=== PATIENT | male | born 1990 | race Two or more races ===

== ENCOUNTER 2020-08-04 16:23 | Emergency (ER) | payer OTHER, SELFPAY ==
[2020-08-04 17:00] VITALS: BP 162/78; PULSE 84; RESP 16; TEMP 36.6; O2SAT 96; BMI 32.3
--- NOTE | 2020-08-04 17:00 | ED_ITS ---
HPI - General Adult General Chief complaint: General Medical <Terri Miles NP - Last Filed: 08/04/20 17:04> Stated complaint: Leg Swelling <Terri Miles NP - Last Filed: 08/04/20 17:04> Time Seen by Provider: 08/04/20 16:55 <Terri Miles NP - Last Filed: 08/04/20 17:04> Source: patient <Brianna Walker MD - Last Filed: 08/05/20 02:13> History of Present Illness HPI narrative: Will 29-year-old male with significant past medical 1 kidney of wall as snorting cocaine and by Percocet off a tree and they will improve his heart in assisted he will be had worsening bilateral lower extremity swelling that is painful when he walks. Otherwise, he denies any fever, chills, shortness of breath, chest pain/palpitations, GI symptoms, or symptoms. <Brianna Walker MD - Last Filed: 08/05/20 02:13> Related Data Allergies/adverse reactions: Allergies Allergy/AdvReac Type Severity Reaction Status Date / Time No Known Allergies Allergy Unverified 04/17/20 15:52 <Terri Miles NP - Last Filed: 08/04/20 17:04> Review of Systems Review of Systems: Pertinent positives and negatives as stated in HPI 10 point review systems is otherwise negative. <Brianna Walker MD - Last Filed: 08/05/20 02:13> PMFSH Past Medical History Source: nursing notes reviewed <Brianna Walker MD - Last Filed: 08/05/20 02:13> Surgical History: Surgical History H/O kidney removal <Terri Miles NP - Last Filed: 08/04/20 17:04> Social History Social History: Social History Advance Directives: No <Terri Miles NP - Last Filed: 08/04/20 17:04> Physical Exam Vital Signs: Vital Signs: Last Vital Signs Temp 98.9 F 08/05/20 00:00 Pulse 68 08/05/20 00:00 Resp 16 08/05/20 00:00 BP 150/87 H 08/05/20 00:00 Pulse Ox 97 08/05/20 00:00 Body Mass Index 32.3 <Terri Miles NP - Last Filed: 08/04/20 17:04> Vital Signs: Last Vital Signs Temp 98.9 F 08/05/20 00:00 Pulse 68 08/05/20 00:00 Resp 16 08/05/20 00:00 BP 150/87 H 08/05/20 00:00 Pulse Ox 97 08/05/20 00:00 Body Mass Index 32.3 <Brianna Walker MD - Last Filed: 08/05/20 02:13> VITAL SIGNS: Reviewed. GENERAL: Well developed, well nourished, in no acute distress. NOSE: Nares patent bilateral OROPHARYNX: no oral lesions noted, posterior pharynx clear and non-erythematous without noted tonsillar enlargement/erythema/exudates NECK: Supple, no adenopathy LUNGS: Normal breath sounds. No adventitious sounds or accessory muscle use. SpO2<97> CARDIOVASCULAR: Regular rate and rhythm without noted murmurs, no JVD ABDOMEN: Soft, non-tender, non-distended with bowel sounds. No rigidity. No guarding. No palpable masses or hernias noted EXTREMITIES: Bilateral lower extremities with swelling, nonpitting, otherwise neurovascularly intact without evidence ulcerations or erythema noted NEUROLOGIC: Alert and oriented x 4. <Brianna Walker MD - Last Filed: 08/05/20 02:13> Course Course Course Narrative: 1700-This serves as a rapid medical screen. 29yo male with a solitary kidney, Heroin use (NOT IV) here with bilateral lower leg sweling, abdominal swelling, hand swelling bilateral >1 weEK. No cough, shortness of breath or chest pain. Will check labs. Deferred HPI, PE, ROS and further evaluation to primary provider. <Terri Miles NP - Last Filed: 08/04/20 17:04> This is a 29-year-old male with history and clinical presentation most consistent with possible renal versus DVT (although less likely). There is no evidence to suggest cellulitis. On review of all investigations there is no evidence of infection, venous duplex is negative for DVT or evidence soft tissue swelling, there are no significant electrolyte abnormalities noted, and urinalysis is negative. All results and findings were discussed with the patient at bedside and he states he does have a primary care provider whom he will follow up with in the morning. Patient was discharged in stable condition. <Brianna Walker MD - Last Filed: 08/05/20 02:13> Medical Decision Making Lab Data Result diagrams: : 08/04/20 21:35 08/04/20 21:35 <Terri Miles NP - Last Filed: 08/04/20 17:04> Labs: Lab Results 08/04/20 08/04/20 08/04/20 Range/Units 21:35 21:35 21:35 WBC 8.3 (4.8-10.8) X10*3/uL RBC 4.48 L (4.60-5.80) X10*6/uL Hgb 13.0 L (14.0-18.0) g/dl Hct 40.4 L (42-52) % MCV 90.2 (80-98) fL MCH 29.0 (27.0-33.0) pg MCHC 32.2 (31.0-36.0) g/dl RDW 13.0 (11.0-16.0) % Plt Count 350 (160-400) X10*3/uL MPV 9.3 L (9.4-12.4) fL Immature Gran % (Auto) 0.1 (0.0-0.4) % Neut % (Auto) 52.3 (45-73) % Lymph % (Auto) 26.2 (20-40) % [place] % (Auto) 8.5 (2-11) % Eos % (Auto) 12.2 H (0-4) % Baso % (Auto) 0.7 (0-2) % Lymph # (Auto) 2.2 (1.2-4.9) X10*3/uL [place] # (Auto) 0.7 (0.1-1.2) X10*3/uL Eos # (Auto) 1.0 H (0.0-0.4) X10*3/uL Baso # (Auto) 0.1 (0.0-0.2) X10*3/uL Abs Immat Gran (auto) 0.01 (0.00-0.03) X10*3/uL Absolute Neuts (auto) 4.3 (2.0-8.3) X10*3/uL Absolute Nucleated RBC 0.000 (0.0-0.012) X10*3/uL Nucleated RBC % (auto) 0.0 (0.0-0.2) /100WBC Hold Blue Top SEE NOTE Sodium 139 (135-145) mmol/L Potassium 4.7 (3.3-5.1) mmol/l Chloride 102 (96-108) mmol/L Carbon Dioxide 32 H (22-29) mmol/L Anion Gap 10 L (12-20) BUN 10 (9-16) mg/dL Creatinine 0.84 (0.5-1.4) mg/dL Estim Creat Clear Calc 135.6 Estimated GFR > 60 Random Glucose 101 (60-115) mg/dL Calcium 9.0 (8.4-10.2) mg/dL Magnesium 2.1 (1.6-2.6) mg/dL Total Bilirubin 0.4 (0.0-1.0) mg/dL Direct Bilirubin 0.2 (0.0-0.5) mg/dL AST 19 (5-37) U/L ALT 38 (0-40) U/L Alkaline Phosphatase 101 (39-117) U/L B-Natriuretic Peptide (<100) pg/mL Total Protein 7.1 (6.5-8.0) g/dL Albumin 4.1 (3.5-5.0) g/dL Urine Color Urine Appearance Urine pH (5.0-8.0) Ur Specific [place] (1.005-1.025) Urine Protein (NEG-TRACE) MG/DL Urine Glucose (UA) (NEG) MG/DL Urine Ketones (NEG) MG/DL Urine Blood (NEG) Urine Nitrite (NEG) Ur Leukocyte Esterase (NEG) Urine Opiates Screen (Not Detect) Ur Barbiturates Screen (Not Detect) Ur Phencyclidine Scrn (Not Detect) Ur Amphetamines Screen (Not Detect) U Benzodiazepines Scrn (Not Detect) Urine Cocaine Screen (Not Detect) U Marijuana (THC) Screen (Not Detect) 08/04/20 08/05/20 08/05/20 Range/Units 21:35 00:49 00:49 WBC (4.8-10.8) X10*3/uL RBC (4.60-5.80) X10*6/uL Hgb (14.0-18.0) g/dl Hct (42-52) % MCV (80-98) fL MCH (27.0-33.0) pg MCHC (31.0-36.0) g/dl RDW (11.0-16.0) % Plt Count (160-400) X10*3/uL MPV (9.4-12.4) fL Immature Gran % (Auto) (0.0-0.4) % Neut % (Auto) (45-73) % Lymph % (Auto) (20-40) % [place] % (Auto) (2-11) % Eos % (Auto) (0-4) % Baso % (Auto) (0-2) % Lymph # (Auto) (1.2-4.9) X10*3/uL [place] # (Auto) (0.1-1.2) X10*3/uL Eos # (Auto) (0.0-0.4) X10*3/uL Baso # (Auto) (0.0-0.2) X10*3/uL Abs Immat Gran (auto) (0.00-0.03) X10*3/uL Absolute Neuts (auto) (2.0-8.3) X10*3/uL Absolute Nucleated RBC (0.0-0.012) X10*3/uL Nucleated RBC % (auto) (0.0-0.2) /100WBC Hold Blue Top Sodium (135-145) mmol/L Potassium (3.3-5.1) mmol/l Chloride (96-108) mmol/L Carbon Dioxide (22-29) mmol/L Anion Gap (12-20) BUN (9-16) mg/dL Creatinine (0.5-1.4) mg/dL Estim Creat Clear Calc Estimated GFR Random Glucose (60-115) mg/dL Calcium (8.4-10.2) mg/dL Magnesium (1.6-2.6) mg/dL Total Bilirubin (0.0-1.0) mg/dL Direct Bilirubin (0.0-0.5) mg/dL AST (5-37) U/L ALT (0-40) U/L Alkaline Phosphatase (39-117) U/L B-Natriuretic Peptide 12 (<100) pg/mL Total Protein (6.5-8.0) g/dL Albumin (3.5-5.0) g/dL Urine Color YELLOW Urine Appearance CLEAR Urine pH 7.5 (5.0-8.0) Ur Specific [place] 1.020 (1.005-1.025) Urine Protein TRACE (NEG-TRACE) MG/DL Urine Glucose (UA) NEG (NEG) MG/DL Urine Ketones NEG (NEG) MG/DL Urine Blood NEG (NEG) Urine Nitrite NEG (NEG) Ur Leukocyte Esterase NEG (NEG) Urine Opiates Screen POSITIVE H (Not Detect) Ur Barbiturates Screen Not Detected (Not Detect) Ur Phencyclidine Scrn Not Detected (Not Detect) Ur Amphetamines Screen Not Detected (Not Detect) U Benzodiazepines Scrn Not Detected (Not Detect) Urine Cocaine Screen Not Detected (Not Detect) U Marijuana (THC) Screen Not Detected (Not Detect) <Terri Miles, [employer]ING SUPER[employer]OR - Last Filed: 08/04/20 17:04> Lab Results 08/04/20 08/04/20 08/04/20 Range/Units 21:35 21:35 21:35 WBC 8.3 (4.8-10.8) X10*3/uL RBC 4.48 L (4.60-5.80) X10*6/uL Hgb 13.0 L (14.0-18.0) g/dl Hct 40.4 L (42-52) % MCV 90.2 (80-98) fL MCH 29.0 (27.0-33.0) pg MCHC 32.2 (31.0-36.0) g/dl RDW 13.0 (11.0-16.0) % Plt Count 350 (160-400) X10*3/uL MPV 9.3 L (9.4-12.4) fL Immature Gran % (Auto) 0.1 (0.0-0.4) % Neut % (Auto) 52.3 (45-73) % Lymph % (Auto) 26.2 (20-40) % [place] % (Auto) 8.5 (2-11) % Eos % (Auto) 12.2 H (0-4) % Baso % (Auto) 0.7 (0-2) % Lymph # (Auto) 2.2 (1.2-4.9) X10*3/uL [place] # (Auto) 0.7 (0.1-1.2) X10*3/uL Eos # (Auto) 1.0 H (0.0-0.4) X10*3/uL Baso # (Auto) 0.1 (0.0-0.2) X10*3/uL Abs Immat Gran (auto) 0.01 (0.00-0.03) X10*3/uL Absolute Neuts (auto) 4.3 (2.0-8.3) X10*3/uL Absolute Nucleated RBC 0.000 (0.0-0.012) X10*3/uL Nucleated RBC % (auto) 0.0 (0.0-0.2) /100WBC Hold Blue Top SEE NOTE Sodium 139 (135-145) mmol/L Potassium 4.7 (3.3-5.1) mmol/l Chloride 102 (96-108) mmol/L Carbon Dioxide 32 H (22-29) mmol/L Anion Gap 10 L (12-20) BUN 10 (9-16) mg/dL Creatinine 0.84 (0.5-1.4) mg/dL Estim Creat Clear Calc 135.6 Estimated GFR > 60 Random Glucose 101 (60-115) mg/dL Calcium 9.0 (8.4-10.2) mg/dL Magnesium 2.1 (1.6-2.6) mg/dL Total Bilirubin 0.4 (0.0-1.0) mg/dL Direct Bilirubin 0.2 (0.0-0.5) mg/dL AST 19 (5-37) U/L ALT 38 (0-40) U/L Alkaline Phosphatase 101 (39-117) U/L B-Natriuretic Peptide (<100) pg/mL Total Protein 7.1 (6.5-8.0) g/dL Albumin 4.1 (3.5-5.0) g/dL Urine Color Urine Appearance Urine pH (5.0-8.0) Ur Specific [place] (1.005-1.025) Urine Protein (NEG-TRACE) MG/DL Urine Glucose (UA) (NEG) MG/DL Urine Ketones (NEG) MG/DL Urine Blood (NEG) Urine Nitrite (NEG) Ur Leukocyte Esterase (NEG) Urine Opiates Screen (Not Detect) Ur Barbiturates Screen (Not Detect) Ur Phencyclidine Scrn (Not Detect) Ur Amphetamines Screen (Not Detect) U Benzodiazepines Scrn (Not Detect) Urine Cocaine Screen (Not Detect) U Marijuana (THC) Screen (Not Detect) 08/04/20 08/05/20 08/05/20 Range/Units 21:35 00:49 00:49 WBC (4.8-10.8) X10*3/uL RBC (4.60-5.80) X10*6/uL Hgb (14.0-18.0) g/dl Hct (42-52) % MCV (80-98) fL MCH (27.0-33.0) pg MCHC (31.0-36.0) g/dl RDW (11.0-16.0) % Plt Count (160-400) X10*3/uL MPV (9.4-12.4) fL Immature Gran % (Auto) (0.0-0.4) % Neut % (Auto) (45-73) % Lymph % (Auto) (20-40) % [place] % (Auto) (2-11) % Eos % (Auto) (0-4) % Baso % (Auto) (0-2) % Lymph # (Auto) (1.2-4.9) X10*3/uL [place] # (Auto) (0.1-1.2) X10*3/uL Eos # (Auto) (0.0-0.4) X10*3/uL Baso # (Auto) (0.0-0.2) X10*3/uL Abs Immat Gran (auto) (0.00-0.03) X10*3/uL Absolute Neuts (auto) (2.0-8.3) X10*3/uL Absolute Nucleated RBC (0.0-0.012) X10*3/uL Nucleated RBC % (auto) (0.0-0.2) /100WBC Hold Blue Top Sodium (135-145) mmol/L Potassium (3.3-5.1) mmol/l Chloride (96-108) mmol/L Carbon Dioxide (22-29) mmol/L Anion Gap (12-20) BUN (9-16) mg/dL Creatinine (0.5-1.4) mg/dL Estim Creat Clear Calc Estimated GFR Random Glucose (60-115) mg/dL Calcium (8.4-10.2) mg/dL Magnesium (1.6-2.6) mg/dL Total Bilirubin (0.0-1.0) mg/dL Direct Bilirubin (0.0-0.5) mg/dL AST (5-37) U/L ALT (0-40) U/L Alkaline Phosphatase (39-117) U/L B-Natriuretic Peptide 12 (<100) pg/mL Total Protein (6.5-8.0) g/dL Albumin (3.5-5.0) g/dL Urine Color YELLOW Urine Appearance CLEAR Urine pH 7.5 (5.0-8.0) Ur Specific [place] 1.020 (1.005-1.025) Urine Protein TRACE (NEG-TRACE) MG/DL Urine Glucose (UA) NEG (NEG) MG/DL Urine Ketones NEG (NEG) MG/DL Urine Blood NEG (NEG) Urine Nitrite NEG (NEG) Ur Leukocyte Esterase NEG (NEG) Urine Opiates Screen POSITIVE H (Not Detect) Ur Barbiturates Screen Not Detected (Not Detect) Ur Phencyclidine Scrn Not Detected (Not Detect) Ur Amphetamines Screen Not Detected (Not Detect) U Benzodiazepines Scrn Not Detected (Not Detect) Urine Cocaine Screen Not Detected (Not Detect) U Marijuana (THC) Screen Not Detected (Not Detect) <Brianna Walker MD - Last Filed: 08/05/20 02:13> Discharge Plan Discharge Clinical Impression: Localized swelling of both lower legs <Terri Miles NP - Last Filed: 08/04/20 17:04> Patient Disposition: Home, Self-Care <Terri Miles NP - Last Filed: 08/04/20 17:04> Instructions: Leg Edema (ED) <Terri Miles NP - Last Filed: 08/04/20 17:04> Additional Instructions: Your bilateral lower leg swelling was investigated this evening and not found to be associated with kidney problems, clots in your legs, or evidence of infection. This will require further outpatient workup and evaluation and you are instructed to follow-up with your primary care provider to initiate these investigations. <Terri Miles NP - Last Filed: 08/04/20 17:04> Referrals: Celine Duarte MD [Primary Care Provider] - 2 days (Re-evaluation outpatient management for bilateral lower leg swelling that is negative for evidence of DVT or infection.) <Terri Miles NP - Last Filed: 08/04/20 17:04>
[2020-08-04 21:43] LABS: Basophils Absolute Auto 0.1 X10*3/uL (0.0-0.2); Basophils Percent Auto 0.7 % (0-2); Eosinophils Percent Auto 12.2 % (0-4); Hematocrit 40.4 % (42-52); Imm Gran Abs Auto 0.01 X10*3/uL (0.00-0.03); Imm Gran Pct Auto 0.1 % (0.0-0.4); Lymphocytes Absolute Auto 2.2 X10*3/uL (1.2-4.9); Lymphocytes Percent Auto 26.2 % (20-40); Mean Corpuscular HGB Conc 32.2 g/dl (31.0-36.0); Mean Corpuscular Volume 90.2 fL (80-98); Mean Platelet Volume 9.3 fL (9.4-12.4); Monocytes Absolute Auto 0.7 X10*3/uL (0.1-1.2); Monocytes Percent Auto 8.5 % (2-11); Neutrophils Absolute Auto 4.3 X10*3/uL (2.0-8.3); Neutrophils Percent Auto 52.3 % (45-73); Platelet Count 350 X10*3/uL (160-400); Red Blood Count 4.48 X10*6/uL (4.60-5.80); White Blood Count 8.3 X10*3/uL (4.8-10.8)
[2020-08-04 21:44] LABS: MANUAL DIFF FLAG NO
[2020-08-04 22:21] LABS: Alanine Aminotransferase 38 U/L (0-40); Albumin Level 4.1 g/dL (3.5-5.0); Alkaline Phosphatase 101 U/L (39-117); Anion Gap 10 (12-20); Aspartate Amino Transferase 19 U/L (5-37); Bilirubin Direct 0.2 mg/dL (0.0-0.5); Bilirubin Total 0.4 mg/dL (0.0-1.0); Blood Urea Nitrogen 10 mg/dL (9-16); Carbon Dioxide 32 mmol/L (22-29); Chloride 102 mmol/L (96-108); Creatinine Clr Calc Pharmacy 135.6; Estimated Glomerular Filt Rate > 60; Glucose Random 101 mg/dL (60-115); Magnesium 2.1 mg/dL (1.6-2.6); Potassium 4.7 mmol/l (3.3-5.1); Sodium 139 mmol/L (135-145); Total Protein 7.1 g/dL (6.5-8.0)
[2020-08-04 22:27] LABS: B Type Natriuretic Peptide 12 pg/mL (<100)
[2020-08-04 22:55] VITALS: BP 146/88; PULSE 96; RESP 16; TEMP 36.7; O2SAT 95
--- NOTE | 2020-08-04 23:19 | US_ITS ---
EXAMINATION: US VENOUS ULTRASOUND WITH DOPPLER LOWER EXTREMITY, BILATERAL CLINICAL INFORMATION: Bilateral lower extremity pain and swelling COMPARISON: None TECHNIQUE: Ultrasound of the deep veins is performed from the hip to the calf with compression sonography and color and pulse Doppler assessment. Spectral analysis with color-flow imaging is performed. FINDINGS: Bilateral prominent inguinal lymph nodes are present the largest on the right measuring 2.1 cm and the left 3.2 cm. RIGHT: There is normal venous compression and respiratory variation and augmented flow. The visualized common femoral vein, superficial femoral vein, profunda femoral vein, popliteal vein, and the trifurcation region shows no evidence of deep venous thrombosis. There is no significant popliteal fossa cyst. LEFT: There is normal venous compression and respiratory variation and augmented flow. The visualized common femoral vein, superficial femoral vein, profunda femoral vein, popliteal vein, and the trifurcation region shows no evidence of deep venous thrombosis. There is no significant popliteal fossa cyst. If the patient's symptoms persist, followup ultrasound in 5 days 7 days might be of value to exclude proximal propagation from a non-visualized calf vein. US/US venous duplex LE BI IMPRESSION: No DVT demonstrated in either lower extremity.
[2020-08-05] VITALS: BP 150/87; PULSE 68; RESP 16; TEMP 37.2; O2SAT 97
[2020-08-05 00:59] LABS: Glucose Urine UA NEG (NEG); Leukocyte Esterase Urine NEG (NEG); Nitrite Urine NEG (NEG); PH 7.5 (5.0-8.0); Urine Blood NEG (NEG); Urine Ketones NEG (NEG); Urine Protein TRACE MG/DL (NEG-TRACE)
[2020-08-05 01:00] LABS: Appearance Urine CLEAR; Color Urine YELLOW; UACC Culture Trigger NO
[2020-08-05 01:18] LABS: Amphetamine Screen Urine Not Detected (Not Detect); Barbiturates, Urine Not Detected (Not Detect); Benzodiazepines Screen Urine Not Detected (Not Detect); Cannabinoid Screen Urine Not Detected (Not Detect); Cocaine Screen Urine Not Detected (Not Detect); Opiate Screen Urine POSITIVE (Not Detect); Phencyclidine Screen Urine Not Detected (Not Detect)
[2020-08-05 02:00] VITALS: BP 152/72; PULSE 64; RESP 16; TEMP 36.5; O2SAT 99
== END 2020-08-05 02:20 | disposition home or self-care (01) ==
PROVIDERS: Nurse Practitioner Family; Emergency Provider Student in an Organized Health Care Education/Training Program; PCP Internal Medicine
DX: R22.43 Localized swelling, mass and lump, lower limb, bilateral (principal); M79.662 Pain in left lower leg; M79.661 Pain in right lower leg; Z90.5 Acquired absence of kidney; F11.90 Opioid use, unspecified, uncomplicated
CPT/HCPCS: 36415; 80048; 80076; 80307; 81003; 83735; 83880; 85025; 93970; 99284

== ENCOUNTER 2021-06-27 23:13 | Emergency (ER) | payer OTHER, SELFPAY ==
[2021-06-27 23:36] VITALS: BP 143/87; PULSE 72; RESP 16; TEMP 37.1; O2SAT 97; BMI 23.3
[2021-06-27] MEDS: Lidocaine HCl 2 % MPF 5 ML VIAL SUBCUT (23:48)
[2021-06-27] MEDS: Diphth,Pertus(ACell),Tet Adult 0.5 ML SYRINGE IM (23:48)
--- NOTE | 2021-06-27 23:51 | ED.EXTPRO ---
HPI - Extremity Problem General Chief complaint: Extremity Injury, Upper <Brianna Walker MD - Last Filed: 06/28/21 00:19> Stated complaint: Finger lac/ Work inj <Brianna Walker MD - Last Filed: 06/28/21 00:19> Time Seen by Provider: 06/27/21 23:42 <Brianna Walker MD - Last Filed: 06/28/21 00:19> Source: patient <Brianna Walker MD - Last Filed: 06/28/21 00:19> Mode of arrival: ambulatory <Brianna Walker MD - Last Filed: 06/28/21 00:19> History of Present Illness HPI Narrative: 30-year-old male with inability to recall last tetanus vaccine presents with accidental laceration to dorsal aspect of left index finger while at work. Wound is currently hemostatic and patient denies any numbness/tingling/inability to fully range his finger. <Brianna Walker MD - Last Filed: 06/28/21 00:19> Related Data Allergies/Adverse reactions: Allergies Allergy/AdvReac Type Severity Reaction Status Date / Time No Known Allergies Allergy Unverified 04/17/20 15:52 <Brianna Walker MD - Last Filed: 06/28/21 00:19> Review of Systems Review of Systems: Pertinent positives and negatives as stated in HPI 10 point review of systems is otherwise negative. <Brianna Walker MD - Last Filed: 06/28/21 00:19> PMFSH Past Medical History Source: nursing notes reviewed <Brianna Walker MD - Last Filed: 06/28/21 00:19> Surgical History: Surgical History H/O kidney removal <Brianna Walker MD - Last Filed: 06/28/21 00:19> Social History Social History: Social History Patient Tobacco Use Status: Current everyday Tobacco user Use of substances other than those prescribed or required for medical reasons: No Advance Directives: No <Brianna Walker MD - Last Filed: 06/28/21 00:19> Physical Exam Vital Signs: Vital Signs: Last Vital Signs Temp 98.7 F 06/27/21 23:54 Pulse 72 06/27/21 23:36 Resp 16 06/27/21 23:54 BP 143/87 H 06/27/21 23:54 Pulse Ox 97 06/27/21 23:54 Body Mass Index 23.3 VITAL SIGNS: Reviewed. GENERAL: Well developed, well nourished, in no acute distress. HEAD: Normocephalic/atraumatic EYES: PERRLA, EOMI OROPHARYNX: no oral lesions noted, posterior pharynx clear LUNGS: Normal breath sounds. No adventitious sounds or accessory muscle use. SpO2<97> CARDIOVASCULAR: Regular rate and rhythm without noted murmurs ABDOMEN: Soft, non-tender, non-distended with bowel sounds. LEFT INDEX FINGER: 3 cm laceration to dorsal aspect of left index finger between PIP and DIP NEUROLOGIC: Alert and oriented x 4. Strength and sensation to light touch were grossly intact x 4. <Brianna Walker MD - Last Filed: 06/28/21 00:19> Vital Signs: Last Vital Signs Temp 98.7 F 06/27/21 23:54 Pulse 72 06/27/21 23:36 Resp 16 06/27/21 23:54 BP 143/87 H 06/27/21 23:54 Pulse Ox 97 06/27/21 23:54 Body Mass Index 23.3 <Brigid Nicole NP - Last Filed: 06/28/21 00:18> Course Course Course Narrative: 30-year-old male with history and clinical presentation consistent with laceration to left index finger which was repaired without complications and patient received Tdap. <Brianna Walker MD - Last Filed: 06/28/21 00:19> Procedures Laceration Laceration 1: Site: hand <Brigid Nicole NP - Last Filed: 06/28/21 00:18> Side (If applicable): left <Brigid Nicole NP - Last Filed: 06/28/21 00:18> Size (cm): 4 <Brigid Nicole NP - Last Filed: 06/28/21 00:18> Description: flap and irregular <Brigid Nicole NP - Last Filed: 06/28/21 00:18> Depth: simple, single layer <Brigid Nicole NP - Last Filed: 06/28/21 00:18> Local Anesthetic: lidocaine 2% <Brigid Nicole NP - Last Filed: 06/28/21 00:18> Amount of anesthesia used (mL): 4 <Brigid Nicole NP - Last Filed: 06/28/21 00:18> Pre-repair: wound explored, irrigated extensively and deep structures intact <Brigid Nicole NP - Last Filed: 06/28/21 00:18> Skin layer closed with: nylon <Brigid Nicole NP - Last Filed: 06/28/21 00:18> Size (cm): 4-0 <Brigid Nicole NP - Last Filed: 06/28/21 00:18> Number of sutures: 9 <Brigid Nicole NP - Last Filed: 06/28/21 00:18> Technique: simple, interrupted <Brigid Nicole NP - Last Filed: 06/28/21 00:18> Nerve Block Nerve Block 1: Local Anesthetic: lidocaine 2% <Brigid Nicole NP - Last Filed: 06/28/21 00:18> Amount of anesthesia used (mL): 4 <Brigid Nicole NP - Last Filed: 06/28/21 00:18> Side: left <Brigid Nicole NP - Last Filed: 06/28/21 00:18> Nerve Blocks: digital <Briigd Nicole NP - Last Filed: 06/28/21 00:18> Procedure Successful: Yes <Brigid Nicole NP - Last Filed: 06/28/21 00:18> Patient Tolerated Procedure: well and no complications <Brigid Nicole NP - Last Filed: 06/28/21 00:18> Complications: none <Brigid Nicole NP - Last Filed: 06/28/21 00:18> Discharge Plan Discharge Clinical Impression: Laceration of left index finger <Brianna Walker MD - Last Filed: 06/28/21 00:19> Patient Disposition: Home, Self-Care <Brianna Walker MD - Last Filed: 06/28/21 00:19> Instructions: Care For Your Stitches (ED), Finger Laceration (ED) <Brianna Walker MD - Last Filed: 06/28/21 00:19> Additional Instructions: 1. Recommend [id number] Tylenol/ibuprofen as needed for pain control. 2. May cleanse with soap and water and blot dry after 24 hours. You should apply antibiotic ointment and cover the wound until sutures are removed in 5-7 days. Return for any fevers or purulence drainage. <Brianna Walker MD - Last Filed: 06/28/21 00:19> Referrals: Celine Duarte MD [Primary Care Provider] - 2 days <Brianna Walker MD - Last Filed: 06/28/21 00:19>
[2021-06-27 23:54] VITALS: BP 143/87; RESP 16; TEMP 37.1; O2SAT 97
--- NOTE | 2021-06-28 00:08 | PC.NURSE ---
pt a&o, no sob or chest pain. laceration clean and sutured. medicated per Sep. positive Cms and pulses.
[2021-06-28 00:44] VITALS: BP 146/96; PULSE 69; O2SAT 98
== END 2021-06-28 00:45 | disposition home or self-care (01) ==
PROVIDERS: Emergency Provider Student in an Organized Health Care Education/Training Program; PCP Internal Medicine
DX: S61.211A Laceration without foreign body of left index finger without damage to nail, initial encounter (principal); X58.XXXA Exposure to other specified factors, initial encounter; Y93.9 Activity, unspecified; Y92.9 Unspecified place or not applicable; Y99.0 Civilian activity done for income or pay
CPT/HCPCS: 12002; 90471; 90715; 99284

== ENCOUNTER 2021-07-10 16:39 | Emergency (ER) | payer OTHER, SELFPAY | END 2021-07-10 22:03 | disposition left against medical advice (07) | PROVIDERS: Emergency Provider Internal Medicine; PCP Internal Medicine | DX: Z48.02 Encounter for removal of sutures (principal) ==

== ENCOUNTER 2021-07-10 23:30 | Emergency (ER) | payer OTHER, SELFPAY ==
[2021-07-11 00:02] VITALS: BP 177/93; PULSE 111; RESP 18; TEMP 37.2; O2SAT 95; BMI 23.3
== END 2021-07-11 01:27 | disposition left against medical advice (07) ==
PROVIDERS: Emergency Provider Emergency Medicine; PCP Internal Medicine
DX: Z48.02 Encounter for removal of sutures (principal)
CPT/HCPCS: 99281; 99282

== ENCOUNTER 2021-10-21 07:09 | Inpatient (IN) | payer OTHER, SELFPAY ==
[2021-10-21] VITALS (11 sets, daily range): BP systolic 96–130; BP diastolic 48–87; PULSE 72–152; RESP 11–21; TEMP 36.6–37.2; O2SAT 87–100; BMI 23.5
--- NOTE | 2021-10-21 | ECG_ITS ---
Test Reason : cp Blood Pressure : / mmHG Vent. Rate : 078 BPM Atrial Rate : 078 BPM P-R Int : 174 ms QRS Dur : 074 ms QT Int : 382 ms P-R-T Axes : 049 088 086 degrees QTc Int : 435 ms Poor data quality Normal sinus rhythm Normal ECG When compared with ECG of 21-OCT-2021 11:11, No significant change was found Referred By: Yobani Wood Electronically Signed By:WATSON PORTILLO MD
--- NOTE | ~2021-10-21 | XR_ITS ---
EXAMINATION: XR CHEST CLINICAL INFORMATION: Possible aspiration, low O2 sat. COMPARISON: Chest 12/18/2014 TECHNIQUE: Frontal view of the chest was obtained. FINDINGS: The lungs are fairly well-expanded with increased bilateral suprahilar markings and patchy opacity suspicious for infiltrates. Rest lungs are clear. The heart size and pulmonary vascularity is normal. XR/XR chest 1V IMPRESSION: Increased bilateral suprahilar opacity and increased markings suspicious for developing infiltrates.
--- NOTE | ~2021-10-21 | US_ITS ---
EXAMINATION: US RETROPERITONEAL LIMITED (RENAL ONLY) CLINICAL INFORMATION: Renal failure. COMPARISON: None TECHNIQUE: Intervertebral imaging of ultrasound is performed. FINDINGS: RIGHT KIDNEY: The right kidney has been removed. LEFT KIDNEY: 12.3 x 7.2 x 5.6 cm (SAG x AP x TRV). The kidney is normal in size, contour, and echogenicity. Renal cortical thickness is normal. No calculi or focal parenchymal lesions. No hydronephrosis. US/US renal BI IMPRESSION: Unremarkable left kidney ultrasound. The right kidney has been surgically removed.
--- NOTE | 2021-10-21 07:12 | ED_ITS ---
HPI - Overdose General Chief Complaint: Overdose Stated Complaint: OVERDOSE,4 MG NARCAN Time Seen by Provider: 10/21/21 07:12 Source: patient and EMS Mode of arrival: EMS Limitations: no limitations History of Present Illness HPI Narrative: Family found patient unresponsive on the couch. He had 4mg IM of Narcan, dino holguin episodes of vomiting Related Data Home Medications Medication Instructions Recorded Confirmed albuterol sulfate 90 mcg/actuation 2 puff PO QID 10/21/21 10/21/21 aerosol inhaler (ProAir HFA) buprenorphine 8 mg-naloxone 2 mg 1 strip SUBLINGUAL BID 10/21/21 10/21/21 sublingual film (Suboxone) fluticasone propionate 110 2 puff PO BID 10/21/21 10/21/21 mcg/actuation HFA aerosol inhaler (Flovent HFA) Previous Rx's Medication Instructions Recorded amoxicillin 875 mg-potassium 1 tab PO BID 5 Days #10 tab 10/22/21 clavulanate 125 mg tablet Allergies Allergy/AdvReac Type Severity Reaction Status Date / Time No Known Allergies Allergy Unverified 04/17/20 15:52 Review of Systems Neurologic: Denies Sensory deficit (Neuro) COUNT INCLUDES THE [facility] Past Medical History Medical History (Updated 10/22/21 @ 16:16 by Peter Winston MD) Anxiety and depression Surgical History (Updated 10/21/21 @ 11:43 by Yobani Wood MD) H/O kidney removal H/O right nephrectomy Social History Social History Household Members: Significant Other Housing: Apartment Do you presently have visiting nurse or other home services: No Unable to assess alcohol history related to: Refusing to respond Alcohol intake: never Patient Tobacco Use Status: Tobacco use Unknown Substance Use Type: Heroin service: No Current occupational status: unemployed Physical Exam Vital Signs: Vital Signs: Last Vital Signs Temp 98.8 F 10/22/21 15:37 Pulse 80 10/22/21 15:37 Resp 14 10/22/21 15:37 BP 110/67 10/22/21 15:37 Pulse Ox 99 10/22/21 15:37 BMI result Body Mass Index 23.5 Const: Other: young male lethargic and short of breath, arousable to noxious stimulus Nutritional Appearance: average body habitus Orientation/consciousness: oriented to person and patient oriented x3 Limitations: no limitations HEENT: Other: pinpoint pupils Ears: external ears normal General nose exam: Normal external nose present Mouth: Normal oral and palatal mucosa present and oropharynx normal Throat: Yes posterior oropharynx normal Eyes: Other: pinpoint pupils Neck: Other: supple Neck: Yes normal visual inspection Chest: Chest palpation & inspection: normal inspection of the chest Resp: Auscultation: clear to auscultation bilaterally Cardio: Jugular venous distension: no JVD Rate: regular rate Rhythm: regular rhythm Heart sounds: S1 normal heart sound present and S2 normal heart sound present GI: Inspection: Yes normal to inspection Palpation (GI): Soft to palpation, nontender and No hepatosplenomegaly present Auscultation: normal bowel sounds : General: Yes no CVA tenderness Back/Spine/Pelvis: Back: no CVA tenderness Skin: General skin exam: no rashes or lesions noted Neuro: General: oriented to person and patient oriented x3 Cranial nerves: Yes CN's II-XII intact bilaterally Motor exam (neuro): 5/5 motor strength present throughout Sensory Exam: No Sensory deficit (Neuro) Extrem: General: Yes normal to inspection Psych: Appearance: grossly normal Course Reevaluation(s) Reevaluation #1: currently concerned about noncardiogenic pulmonary edema, patient with one kidney and now possible DANYEL, will repeat CHem 7 and if renal function not improved will obtain US of single kidney, sugar wildly fluctuating will repeat CHEm 7. Time: 09:16 Reevaluation #2: Creatinine slightly improved will still obtain renal US, and admit Time: 10:57 MDM - Overdose Lab Data Result diagrams: 10/21/21 07:46 10/22/21 06:18 Labs: Lab Results 10/21/21 10/21/21 10/21/21 Range/Units 07:26 07:40 07:46 WBC 12.1 H (4.8-10.8) X10*3/uL RBC 5.18 (4.60-5.80) X10*6/uL Hgb 15.9 (14.0-18.0) g/dl Hct 49.3 (42.0-52.0) % MCV 95.2 (80.0-98.0) fL MCH 30.7 (27.0-33.0) pg MCHC 32.3 (31.0-36.0) g/dl RDW 12.3 (11.0-16.0) % Plt Count 259 (160-400) X10*3/uL MPV 10.2 (9.4-12.4) fL Immature Gran % (Auto) 1.0 H (0.0-0.4) % Neut % (Auto) 88.5 H (45-73) % Lymph % (Auto) 8.6 L (20-40) % [place] % (Auto) 0.8 L (2-11) % Eos % (Auto) 0.9 (0-4) % Baso % (Auto) 0.2 (0-2) % Lymph # (Auto) 1.1 L (1.2-4.9) X10*3/uL [place] # (Auto) 0.1 (0.1-1.2) X10*3/uL Eos # (Auto) 0.1 (0.0-0.4) X10*3/uL Baso # (Auto) 0.0 (0.0-0.2) X10*3/uL Abs Immat Gran (auto) 0.12 H (0.00-0.03) X10*3/uL Absolute Neuts (auto) 10.7 H (2.0-8.3) x10*3/uL Absolute Nucleated RBC 0.000 (0.0-0.012) X10*3/uL Nucleated RBC % (auto) 0.0 (0.0-0.2) /100WBC Sodium (135-145) mmol/L Potassium (3.3-5.1) mmol/L Chloride (96-108) mmol/L Carbon Dioxide (22-29) mmol/L Anion Gap (12-20) BUN (9-16) mg/dL Creatinine (0.5-1.4) mg/dL Estim Creat Clear Calc Estimated GFR POC Glucose 248 H (60-115) mg/dL Random Glucose (60-115) mg/dL Calcium (8.4-10.2) mg/dL Troponin I High Sens (<3.5-35.0) ng/L B-Natriuretic Peptide (<100) pg/mL Procalcitonin ng/mL Urine Color Urine Appearance Urine pH (5.0-8.0) Ur Specific [place] (1.005-1.025) Urine Protein (NEG-TRACE) MG/DL Urine Glucose (UA) (NEG) MG/DL Urine Ketones (NEG) MG/DL Urine Blood (NEG) Urine Nitrite (NEG) Ur Leukocyte Esterase (NEG) Urine RBC (0) /HPF Urine WBC (0-4) /HPF Ur Squamous Epith Cells /LPF Triple Phos Crystals /LPF Urine Bacteria /LPF Urine Mucus /LPF Urine Opiates Screen (Not Detect) Urine Fentanyl Screen (Not Detect) Ur Barbiturates Screen (Not Detect) Ur Phencyclidine Scrn (Not Detect) Ur Amphetamines Screen (Not Detect) U Benzodiazepines Scrn (Not Detect) Urine Cocaine Screen (Not Detect) U Marijuana (THC) Screen (Not Detect) COVID-19 (RENITA) Negative (Negative) COVID-19 Clin Com See Note 10/21/21 10/21/21 10/21/21 Range/Units 07:46 07:46 07:46 WBC (4.8-10.8) X10*3/uL RBC (4.60-5.80) X10*6/uL Hgb (14.0-18.0) g/dl Hct (42.0-52.0) % MCV (80.0-98.0) fL MCH (27.0-33.0) pg MCHC (31.0-36.0) g/dl RDW (11.0-16.0) % Plt Count (160-400) X10*3/uL MPV (9.4-12.4) fL Immature Gran % (Auto) (0.0-0.4) % Neut % (Auto) (45-73) % Lymph % (Auto) (20-40) % [place] % (Auto) (2-11) % Eos % (Auto) (0-4) % Baso % (Auto) (0-2) % Lymph # (Auto) (1.2-4.9) X10*3/uL [place] # (Auto) (0.1-1.2) X10*3/uL Eos # (Auto) (0.0-0.4) X10*3/uL Baso # (Auto) (0.0-0.2) X10*3/uL Abs Immat Gran (auto) (0.00-0.03) X10*3/uL Absolute Neuts (auto) (2.0-8.3) x10*3/uL Absolute Nucleated RBC (0.0-0.012) X10*3/uL Nucleated RBC % (auto) (0.0-0.2) /100WBC Sodium 143 (135-145) mmol/L Potassium 5.5 H (3.3-5.1) mmol/L Chloride 102 (96-108) mmol/L Carbon Dioxide 21 L (22-29) mmol/L Anion Gap 26 H (12-20) BUN 19 H (9-16) mg/dL Creatinine 1.87 H (0.5-1.4) mg/dL Estim Creat Clear Calc 53.0 Estimated GFR 42 POC Glucose (60-115) mg/dL Random Glucose 131 H (60-115) mg/dL Calcium 10.1 D (8.4-10.2) mg/dL Troponin I High Sens 31.6 (<3.5-35.0) ng/L B-Natriuretic Peptide < 10 (<100) pg/mL Procalcitonin 0.08 ng/mL Urine Color Urine Appearance Urine pH (5.0-8.0) Ur Specific [place] (1.005-1.025) Urine Protein (NEG-TRACE) MG/DL Urine Glucose (UA) (NEG) MG/DL Urine Ketones (NEG) MG/DL Urine Blood (NEG) Urine Nitrite (NEG) Ur Leukocyte Esterase (NEG) Urine RBC (0) /HPF Urine WBC (0-4) /HPF Ur Squamous Epith Cells /LPF Triple Phos Crystals /LPF Urine Bacteria /LPF Urine Mucus /LPF Urine Opiates Screen (Not Detect) Urine Fentanyl Screen (Not Detect) Ur Barbiturates Screen (Not Detect) Ur Phencyclidine Scrn (Not Detect) Ur Amphetamines Screen (Not Detect) U Benzodiazepines Scrn (Not Detect) Urine Cocaine Screen (Not Detect) U Marijuana (THC) Screen (Not Detect) COVID-19 (RENITA) (Negative) COVID-19 Clin Com 10/21/21 10/21/21 10/21/21 Range/Units 08:13 08:13 08:56 WBC (4.8-10.8) X10*3/uL RBC (4.60-5.80) X10*6/uL Hgb (14.0-18.0) g/dl Hct (42.0-52.0) % MCV (80.0-98.0) fL MCH (27.0-33.0) pg MCHC (31.0-36.0) g/dl RDW (11.0-16.0) % Plt Count (160-400) X10*3/uL MPV (9.4-12.4) fL Immature Gran % (Auto) (0.0-0.4) % Neut % (Auto) (45-73) % Lymph % (Auto) (20-40) % [place] % (Auto) (2-11) % Eos % (Auto) (0-4) % Baso % (Auto) (0-2) % Lymph # (Auto) (1.2-4.9) X10*3/uL [place] # (Auto) (0.1-1.2) X10*3/uL Eos # (Auto) (0.0-0.4) X10*3/uL Baso # (Auto) (0.0-0.2) X10*3/uL Abs Immat Gran (auto) (0.00-0.03) X10*3/uL Absolute Neuts (auto) (2.0-8.3) x10*3/uL Absolute Nucleated RBC (0.0-0.012) X10*3/uL Nucleated RBC % (auto) (0.0-0.2) /100WBC Sodium (135-145) mmol/L Potassium (3.3-5.1) mmol/L Chloride (96-108) mmol/L Carbon Dioxide (22-29) mmol/L Anion Gap (12-20) BUN (9-16) mg/dL Creatinine (0.5-1.4) mg/dL Estim Creat Clear Calc Estimated GFR POC Glucose 51 L* (60-115) mg/dL Random Glucose (60-115) mg/dL Calcium (8.4-10.2) mg/dL Troponin I High Sens (<3.5-35.0) ng/L B-Natriuretic Peptide (<100) pg/mL Procalcitonin ng/mL Urine Color YELLOW Urine Appearance CLEAR Urine pH 6.5 (5.0-8.0) Ur Specific [place] 1.020 (1.005-1.025) Urine Protein 2+ H (NEG-TRACE) MG/DL Urine Glucose (UA) 250 H (NEG) MG/DL Urine Ketones NEG (NEG) MG/DL Urine Blood 2+ H (NEG) Urine Nitrite NEG (NEG) Ur Leukocyte Esterase NEG (NEG) Urine RBC 15-29 H (0) /HPF Urine WBC 0-2 (0-4) /HPF Ur Squamous Epith Cells TRACE /LPF Triple Phos Crystals NONE /LPF Urine Bacteria 1+ /LPF Urine Mucus 1+ /LPF Urine Opiates Screen POSITIVE H (Not Detect) Urine Fentanyl Screen POSITIVE H (Not Detect) Ur Barbiturates Screen Not Detected (Not Detect) Ur Phencyclidine Scrn Not Detected (Not Detect) Ur Amphetamines Screen Not Detected (Not Detect) U Benzodiazepines Scrn Not Detected (Not Detect) Urine Cocaine Screen POSITIVE H (Not Detect) U Marijuana (THC) Screen Not Detected (Not Detect) COVID-19 (RENITA) (Negative) COVID-19 Clin Com 10/21/21 10/21/21 10/21/21 Range/Units 09:24 10:03 10:31 WBC (4.8-10.8) X10*3/uL RBC (4.60-5.80) X10*6/uL Hgb (14.0-18.0) g/dl Hct (42.0-52.0) % MCV (80.0-98.0) fL MCH (27.0-33.0) pg MCHC (31.0-36.0) g/dl RDW (11.0-16.0) % Plt Count (160-400) X10*3/uL MPV (9.4-12.4) fL Immature Gran % (Auto) (0.0-0.4) % Neut % (Auto) (45-73) % Lymph % (Auto) (20-40) % [place] % (Auto) (2-11) % Eos % (Auto) (0-4) % Baso % (Auto) (0-2) % Lymph # (Auto) (1.2-4.9) X10*3/uL [place] # (Auto) (0.1-1.2) X10*3/uL Eos # (Auto) (0.0-0.4) X10*3/uL Baso # (Auto) (0.0-0.2) X10*3/uL Abs Immat Gran (auto) (0.00-0.03) X10*3/uL Absolute Neuts (auto) (2.0-8.3) x10*3/uL Absolute Nucleated RBC (0.0-0.012) X10*3/uL Nucleated RBC % (auto) (0.0-0.2) /100WBC Sodium 142 (135-145) mmol/L Potassium 4.3 D (3.3-5.1) mmol/L Chloride 109 H (96-108) mmol/L Carbon Dioxide 23 (22-29) mmol/L Anion Gap 14 (12-20) BUN 20 H (9-16) mg/dL Creatinine 1.48 H (0.5-1.4) mg/dL Estim Creat Clear Calc 66.9 Estimated GFR 55 POC Glucose 78 (60-115) mg/dL Random Glucose 83 D (60-115) mg/dL Calcium 8.5 D (8.4-10.2) mg/dL Troponin I High Sens 105.9 H* D (<3.5-35.0) ng/L B-Natriuretic Peptide (<100) pg/mL Procalcitonin ng/mL Urine Color Urine Appearance Urine pH (5.0-8.0) Ur Specific [place] (1.005-1.025) Urine Protein (NEG-TRACE) MG/DL Urine Glucose (UA) (NEG) MG/DL Urine Ketones (NEG) MG/DL Urine Blood (NEG) Urine Nitrite (NEG) Ur Leukocyte Esterase (NEG) Urine RBC (0) /HPF Urine WBC (0-4) /HPF Ur Squamous Epith Cells /LPF Triple Phos Crystals /LPF Urine Bacteria /LPF Urine Mucus /LPF Urine Opiates Screen (Not Detect) Urine Fentanyl Screen (Not Detect) Ur Barbiturates Screen (Not Detect) Ur Phencyclidine Scrn (Not Detect) Ur Amphetamines Screen (Not Detect) U Benzodiazepines Scrn (Not Detect) Urine Cocaine Screen (Not Detect) U Marijuana (THC) Screen (Not Detect) COVID-19 (RENITA) (Negative) COVID-19 Clin Com 10/21/21 10/21/21 Range/Units 13:09 14:34 WBC (4.8-10.8) X10*3/uL RBC (4.60-5.80) X10*6/uL Hgb (14.0-18.0) g/dl Hct (42.0-52.0) % MCV (80.0-98.0) fL MCH (27.0-33.0) pg MCHC (31.0-36.0) g/dl RDW (11.0-16.0) % Plt Count (160-400) X10*3/uL MPV (9.4-12.4) fL Immature Gran % (Auto) (0.0-0.4) % Neut % (Auto) (45-73) % Lymph % (Auto) (20-40) % [place] % (Auto) (2-11) % Eos % (Auto) (0-4) % Baso % (Auto) (0-2) % Lymph # (Auto) (1.2-4.9) X10*3/uL [place] # (Auto) (0.1-1.2) X10*3/uL Eos # (Auto) (0.0-0.4) X10*3/uL Baso # (Auto) (0.0-0.2) X10*3/uL Abs Immat Gran (auto) (0.00-0.03) X10*3/uL Absolute Neuts (auto) (2.0-8.3) x10*3/uL Absolute Nucleated RBC (0.0-0.012) X10*3/uL Nucleated RBC % (auto) (0.0-0.2) /100WBC Sodium (135-145) mmol/L Potassium (3.3-5.1) mmol/L Chloride (96-108) mmol/L Carbon Dioxide (22-29) mmol/L Anion Gap (12-20) BUN (9-16) mg/dL Creatinine (0.5-1.4) mg/dL Estim Creat Clear Calc Estimated GFR POC Glucose 163 H (60-115) mg/dL Random Glucose (60-115) mg/dL Calcium (8.4-10.2) mg/dL Troponin I High Sens 151.8 H* (<3.5-35.0) ng/L B-Natriuretic Peptide (<100) pg/mL Procalcitonin ng/mL Urine Color Urine Appearance Urine pH (5.0-8.0) Ur Specific [place] (1.005-1.025) Urine Protein (NEG-TRACE) MG/DL Urine Glucose (UA) (NEG) MG/DL Urine Ketones (NEG) MG/DL Urine Blood (NEG) Urine Nitrite (NEG) Ur Leukocyte Esterase (NEG) Urine RBC (0) /HPF Urine WBC (0-4) /HPF Ur Squamous Epith Cells /LPF Triple Phos Crystals /LPF Urine Bacteria /LPF Urine Mucus /LPF Urine Opiates Screen (Not Detect) Urine Fentanyl Screen (Not Detect) Ur Barbiturates Screen (Not Detect) Ur Phencyclidine Scrn (Not Detect) Ur Amphetamines Screen (Not Detect) U Benzodiazepines Scrn (Not Detect) Urine Cocaine Screen (Not Detect) U Marijuana (THC) Screen (Not Detect) COVID-19 (RENITA) (Negative) COVID-19 Clin Com Imaging Data Chest x-ray: My impression: bilateral interstitial infiltrates consistent with noncardiogenic pulmonary edema. ECG Data Attestation: I personally reviewed and interpreted this ECG as follows: Interpretation: normal sinus rate of 94 st elevation V2, no other st elevation Critical Care Time Critical Care Time Attestation: I spent 40 minutes of critical care, with interventions, assessments, speaking to patient, consultants, and family. Discharge Plan Discharge Clinical Impression: Drug overdose, Non-cardiogenic pulmonary edema, Acute kidney injury Patient Disposition: Admitted As Inpatient Interventions: Admission Worksheet (ED) Last Done: 10/21/21 14:31 Discharge Date/Time: 10/21/21 14:34
[2021-10-21] MEDS: Ondansetron ODT 4 MG TAB.RAPDIS TRANSLINGU (07:25)
[2021-10-21 07:30] LABS: Glucose, Whole Blood 248 mg/dL (60-115)
[2021-10-21] MEDS: Albuterol Sulfate 90 MCG 8 GM INHALER 4 PUFF INHALE (07:49)
[2021-10-21 07:50] LABS: MANUAL DIFF FLAG NO
[2021-10-21 07:52] LABS: Basophils Percent Auto 0.2 % (0-2); Eosinophils Absolute Auto 0.1 X10*3/uL (0.0-0.4); Eosinophils Percent Auto 0.9 % (0-4); Hematocrit 49.3 % (42.0-52.0); Hemoglobin 15.9 g/dl (14.0-18.0); Imm Gran Abs Auto 0.12 X10*3/uL (0.00-0.03); Lymphocytes Absolute Auto 1.1 X10*3/uL (1.2-4.9); Lymphocytes Percent Auto 8.6 % (20-40); Mean Corpuscular HGB Conc 32.3 g/dl (31.0-36.0); Mean Corpuscular Hemoglobin 30.7 pg (27.0-33.0); Mean Corpuscular Volume 95.2 fL (80.0-98.0); Mean Platelet Volume 10.2 fL (9.4-12.4); Monocytes Absolute Auto 0.1 X10*3/uL (0.1-1.2); Monocytes Percent Auto 0.8 % (2-11); Neutrophils Absolute Auto 10.7 x10*3/uL (2.0-8.3); Neutrophils Percent Auto 88.5 % (45-73); Platelet Count 259 X10*3/uL (160-400); Red Blood Count 5.18 X10*6/uL (4.60-5.80); Red Cell Distribution Width 12.3 % (11.0-16.0); White Blood Count 12.1 X10*3/uL (4.8-10.8)
[2021-10-21] MEDS: 0.9 % Sodium Chloride 1,000 ML 999 ML IVCONT (08:03)
[2021-10-21 08:07] LABS: COVID-19 Test Negative (Negative); IDNOW Serial# 16C4AD1C
[2021-10-21 08:26] LABS: Anion Gap 26 (12-20); Blood Urea Nitrogen 19 mg/dL (9-16); Calcium 10.1 mg/dL (8.4-10.2); Carbon Dioxide 21 mmol/L (22-29); Chloride 102 mmol/L (96-108); Estimated Glomerular Filt Rate 42; Glucose Random 131 mg/dL (60-115); Potassium 5.5 mmol/L (3.3-5.1); Sodium 143 mmol/L (135-145)
[2021-10-21 08:34] LABS: Amphetamine Screen Urine Not Detected (Not Detect); Barbiturates, Urine Not Detected (Not Detect); Benzodiazepines Screen Urine Not Detected (Not Detect); Cannabinoid Screen Urine Not Detected (Not Detect); Cocaine Screen Urine POSITIVE (Not Detect); Fentanyl, urine POSITIVE (Not Detect); Opiate Screen Urine POSITIVE (Not Detect); Phencyclidine Screen Urine Not Detected (Not Detect)
[2021-10-21 09:00] LABS: Glucose, Whole Blood 51 mg/dL (60-115)
[2021-10-21] MEDS: 0.9 % Sodium Chloride 1,000 ML 125 ML IVCONT (09:02)
[2021-10-21 09:16] LABS: B Type Natriuretic Peptide < 10 pg/mL (<100); Troponin-I High Sensitivity 31.6 ng/L (<3.5-35.0)
[2021-10-21 10:07] LABS: Glucose, Whole Blood 78 mg/dL (60-115)
[2021-10-21 10:08] LABS: Anion Gap 14 (12-20); Blood Urea Nitrogen 20 mg/dL (9-16); Calcium 8.5 mg/dL (8.4-10.2); Carbon Dioxide 23 mmol/L (22-29); Chloride 109 mmol/L (96-108); Creatinine Clr Calc Pharmacy 66.9; Estimated Glomerular Filt Rate 55; Glucose Random 83 mg/dL (60-115); Potassium 4.3 mmol/L (3.3-5.1); Sodium 142 mmol/L (135-145)
--- NOTE | 2021-10-21 10:26 | ECG_ITS ---
Test Reason : overdose Blood Pressure : / mmHG Vent. Rate : 094 BPM Atrial Rate : 094 BPM P-R Int : 128 ms QRS Dur : 078 ms QT Int : 342 ms P-R-T Axes : 066 076 055 degrees QTc Int : 427 ms Normal sinus rhythm Normal ECG When compared with ECG of 18-DEC-2014 19:32, Vent. rate has increased BY 31 BPM QT has lengthened Referred By: Rafi Angeles Electronically Signed By:WATSON PORTILLO MD
--- NOTE | 2021-10-21 11:03 | PHA.MEDREC ---
Pharmacy Consult ? Medication Reconciliation Pharmacy has completed the medication reconciliation. Patient reports he has not had suboxone for 1 week. Bettina Ahuja, [place]
[2021-10-21 11:26] LABS: Troponin-I High Sensitivity 105.9 ng/L (<3.5-35.0)
--- NOTE | 2021-10-21 11:28 | P.HPHOSP_ITS ---
History of Present Illness Date of Service: 10/21/21 Chief Complaint: accidental overdose This is a 31 yo M with a PMH of opiate abuse and dependence (on suboxone), anxiety/depression, R nepherectomy as a child who presents to [facility] ED after he was found unresponsive by family on the morning of admission. The history is obtained from the patients spouse, Margret Garrison (permission given by patient to speak with her), because the patient has no recollection of the events that led him to the hospital. Margret states that yesterday was a good day. The patient was in his usual state of health. She reports that yesterday evening the patient left the home with a friend. He returned shortly only to leave again. He did this multiple times. She reports that he was acting strange and she has a suspiscious that he may have done heroin/cocaine. She states that she went to bed around midnight at which point the patient was awake and alert. She states that when she awoke this morning, she found the patient on the sofa, prone positioned with vomit in the area. She states that he was gasping for air and she attempted to turn him supine but was unable to. Police/EMS were on scene and narcan (4mg) was given and the patient slowly became more alert and was brought to the ED. Upon arrival to the ED, he was noted to be hypoxic @ 87% RA. He was placed on supplemental oxygen (11L/min), given nebulized bronchodilators, IVF and admission was requested. By the time I saw the patient, his hypoxia had resolved and he appears to be breathing comfortably. He denied any substernal chest pain, cough, pleurtic c hest pain. No n/v/d. In regards to his suboxone / opiate addiction, he endorsed that he was open to a trial of methadone. He reports he snorts heroin and cocaine. Denies IV use. Review of Systems Review of Systems: negative except HPI [facility] Medical History (Updated 10/21/21 @ 11:43 by Yobani Wood MD) Anxiety and depression Pertinent family history: denies any known medical problems in the family Surgical History (Updated 10/21/21 @ 11:43 by Yobani Wood MD) H/O kidney removal H/O right nephrectomy Social History Alcohol intake: never Patient Tobacco Use Status: Current everyday Tobacco user Use of substances other than those prescribed or required for medical reasons: Yes Substance Use Type: Heroin Advance Directives: No Advance Directives Information Provided: No Meds Allergies Allergy/AdvReac Type Severity Reaction Status Date / Time No Known Allergies Allergy Unverified 04/17/20 15:52 Active Medications: Current Medications Acetaminophen (Acetaminophen 325 Mg Tablet) 650 mg PO Q6H PRN PRN Reason: Pain, Mild (Pain Scale 1-3) Albuterol Sulfate (Albuterol Sulfate (0.083%) 2.5 Mg/3 Ml Vial.Neb) 2.5 mg INHALE RQ4H WHILE AWAKE SHAILESH Enoxaparin Sodium (Enoxaparin Sodium 40 Mg/0.4 Ml Syringe) 40 mg SUBCUT Q24H SHAILESH Sodium Chloride (Ns) 1,000 mls @ 125 mls/hr IVCONT .Q8H SHAILESH Last Admin: 10/21/21 09:02 Dose: 125 mls/hr Documented by: Ampicillin Sodium/Sulbactam (Sodium 3 gm/ Sodium Chloride) 100 mls @ 200 mls/hr IV Q6H SHAILESH Ondansetron HCl (Ondansetron Hcl 4 Mg/2 Ml Vial) 4 mg IVPUSH Q8H PRN PRN Reason: Nausea and Vomiting Pharmacy Consult (Consult Rx Perform Med Rec) 1 each MISCELLANE ONCE PRN PRN Reason: Consult order Sodium Chloride (0.9 % Sodium Chloride Flush 3 Ml Syringe) 3 ml IVFLUSH [facility] Home Medications Medication Instructions Recorded Confirmed Last Taken Type albuterol sulfate 90 mcg/actuation 2 puff PO QID 10/21/21 10/21/21 Unknown History aerosol inhaler (ProAir HFA) buprenorphine 8 mg-naloxone 2 mg 1 strip SUBLINGUAL BID 10/21/21 10/21/21 10/14/21 History sublingual film (Suboxone) fluticasone propionate 110 2 puff PO BID 10/21/21 10/21/21 Unknown History mcg/actuation HFA aerosol inhaler (Flovent HFA) Physical Exam Vital Signs and Narrative: Vital Signs: Last Vital Signs Temp 98.1 F 10/21/21 07:26 Pulse 101 H 10/21/21 10:57 Resp 16 10/21/21 10:57 BP 126/82 10/21/21 10:01 Pulse Ox 96 10/21/21 10:57 BMI result Body Mass Index 23.5 Const: Other: Constitutional - Awake and Alert, No apparent distress Eyes - PERRLA, EOMI Cardiovascular - S1S2, RRR, No edema Respiratory - diminished air entry globally Gastrointestinal - NT / ND; +BS; No rebound or guarding - No CVA tenderness Extremities - no calf tenderness bilaterally, no swelling Musculoskeletal - Normal inspection, normal ROM Skin - Warm/Dry Neurological - Alert & oriented x3, No focal deficit Psychological - Flat affect Results Labs CBC and Chem 7: 10/21/21 07:46 10/21/21 09:24 Labs: Laboratory Results - last 24 hr 10/21/21 10/21/21 10/21/21 07:26 07:40 07:46 MCV 95.2 MCH 30.7 MCHC 32.3 RDW 12.3 Plt Count 259 MPV 10.2 Immature Gran % (Auto) 1.0 H Neut % (Auto) 88.5 H Lymph % (Auto) 8.6 L [place] % (Auto) 0.8 L Eos % (Auto) 0.9 Baso % (Auto) 0.2 Lymph # (Auto) 1.1 L [place] # (Auto) 0.1 Eos # (Auto) 0.1 Baso # (Auto) 0.0 Abs Immat Gran (auto) 0.12 H Absolute Neuts (auto) 10.7 H Absolute Nucleated RBC 0.000 Nucleated RBC % (auto) 0.0 Anion Gap Estim Creat Clear Calc Estimated GFR POC Glucose 248 H Random Glucose Calcium B-Natriuretic Peptide Urine Opiates Screen Urine Fentanyl Screen Ur Barbiturates Screen Ur Phencyclidine Scrn Ur Amphetamines Screen U Benzodiazepines Scrn Urine Cocaine Screen U Marijuana (THC) Screen COVID-19 (RENITA) Negative COVID-19 Clin Com See Note 10/21/21 10/21/21 10/21/21 07:46 07:46 08:13 MCV MCH MCHC RDW Plt Count MPV Immature Gran % (Auto) Neut % (Auto) Lymph % (Auto) [place] % (Auto) Eos % (Auto) Baso % (Auto) Lymph # (Auto) [place] # (Auto) Eos # (Auto) Baso # (Auto) Abs Immat Gran (auto) Absolute Neuts (auto) Absolute Nucleated RBC Nucleated RBC % (auto) Anion Gap 26 H Estim Creat Clear Calc 53.0 Estimated GFR 42 POC Glucose Random Glucose 131 H Calcium 10.1 D B-Natriuretic Peptide < 10 Urine Opiates Screen POSITIVE H Urine Fentanyl Screen POSITIVE H Ur Barbiturates Screen Not Detected Ur Phencyclidine Scrn Not Detected Ur Amphetamines Screen Not Detected U Benzodiazepines Scrn Not Detected Urine Cocaine Screen POSITIVE H U Marijuana (THC) Screen Not Detected COVID-19 (RENITA) COVID-19 Clin Com 10/21/21 10/21/21 10/21/21 08:56 09:24 10:03 MCV MCH MCHC RDW Plt Count MPV Immature Gran % (Auto) Neut % (Auto) Lymph % (Auto) [place] % (Auto) Eos % (Auto) Baso % (Auto) Lymph # (Auto) [place] # (Auto) Eos # (Auto) Baso # (Auto) Abs Immat Gran (auto) Absolute Neuts (auto) Absolute Nucleated RBC Nucleated RBC % (auto) Anion Gap 14 Estim Creat Clear Calc 66.9 Estimated GFR 55 POC Glucose 51 L* 78 Random Glucose 83 D Calcium 8.5 D B-Natriuretic Peptide Urine Opiates Screen Urine Fentanyl Screen Ur Barbiturates Screen Ur Phencyclidine Scrn Ur Amphetamines Screen U Benzodiazepines Scrn Urine Cocaine Screen U Marijuana (THC) Screen COVID-19 (RENITA) COVID-19 Clin Com Imaging Radiologist's Impressions: Impressions Chest X-Ray 10/21/21 08:27 IMPRESSION: Increased bilateral suprahilar opacity and increased markings suspicious for developing infiltrates. Assessment and Plan (1) Opiate dependence: Status: Acute Plan This is a 31 yo M with a PMH of opiate dependence on suboxone, anxiety/depression, R nephrectomy as a child, ? asthma (home meds show albuterol/flovent) who is brought in by EMS after an accidental opiate overdose. He had transient hypoxia in the ED and a CXR which likely represents aspiration. He will be admitted for further work up. 1. Acute Respiratory Failure with hypoxia required 11L O2 in the ED, now tolerating RA continue with intermittent pulse ox monitoring likely secondary to aspiration pneumonitis 2. Aspiration pneumonitis empiric IV Unasyn. Patient does not have severe sepsis hold off on steroids 3. DANYEL 3a. Mild hyperK Previous SCr is 0.84 and presented with 1.87 improving with fluids hyperK resolved give total 2L IVF not due to severe sepsis 4. Accidental opiate overdose addiction medicine consult 5. Elevated trop-I initially 31.6, increased to 105.9 no anginal symptoms and EKG without any acute ischemic findings likely secondary to presenting hypoxia check Echo repeat trop-I later today and if continues to increase -- will anticoagulate and consult cardiology Full Code DVT pptx, Lovenox Quality Stroke Does the patient have a stroke diagnosis?: No VTE Prior VTE?: No VTE Risk Level:: Medical - moderate - high VTE Device Contraindication: Treatment Not Indicated VTE Drug Contraindication: N/A - Med Ordered
[2021-10-21 11:32] LABS: Procalcitonin 0.08 ng/mL
[2021-10-21] MEDS: Albuterol Sulfate (0.083%) 2.5 MG/3 ML VIAL.NEB INHALE (11:40)
[2021-10-21] MEDS: Aspirin Enteric Coated 325 MG TABLET.DR PO (12:09)
[2021-10-21] MEDS: Enoxaparin Sodium 40 MG/0.4 ML SYRINGE SUBCUT (12:09)
[2021-10-21] MEDS: Ampicillin Sodium/Sulbactam Na 3 GM in 0.9 % Sodium Chloride 100 ML IV ×2 (12:11→17:43)
--- NOTE | 2021-10-21 12:40 | HO.ADDICT_ITS ---
History of Present Illness Date of Service: 10/21/2021 Chief Complaint: Accidental overdose Reason for Consult: Overdose Requesting physician: Yobani Wood Discussed with referring provider: Yes Sources of Information: patient interviewed and chart reviewed Additional Sources of Information: significant other, Amna HPI Narrative: Patient is a 31 year old male with history of OUD, currently medically admitted following opioid overdose. Patient seen in ED room 22. He was awake and alert and engaged in interview. Patient reported to this typewriter operator automatic that he had recently started using heroin, within the last 3 years and reports only intranasal use. He initially stated that he used 3 bags of heroin yesterday and that he had not used any prior to that for many months. He is currently prescribed Suboxone 8 mg 2 times daily and had expressed interest in transitioning to methadone. Patient denies any withdrawal sx, though this typewriter operator automatic did observe restlessness with his legs This typewriter operator automatic also spoke to patient's significant other who reported that patient been using opiates and cocaine for about 6 years. She reports that patient had been incarcerated for about 18 months and believes that this is his longest period in remission. She states that she believes patient had been stable up until late August or early September when her brother . She reports that along with opiates patient also has been buying gabapentin and Xanax on the street. He has been reporting to her a desire to enter treatment. She also reports that patient has a history of psychiatric admission for auditory and visual hallucinations. She denies that he has been showing any of the symptoms at home and has not expressed any paranoid thinking either. She states that patient had been followed by Psychiatry for some time,but he is currently not connected to any providers. Review of Systems Gastrointestinal: Denies loose stools and Denies nausea Psychiatric: Reports anxiety Diagnostics Vital Signs (24Hr): Vital Signs - 24 hr 10/21/21 07:26 10/21/21 07:51 10/21/21 08:04 Temperature 98.1 F Pulse Rate 148 H 152 H 142 H Respiratory Rate 21 H 20 Blood Pressure 130/65 129/87 Pulse Oximetry 87 L 100 10/21/21 08:54 10/21/21 10:01 10/21/21 10:57 Temperature Pulse Rate 122 H 114 H 101 H Respiratory Rate 16 16 16 Blood Pressure 127/82 126/82 Pulse Oximetry 99 100 96 10/21/21 11:40 10/21/21 12:08 Temperature 98.5 F Pulse Rate 86 92 Respiratory Rate 11 L 12 Blood Pressure 119/60 Pulse Oximetry 95 BMI result Body Mass Index 23.5 Labs Results: 10/21/21 07:46 10/21/21 09:24 Labs: Laboratory Results - last 48 hr 10/21/21 10/21/21 10/21/21 07:26 07:40 07:46 WBC 12.1 H RBC 5.18 Hgb 15.9 Hct 49.3 MCV 95.2 MCH 30.7 MCHC 32.3 RDW 12.3 Plt Count 259 MPV 10.2 Immature Gran % (Auto) 1.0 H Neut % (Auto) 88.5 H Lymph % (Auto) 8.6 L Frio % (Auto) 0.8 L Eos % (Auto) 0.9 Baso % (Auto) 0.2 Lymph # (Auto) 1.1 L Frio # (Auto) 0.1 Eos # (Auto) 0.1 Baso # (Auto) 0.0 Abs Immat Gran (auto) 0.12 H Absolute Neuts (auto) 10.7 H Absolute Nucleated RBC 0.000 Nucleated RBC % (auto) 0.0 Sodium Potassium Chloride Carbon Dioxide Anion Gap BUN Creatinine Estim Creat Clear Calc Estimated GFR POC Glucose 248 H Random Glucose Calcium Troponin I High Sens B-Natriuretic Peptide Procalcitonin Urine Opiates Screen Urine Fentanyl Screen Ur Barbiturates Screen Ur Phencyclidine Scrn Ur Amphetamines Screen U Benzodiazepines Scrn Urine Cocaine Screen U Marijuana (THC) Screen COVID-19 ([facility]) Negative COVID-19 Clin Com See Note 10/21/21 10/21/21 10/21/21 07:46 07:46 07:46 WBC RBC Hgb Hct MCV MCH MCHC RDW Plt Count MPV Immature Gran % (Auto) Neut % (Auto) Lymph % (Auto) Frio % (Auto) Eos % (Auto) Baso % (Auto) Lymph # (Auto) Frio # (Auto) Eos # (Auto) Baso # (Auto) Abs Immat Gran (auto) Absolute Neuts (auto) Absolute Nucleated RBC Nucleated RBC % (auto) Sodium 143 Potassium 5.5 H Chloride 102 Carbon Dioxide 21 L Anion Gap 26 H BUN 19 H Creatinine 1.87 H Estim Creat Clear Calc 53.0 Estimated GFR 42 POC Glucose Random Glucose 131 H Calcium 10.1 D Troponin I High Sens 31.6 B-Natriuretic Peptide < 10 Procalcitonin 0.08 Urine Opiates Screen Urine Fentanyl Screen Ur Barbiturates Screen Ur Phencyclidine Scrn Ur Amphetamines Screen U Benzodiazepines Scrn Urine Cocaine Screen U Marijuana (THC) Screen COVID-19 ([facility]) COVID-19 Clin Com 10/21/21 10/21/21 10/21/21 08:13 08:56 09:24 WBC RBC Hgb Hct MCV MCH MCHC RDW Plt Count MPV Immature Gran % (Auto) Neut % (Auto) Lymph % (Auto) Frio % (Auto) Eos % (Auto) Baso % (Auto) Lymph # (Auto) Frio # (Auto) Eos # (Auto) Baso # (Auto) Abs Immat Gran (auto) Absolute Neuts (auto) Absolute Nucleated RBC Nucleated RBC % (auto) Sodium 142 Potassium 4.3 D Chloride 109 H Carbon Dioxide 23 Anion Gap 14 BUN 20 H Creatinine 1.48 H Estim Creat Clear Calc 66.9 Estimated GFR 55 POC Glucose 51 L* Random Glucose 83 D Calcium 8.5 D Troponin I High Sens B-Natriuretic Peptide Procalcitonin Urine Opiates Screen POSITIVE H Urine Fentanyl Screen POSITIVE H Ur Barbiturates Screen Not Detected Ur Phencyclidine Scrn Not Detected Ur Amphetamines Screen Not Detected U Benzodiazepines Scrn Not Detected Urine Cocaine Screen POSITIVE H U Marijuana (THC) Screen Not Detected COVID-19 ([facility]) COVID-19 Clin Com 10/21/21 10/21/21 10:03 10:31 WBC RBC Hgb Hct MCV MCH MCHC RDW Plt Count MPV Immature Gran % (Auto) Neut % (Auto) Lymph % (Auto) Frio % (Auto) Eos % (Auto) Baso % (Auto) Lymph # (Auto) Frio # (Auto) Eos # (Auto) Baso # (Auto) Abs Immat Gran (auto) Absolute Neuts (auto) Absolute Nucleated RBC Nucleated RBC % (auto) Sodium Potassium Chloride Carbon Dioxide Anion Gap BUN Creatinine Estim Creat Clear Calc Estimated GFR POC Glucose 78 Random Glucose Calcium Troponin I High Sens 105.9 H* D B-Natriuretic Peptide Procalcitonin Urine Opiates Screen Urine Fentanyl Screen Ur Barbiturates Screen Ur Phencyclidine Scrn Ur Amphetamines Screen U Benzodiazepines Scrn Urine Cocaine Screen U Marijuana (THC) Screen COVID-19 ([facility]) COVID-19 Clin Com Imaging Radiology Impressions: ITS Impressions Chest X-Ray 10/21/21 08:27 IMPRESSION: Increased bilateral suprahilar opacity and increased markings suspicious for developing infiltrates. Mental Status Exam Mental Status Exam Patient Appearance: Well Grooomed Level of Consciousness: Awake Mood Description: Blunted Affect Description: Blunted Speech Pattern: Clear Thought Process: Slowed Thinking Judgement: Fair Medications Medications Current Medications Acetaminophen (Acetaminophen 325 Mg Tablet) 650 mg PO Q6H PRN PRN Reason: Pain, Mild (Pain Scale 1-3) Albuterol Sulfate (Albuterol Sulfate (0.083%) 2.5 Mg/3 Ml Vial.Neb) 2.5 mg INHALE RQ4H WHILE AWAKE [facility] Last Admin: 10/21/21 11:40 Dose: 2.5 mg Documented by: Enoxaparin Sodium (Enoxaparin Sodium 40 Mg/0.4 Ml Syringe) 40 mg SUBCUT Q24H [facility] Last Admin: 10/21/21 12:09 Dose: 40 mg Documented by: Sodium Chloride (Ns) 1,000 mls @ 125 mls/hr IVCONT .Q8H [facility] Stop: 10/21/21 23:29 Last Admin: 10/21/21 09:02 Dose: 125 mls/hr Documented by: Ampicillin Sodium/Sulbactam (Sodium 3 gm/ Sodium Chloride) 100 mls @ 200 mls/hr IV Q6H [facility] Last Admin: 10/21/21 12:11 Dose: 200 mls/hr Documented by: Ondansetron HCl (Ondansetron Hcl 4 Mg/2 Ml Vial) 4 mg IVPUSH Q8H PRN PRN Reason: Nausea and Vomiting Pharmacy Consult (Consult Rx Perform Med Rec) 1 each MISCELLANE ONCE PRN PRN Reason: Consult order Sodium Chloride (0.9 % Sodium Chloride Flush 3 Ml Syringe) 3 ml IVFLUSH QSHIFT [facility] Allergies Allergies Allergy/AdvReac Type Severity Reaction Status Date / Time No Known Allergies Allergy Unverified 04/17/20 15:52 Assessment & Plan Assessment & Plan (1) Opioid use disorder: Status: Acute Code(s): F11.90 - Opioid use, unspecified, uncomplicated Assessment and Plan: * Patient quite drowsy when seen in follow up by this typewriter operator automatic and RSRN. No withdrawal sx evident and none reported. Not appropriate to start methadoen at this time based on level of sedation * Methadone 10mg PRN for reported opioid withdrawal sx (2 doses) * DO NOT administer if patient continues to be sedated * Take home narcan at time of discharge * RSRN to follow up in AM regarding OTP admission I spent __55____ minutes with the patient and/or on the patient floor today, greater than?50% of which was spent counseling/coordinating care. PMFSH Past Medical History Medical History (Updated 10/21/21 @ 16:07 by Evonne Roth CNP) Anxiety and depression Surgical History Surgical History (Updated 10/21/21 @ 11:43 by Yobani Wood MD) H/O kidney removal H/O right nephrectomy Social History Social History Household Members: Significant Other Housing: Apartment Do you presently have visiting nurse or other home services: No Unable to assess alcohol history related to: Refusing to respond Alcohol intake: never Patient Tobacco Use Status: Tobacco use Unknown Use of substances other than those prescribed or required for medical reasons: Refusing to respond Substance Use Type: Heroin Advance Directives: No Advance Directives Information Provided: No Do you have thoughts of harming others: None Do you have a plan to hurt others: No Plan Recently lost weight without trying: No Nutrition Risks: On aspiration precautions Poor oral hygiene: No
[2021-10-21 13:13] LABS: Glucose, Whole Blood 163 mg/dL (60-115)
[2021-10-21 13:46] LABS: Appearance Urine CLEAR; Color Urine YELLOW; Glucose Urine UA 250 MG/DL (NEG); Leukocyte Esterase Urine NEG (NEG); Nitrite Urine NEG (NEG); PH 6.5 (5.0-8.0); UACC Culture Trigger NO; Urine Blood 2+ (NEG); Urine Ketones NEG (NEG); Urine Protein 2+ MG/DL (NEG-TRACE)
--- NOTE | 2021-10-21 14:00 | CA_ITS ---
Transthoracic Echocardiogram Patient (Last, First, Middle): Adam Hobosn, Gender: Male Date of : 1990 Age: 31 Procedure Date: 10/21/2021 Procedure Type: Transthoracic [place] [facility] [place]: 170.18 cm Weight: 68.04 kg BSA: 1.79 m2 Heart Rate: bpm BP: 126 / 82 mmHg [employer] Architect: Referring MD: Yobani Wood MD Symptoms: overdose, elevated trop-I Study Quality: Fair ECG Rhythm: Sinus Conclusions: - Normal left ventricular size, thickness, systolic function, and wall motion. The visually estimated ejection fraction is between 55-60%. Diastolic function is normal for age. - Normal right ventricular cavity size and systolic function. - The left atrium is normal in size. - Mildly elevated right atrial pressure. - The inferior vena cava is normal in size and collapses less than 50% with inspiration. Findings Left Ventricle Normal left ventricular size, thickness, systolic function, and wall motion. The visually estimated ejection fraction is between 55-60%. Diastolic function is normal for age. Right Ventricle Normal right ventricular cavity size and systolic function. Atria The left atrium is normal in size. Aortic Valve The aortic valve structure and function is likely normal. There is no aortic valve stenosis. There is no aortic valve regurgitation. Mitral Valve Normal mitral valve structure and function. There is no mitral valve regurgitation. There is no mitral valve stenosis. Pulmonic Valve The pulmonic valve was not well visualized. Tricuspid Valve Normal tricuspid valve structure and function. There is trace tricuspid valve regurgitation. Tricuspid regurgitation envelope is inadequate for calculation of right ventricular systolic pressure. Mildly elevated right atrial pressure. Great Vessels All visible segments of the aorta are normal in size. The pulmonary artery was not well visualized. Venous The inferior vena cava is normal in size and collapses less than 50% with inspiration. Pericardium/Pleural There is no evidence of pericardial effusion. Prior Study Comparison No prior study available for comparison. Measurements 2D Linear Measurements IVSd: 0.86 0.6-0.9/0.6-1.0 cm LVIDd: 4.31 3.9-5.3/4.2-5.9 cm LVIDd Index: 2.41 2.4-3.2/2.2-3.1 cm/m2 LVIDs: 2.44 2.0-3.6 cm LVPWd: 0.82 0.7-1.1 cm LA Diam: 3.40 2.7-3.8/3.0-4.0 cm LAIDs Index: 1.90 1.5-2.3 cm/m2 LV Mass: 140.14 67-162/88-224 g LV Mass Index: 78.29 43-95/49-115 g/m2 LVOT Diam: 2.00 3.0+(-)1.3 cm Mitral Valve MV VTI: 0.24 MV Pk Allen: 1.05 MV Mn Allen: 0.66 MV Pk Grad: 4.00 MV Mn Grad: 2.00 MV Pk E: 0.91 MV PK A: 0.63 MV Decel Time: 143.00 E/A: 1.50 E'Lateral: 13.70 E'Medial: 13.40 E/E' Med: 6.80 E/E' Lat: 6.70 PHT: 42.00 MVA PHT: 5.24 MVA Continuity: 2.30 Decel Bates: 6.37 Aortic Valve AoV Pk Allen: 1.32 AoV Mn Allen: 0.90 AoV VTI: 0.26 AoV Pk Grad: 7.00 Aov Mn Grad: 4.00 KELSY Cont.VTI: 2.08 LVOT LVOT Pk Allen: 0.98 LVOT Mn Allen: 0.62 LVOT VTI: 0.17 LVOT Pk Grad: 4.00 LVOT Mn Grad: 2.00 LVOT Diam: 2.00 LVOT Area: 3.14 Diastolic Function MV Pk E: 0.91 MV Pk A: 0.63 E/A: 1.50 E'Medial: 13.40 E/E' Med: 6.80 E' Laterial: 13.70 E/E' Lat: 6.70 Right Ventricle TAPSE (mm): 2.30 TVS' Allen: 13.00 Great Vessels Aorta Sinus of Valsalva: 2.60 2.0-3.5 cm Ao Asc: 2.40 2.1-3.4 cm Pulmonary Valve PV Pk Allen: 0.63 Peak PV Grad: 2.00 Updated in Other Vendor System with Status of Final Peter Winston MD electronically signed on 10/22/2021 3:59:48 AM with status of Final
[2021-10-21 14:09] LABS: Bacteria Urine 1+ /LPF; Squamous Epithelial Cell Urine TRACE /LPF; WBC Urine 0-2 /HPF (0-4)
[2021-10-21 14:10] LABS: Mucus Urine 1+ /LPF
[2021-10-21 15:22] LABS: Troponin-I High Sensitivity 151.8 ng/L (<3.5-35.0)
[2021-10-21] MEDS: Enoxaparin Sodium 30 MG/0.3 ML SYRINGE SUBCUT (15:51)
[2021-10-21] MEDS: 0.9 % Sodium Chloride Flush 3 ML SYRINGE IVFLUSH (15:51)
[2021-10-21 21:24] LABS: Troponin-I High Sensitivity 111.8 ng/L (<3.5-35.0)
[2021-10-22] VITALS: PULSE 79
[2021-10-22] MEDS: Ampicillin Sodium/Sulbactam Na 3 GM in 0.9 % Sodium Chloride 100 ML IV ×3 (00:22→11:43)
[2021-10-22] MEDS: 0.9 % Sodium Chloride Flush 3 ML SYRINGE IVFLUSH ×3 (00:22→15:22)
[2021-10-22] MEDS: Enoxaparin Sodium 80 MG/0.8 ML SYRINGE 70 MG SUBCUT ×2 (00:22→11:43)
[2021-10-22 03:44] VITALS: BP 138/85; PULSE 75; RESP 20; TEMP 36.9; O2SAT 98
[2021-10-22 07:46] VITALS: BP 150/86; PULSE 83; RESP 18; TEMP 36.9; O2SAT 97
[2021-10-22 07:59] VITALS: PULSE 83
--- NOTE | 2021-10-22 08:34 | MHC.CM.PN ---
CM met with Patient at bedside. Patient lives in an apartment with his and he is functionally independent and presently unemployed. PCP is Dr. Celine Duarte and Patient is NOT covid vaccinated. Home no services vs Care Team interventions is the goal for dc and CM has initiated and will follow for dc planning. Patient appears to have been on Suboxone [employer] and now started here on Methadone.
[2021-10-22 09:39] LABS: Anion Gap 10 (12-20); Blood Urea Nitrogen 15 mg/dL (9-16); Calcium 8.5 mg/dL (8.4-10.2); Carbon Dioxide 27 mmol/L (22-29); Chloride 107 mmol/L (96-108); Creatinine Clr Calc Pharmacy 91.8; Estimated Glomerular Filt Rate > 60; Glucose Random 103 mg/dL (60-115); Potassium 4.3 mmol/L (3.3-5.1); Sodium 140 mmol/L (135-145)
[2021-10-22] MEDS: methADONE HCl 20 MG/2 ML ORAL.CONC 10 MG PO (09:54)
--- NOTE | 2021-10-22 10:19 | PM.CNCAR ---
History of Present Illness History of Present Illness Date of Service: 10/22/21 Requesting physician: Shantelle Quintero Chief complaint: Accidental overdose, +troponins Narrative: 31-year-old gentleman with opiate abuse and dependence, anxiety and depression who is presenting for unresponsiveness from home. He was noted to be hypoxic on admission. Chest x-ray showed aspiration. This is due to accidental opiate overdose. Was noted to have mildly elevated troponin level of 30 Bryce and 105. EKG did not show any significant changes. He has no chest pain or shortness of breath. Echocardiography did not show any wall motion abnormality. [facility] Past Medical History Medical History (Updated 10/22/21 @ 16:16 by Peter Winston MD) Anxiety and depression Surgical History Surgical History (Updated 10/21/21 @ 11:43 by Yobani Wood MD) H/O kidney removal H/O right nephrectomy Social History Social History Household Members: Significant Other Housing: Apartment Do you presently have visiting nurse or other home services: No Unable to assess alcohol history related to: Refusing to respond Alcohol intake: never Patient Tobacco Use Status: Tobacco use Unknown Use of substances other than those prescribed or required for medical reasons: Refusing to respond Substance Use Type: Heroin Currently Displaying Signs/Symptoms of Drug Intoxication Withdrawal: No Advance Directives: No Advance Directives Information Provided: No Do you have thoughts of harming others: None Do you have a plan to hurt others: No Plan Recently lost weight without trying: No Nutrition Risks: On aspiration precautions Poor oral hygiene: No service: No Current occupational status: unemployed Meds Allergies Allergy/AdvReac Type Severity Reaction Status Date / Time No Known Allergies Allergy Unverified 04/17/20 15:52 Active Medications: Current Medications Acetaminophen (Acetaminophen 325 Mg Tablet) 650 mg PO Q6H PRN PRN Reason: Pain, Mild (Pain Scale 1-3) Albuterol Sulfate (Albuterol Sulfate (0.083%) 2.5 Mg/3 Ml Vial.Neb) 2.5 mg INHALE RQ4H WHILE AWAKE [facility] Last Admin: 10/22/21 07:53 Dose: Not Given Documented by: Enoxaparin Sodium (Enoxaparin Sodium 80 Mg/0.8 Ml Syringe) 70 mg SUBCUT Q12H [facility] Last Admin: 10/22/21 00:22 Dose: 70 mg Documented by: Ampicillin Sodium/Sulbactam (Sodium 3 gm/ Sodium Chloride) 100 mls @ 200 mls/hr IV Q6H [facility] Last Infusion: 10/22/21 06:35 Dose: Infused Documented by: Methadone HCl (Methadone Hcl 20 Mg/2 Ml Oral.Conc) 10 mg PO Q4H PRN PRN Reason: Opiate Withdrawal Last Admin: 10/22/21 09:54 Dose: 10 mg Documented by: Ondansetron HCl (Ondansetron Hcl 4 Mg/2 Ml Vial) 4 mg IVPUSH Q8H PRN PRN Reason: Nausea and Vomiting Pharmacy Consult (Consult Rx Perform Med Rec) 1 each MISCELLANE ONCE PRN PRN Reason: Consult order Sodium Chloride (0.9 % Sodium Chloride Flush 3 Ml Syringe) 3 ml IVFLUSH QSHIFT [facility] Last Admin: 10/22/21 07:56 Dose: 3 ml Documented by: Home Medications Medication Instructions Recorded Confirmed Last Taken Type albuterol sulfate 90 mcg/actuation 2 puff PO QID 10/21/21 10/21/21 Unknown History aerosol inhaler (ProAir HFA) buprenorphine 8 mg-naloxone 2 mg 1 strip SUBLINGUAL BID 10/21/21 10/21/21 10/14/21 History sublingual film (Suboxone) fluticasone propionate 110 2 puff PO BID 10/21/21 10/21/21 Unknown History mcg/actuation HFA aerosol inhaler (Flovent HFA) Physical Exam Vital Signs: Vital Signs: Last Vital Signs Temp 98.4 F 10/22/21 07:46 Pulse 83 10/22/21 07:46 Resp 18 10/22/21 07:46 BP 150/86 H 10/22/21 07:46 Pulse Ox 97 10/22/21 07:46 BMI result Body Mass Index 23.5 GENERAL APPEARANCE: in no acute distress, pleasant. NECK: no carotid bruit, no jugular venous distention. SKIN: no suspicious lesions, warm and dry. HEART: no murmurs, regular rate and rhythm. LUNGS: clear to auscultation bilaterally. ABDOMEN: soft, nontender. EXTREMITIES: no edema. PERIPHERAL PULSES: equal. NEUROLOGIC: No gross deficits, AAO X 3 Objective Labs and Meds Result diagrams: 10/21/21 07:46 10/22/21 06:18 Lab results: Laboratory Results - last 24 hr 10/21/21 10/21/21 10/21/21 07:46 08:13 10:31 Sodium Potassium Chloride Carbon Dioxide Anion Gap BUN Creatinine Estim Creat Clear Calc Estimated GFR POC Glucose Random Glucose Calcium Troponin I High Sens 105.9 H* D Procalcitonin 0.08 Urine Color YELLOW Urine Appearance CLEAR Urine pH 6.5 Ur Specific [facility] 1.020 Urine Protein 2+ H Urine Glucose (UA) 250 H Urine Ketones NEG Urine Blood 2+ H Urine Nitrite NEG Ur Leukocyte Esterase NEG Urine RBC 15-29 H Urine WBC 0-2 Ur Squamous Epith Cells TRACE Triple Phos Crystals NONE Urine Bacteria 1+ Urine Mucus 1+ 10/21/21 10/21/21 10/21/21 13:09 14:34 20:45 Sodium Potassium Chloride Carbon Dioxide Anion Gap BUN Creatinine Estim Creat Clear Calc Estimated GFR POC Glucose 163 H Random Glucose Calcium Troponin I High Sens 151.8 H* 111.8 H* Procalcitonin Urine Color Urine Appearance Urine pH Ur Specific [facility] Urine Protein Urine Glucose (UA) Urine Ketones Urine Blood Urine Nitrite Ur Leukocyte Esterase Urine RBC Urine WBC Ur Squamous Epith Cells Triple Phos Crystals Urine Bacteria Urine Mucus 10/22/21 06:18 Sodium 140 Potassium 4.3 Chloride 107 Carbon Dioxide 27 Anion Gap 10 L BUN 15 Creatinine 1.08 Estim Creat Clear Calc 91.8 Estimated GFR > 60 POC Glucose Random Glucose 103 Calcium 8.5 Troponin I High Sens Procalcitonin Urine Color Urine Appearance Urine pH Ur Specific [facility] Urine Protein Urine Glucose (UA) Urine Ketones Urine Blood Urine Nitrite Ur Leukocyte Esterase Urine RBC Urine WBC Ur Squamous Epith Cells Triple Phos Crystals Urine Bacteria Urine Mucus Imaging Radiologist's impression: Impressions Renal Ultrasound 10/21/21 11:45 IMPRESSION: Unremarkable left kidney ultrasound. The right kidney has been surgically removed. Assessment and Plan (1) Elevated troponin: Status: Acute Plan 31-year-old who had opiate overdose and aspiration who was hypoxic and was noted to have mildly abnormal troponin levels. EKG and echocardiography has not shown any abnormalities. He had no chest pain or shortness of breath. I think he has a type 2 event secondary to hypoxia secondary to aspiration. No further workup is required. Thank you for allowing me to participate in the care of your patient. Please feel free to contact me if you have any questions. Procedures Date of Service Date of Service: 10/22/21
[2021-10-22 11:39] VITALS: BP 139/76; PULSE 72; RESP 17; TEMP 37; O2SAT 99
[2021-10-22] MEDS: methADONE HCl 20 MG/2 ML ORAL.CONC PO (11:43)
--- NOTE | 2021-10-22 11:43 | MHC.RECOVRN ---
Met with pt to follow up regarding methadone titration/withdrawal symptoms, as well as aftercare planning. Pt currently experiencing withdrawal symptoms including rhinorrhea, chills, diaphoresis, body aches, yawning, goosebumps. Spoke with Evonne Roth APRN who ordered additional 20 mg methadone (took 10 mg prn earlier this morning) for a total so far of 30 mg today. Pt interested in further treatment for JESUS. Pt educated regarding different levels of care and appropriateness. If pt were to dc today, ATS would be beneficial. Pt agreeable. Spoke with Niurka Velasquez, pt completed phone intake at 1015. Currently no bed availability, however, t/w was informed 1-2 may open later today. No bed availability through [facility] currently. Pt would like to continue with methadone and link to an OTP. Pt unsure of which OTP at this time. Pt educated on local OTPs, will decide later today. Pt provided with t/w contact information if needed. Will continue to follow.
--- NOTE | 2021-10-22 14:35 | MHC.RECOVRN ---
Pt decided to be linked to [facility] OT. Referral has been sent. Will need last dose letter upon discharge.
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
--- NOTE | 2021-10-22 15:04 | MHC.RECOVRN ---
Pt has been medically cleared. [facility] has an available male ATS bed. Referral sent, waiting for confirmation. RN and provider aware.
[2021-10-22 15:37] VITALS: BP 110/67; PULSE 80; RESP 14; TEMP 37.1; O2SAT 99
--- NOTE | 2021-10-22 16:02 | MHC.CM.PN ---
Male 31 DX accidental OD He is discharged today to [facility]. The dispo was arranged by [facility] and the recovery team is involved. The Pts is providing transportation to the facility.
[2021-10-22] MEDS: Naloxone HCl Nasal TAKE HOME 4 MG SPRAY NOSTRILALT (16:09)
--- NOTE | 2021-10-27 12:23 | HO.SUDE ---
See Addiction Medicine Consult note by Evonne Roth APRN.
== END 2021-10-22 16:10 | disposition home or self-care (01) | DRG 812 ==
LOC: HO.ED 10:56 → HO.EDOVER 11:29 → HO.IMC 13:51
PROVIDERS: Admitting Provider Family Medicine; Emergency Provider Emergency Medicine; PCP Internal Medicine; Visit Provider Physician Assistant Medical
DX: T40.601A Poisoning by unspecified narcotics, accidental (unintentional), initial encounter (principal); J96.01 Acute respiratory failure with hypoxia; J69.0 Pneumonitis due to inhalation of food and vomit; N17.9 Acute kidney failure, unspecified; R79.89 Other specified abnormal findings of blood chemistry; E16.2 Hypoglycemia, unspecified; E87.5 Hyperkalemia; F11.20 Opioid dependence, uncomplicated; Z79.51 Long term (current) use of inhaled steroids; Z90.5 Acquired absence of kidney; Z79.899 Other long term (current) drug therapy
CPT/HCPCS: 36415; 71045; 76775; 80048; 80307; 81001; 81003; 82947; 83880; 84145; 84484; 85025; 87635; 93005; 93306; 94640; 96360; 96361; 99285; J0295; J1650

== ENCOUNTER 2022-01-08 21:15 | Inpatient (IN) | payer OTHER, SELFPAY ==
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
[2022-01-08 21:43] VITALS: BP 133/79; PULSE 85; RESP 18; TEMP 36.6; O2SAT 98; BMI 24.1
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
[2022-01-08 22:35] LABS: Amphetamine Screen Urine Not Detected (Not Detect); Barbiturates, Urine Not Detected (Not Detect); Benzodiazepines Screen Urine POSITIVE (Not Detect); Cannabinoid Screen Urine POSITIVE (Not Detect); Cocaine Screen Urine POSITIVE (Not Detect); Fentanyl, urine POSITIVE (Not Detect); Opiate Screen Urine Not Detected (Not Detect); Phencyclidine Screen Urine Not Detected (Not Detect)
[2022-01-08 22:38] LABS: COVID-19 Test Negative (Negative)
[2022-01-08 22:39] LABS: MANUAL DIFF FLAG NO
[2022-01-08 22:41] LABS: Basophils Absolute Auto 0.1 X10*3/uL (0.0-0.2); Basophils Percent Auto 1.2 % (0-2); Eosinophils Absolute Auto 0.4 X10*3/uL (0.0-0.4); Eosinophils Percent Auto 5.8 % (0-4); Hematocrit 46.4 % (42.0-52.0); Hemoglobin 15.4 g/dl (14.0-18.0); Imm Gran Abs Auto 0.01 X10*3/uL (0.00-0.03); Imm Gran Pct Auto 0.2 % (0.0-0.4); Lymphocytes Absolute Auto 1.4 X10*3/uL (1.2-4.9); Lymphocytes Percent Auto 22.4 % (20-40); Mean Corpuscular HGB Conc 33.2 g/dl (31.0-36.0); Mean Corpuscular Hemoglobin 30.6 pg (27.0-33.0); Mean Corpuscular Volume 92.2 fL (80.0-98.0); Mean Platelet Volume 10.1 fL (9.4-12.4); Monocytes Absolute Auto 0.4 X10*3/uL (0.1-1.2); Monocytes Percent Auto 5.8 % (2-11); Neutrophils Absolute Auto 3.9 x10*3/uL (2.0-8.3); Neutrophils Percent Auto 64.6 % (45-73); Platelet Count 220 X10*3/uL (160-400); Red Blood Count 5.03 X10*6/uL (4.60-5.80); Red Cell Distribution Width 12.8 % (11.0-16.0); White Blood Count 6.1 X10*3/uL (4.8-10.8)
[2022-01-08 22:55] LABS: Alanine Aminotransferase 20 U/L (0-40); Albumin Level 4.6 g/dL (3.5-5.0); Alkaline Phosphatase 105 U/L (39-117); Anion Gap 12 (12-20); Aspartate Amino Transferase 15 U/L (5-37); Bilirubin Direct 0.7 mg/dL (0.0-0.5); Bilirubin Total 2.1 mg/dL (0.0-1.0); Blood Urea Nitrogen 21 mg/dL (9-16); Calcium 9.6 mg/dL (8.4-10.2); Carbon Dioxide 27 mmol/L (22-29); Chloride 107 mmol/L (96-108); Creatinine Clr Calc Pharmacy 70.9; Estimated Glomerular Filt Rate > 60; Glucose Random 98 mg/dL (60-115); Potassium 4.7 mmol/L (3.3-5.1); Sodium 141 mmol/L (135-145); Total Protein 7.4 g/dL (6.5-8.0)
--- NOTE | 2022-01-09 02:37 | MHC.CARE ---
Pt was assessed by the CARE Team, dispo is Inpatient bedsearch
[2022-01-09 06:32] VITALS: BP 128/74; PULSE 74; RESP 16; TEMP 36.8; O2SAT 98
--- NOTE | 2022-01-09 06:38 | PC.NURSE ---
Patient slept through the night, no distress observed/reported, behavior non concerning, mood depressed, disposition per Care Team is section 12 inpatient bed search, med rec completed/pending provider's approval, VSS, will continue to monitor.
[2022-01-09 10:02] VITALS: BP 111/64; PULSE 65; TEMP 36.6; O2SAT 98
--- NOTE | 2022-01-09 13:45 | ECG_ITS ---
Test Reason : MED CLEARANCE Blood Pressure : / mmHG Vent. Rate : 053 BPM Atrial Rate : 053 BPM P-R Int : 124 ms QRS Dur : 094 ms QT Int : 414 ms P-R-T Axes : 044 087 066 degrees QTc Int : 388 ms Sinus bradycardia Otherwise normal ECG When compared with ECG of 21-OCT-2021 15:38, No significant changes seen Referred By: Daksha Valencia Electronically Signed By:CYNDI OLIVAS
--- NOTE | 2022-01-09 15:03 | PHA.MEDREC ---
Pharmacy Consult ? Medication Reconciliation Pharmacy has completed the medication reconciliation Patient reports taking topiramate twice a day, although rx is for once /day.
[2022-01-09 16:00] VITALS: BP 115/57; PULSE 62; RESP 16; TEMP 36.5; O2SAT 98
[2022-01-09] MEDS: Buprenorphine/Naloxone 8/2 mg FILM 1 FILM SUBLINGUAL ×2 (16:40→21:56)
[2022-01-09] MEDS: cloNIDine HCL 0.1 MG TABLET PO (17:52)
[2022-01-09] MEDS: Acetaminophen 325 MG TABLET 650 MG PO (17:54)
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
[2022-01-09 21:51] VITALS: BP 112/61; PULSE 60; RESP 16; TEMP 36.7; O2SAT 98
[2022-01-09] MEDS: traZODone HCL 50 MG TABLET PO (21:56)
[2022-01-09] MEDS: hydrOXYzine HCL 25 MG TABLET PO (21:56)
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
[2022-01-10 07:46] LABS: Estimated Average Glucose 100 mg/dL; Hemoglobin A1c % 5.1 %
[2022-01-10 08:00] VITALS: BP 117/57; PULSE 63; RESP 16; TEMP 36.6; O2SAT 97
[2022-01-10 08:15] LABS: Alanine Aminotransferase 14 U/L (0-40); Albumin Level 3.8 g/dL (3.5-5.0); Alkaline Phosphatase 91 U/L (39-117); Anion Gap 10 (12-20); Aspartate Amino Transferase 12 U/L (5-37); Bilirubin Total 1.1 mg/dL (0.0-1.0); Blood Urea Nitrogen 21 mg/dL (9-16); Calcium 9.1 mg/dL (8.4-10.2); Carbon Dioxide 27 mmol/L (22-29); Chloride 107 mmol/L (96-108); Cholesterol 165 mg/dL; Creatinine Clr Calc Pharmacy 73.8; Estimated Glomerular Filt Rate > 60; Glucose Fasting 100 mg/dL (60-99); HDL Cholesterol 41 mg/dL; LDL Cholesterol Calculated 108 mg/dl; Magnesium 1.9 mg/dL (1.6-2.6); Potassium 4.2 mmol/L (3.3-5.1); Sodium 140 mmol/L (135-145); Total Protein 6.3 g/dL (6.5-8.0); Triglycerides 84 mg/dL
[2022-01-10] MEDS: Nicotine 21 MG PATCH.TD24 TRANSDERMA (09:14)
[2022-01-10] MEDS: cloNIDine HCL 0.1 MG TABLET PO ×3 (09:16→19:40)
[2022-01-10] MEDS: Buprenorphine/Naloxone 8/2 mg FILM 1 FILM SUBLINGUAL ×2 (09:16→20:17)
[2022-01-10] MEDS: Gabapentin 300 MG CAPSULE PO ×2 (14:22→20:17)
[2022-01-10 19:35] VITALS: BP 116/67; PULSE 63; RESP 18; TEMP 36.7; O2SAT 99
[2022-01-10] MEDS: traZODone HCL 50 MG TABLET PO (20:18)
[2022-01-11] MEDS: Gabapentin 300 MG CAPSULE PO ×3 (09:14→20:12)
[2022-01-11] MEDS: Buprenorphine/Naloxone 8/2 mg FILM 1 FILM SUBLINGUAL ×2 (09:14→20:12)
[2022-01-11] MEDS: Nicotine 21 MG PATCH.TD24 TRANSDERMA (09:14)
[2022-01-11 09:15] VITALS: BP 110/65; PULSE 62; RESP 17; TEMP 36.6; O2SAT 100
[2022-01-11] MEDS: cloNIDine HCL 0.1 MG TABLET PO ×2 (09:15→12:16)
[2022-01-11 09:50] LABS: Folate 10.7 ng/mL (> or = 4.0); Vitamin B12 512 pg/mL (200-900)
[2022-01-11] MEDS: hydrOXYzine HCL 50 MG TABLET PO ×2 (14:16→20:12)
--- NOTE | 2022-01-11 15:23 | P.PNPSI_ITS ---
Subjective Subjective Date of Service: 01/11/22 Reason For Visit: SI Subjective Notes: Conditional Voluntary Interim History: Pt reports feeling less anxious, chronic AH, but not command and good insight as to they are hallucinations. He reports feeling hopeless, passive SI, but no plan or intent to hurt himself. Pt reports he slept well. We discussed adding remeron as antidepressant. No behavioral concerns. Medication Compliance: Yes Review of Systems Review of Systems Constitutional : No Fever, No Chills ENT/Mouth : No Ear Pain, No Nasal Congestion, No sore throat Eyes: No Eye Pain, No Swelling, No Redness Cardiovascular : No Chest Pain, No SOB Respiratory : No Cough, No Sputum, No Dyspnea Gastrointestinal : No Nausea, No Vomiting, No Diarrhea, No Hematochezia, No Melena Genitourinary : No Dysuria, No Urinary Frequency, No Hematuria Musculoskeletal : No Myalgias Skin : No Skin Lesions, No rash Neuro : No Weakness, No Numbness, No Paresthesias, No Dizziness, pos Headache Psych : positive Anxiety, positive Depression, positive SI no HI Heme/Lymph: No Lymphadenopathy Endocrine : No Polyuria, No Polydipsia All other systems reviewed and are negative Constitutional: Reports no additional constitutional complaints Eyes: Reports no additional eye complaints Cardiovascular: Denies chest pain, Denies chest pain with activity, Denies epigastric discomfort, Denies irregular heart rhythm, Denies lightheadedness, Denies dyspnea on exertion and Denies orthopnea Respiratory: Denies chest congestion, Denies cough, Denies hemoptysis, Denies pain with cough and Denies dyspnea on exertion Gastrointestinal: Denies constipation and Denies diarrhea Musculoskeletal: Reports myalgias Mental Status Exam Mental Status Exam Narrative: Appearance: casually groomed, fair hygiene in NAD Behavior:cooperative psychomotor: no psychomotor agitation or retardation noted Speech:clear, normal rate/rhythm/volume, spontaneous Thought process:linear Thought content:no psychosis or delusions, wanting help with tx. Mood: anxious Affect: congruent SI:passive HI:none VH/AH:+Ah not command Delusions:none Insight/judgment:fair x 2. Memory/cog: alert, oriented x 3. grossly intact to conversational testing. Diagnostics Vital Signs (24Hr): Vital Signs - 24 hr 01/10/22 19:35 01/11/22 09:15 Temperature 98.1 F 97.9 F Pulse Rate 63 62 Respiratory Rate 18 17 Blood Pressure 116/67 110/65 Pulse Oximetry 99 100 Oxygen Delivery Method Room Air Room Air BMI result Body Mass Index 24.1 Labs Results: 01/08/22 22:35 01/10/22 07:17 Labs: Laboratory Results - last 48 hr 01/10/22 01/10/22 01/10/22 07:17 07:17 07:17 Sodium 140 Potassium 4.2 Chloride 107 Carbon Dioxide 27 Anion Gap 10 L BUN 21 H Creatinine 1.25 Estim Creat Clear Calc 73.8 Estimated GFR > 60 Fasting Glucose 100 H Estimat Average Glucose 100 Hemoglobin A1c % 5.1 Calcium 9.1 Magnesium 1.9 Total Bilirubin 1.1 H AST 12 ALT 14 Alkaline Phosphatase 91 Total Protein 6.3 L Albumin 3.8 Triglycerides 84 Cholesterol 165 LDL Cholesterol, Calc 108 HDL Cholesterol 41 Vitamin B12 512 Folate 10.7 TSH 0.30 L Imaging Radiology Impressions: ITS Impressions Head CT 01/08/22 22:10 IMPRESSION: 1. No evidence of acute intracranial hemorrhage or edematous territorial infarction. 2. Atelectasis of the bilateral maxillary sinuses. Medications Medications Current Medications Acetaminophen (Acetaminophen 325 Mg Tablet) 650 mg PO Q6H PRN PRN Reason: Headache/Pain Mild Scale (1-3) Last Admin: 01/09/22 17:54 Dose: 650 mg Al Hydroxide/Mg Hydroxide (Magnesium Hydrox/Alum Hydrox 30 Ml Oral.Susp) 30 ml PO Q6H PRN PRN Reason: Heartburn/Nausea Buprenorphine/Naloxone (Buprenorphine/Naloxone 8/2 Mg Film) 1 film SUBLINGUAL BID [facility] Last Admin: 01/11/22 09:14 Dose: 1 film Clonidine HCl (Clonidine Hcl 0.1 Mg Tablet) 0.1 mg PO TID PRN; Protocol PRN Reason: Anxiety Last Admin: 01/11/22 12:16 Dose: 0.1 mg Gabapentin (Gabapentin 300 Mg Capsule) 300 mg PO TID [facility] Last Admin: 01/11/22 14:30 Dose: 300 mg Hydroxyzine HCl (Hydroxyzine Hcl 25 Mg Tablet) 25 mg PO BEDTIME PRN PRN Reason: Anxiety Last Admin: 01/09/22 21:56 Dose: 25 mg Hydroxyzine HCl (Hydroxyzine Hcl 50 Mg Tablet) 50 mg PO Q6H PRN PRN Reason: anxiety/sleep Last Admin: 01/11/22 14:16 Dose: 50 mg Magnesium Hydroxide (Milk Of Magnesia 30 Ml Oral.Susp) 30 ml PO DAILY PRN PRN Reason: Constipation Nicotine (Nicotine 21 Mg Patch.Td24) 21 mg TRANSDERMA DAILY [facility] Last Admin: 01/11/22 09:14 Dose: 21 mg Nicotine Polacrilex (Nicotine Polacrilex 2 Mg Gum) 2 mg BUCCAL Q2H PRN PRN Reason: cravings Pharmacy Consult (Consult Rx Perform Med Rec) 1 each MISCELLANE ONCE PRN PRN Reason: Consult order Risperidone (Risperidone 1 Mg Tablet) 1 mg PO BEDTIME [facility] Trazodone HCl (Trazodone Hcl 50 Mg Tablet) 50 mg PO BEDTIME PRN PRN Reason: Insomnia Last Admin: 01/10/22 20:18 Dose: 50 mg Allergies Allergies Allergy/AdvReac Type Severity Reaction Status Date / Time No Known Allergies Allergy Unverified 04/17/20 15:52 Assessment & Plan Assessment & Plan (1) Mood disorder: Status: Acute Code(s): F39 - Unspecified mood [affective] disorder (2) Opioid use disorder: Status: Acute Code(s): F11.90 - Opioid use, unspecified, uncomplicated (3) Cocaine use disorder, severe, dependence: Status: Acute Code(s): F14.20 - Cocaine dependence, uncomplicated Plan Mr. Hobson is a 31 year-old male with hx of opioid and cocaine use, hx of incarceration, self presented to [facility] ED reporting suicidal ideation and depression. Pt reports difficulty adjusting to life outside of longterm after 18 months of encarceration. Utox positive for fentanyl and cocaine. he denies using fentanyl or any other opiods. He is on suboxone- which he reports helpful. AH for several years may be related to substance use but they do occur now not only when using. We discussed risks, benefits and alternative treatment options. PLAN 1. Admit to M3. CV 15 minutes checks for safety 2. Start gabepentin 300mg po TID mood 3. low dose risperidone for voices 1mg po qhs. may consider antidepressant but pt also reports he has not done well- more agitated. 4. Ontain collateral information 5. Aftercare planning. 01/11- will start remeron for depression. referrals for [facility] sent by ISABELLE. I spent minutes with the patient and/or on the patient floor today, greater than?50% of which was spent counseling/coordinating care. Reason for contiued inpatient stay Substantial Risk for: harm to self
[2022-01-11] MEDS: Nicotine Polacrilex 2 MG GUM BUCCAL (15:29)
[2022-01-11] MEDS: traZODone HCL 50 MG TABLET PO (20:12)
[2022-01-11] MEDS: risperiDONE 1 MG TABLET PO (20:12)
[2022-01-11] MEDS: Mirtazapine 15 MG TABLET PO (20:12)
[2022-01-11 20:15] VITALS: BP 120/67; PULSE 69; RESP 18; TEMP 37; O2SAT 98
[2022-01-12 08:30] VITALS: BP 105/67; PULSE 63; RESP 16; TEMP 36.4; O2SAT 97
[2022-01-12] MEDS: Gabapentin 300 MG CAPSULE PO ×3 (08:47→20:47)
[2022-01-12] MEDS: Buprenorphine/Naloxone 8/2 mg FILM 1 FILM SUBLINGUAL ×2 (08:48→20:48)
[2022-01-12] MEDS: hydrOXYzine HCL 50 MG TABLET PO ×2 (08:51→16:00)
[2022-01-12] MEDS: Nicotine 21 MG PATCH.TD24 TRANSDERMA (08:51)
[2022-01-12] MEDS: cloNIDine HCL 0.1 MG TABLET PO (13:03)
--- NOTE | 2022-01-12 16:03 | P.PNPSI_ITS ---
Subjective Subjective Date of Service: 01/12/22 Reason For Visit: SI Subjective Notes: Conditional Voluntary Interim History: Pt reports feeling better today in terms of his mood in that he feels less anxious, less depressed. He denies suicidal ideation. He continues to report that he wants to go to [facility] and get more stable on his substance use as he sees how it affects his ability to care for his family. He reports sleeping well. No behavioral concerns. Medication Compliance: Yes Side effects from medications: No Attending Groups: Intermittent Review of Systems Review of Systems Constitutional : No Fever, No Chills ENT/Mouth : No Ear Pain, No Nasal Congestion, No sore throat Eyes: No Eye Pain, No Swelling, No Redness Cardiovascular : No Chest Pain, No SOB Respiratory : No Cough, No Sputum, No Dyspnea Gastrointestinal : No Nausea, No Vomiting, No Diarrhea, No Hematochezia, No Melena Genitourinary : No Dysuria, No Urinary Frequency, No Hematuria Musculoskeletal : No Myalgias Skin : No Skin Lesions, No rash Neuro : No Weakness, No Numbness, No Paresthesias, No Dizziness, pos Headache Psych : positive Anxiety, positive Depression, positive SI no HI Heme/Lymph: No Lymphadenopathy Endocrine : No Polyuria, No Polydipsia All other systems reviewed and are negative Constitutional: Reports no additional constitutional complaints Eyes: Reports no additional eye complaints Cardiovascular: Denies chest pain, Denies chest pain with activity, Denies epigastric discomfort, Denies irregular heart rhythm, Denies lightheadedness, Denies dyspnea on exertion and Denies orthopnea Respiratory: Denies chest congestion, Denies cough, Denies hemoptysis, Denies pain with cough and Denies dyspnea on exertion Gastrointestinal: Denies constipation and Denies diarrhea Musculoskeletal: Reports myalgias Mental Status Exam Mental Status Exam Narrative: Appearance: casually groomed, fair hygiene in NAD Behavior:cooperative psychomotor: no psychomotor agitation or retardation noted Speech:clear, normal rate/rhythm/volume, spontaneous Thought process:linear Thought content:no psychosis or delusions, wanting help with tx. Mood: anxious Affect: congruent SI:passive HI:none VH/AH:+Ah not command Delusions:none Insight/judgment:fair x 2. Memory/cog: alert, oriented x 3. grossly intact to conversational testing. Diagnostics Vital Signs (24Hr): Vital Signs - 24 hr 01/11/22 20:15 01/12/22 08:30 Temperature 98.6 F 97.6 F Pulse Rate 69 63 Respiratory Rate 18 16 Blood Pressure 120/67 105/67 Pulse Oximetry 98 97 Oxygen Delivery Method Room Air Room Air BMI result Body Mass Index 24.1 Labs Results: 01/08/22 22:35 01/10/22 07:17 Labs: Laboratory Results - last 48 hr 01/10/22 07:17 Vitamin B12 512 Folate 10.7 Imaging Radiology Impressions: ITS Impressions Head CT 01/08/22 22:10 IMPRESSION: 1. No evidence of acute intracranial hemorrhage or edematous territorial infarction. 2. Atelectasis of the bilateral maxillary sinuses. Medications Medications Current Medications Acetaminophen (Acetaminophen 325 Mg Tablet) 650 mg PO Q6H PRN PRN Reason: Headache/Pain Mild Scale (1-3) Last Admin: 01/09/22 17:54 Dose: 650 mg Al Hydroxide/Mg Hydroxide (Magnesium Hydrox/Alum Hydrox 30 Ml Oral.Susp) 30 ml PO Q6H PRN PRN Reason: Heartburn/Nausea Buprenorphine/Naloxone (Buprenorphine/Naloxone 8/2 Mg Film) 1 film SUBLINGUAL BID [facility] Last Admin: 01/12/22 08:48 Dose: 1 film Clonidine HCl (Clonidine Hcl 0.1 Mg Tablet) 0.1 mg PO TID PRN; Protocol PRN Reason: Anxiety Last Admin: 01/12/22 13:03 Dose: 0.1 mg Gabapentin (Gabapentin 300 Mg Capsule) 300 mg PO TID [facility] Last Admin: 01/12/22 15:50 Dose: 300 mg Hydroxyzine HCl (Hydroxyzine Hcl 25 Mg Tablet) 25 mg PO BEDTIME PRN PRN Reason: Anxiety Last Admin: 01/09/22 21:56 Dose: 25 mg Hydroxyzine HCl (Hydroxyzine Hcl 50 Mg Tablet) 50 mg PO Q6H PRN PRN Reason: anxiety/sleep Last Admin: 01/12/22 16:00 Dose: 50 mg Magnesium Hydroxide (Milk Of Magnesia 30 Ml Oral.Susp) 30 ml PO DAILY PRN PRN Reason: Constipation Mirtazapine (Mirtazapine 15 Mg Tablet) 15 mg PO BEDTIME [facility] Last Admin: 01/11/22 20:12 Dose: 15 mg Nicotine (Nicotine 21 Mg Patch.Td24) 21 mg TRANSDERMA DAILY [facility] Last Admin: 01/12/22 08:51 Dose: 21 mg Nicotine Polacrilex (Nicotine Polacrilex 2 Mg Gum) 2 mg BUCCAL Q2H PRN PRN Reason: cravings Last Admin: 01/11/22 15:29 Dose: 2 mg Pharmacy Consult (Consult Rx Perform Med Rec) 1 each MISCELLANE ONCE PRN PRN Reason: Consult order Risperidone (Risperidone 1 Mg Tablet) 1 mg PO BEDTIME [facility] Last Admin: 01/11/22 20:12 Dose: 1 mg Trazodone HCl (Trazodone Hcl 50 Mg Tablet) 50 mg PO BEDTIME PRN PRN Reason: Insomnia Last Admin: 01/11/22 20:12 Dose: 50 mg Allergies Allergies Allergy/AdvReac Type Severity Reaction Status Date / Time No Known Allergies Allergy Unverified 04/17/20 15:52 Assessment & Plan Assessment & Plan (1) Mood disorder: Status: Acute Code(s): F39 - Unspecified mood [affective] disorder (2) Opioid use disorder: Status: Acute Code(s): F11.90 - Opioid use, unspecified, uncomplicated (3) Cocaine use disorder, severe, dependence: Status: Acute Code(s): F14.20 - Cocaine dependence, uncomplicated Plan Mr. Hobson is a 31 year-old male with hx of opioid and cocaine use, hx of incarceration, self presented to [facility] ED reporting suicidal ideation and depression. Pt reports difficulty adjusting to life outside of nursing home after 18 months of encarceration. Utox positive for fentanyl and cocaine. he denies using fentanyl or any other opiods. He is on suboxone- which he reports helpful. AH for several years may be related to substance use but they do occur now not only when using. We discussed risks, benefits and alternative treatment options. PLAN 1. Admit to M3. CV 15 minutes checks for safety 2. Start gabepentin 300mg po TID mood 3. low dose risperidone for voices 1mg po qhs. may consider antidepressant but pt also reports he has not done well- more agitated. 4. Ontain collateral information 5. Aftercare planning. 01/11- will start remeron for depression. referrals for [facility] sent by ISABELLE. 01/12 increase remeron 30mg po qhs. I spent minutes with the patient and/or on the patient floor today, greater than?50% of which was spent counseling/coordinating care. Reason for contiued inpatient stay Substantial Risk for: harm to self
[2022-01-12 18:00] VITALS: BP 123/68; PULSE 68; RESP 18; TEMP 36.7; O2SAT 100
[2022-01-12] MEDS: Milk of Magnesia 30 ML ORAL.SUSP PO (20:46)
[2022-01-12] MEDS: Mirtazapine 30 MG TABLET PO (20:47)
[2022-01-12] MEDS: risperiDONE 1 MG TABLET PO (20:48)
[2022-01-12] MEDS: traZODone HCL 50 MG TABLET PO ×2 (20:48→23:12)
[2022-01-13] MEDS: Gabapentin 300 MG CAPSULE PO ×3 (08:48→20:51)
[2022-01-13] MEDS: Nicotine 21 MG PATCH.TD24 TRANSDERMA (08:48)
[2022-01-13] MEDS: hydrOXYzine HCL 50 MG TABLET PO ×2 (08:48→15:53)
[2022-01-13] MEDS: Buprenorphine/Naloxone 8/2 mg FILM 1 FILM SUBLINGUAL ×2 (08:48→20:51)
[2022-01-13 09:00] VITALS: BP 115/57; PULSE 60; RESP 18; TEMP 36.4; O2SAT 98
--- NOTE | 2022-01-13 10:22 | HO.PSYCHPN ---
Subjective Subjective Date of Service: 01/13/22 Reason For Visit: SI Subjective Notes: Conditional Voluntary Interim History: Pt reports sleeping better last night. He reports feeling better in terms of his mood, more hopeful. He appears committed to going to [facility] program to continue substance use treatment. He denies suicidal or homicidal ideation. Has attended groups, very polite and respectful. No behavioral concerns. Medication Compliance: Yes Side effects from medications: No Review of Systems Review of Systems Constitutional : No Fever, No Chills ENT/Mouth : No Ear Pain, No Nasal Congestion, No sore throat Eyes: No Eye Pain, No Swelling, No Redness Cardiovascular : No Chest Pain, No SOB Respiratory : No Cough, No Sputum, No Dyspnea Gastrointestinal : No Nausea, No Vomiting, No Diarrhea, No Hematochezia, No Melena Genitourinary : No Dysuria, No Urinary Frequency, No Hematuria Musculoskeletal : No Myalgias Skin : No Skin Lesions, No rash Neuro : No Weakness, No Numbness, No Paresthesias, No Dizziness, pos Headache Psych : positive Anxiety, positive Depression, positive SI no HI Heme/Lymph: No Lymphadenopathy Endocrine : No Polyuria, No Polydipsia All other systems reviewed and are negative Constitutional: Reports no additional constitutional complaints Eyes: Reports no additional eye complaints Cardiovascular: Denies chest pain, Denies chest pain with activity, Denies epigastric discomfort, Denies irregular heart rhythm, Denies lightheadedness, Denies dyspnea on exertion and Denies orthopnea Respiratory: Denies chest congestion, Denies cough, Denies hemoptysis, Denies pain with cough and Denies dyspnea on exertion Gastrointestinal: Denies constipation and Denies diarrhea Musculoskeletal: Reports myalgias Mental Status Exam Mental Status Exam Narrative: Appearance: casually groomed, fair hygiene in NAD Behavior:cooperative psychomotor: no psychomotor agitation or retardation noted Speech:clear, normal rate/rhythm/volume, spontaneous Thought process:linear Thought content:no psychosis or delusions, wanting help with tx. Mood: anxious Affect: congruent SI:passive HI:none VH/AH:+Ah not command Delusions:none Insight/judgment:fair x 2. Memory/cog: alert, oriented x 3. grossly intact to conversational testing. Diagnostics Vital Signs (24Hr): Vital Signs - 24 hr 01/12/22 18:00 01/13/22 09:00 Temperature 98.0 F 97.6 F Pulse Rate 68 60 Respiratory Rate 18 18 Blood Pressure 123/68 115/57 L Pulse Oximetry 100 98 Oxygen Delivery Method Room Air Room Air BMI result Body Mass Index 24.1 Labs Results: 01/08/22 22:35 01/10/22 07:17 Imaging Radiology Impressions: ITS Impressions Head CT 01/08/22 22:10 IMPRESSION: 1. No evidence of acute intracranial hemorrhage or edematous territorial infarction. 2. Atelectasis of the bilateral maxillary sinuses. Medications Medications Current Medications Acetaminophen (Acetaminophen 325 Mg Tablet) 650 mg PO Q6H PRN PRN Reason: Headache/Pain Mild Scale (1-3) Last Admin: 01/09/22 17:54 Dose: 650 mg Al Hydroxide/Mg Hydroxide (Magnesium Hydrox/Alum Hydrox 30 Ml Oral.Susp) 30 ml PO Q6H PRN PRN Reason: Heartburn/Nausea Buprenorphine/Naloxone (Buprenorphine/Naloxone 8/2 Mg Film) 1 film SUBLINGUAL BID [facility] Last Admin: 01/13/22 08:48 Dose: 1 film Clonidine HCl (Clonidine Hcl 0.1 Mg Tablet) 0.1 mg PO TID PRN; Protocol PRN Reason: Anxiety Last Admin: 01/12/22 13:03 Dose: 0.1 mg Gabapentin (Gabapentin 300 Mg Capsule) 300 mg PO TID [facility] Last Admin: 01/13/22 08:48 Dose: 300 mg Hydroxyzine HCl (Hydroxyzine Hcl 25 Mg Tablet) 25 mg PO BEDTIME PRN PRN Reason: Anxiety Last Admin: 01/09/22 21:56 Dose: 25 mg Hydroxyzine HCl (Hydroxyzine Hcl 50 Mg Tablet) 50 mg PO Q6H PRN PRN Reason: anxiety/sleep Last Admin: 01/13/22 08:48 Dose: 50 mg Magnesium Hydroxide (Milk Of Magnesia 30 Ml Oral.Susp) 30 ml PO DAILY PRN PRN Reason: Constipation Last Admin: 01/12/22 20:46 Dose: 30 ml Mirtazapine (Mirtazapine 30 Mg Tablet) 30 mg PO BEDTIME [facility] Last Admin: 01/12/22 20:47 Dose: 30 mg Nicotine (Nicotine 21 Mg Patch.Td24) 21 mg TRANSDERMA DAILY [facility] Last Admin: 01/13/22 08:48 Dose: 21 mg Nicotine Polacrilex (Nicotine Polacrilex 2 Mg Gum) 2 mg BUCCAL Q2H PRN PRN Reason: cravings Last Admin: 01/11/22 15:29 Dose: 2 mg Pharmacy Consult (Consult Rx Perform Med Rec) 1 each MISCELLANE ONCE PRN PRN Reason: Consult order Risperidone (Risperidone 1 Mg Tablet) 1 mg PO BEDTIME [facility] Last Admin: 01/12/22 20:48 Dose: 1 mg Trazodone HCl (Trazodone Hcl 50 Mg Tablet) 50 mg PO BEDTIME PRN PRN Reason: Insomnia Last Admin: 01/12/22 23:12 Dose: 50 mg Allergies Allergies Allergy/AdvReac Type Severity Reaction Status Date / Time No Known Allergies Allergy Unverified 04/17/20 15:52 Assessment & Plan Assessment & Plan (1) Mood disorder: Status: Acute Code(s): F39 - Unspecified mood [affective] disorder (2) Opioid use disorder: Status: Acute Code(s): F11.90 - Opioid use, unspecified, uncomplicated (3) Cocaine use disorder, severe, dependence: Status: Acute Code(s): F14.20 - Cocaine dependence, uncomplicated Plan Mr. Hobson is a 31 year-old male with hx of opioid and cocaine use, hx of incarceration, self presented to [facility] ED reporting suicidal ideation and depression. Pt reports difficulty adjusting to life outside of [facility]dc after 18 months of encarceration. Utox positive for fentanyl and cocaine. he denies using fentanyl or any other opiods. He is on suboxone- which he reports helpful. AH for several years may be related to substance use but they do occur now not only when using. We discussed risks, benefits and alternative treatment options. PLAN 1. Admit to M3. CV 15 minutes checks for safety 2. Start gabepentin 300mg po TID mood 3. low dose risperidone for voices 1mg po qhs. may consider antidepressant but pt also reports he has not done well- more agitated. 4. Ontain collateral information 5. Aftercare planning. 01/11- will start remeron for depression. referrals for [facility] sent by ISABELLE. 01/12 increase remeron 30mg po qhs. 01/13 continue current tx. I spent minutes with the patient and/or on the patient floor today, greater than?50% of which was spent counseling/coordinating care. Reason for contiued inpatient stay Substantial Risk for: harm to self
[2022-01-13] MEDS: cloNIDine HCL 0.1 MG TABLET PO ×2 (13:39→18:54)
[2022-01-13 18:00] VITALS: BP 119/66; PULSE 78; RESP 18; TEMP 36.7; O2SAT 99
[2022-01-13] MEDS: Mirtazapine 30 MG TABLET PO (20:51)
[2022-01-13] MEDS: hydrOXYzine HCL 25 MG TABLET PO (20:52)
[2022-01-13] MEDS: traZODone HCL 50 MG TABLET PO (20:52)
[2022-01-13] MEDS: risperiDONE 1 MG TABLET PO (20:52)
[2022-01-14 07:00] VITALS: BMI 25.1
[2022-01-14 09:00] VITALS: BP 123/67; PULSE 69; RESP 16; TEMP 36.9; O2SAT 99
[2022-01-14] MEDS: Buprenorphine/Naloxone 8/2 mg FILM 1 FILM SUBLINGUAL ×2 (09:03→20:31)
[2022-01-14] MEDS: Gabapentin 300 MG CAPSULE PO ×2 (09:03→15:46)
[2022-01-14] MEDS: hydrOXYzine HCL 50 MG TABLET PO ×2 (09:04→20:31)
[2022-01-14] MEDS: cloNIDine HCL 0.1 MG TABLET PO (12:18)
[2022-01-14] MEDS: Milk of Magnesia 30 ML ORAL.SUSP PO (12:43)
[2022-01-14] MEDS: Nicotine 21 MG PATCH.TD24 TRANSDERMA ×2 (13:00→13:40)
--- NOTE | 2022-01-14 13:38 | HO.PSYCHPN ---
Subjective Subjective Date of Service: 01/14/22 Reason For Visit: SI Subjective Notes: Conditional Voluntary Interim History: Pt reports he slept well last night somewhat groggy this morning. He reports taking both trazodone in addition to remeron Instructed to take only remeron tonight. He reports less depression. No SI/HI. Looking forward to go to [facility]. No behavioral concerns. Medication Compliance: Yes Side effects from medications: No Attending Groups: Yes Review of Systems Review of Systems Constitutional : No Fever, No Chills ENT/Mouth : No Ear Pain, No Nasal Congestion, No sore throat Eyes: No Eye Pain, No Swelling, No Redness Cardiovascular : No Chest Pain, No SOB Respiratory : No Cough, No Sputum, No Dyspnea Gastrointestinal : No Nausea, No Vomiting, No Diarrhea, No Hematochezia, No Melena Genitourinary : No Dysuria, No Urinary Frequency, No Hematuria Musculoskeletal : No Myalgias Skin : No Skin Lesions, No rash Neuro : No Weakness, No Numbness, No Paresthesias, No Dizziness, pos Headache Psych : positive Anxiety, positive Depression, positive SI no HI Heme/Lymph: No Lymphadenopathy Endocrine : No Polyuria, No Polydipsia All other systems reviewed and are negative Constitutional: Reports no additional constitutional complaints Eyes: Reports no additional eye complaints Cardiovascular: Denies chest pain, Denies chest pain with activity, Denies epigastric discomfort, Denies irregular heart rhythm, Denies lightheadedness, Denies dyspnea on exertion and Denies orthopnea Respiratory: Denies chest congestion, Denies cough, Denies hemoptysis, Denies pain with cough and Denies dyspnea on exertion Gastrointestinal: Denies constipation and Denies diarrhea Musculoskeletal: Reports myalgias Mental Status Exam Mental Status Exam Narrative: Appearance: casually groomed, fair hygiene in NAD Behavior:cooperative psychomotor: no psychomotor agitation or retardation noted Speech:clear, normal rate/rhythm/volume, spontaneous Thought process:linear Thought content:no psychosis or delusions, wanting help with tx. Mood: anxious Affect: congruent SI:passive HI:none VH/AH:+Ah not command Delusions:none Insight/judgment:fair x 2. Memory/cog: alert, oriented x 3. grossly intact to conversational testing. Diagnostics Vital Signs (24Hr): Vital Signs - 24 hr 01/13/22 18:00 01/14/22 09:00 Temperature 98.1 F 98.5 F Pulse Rate 78 69 Respiratory Rate 18 16 Blood Pressure 119/66 123/67 Pulse Oximetry 99 99 Oxygen Delivery Method Room Air Room Air BMI result Body Mass Index 25.1 Labs Results: 01/08/22 22:35 01/10/22 07:17 Imaging Radiology Impressions: ITS Impressions Head CT 01/08/22 22:10 IMPRESSION: 1. No evidence of acute intracranial hemorrhage or edematous territorial infarction. 2. Atelectasis of the bilateral maxillary sinuses. Medications Medications Current Medications Acetaminophen (Acetaminophen 325 Mg Tablet) 650 mg PO Q6H PRN PRN Reason: Headache/Pain Mild Scale (1-3) Last Admin: 01/09/22 17:54 Dose: 650 mg Al Hydroxide/Mg Hydroxide (Magnesium Hydrox/Alum Hydrox 30 Ml Oral.Susp) 30 ml PO Q6H PRN PRN Reason: Heartburn/Nausea Buprenorphine/Naloxone (Buprenorphine/Naloxone 8/2 Mg Film) 1 film SUBLINGUAL BID [facility] Last Admin: 01/14/22 09:03 Dose: 1 film Clonidine HCl (Clonidine Hcl 0.1 Mg Tablet) 0.1 mg PO TID PRN; Protocol PRN Reason: Anxiety Last Admin: 01/14/22 12:18 Dose: 0.1 mg Gabapentin (Gabapentin 300 Mg Capsule) 300 mg PO TID [facility] Last Admin: 01/14/22 15:46 Dose: 300 mg Hydroxyzine HCl (Hydroxyzine Hcl 25 Mg Tablet) 25 mg PO BEDTIME PRN PRN Reason: Anxiety Last Admin: 01/13/22 20:52 Dose: 25 mg Hydroxyzine HCl (Hydroxyzine Hcl 50 Mg Tablet) 50 mg PO Q6H PRN PRN Reason: anxiety/sleep Last Admin: 01/14/22 09:04 Dose: 50 mg Magnesium Hydroxide (Milk Of Magnesia 30 Ml Oral.Susp) 30 ml PO DAILY PRN PRN Reason: Constipation Last Admin: 01/14/22 12:43 Dose: 30 ml Mirtazapine (Mirtazapine 30 Mg Tablet) 30 mg PO BEDTIME [facility] Last Admin: 01/13/22 20:51 Dose: 30 mg Nicotine (Nicotine 21 Mg Patch.Td24) 21 mg TRANSDERMA DAILY [facility] Last Admin: 01/14/22 13:40 Dose: 21 mg Nicotine Polacrilex (Nicotine Polacrilex 2 Mg Gum) 2 mg BUCCAL Q2H PRN PRN Reason: cravings Last Admin: 01/11/22 15:29 Dose: 2 mg Pharmacy Consult (Consult Rx Perform Med Rec) 1 each MISCELLANE ONCE PRN PRN Reason: Consult order Risperidone (Risperidone 1 Mg Tablet) 1 mg PO BEDTIME [facility] Last Admin: 01/13/22 20:52 Dose: 1 mg Trazodone HCl (Trazodone Hcl 50 Mg Tablet) 50 mg PO BEDTIME PRN PRN Reason: Insomnia Last Admin: 01/13/22 20:52 Dose: 50 mg Allergies Allergies Allergy/AdvReac Type Severity Reaction Status Date / Time No Known Allergies Allergy Unverified 04/17/20 15:52 Assessment & Plan Assessment & Plan (1) Mood disorder: Status: Acute Code(s): F39 - Unspecified mood [affective] disorder (2) Opioid use disorder: Status: Acute Code(s): F11.90 - Opioid use, unspecified, uncomplicated (3) Cocaine use disorder, severe, dependence: Status: Acute Code(s): F14.20 - Cocaine dependence, uncomplicated Plan Mr. Hobson is a 31 year-old male with hx of opioid and cocaine use, hx of incarceration, self presented to [facility] ED reporting suicidal ideation and depression. Pt reports difficulty adjusting to life outside of retirement after 18 months of encarceration. Utox positive for fentanyl and cocaine. he denies using fentanyl or any other opiods. He is on suboxone- which he reports helpful. AH for several years may be related to substance use but they do occur now not only when using. We discussed risks, benefits and alternative treatment options. PLAN 1. Admit to M3. CV 15 minutes checks for safety 2. Start gabepentin 300mg po TID mood 3. low dose risperidone for voices 1mg po qhs. may consider antidepressant but pt also reports he has not done well- more agitated. 4. Ontain collateral information 5. Aftercare planning. 01/11- will start remeron for depression. referrals for [facility] sent by ISABELLE. 01/12 increase remeron 30mg po qhs. 01/13 continue current tx. 01/14 continue remeron, gabapentin increase to 400mg po TID. I spent minutes with the patient and/or on the patient floor today, greater than?50% of which was spent counseling/coordinating care. Reason for contiued inpatient stay Substantial Risk for: harm to self
[2022-01-14] MEDS: risperiDONE 1 MG TABLET PO (20:31)
[2022-01-14] MEDS: Mirtazapine 30 MG TABLET PO (20:31)
[2022-01-14] MEDS: Gabapentin 400 MG CAPSULE PO (20:31)
[2022-01-14] MEDS: traZODone HCL 50 MG TABLET PO (20:31)
[2022-01-14] MEDS: polyethylene glycoL 3350 17 GM POWD.PACK PO (20:48)
[2022-01-14 21:00] VITALS: BP 127/76; PULSE 72; RESP 18; TEMP 36.6; O2SAT 97
[2022-01-15 06:00] VITALS: BP 148/74; PULSE 70; RESP 16; TEMP 37; O2SAT 100
[2022-01-15] MEDS: Buprenorphine/Naloxone 8/2 mg FILM 1 FILM SUBLINGUAL ×2 (10:17→20:42)
[2022-01-15] MEDS: Gabapentin 400 MG CAPSULE PO ×3 (10:17→20:42)
[2022-01-15] MEDS: hydrOXYzine HCL 50 MG TABLET PO (10:17)
[2022-01-15] MEDS: Magnesium Citrate 300 ML SOLUTION PO (11:40)
[2022-01-15] MEDS: cloNIDine HCL 0.1 MG TABLET PO (11:46)
[2022-01-15] MEDS: Nicotine 21 MG PATCH.TD24 TRANSDERMA (13:14)
--- NOTE | 2022-01-15 17:25 | HO.PSYCHPN ---
Subjective Subjective Date of Service: 01/15/22 Reason For Visit: SI Subjective Notes: Leigh Warning Interim History: Patient seen and discussed with team. He is going to groups, taking meds, and plans to discharge to [facility] on Tuesday. Patient evaluated today and upon interview he reports he feels good, thank god. Doing a lot better. Feels excited about [facility]. No questions or concerns. Doesnt want med changes, feels safe. In the milieu, patient is safe and appropriate in behavior. Denies SI/SIB/HI upon inquiry. Denies irritability or assaultive ideation. Medication Compliance: Yes Side effects from medications: No Attending Groups: Yes Review of Systems Acute medical concerns: No Medical Review of Systems: unchanged Mental Status Exam Mental Status Exam Narrative: A&O. Well groomed, good hygiene, normal body habitus. Good eye contact, attentive. No Tics or Tremors. No abnormal involuntary movements. Calm, cooperative, engaged. Non-pressured speech, spontaneous with regular rate and rhythm, normal volume and prosody. No prolonged speech latency or dysarthria. Mood is ?better,? affect is euthymic. Denies SI/SIB/HI upon inquiry. Denies A/VH or delusional thought content. Thoughts are coherent, organized. No known cognitive or memory impairment. Insight/ Judgment fair and adequate. Diagnostics Vital Signs (24Hr): Vital Signs - 24 hr 01/14/22 21:00 01/15/22 06:00 Temperature 97.9 F 98.6 F Pulse Rate 72 70 Respiratory Rate 18 16 Blood Pressure 127/76 148/74 H Pulse Oximetry 97 100 Oxygen Delivery Method Room Air Room Air BMI result Body Mass Index 25.1 Labs Results: 01/08/22 22:35 01/10/22 07:17 Imaging Radiology Impressions: ITS Impressions Head CT 01/08/22 22:10 IMPRESSION: 1. No evidence of acute intracranial hemorrhage or edematous territorial infarction. 2. Atelectasis of the bilateral maxillary sinuses. Medications Medications Current Medications Acetaminophen (Acetaminophen 325 Mg Tablet) 650 mg PO Q6H PRN PRN Reason: Headache/Pain Mild Scale (1-3) Last Admin: 01/09/22 17:54 Dose: 650 mg Al Hydroxide/Mg Hydroxide (Magnesium Hydrox/Alum Hydrox 30 Ml Oral.Susp) 30 ml PO Q6H PRN PRN Reason: Heartburn/Nausea Buprenorphine/Naloxone (Buprenorphine/Naloxone 8/2 Mg Film) 1 film SUBLINGUAL BID [facility] Last Admin: 01/15/22 10:17 Dose: 1 film Clonidine HCl (Clonidine Hcl 0.1 Mg Tablet) 0.1 mg PO TID PRN; Protocol PRN Reason: Anxiety Last Admin: 01/15/22 11:46 Dose: 0.1 mg Gabapentin (Gabapentin 400 Mg Capsule) 400 mg PO TID [facility] Last Admin: 01/15/22 14:47 Dose: 400 mg Hydroxyzine HCl (Hydroxyzine Hcl 25 Mg Tablet) 25 mg PO BEDTIME PRN PRN Reason: Anxiety Last Admin: 01/13/22 20:52 Dose: 25 mg Hydroxyzine HCl (Hydroxyzine Hcl 50 Mg Tablet) 50 mg PO Q6H PRN PRN Reason: anxiety/sleep Last Admin: 01/15/22 10:17 Dose: 50 mg Magnesium Hydroxide (Milk Of Magnesia 30 Ml Oral.Susp) 30 ml PO DAILY PRN PRN Reason: Constipation Last Admin: 01/14/22 12:43 Dose: 30 ml Mirtazapine (Mirtazapine 30 Mg Tablet) 30 mg PO BEDTIME [facility] Last Admin: 01/14/22 20:31 Dose: 30 mg Nicotine (Nicotine 21 Mg Patch.Td24) 21 mg TRANSDERMA DAILY [facility] Last Admin: 01/15/22 13:14 Dose: 21 mg Nicotine Polacrilex (Nicotine Polacrilex 2 Mg Gum) 2 mg BUCCAL Q2H PRN PRN Reason: cravings Last Admin: 01/11/22 15:29 Dose: 2 mg Pharmacy Consult (Consult Rx Perform Med Rec) 1 each MISCELLANE ONCE PRN PRN Reason: Consult order Polyethylene Glycol (Polyethylene Glycol 3350 17 Gm Powd.Pack) 17 gm PO BID [facility] Last Admin: 01/15/22 10:19 Dose: Not Given Risperidone (Risperidone 1 Mg Tablet) 1 mg PO BEDTIME [facility] Last Admin: 01/14/22 20:31 Dose: 1 mg Trazodone HCl (Trazodone Hcl 50 Mg Tablet) 50 mg PO BEDTIME PRN PRN Reason: Insomnia Last Admin: 01/14/22 20:31 Dose: 50 mg Allergies Allergies Allergy/AdvReac Type Severity Reaction Status Date / Time No Known Allergies Allergy Unverified 04/17/20 15:52 Assessment & Plan Assessment & Plan (1) Mood disorder: Status: Acute Code(s): F39 - Unspecified mood [affective] disorder (2) Opioid use disorder: Status: Acute Code(s): F11.90 - Opioid use, unspecified, uncomplicated (3) Cocaine use disorder, severe, dependence: Status: Acute Code(s): F14.20 - Cocaine dependence, uncomplicated Plan Mr. Hobson is a 31 year-old male with hx of opioid and cocaine use, hx of incarceration, self presented to [facility] reporting suicidal ideation and depression. Pt reports difficulty adjusting to life outside of nursing home after 18 months of encarceration. Utox positive for fentanyl and cocaine. he denies using fentanyl or any other opiods. He is on suboxone- which he reports helpful. AH for several years may be related to substance use but they do occur now not only when using. We discussed risks, benefits and alternative treatment options. PLAN 1. Admit to M3. CV 15 minutes checks for safety 2. Start gabepentin 300mg po TID mood 3. low dose risperidone for voices 1mg po qhs. may consider antidepressant but pt also reports he has not done well- more agitated. 4. Ontain collateral information 5. Aftercare planning. 01/11- will start remeron for depression. referrals for [facility] sent by [facility]ABELLE. 01/12 increase remeron 30mg po qhs. 01/13 continue current tx. 01/14 continue remeron, gabapentin increase to 400mg po TID. 01/15 continue current med regimen, doesnt want changes I spent minutes with the patient and/or on the patient floor today, greater than?50% of which was spent counseling/coordinating care. Patient educated on: medication risk/benefits and therapeutic strategies Reason for contiued inpatient stay Substantial Risk for: med/psych decompensation
[2022-01-15 18:00] VITALS: BP 148/77; PULSE 79; TEMP 37.1; O2SAT 96
[2022-01-15] MEDS: risperiDONE 1 MG TABLET PO (20:42)
[2022-01-15] MEDS: Mirtazapine 30 MG TABLET PO (20:42)
[2022-01-15] MEDS: polyethylene glycoL 3350 17 GM POWD.PACK PO (20:42)
[2022-01-15] MEDS: hydrOXYzine HCL 25 MG TABLET PO (20:52)
[2022-01-15] MEDS: traZODone HCL 50 MG TABLET PO (20:52)
[2022-01-16 06:00] VITALS: BP 122/69; PULSE 77; RESP 18; TEMP 36.7; O2SAT 98
[2022-01-16] MEDS: hydrOXYzine HCL 50 MG TABLET PO ×2 (10:01→17:22)
[2022-01-16] MEDS: Buprenorphine/Naloxone 8/2 mg FILM 1 FILM SUBLINGUAL ×2 (10:01→21:32)
[2022-01-16] MEDS: Gabapentin 400 MG CAPSULE PO ×3 (10:01→21:33)
[2022-01-16] MEDS: cloNIDine HCL 0.1 MG TABLET PO ×2 (13:55→18:45)
[2022-01-16] MEDS: Nicotine Polacrilex 2 MG GUM BUCCAL (13:56)
[2022-01-16] MEDS: Nicotine 21 MG PATCH.TD24 TRANSDERMA (14:30)
--- NOTE | 2022-01-16 16:33 | HO.PSYCHPN ---
Subjective Subjective Date of Service: 01/16/22 Reason For Visit: SI Interim History: was having some nightmares which may have been related to nicotine patch. Today reports her over the things have been going well. Has noted a big difference in feeling much less depressed and anxious. Has not had any suicidal thoughts for 2 days. Sleep was broken last night in the context of loud roommate. Feels positive that he will be going to the [facility] after the weekend. Will be his 1st time in rehab. Medication Compliance: Yes Side effects from medications: No Attending Groups: Yes Review of Systems Acute medical concerns: No Review of Systems Review of Systems Unremarkable Mental Status Exam Mental Status Exam Narrative: pleasant and engaged. Organized. Euthymic. No SI. No HI. No agitation. No psychosis. Insight and judgment good Diagnostics Vital Signs (24Hr): Vital Signs - 24 hr 01/15/22 18:00 01/16/22 06:00 Temperature 98.7 F 98.1 F Pulse Rate 79 77 Respiratory Rate 18 Blood Pressure 148/77 H 122/69 Pulse Oximetry 96 98 Oxygen Delivery Method Room Air Room Air BMI result Body Mass Index 25.1 Labs Results: 01/08/22 22:35 01/10/22 07:17 Imaging Radiology Impressions: ITS Impressions Head CT 01/08/22 22:10 IMPRESSION: 1. No evidence of acute intracranial hemorrhage or edematous territorial infarction. 2. Atelectasis of the bilateral maxillary sinuses. Medications Medications Current Medications Acetaminophen (Acetaminophen 325 Mg Tablet) 650 mg PO Q6H PRN PRN Reason: Headache/Pain Mild Scale (1-3) Last Admin: 01/09/22 17:54 Dose: 650 mg Al Hydroxide/Mg Hydroxide (Magnesium Hydrox/Alum Hydrox 30 Ml Oral.Susp) 30 ml PO Q6H PRN PRN Reason: Heartburn/Nausea Buprenorphine/Naloxone (Buprenorphine/Naloxone 8/2 Mg Film) 1 film SUBLINGUAL BID [facility] Last Admin: 01/16/22 10:01 Dose: 1 film Clonidine HCl (Clonidine Hcl 0.1 Mg Tablet) 0.1 mg PO TID PRN; Protocol PRN Reason: Anxiety Last Admin: 01/16/22 13:55 Dose: 0.1 mg Gabapentin (Gabapentin 400 Mg Capsule) 400 mg PO TID [facility] Last Admin: 01/16/22 14:31 Dose: 400 mg Hydroxyzine HCl (Hydroxyzine Hcl 25 Mg Tablet) 25 mg PO BEDTIME PRN PRN Reason: Anxiety Last Admin: 01/15/22 20:52 Dose: 25 mg Hydroxyzine HCl (Hydroxyzine Hcl 50 Mg Tablet) 50 mg PO Q6H PRN PRN Reason: anxiety/sleep Last Admin: 01/16/22 10:01 Dose: 50 mg Magnesium Hydroxide (Milk Of Magnesia 30 Ml Oral.Susp) 30 ml PO DAILY PRN PRN Reason: Constipation Last Admin: 01/14/22 12:43 Dose: 30 ml Mirtazapine (Mirtazapine 30 Mg Tablet) 30 mg PO BEDTIME [facility] Last Admin: 01/15/22 20:42 Dose: 30 mg Nicotine (Nicotine 21 Mg Patch.Td24) 21 mg TRANSDERMA DAILY [facility] Last Admin: 01/16/22 10:41 Dose: Not Given Nicotine Polacrilex (Nicotine Polacrilex 2 Mg Gum) 2 mg BUCCAL Q2H PRN PRN Reason: cravings Last Admin: 01/16/22 13:56 Dose: 2 mg Pharmacy Consult (Consult Rx Perform Med Rec) 1 each MISCELLANE ONCE PRN PRN Reason: Consult order Polyethylene Glycol (Polyethylene Glycol 3350 17 Gm Powd.Pack) 17 gm PO BID [facility] Last Admin: 01/16/22 10:06 Dose: Not Given Risperidone (Risperidone 1 Mg Tablet) 1 mg PO BEDTIME [facility] Last Admin: 01/15/22 20:42 Dose: 1 mg Trazodone HCl (Trazodone Hcl 50 Mg Tablet) 50 mg PO BEDTIME PRN PRN Reason: Insomnia Last Admin: 01/15/22 20:52 Dose: 50 mg Allergies Allergies Allergy/AdvReac Type Severity Reaction Status Date / Time No Known Allergies Allergy Unverified 04/17/20 15:52 Assessment & Plan Assessment & Plan (1) Mood disorder: Status: Acute Code(s): F39 - Unspecified mood [affective] disorder (2) Opioid use disorder: Status: Acute Code(s): F11.90 - Opioid use, unspecified, uncomplicated (3) Cocaine use disorder, severe, dependence: Status: Acute Code(s): F14.20 - Cocaine dependence, uncomplicated Plan Mr. Hobson is a 31 year-old male with hx of opioid and cocaine use, hx of incarceration, self presented to [facility] ED reporting suicidal ideation and depression. Pt reports difficulty adjusting to life outside of group home after 18 months of encarceration. Utox positive for fentanyl and cocaine. he denies using fentanyl or any other opiods. He is on suboxone- which he reports helpful. AH for several years may be related to substance use but they do occur now not only when using. We discussed risks, benefits and alternative treatment options. PLAN 1. Admit to M3. CV 15 minutes checks for safety 2. Start gabepentin 300mg po TID mood 3. low dose risperidone for voices 1mg po qhs. may consider antidepressant but pt also reports he has not done well- more agitated. 4. Ontain collateral information 5. Aftercare planning. 01/11- will start remeron for depression. referrals for [facility] sent by [facility]ABELLE. 01/12 increase remeron 30mg po qhs. 01/13 continue current tx. 01/14 continue remeron, gabapentin increase to 400mg po TID. 01/15 continue current med regimen, doesnt want changes 01/16/2022: No changes to current medication plan. Plan for [facility] rehab I spent minutes with the patient and/or on the patient floor today, greater than?50% of which was spent counseling/coordinating care. Reason for contiued inpatient stay Substantial Risk for: rapid decompensation
[2022-01-16 18:00] VITALS: BP 140/79; PULSE 86; RESP 18
[2022-01-16 21:29] VITALS: BP 124/63; PULSE 81; TEMP 36.7; O2SAT 95
[2022-01-16] MEDS: polyethylene glycoL 3350 17 GM POWD.PACK PO (21:32)
[2022-01-16] MEDS: traZODone HCL 50 MG TABLET PO (21:33)
[2022-01-16] MEDS: Mirtazapine 30 MG TABLET PO (21:33)
[2022-01-16] MEDS: hydrOXYzine HCL 25 MG TABLET PO (21:33)
[2022-01-16] MEDS: risperiDONE 1 MG TABLET PO (21:33)
[2022-01-17] MEDS: Nicotine 21 MG PATCH.TD24 TRANSDERMA (09:54)
[2022-01-17 09:55] VITALS: BP 133/85; PULSE 83; RESP 18; TEMP 36.7; O2SAT 95
[2022-01-17] MEDS: Buprenorphine/Naloxone 8/2 mg FILM 1 FILM SUBLINGUAL ×2 (09:55→20:24)
[2022-01-17] MEDS: hydrOXYzine HCL 50 MG TABLET PO (09:56)
[2022-01-17] MEDS: polyethylene glycoL 3350 17 GM POWD.PACK PO ×2 (09:56→20:24)
[2022-01-17] MEDS: Gabapentin 400 MG CAPSULE PO ×3 (09:56→20:24)
--- NOTE | 2022-01-17 11:12 | HO.PSYCHPN ---
Subjective Subjective Date of Service: 01/17/22 Reason For Visit: SI Interim History: Patient seen and discussed with team. No complaints or concerns. Patient evaluated today and upon interview he reports he is doing great, sleep is okay. Has discharge plan for [facility] on Tuesday. No questions or concerns. Reports positive benefit on medications. In the milieu, patient is safe and appropriate in behavior. Denies SI/SIB/HI upon inquiry. Denies irritability or assaultive ideation. Says he feels safe. Medication Compliance: Yes Side effects from medications: No Attending Groups: Yes Review of Systems Acute medical concerns: No Medical Review of Systems: unchanged Mental Status Exam Mental Status Exam Narrative: A&O. Well groomed, good hygiene, normal body habitus. Good eye contact, attentive. No Tics or Tremors. No abnormal involuntary movements. Calm, cooperative, engaged. Non-pressured speech, spontaneous with regular rate and rhythm, normal volume and prosody. No prolonged speech latency or dysarthria. Mood is ?good,? affect is euthymic. Denies SI/SIB/HI upon inquiry. Denies A/VH or delusional thought content. Thoughts are coherent, organized. No known cognitive or memory impairment. Insight/ Judgment fair and adequate. Diagnostics Vital Signs (24Hr): Vital Signs - 24 hr 01/16/22 18:00 01/16/22 21:29 Temperature 98.1 F Pulse Rate 86 81 Respiratory Rate 18 Blood Pressure 140/79 H 124/63 Pulse Oximetry 95 Oxygen Delivery Method Room Air BMI result Body Mass Index 25.1 Labs Results: 01/08/22 22:35 01/10/22 07:17 Imaging Radiology Impressions: ITS Impressions Head CT 01/08/22 22:10 IMPRESSION: 1. No evidence of acute intracranial hemorrhage or edematous territorial infarction. 2. Atelectasis of the bilateral maxillary sinuses. Medications Medications Current Medications Acetaminophen (Acetaminophen 325 Mg Tablet) 650 mg PO Q6H PRN PRN Reason: Headache/Pain Mild Scale (1-3) Last Admin: 01/09/22 17:54 Dose: 650 mg Al Hydroxide/Mg Hydroxide (Magnesium Hydrox/Alum Hydrox 30 Ml Oral.Susp) 30 ml PO Q6H PRN PRN Reason: Heartburn/Nausea Buprenorphine/Naloxone (Buprenorphine/Naloxone 8/2 Mg Film) 1 film SUBLINGUAL BID [facility] Last Admin: 01/17/22 09:55 Dose: 1 film Clonidine HCl (Clonidine Hcl 0.1 Mg Tablet) 0.1 mg PO TID PRN; Protocol PRN Reason: Anxiety Last Admin: 01/16/22 18:45 Dose: 0.1 mg Gabapentin (Gabapentin 400 Mg Capsule) 400 mg PO TID [facility] Last Admin: 01/17/22 09:56 Dose: 400 mg Hydroxyzine HCl (Hydroxyzine Hcl 25 Mg Tablet) 25 mg PO BEDTIME PRN PRN Reason: Anxiety Last Admin: 01/16/22 21:33 Dose: 25 mg Hydroxyzine HCl (Hydroxyzine Hcl 50 Mg Tablet) 50 mg PO Q6H PRN PRN Reason: anxiety/sleep Last Admin: 01/17/22 09:56 Dose: 50 mg Magnesium Hydroxide (Milk Of Magnesia 30 Ml Oral.Susp) 30 ml PO DAILY PRN PRN Reason: Constipation Last Admin: 01/14/22 12:43 Dose: 30 ml Mirtazapine (Mirtazapine 30 Mg Tablet) 30 mg PO BEDTIME [facility] Last Admin: 01/16/22 21:33 Dose: 30 mg Nicotine (Nicotine 21 Mg Patch.Td24) 21 mg TRANSDERMA DAILY [facility] Last Admin: 01/17/22 09:54 Dose: 21 mg Nicotine Polacrilex (Nicotine Polacrilex 2 Mg Gum) 2 mg BUCCAL Q2H PRN PRN Reason: cravings Last Admin: 01/16/22 13:56 Dose: 2 mg Pharmacy Consult (Consult Rx Perform Med Rec) 1 each MISCELLANE ONCE PRN PRN Reason: Consult order Polyethylene Glycol (Polyethylene Glycol 3350 17 Gm Powd.Pack) 17 gm PO BID [facility] Last Admin: 01/17/22 09:56 Dose: 17 gm Risperidone (Risperidone 1 Mg Tablet) 1 mg PO BEDTIME [facility] Last Admin: 01/16/22 21:33 Dose: 1 mg Trazodone HCl (Trazodone Hcl 50 Mg Tablet) 50 mg PO BEDTIME PRN PRN Reason: Insomnia Last Admin: 01/16/22 21:33 Dose: 50 mg Allergies Allergies Allergy/AdvReac Type Severity Reaction Status Date / Time No Known Allergies Allergy Unverified 04/17/20 15:52 Assessment & Plan Assessment & Plan (1) Mood disorder: Status: Acute Code(s): F39 - Unspecified mood [affective] disorder (2) Opioid use disorder: Status: Acute Code(s): F11.90 - Opioid use, unspecified, uncomplicated (3) Cocaine use disorder, severe, dependence: Status: Acute Code(s): F14.20 - Cocaine dependence, uncomplicated Plan Mr. Hobson is a 31 year-old male with hx of opioid and cocaine use, hx of incarceration, self presented to [facility] reporting suicidal ideation and depression. Pt reports difficulty adjusting to life outside of penitentiary after 18 months of encarceration. Utox positive for fentanyl and cocaine. he denies using fentanyl or any other opiods. He is on suboxone- which he reports helpful. AH for several years may be related to substance use but they do occur now not only when using. We discussed risks, benefits and alternative treatment options. PLAN 1. Admit to M3. CV 15 minutes checks for safety 2. Start gabepentin 300mg po TID mood 3. low dose risperidone for voices 1mg po qhs. may consider antidepressant but pt also reports he has not done well- more agitated. 4. Ontain collateral information 5. Aftercare planning. 01/11- will start remeron for depression. referrals for [facility] sent by [facility]. 01/12 increase remeron 30mg po qhs. 01/13 continue current tx. 01/14 continue remeron, gabapentin increase to 400mg po TID. 01/15 continue current med regimen, doesnt want changes 01/16/2022: No changes to current medication plan. Plan for [facility] rehab 01/17 continue current tx plan I spent minutes with the patient and/or on the patient floor today, greater than?50% of which was spent counseling/coordinating care. Patient educated on: medication risk/benefits Reason for contiued inpatient stay Substantial Risk for: med/psych decompensation
[2022-01-17] MEDS: cloNIDine HCL 0.1 MG TABLET PO ×2 (12:26→19:40)
[2022-01-17] MEDS: Mirtazapine 30 MG TABLET PO (20:24)
[2022-01-17] MEDS: risperiDONE 1 MG TABLET PO (20:24)
[2022-01-17] MEDS: traZODone HCL 50 MG TABLET PO (20:24)
[2022-01-17 20:29] VITALS: BP 132/70; PULSE 74; RESP 18; TEMP 37; O2SAT 97
[2022-01-18 09:00] VITALS: BP 127/82; PULSE 79; RESP 20; TEMP 36.8; O2SAT 97
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
[2022-01-18] MEDS: Gabapentin 400 MG CAPSULE PO (09:40)
[2022-01-18] MEDS: polyethylene glycoL 3350 17 GM POWD.PACK PO (09:40)
[2022-01-18] MEDS: Buprenorphine/Naloxone 8/2 mg FILM 1 FILM SUBLINGUAL (09:40)
[2022-01-18] MEDS: hydrOXYzine HCL 50 MG TABLET PO (09:43)
--- NOTE | 2022-01-18 12:02 | PC.NURSE ---
Patient alert, oriented x3. Reports he feels excited to be discharged, verbalized understanding of discharge plans, no concerns reported. Affect bright. Patient denies SI/HI, denies AH/VH. Patient reports he feels ready for discharge.
[2022-01-18] MEDS: Naloxone HCl Nasal TAKE HOME 4 MG SPRAY NOSTRILALT (12:46)
== END 2022-01-18 11:46 | disposition home health service (06) | DRG 753 ==
LOC: HO.ED 22:37 → HO.PADLT16 01-09 14:49
PROVIDERS: Admitting Provider Psychiatry & Neurology Psychiatry; Emergency Provider Emergency Medicine; PCP Internal Medicine; Visit Provider Social Worker
DX: F39 Unspecified mood [affective] disorder (principal); R45.851 Suicidal ideations; F14.20 Cocaine dependence, uncomplicated; F17.210 Nicotine dependence, cigarettes, uncomplicated; F11.20 Opioid dependence, uncomplicated; Z20.822 Contact with and (suspected) exposure to COVID-19; Z59.02 Unsheltered homelessness; Z90.5 Acquired absence of kidney; Z91.51 Personal history of suicidal behavior; Z71.6 Tobacco abuse counseling; Z56.0 Unemployment, unspecified; Z79.899 Other long term (current) drug therapy
CPT/HCPCS: 36415; 70450; 80048; 80053; 80061; 80076; 80307; 82607; 82746; 83036; 83735; 84443; 85025; 87635; 93005; 99285

== ENCOUNTER 2022-07-27 21:37 | Emergency (ER) | payer OTHER, SELFPAY ==
[2022-07-27 21:44] VITALS: BP 144/93; PULSE 84; RESP 18; TEMP 37.1; O2SAT 96; BMI 28.2
--- NOTE | 2022-07-27 21:45 | ED_ITS ---
HPI - Psych General Chief Complaint: Psychiatric Symptoms Stated Complaint: SI Time Seen by Provider: 07/27/22 21:49 Source: patient Mode of arrival: ambulatory Limitations: no limitations History of Present Illness HPI Narrative: 31-year-old male history of opiate use disorder, mood disorder, cocaine use disorder presents with suicidal ideation with plan to hang himself or shoot himself with a gun. Patient tells me he does not own a gun himself however he does have access to 1. Patient also reports drug use, he used heroin about a bundle an hour ago. Denies visual, auditory and tactile hallucinations. Denies tobacco and alcohol. Denies homicidal ideation. Denies medical complaints at this time. Related Data Home Medications Medication Instructions Recorded Confirmed clonidine HCl 0.1 mg tablet 1 tab PO TID anxiety 07/27/22 07/27/22 gabapentin 400 mg capsule 1 cap PO TID 07/27/22 07/27/22 hydroxyzine pamoate 50 mg capsule 1 cap PO Q6H PRN anxiety 07/27/22 07/27/22 mirtazapine 30 mg tablet 1 tab PO BEDTIME 07/27/22 07/27/22 risperidone 1 mg tablet 1 tab PO BEDTIME 07/27/22 07/27/22 trazodone 50 mg tablet 1 tab PO BEDTIME 07/27/22 07/27/22 Previous Rx's Medication Instructions Recorded buprenorphine 8 mg-naloxone 2 mg 1 film sublingual BID #30 01/18/22 sublingual film (Suboxone) nicotine (polacrilex) 2 mg gum 2 mg buccal Q2H PRN cravings #60 01/18/22 nicotine 21 mg/24 hr daily 21 mg transdermal DAILY #30 01/18/22 transdermal patch polyethylene glycol 3350 17 gram 17 g PO BID #30 01/18/22 oral powder packet Allergies Allergy/AdvReac Type Severity Reaction Status Date / Time No Known Allergies Allergy Unverified 04/17/20 15:52 Review of Systems Review of Systems: Constitutional : No Weight loss, No Fever, No Chills, No Fatigue, No Malaise ENT/Mouth : No sore throat, No Rhinorrhea Eyes: No Eye Pain, No Swelling, No Redness Cardiovascular : No Chest Pain, No SOB, No Dyspnea on Exertion, No Orthopnea, No Edema, No Palpitations Respiratory : No Cough, No Sputum, No Wheezing Gastrointestinal : No Nausea, No Vomiting, No Diarrhea, No Constipation, No abdominal Pain, No Hematochezia, No Melena Genitourinary : No Dysuria, No Urinary Frequency, No Hematuria, Musculoskeletal : No joint pain, No Myalgias, No Joint Swelling Skin : No Skin Lesions, No rash Neuro : No Weakness, No Numbness, No Dizziness, No Headache Psych : No Anxiety/Panic, + Depression, + SI All other systems reviewed and are negative Yes all other systems are reviewed and are negative [facility] Past Medical History Attestation statement: The following information was validated with the patient. Source: old records reviewed and nursing notes reviewed Medical History Anxiety and depression Surgical History H/O kidney removal H/O right nephrectomy Social History Social History Household Members: None Household Members Other:: was living with and 2 kids but no longer lives there Housing: Homeless Do you presently have visiting nurse or other home services: No Unable to assess alcohol history related to: Refusing to respond Alcohol intake: never Patient Tobacco Use Status: Current everyday Tobacco user Tobacco use type: Cigarette Cigarette Packs Per Day: 1 Cigarettes Per Day: 20.0 Years Smoked: 16 Second Hand Smoke Exposure: Yes Substance Use Type: Crack/Cocaine and Marijuana Advance Directives: No Advance Directives Information Provided: No service: No Current occupational status: unemployed Sexual orientation: Straight/Heterosexual Physical Exam Vital Signs: Vital Signs: Last Vital Signs Temp 98.7 F 07/27/22 21:44 Pulse 84 07/27/22 21:44 Resp 18 07/27/22 21:44 BP 144/93 H 07/27/22 21:44 Pulse Ox 96 07/27/22 21:44 O2 Del Method 07/27/22 21:44 BMI result Body Mass Index 28.2 vss Appearance: Alert.? Oriented X3.? No acute distress.? Head: Normocephalic, atraumatic, no step-offs or deformities Eyes: Pupils equal, round and reactive to light.? ENT: Pharynx normal.? Neck: Normal inspection.? Neck supple.? CVS: Normal heart rate and rhythm.? Pulses normal.? Respiratory: No respiratory distress.? Breath sounds normal.? Abdomen: Soft and nontender.? Skin: Skin warm and dry.? Normal skin color.? Normal skin turgor.? Extremities: No lower extremity edema.? No calf ttp. 5/5 strength to bilateral upper and lower extremities Back: No midline tenderness, no C-spine tenderness, full range of motion, no CVA tenderness bilaterally Neuro: Oriented X 3.? No motor deficit.? No sensory deficit. CN 2-12 intact Course Reevaluation(s) Reevaluation #1: CBC appears to be around patient's baseline. Chemistry with no electrolyte ab normalities requiring intervention. Ethanol level negative. U tox pending. Patient's vital signs are stable. At this time patient will be placed into observation at time observation was started patient common cooperative no acute distress will continue to monitor. Time: 23:30 Medical Decision Making Medical Decision Making [facility] Narrative: 2 31-year-old male presents with suicidal ideation with plan and heroin use last use about an hour ago use 1 bundle since patient has snorted it. Physical exam benign Plan medical clearance evaluation by the behavioral health team Lab Data Result Diagrams: 07/27/22 21:52 07/27/22 21:52 Labs: Lab Results 07/27/22 07/27/22 07/27/22 Range/Units 21:52 21:52 21:52 WBC 6.1 (4.8-10.8) X10*3/uL RBC 4.90 (4.60-5.80) X10*6/uL Hgb 13.7 L (14.0-18.0) g/dl Hct 43.0 (42.0-52.0) % MCV 87.8 (80.0-98.0) fL MCH 28.0 (27.0-33.0) pg MCHC 31.9 (31.0-36.0) g/dl RDW 12.1 (11.0-16.0) % Plt Count 326 D (160-400) X10*3/uL MPV 9.4 (9.4-12.4) fL Immature Gran % (Auto) 0.2 (0.0-0.4) % Neut % (Auto) 56.4 (45-73) % Lymph % (Auto) 24.1 (20-40) % Brantley % (Auto) 6.2 (2-11) % Eos % (Auto) 12.0 H (0-4) % Baso % (Auto) 1.1 (0-2) % Lymph # (Auto) 1.5 (1.2-4.9) X10*3/uL Brantley # (Auto) 0.4 (0.1-1.2) X10*3/uL Eos # (Auto) 0.7 H (0.0-0.4) X10*3/uL Baso # (Auto) 0.1 (0.0-0.2) X10*3/uL Abs Immat Gran (auto) 0.01 (0.00-0.03) X10*3/uL Absolute Neuts (auto) 3.4 (2.0-8.3) x10*3/uL Absolute Nucleated RBC 0.000 (0.0-0.012) X10*3/uL Nucleated RBC % (auto) 0.0 (0.0-0.2) /100WBC Sodium 141 (135-145) mmol/L Potassium 4.6 (3.3-5.1) mmol/L Chloride 103 (96-108) mmol/L Carbon Dioxide 32 H (22-29) mmol/L Anion Gap 11 L (12-20) BUN 14 (9-16) mg/dL Creatinine 1.13 (0.5-1.4) mg/dL Estim Creat Clear Calc 92.9 Estimated GFR > 60 Random Glucose 106 (60-115) mg/dL Calcium 9.2 (8.4-10.2) mg/dL Magnesium 2.0 (1.6-2.6) mg/dL Total Bilirubin 0.5 (0.0-1.0) mg/dL AST 23 D (5-37) U/L ALT 26 (0-40) U/L Alkaline Phosphatase 77 (39-117) U/L Total Protein 7.1 (6.5-8.0) g/dL Albumin 4.0 (3.5-5.0) g/dL Ethyl Alcohol < 10 mg/dL Influenza Type A (PCR) NEGATIVE (Negative) Influenza Type B (PCR) NEGATIVE (Negative) RSV RNA Qual (PCR) NEGATIVE (Negative) SARS-CoV-2 RNA (RT-PCR) NEGATIVE (Negative) Critical Care Time Critical Care Time Critical Care Time: No Discharge Plan Discharge Clinical Impression: Suicidal ideation, Opioid use disorder Patient Disposition: Still a Patient Prescriptions: No Action nicotine (polacrilex) 2 mg Gum 2 mg buccal Q2H PRN (Reason: cravings) Qty: 60 0RF nicotine 21 mg/24 hr Patch 24 Hour 21 mg transdermal DAILY Qty: 30 0RF buprenorphine-naloxone [Suboxone] 8-2 mg Film 1 film sublingual BID Qty: 30 0RF polyethylene glycol 3350 17 gram Powder In Packet 17 g PO BID Qty: 30 0RF clonidine HCl 0.1 mg tablet 1 tab PO TID trazodone 50 mg tablet 1 tab PO BEDTIME gabapentin 400 mg capsule 1 cap PO TID hydroxyzine pamoate 50 mg capsule 1 cap PO Q6H PRN (Reason: anxiety) mirtazapine 30 mg tablet 1 tab PO BEDTIME risperidone 1 mg tablet 1 tab PO BEDTIME
[2022-07-27 22:01] LABS: MANUAL DIFF FLAG NO
[2022-07-27 22:03] LABS: Basophils Absolute Auto 0.1 X10*3/uL (0.0-0.2); Basophils Percent Auto 1.1 % (0-2); Eosinophils Absolute Auto 0.7 X10*3/uL (0.0-0.4); Hemoglobin 13.7 g/dl (14.0-18.0); Imm Gran Abs Auto 0.01 X10*3/uL (0.00-0.03); Imm Gran Pct Auto 0.2 % (0.0-0.4); Lymphocytes Absolute Auto 1.5 X10*3/uL (1.2-4.9); Lymphocytes Percent Auto 24.1 % (20-40); Mean Corpuscular HGB Conc 31.9 g/dl (31.0-36.0); Mean Corpuscular Volume 87.8 fL (80.0-98.0); Mean Platelet Volume 9.4 fL (9.4-12.4); Monocytes Absolute Auto 0.4 X10*3/uL (0.1-1.2); Monocytes Percent Auto 6.2 % (2-11); Neutrophils Absolute Auto 3.4 x10*3/uL (2.0-8.3); Neutrophils Percent Auto 56.4 % (45-73); Platelet Count 326 X10*3/uL (160-400); Red Cell Distribution Width 12.1 % (11.0-16.0); White Blood Count 6.1 X10*3/uL (4.8-10.8)
[2022-07-27 22:16] LABS: Alanine Aminotransferase 26 U/L (0-40); Alkaline Phosphatase 77 U/L (39-117); Anion Gap 11 (12-20); Aspartate Amino Transferase 23 U/L (5-37); Bilirubin Total 0.5 mg/dL (0.0-1.0); Blood Urea Nitrogen 14 mg/dL (9-16); Calcium 9.2 mg/dL (8.4-10.2); Carbon Dioxide 32 mmol/L (22-29); Chloride 103 mmol/L (96-108); Creatinine Clr Calc Pharmacy 92.9; Estimated Glomerular Filt Rate > 60; Ethanol < 10 mg/dL; Glucose Random 106 mg/dL (60-115); Potassium 4.6 mmol/L (3.3-5.1); Sodium 141 mmol/L (135-145); Total Protein 7.1 g/dL (6.5-8.0)
[2022-07-27 22:42] LABS: Influenza A PCR NEGATIVE (Negative); Influenza B PCR NEGATIVE (Negative); Resp Syncy Virus RNA Qual PCR NEGATIVE (Negative); SARS COV2 PCR INHOUSE NEGATIVE (Negative)
[2022-07-28 01:11] VITALS: BP 120/86; PULSE 84; RESP 18; O2SAT 95
[2022-07-28] MEDS: Albuterol Sulfate 90 MCG 8 GM INHALER 4 PUFF INHALE ×2 (01:22→07:26)
[2022-07-28 01:52] LABS: Appearance Urine Clear; Color Urine Yellow; Glucose Urine UA Negative (Negative); Leukocyte Esterase Urine Negative (Negative); Nitrite Urine Negative (Negative); PH 7.5 (5.0-9.0); Urine Blood Negative (Negative); Urine Ketones Negative (Negative); Urine Protein Trace mg/dL (Neg-Trace)
[2022-07-28 02:02] LABS: Amphetamine Screen Urine POSITIVE (Not Detect); Barbiturates, Urine Not Detected (Not Detect); Benzodiazepines Screen Urine Not Detected (Not Detect); Cannabinoid Screen Urine POSITIVE (Not Detect); Cocaine Screen Urine POSITIVE (Not Detect); Fentanyl, urine POSITIVE (Not Detect); Opiate Screen Urine POSITIVE (Not Detect); Phencyclidine Screen Urine Not Detected (Not Detect)
--- NOTE | 2022-07-28 05:23 | PC.NURSE ---
Patient slept most part of the night, no distress observed/reported except wheezing secondary to asthma and smoker, Ventolin administered as ordered at 0122 with + effect, RR 19 and SpO2 96% RA, patient engaged well with BHN, disposition of the patient is section 12 inpatient bed search, behavior non concerning and follows direction well, med rec completed/approved by the provider/MAR active, VSS, will continue to monitor.
[2022-07-28 07:58] VITALS: BP 131/97; PULSE 92; RESP 16; TEMP 36.4; O2SAT 96
[2022-07-28] MEDS: Fluticasone Propionate 100 MCG BLST.W.DEV 2 PUFF INHALE ×2 (08:29→19:23)
[2022-07-28] MEDS: Nicotine 21 MG PATCH.TD24 TRANSDERMA (08:29)
[2022-07-28] MEDS: cloNIDine HCL 0.1 MG TABLET PO ×3 (08:29→20:08)
[2022-07-28] MEDS: Gabapentin 400 MG CAPSULE PO ×3 (08:29→20:08)
--- NOTE | 2022-07-28 12:01 | PC.NURSE ---
Dr. Madison at bedside.
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
[2022-07-28 14:00] VITALS: BP 102/65; PULSE 73; RESP 16
[2022-07-28 20:04] VITALS: BP 111/59; PULSE 69; RESP 16; TEMP 37.1; O2SAT 97
[2022-07-28] MEDS: traZODone HCL 50 MG TABLET PO (20:08)
[2022-07-28] MEDS: Mirtazapine 30 MG TABLET PO (20:08)
[2022-07-28] MEDS: risperiDONE 1 MG TABLET PO (20:08)
[2022-07-28] MEDS: polyethylene glycoL 3350 17 GM POWD.PACK PO (20:08)
--- NOTE | 2022-07-29 04:42 | PC.NURSE ---
Patient slept through the night, no distress observed/reported, disposition per [facility] is section 12 inpatient bed search, behavior non concerning and follows direction well, medication compliant, refused Suboxone due to fear for precipitated withdrawal, VSS, will continue to monitor.
[2022-07-29 07:08] VITALS: BP 109/63; PULSE 75; RESP 16; TEMP 36.8; O2SAT 97
[2022-07-29] MEDS: Fluticasone Propionate 100 MCG BLST.W.DEV 2 PUFF INHALE (07:22)
--- NOTE | 2022-07-29 07:30 | PC.NURSE ---
pt a/o x 4 no sob/fela noted speaks in full sentences. pt amb (i) gait steady to bathroom and btb. pt refused breakfast at this time stating that he wanted to sleep. will continue to monitor.
[2022-07-29] MEDS: Gabapentin 400 MG CAPSULE PO (09:40)
[2022-07-29] MEDS: polyethylene glycoL 3350 17 GM POWD.PACK PO (09:41)
[2022-07-29] MEDS: cloNIDine HCL 0.1 MG TABLET PO (09:41)
--- NOTE | 2022-07-29 10:00 | PC.NURSE ---
pt refused suboxen and nicotine patch. pt is resting quietly.
--- NOTE | 2022-07-29 10:40 | PC.NURSE ---
pt seen by humera (navi), pt to be referred for detox. continuous improvement coach to eval/assess. pt denies any si/hi. pt aware of plan of care. pt is calm/co-op.
--- NOTE | 2022-07-29 11:01 | MHC.RECOVRN ---
Referrals sent to [facility] and [facility].
--- NOTE | 2022-07-29 11:28 | PC.NURSE ---
pt seen by executive coach (navi), pt aware of plan of care.
--- NOTE | 2022-07-29 12:40 | PC.NURSE ---
pt spoke with bhavana wright ([facility]). pt ed transfer summary to be faxed at [phone]. pt needs to be at [facility] for 1630. if there is going to be any delay in pt's arrival to [facility] please call [phone] (bhavana wright).
--- NOTE | 2022-07-29 13:00 | MHC.RECOVRN ---
Addendum entered by Kori Griffin 07/29/22 15:53: Pt transported via [employer]. Original Note: Pt accepted to [facility] for 4:30PM admission.
== END 2022-07-29 15:47 | disposition home or self-care (01) ==
PROVIDERS: Physician Assistant; Emergency Provider Internal Medicine; PCP Internal Medicine
DX: F33.1 Major depressive disorder, recurrent, moderate (principal); F14.20 Cocaine dependence, uncomplicated; F11.90 Opioid use, unspecified, uncomplicated; F43.10 Post-traumatic stress disorder, unspecified; R45.851 Suicidal ideations; Z20.822 Contact with and (suspected) exposure to COVID-19; Z79.899 Other long term (current) drug therapy
CPT/HCPCS: 0241U; 36415; 80053; 80307; 81003; 82077; 83735; 85025; 99285

== ENCOUNTER 2022-08-15 19:40 | Inpatient (IN) | payer OTHER, SELFPAY ==
[2022-08-15 19:43] VITALS: BP 112/75; PULSE 77; RESP 20; TEMP 36.5; O2SAT 99; BMI 26.8
--- NOTE | 2022-08-15 20:05 | ED.PSYCH ---
HPI - Psych General Chief Complaint: Psychiatric Symptoms Stated Complaint: crisis/ SI Time Seen by Provider: 08/15/22 19:50 Source: patient Mode of arrival: ambulatory Limitations: no limitations History of Present Illness HPI Narrative: This is a 32-year-old male history of major depression, PTSD, opiate use disorder presenting to the emergency department with complaints of suicidal ideation, depression times years progressively worsening. Patient tells me he has a plan to overdose or cut himself. He cannot identify any precipitating factors to feeling this way. Denies drugs, alcohol tobacco. Denies visual, auditory and tactile hallucinations. Denies homicidal ideations. No medical complaints. Tells me he is med compliant. Related Data Home Medications Medication Instructions Recorded Confirmed buprenorphine 8 mg-naloxone 2 mg 3 strip sublingual DAILY 08/15/22 08/15/22 sublingual film (Suboxone) clonidine HCl 0.1 mg tablet 1 tab PO TID anxiety 08/15/22 08/15/22 gabapentin 400 mg capsule 1 cap PO TID 08/15/22 08/15/22 hydroxyzine pamoate 50 mg capsule 1 cap PO Q6H PRN anxiety 08/15/22 08/15/22 mirtazapine 30 mg tablet 1 tab PO BEDTIME 08/15/22 08/15/22 risperidone 1 mg tablet 1 tab PO BEDTIME 08/15/22 08/15/22 trazodone 50 mg tablet 1 tab PO BEDTIME 08/15/22 08/15/22 Previous Rx's Medication Instructions Recorded nicotine (polacrilex) 2 mg gum 2 mg buccal Q2H PRN cravings #60 ea 01/18/22 nicotine 21 mg/24 hr daily 21 mg transdermal DAILY #30 ea 01/18/22 transdermal patch Allergies Allergy/AdvReac Type Severity Reaction Status Date / Time No Known Allergies Allergy Verified 08/15/22 19:47 Review of Systems Review of Systems: Constitutional : No Weight loss, No Fever, No Chills, No Fatigue, No Malaise ENT/Mouth : No sore throat, No Rhinorrhea Eyes: No Eye Pain, No Swelling, No Redness Cardiovascular : No Chest Pain, No SOB, No Dyspnea on Exertion, No Orthopnea, No Edema, No Palpitations Respiratory : No Cough, No Sputum, No Wheezing Gastrointestinal : No Nausea, No Vomiting, No Diarrhea, No Constipation, No abdominal Pain, No Hematochezia, No Melena Genitourinary : No Dysuria, No Urinary Frequency, No Hematuria, Musculoskeletal : No joint pain, No Myalgias, No Joint Swelling Skin : No Skin Lesions, No rash Neuro : No Weakness, No Numbness, No Dizziness, No Headache Psych : No Anxiety/Panic, + Depression, + SI no HI All other systems reviewed and are negative Yes all other systems are reviewed and are negative [facility] Past Medical History Attestation statement: The following information was validated with the patient. Source: old records reviewed and nursing notes reviewed Medical History Anxiety and depression MDD (major depressive disorder), recurrent episode, moderate PTSD (post-traumatic stress disorder) Surgical History H/O kidney removal H/O right nephrectomy Social History Social History Household Members: None Household Members Other:: was living with and 2 kids but no longer lives there Housing: Homeless Do you presently have visiting nurse or other home services: No Unable to assess alcohol history related to: Refusing to respond Alcohol intake: current Alcohol intake frequency: does not drink Patient Tobacco Use Status: Current everyday Tobacco user Tobacco use type: Cigarette Cigarette Packs Per Day: 1 Cigarettes Per Day: 20.0 Years Smoked: 16 Second Hand Smoke Exposure: Yes Substance Use Type: Amphetamines and Opiates Advance Directives: No Advance Directives Information Provided: Yes service: No Current occupational status: unemployed Sexual orientation: Straight/Heterosexual Physical Exam Vital Signs: Vital Signs: Last Vital Signs Temp 97.7 F 08/15/22 19:43 Pulse 77 08/15/22 19:43 Resp 20 08/15/22 19:43 BP 112/75 08/15/22 19:43 Pulse Ox 99 08/15/22 19:43 O2 Del Method 08/15/22 19:43 BMI result Body Mass Index 26.8 Vital signs stable Appearance: Alert.? Oriented X3.? No acute distress.? Head: Normocephalic, atraumatic, no step-offs or deformities Eyes: Pupils equal, round and reactive to light.? ENT: Pharynx normal.? Neck: Normal inspection.? Neck supple.? CVS: Normal heart rate and rhythm.? Pulses normal.? Respiratory: No respiratory distress.? Breath sounds normal.? Abdomen: Soft and nontender.? Skin: Skin warm and dry.? Normal skin color.? Normal skin turgor.? Extremities: No lower extremity edema.? No calf ttp. 5/5 strength to bilateral upper and lower extremities Neuro: Oriented X 3.? No motor deficit.? No sensory deficit. CN 2-12 intact Course Reevaluation(s) Reevaluation #1: CBC with no acute findings. Chemistry with no acute findings. UA clean. Patient's he urine toxicology positive for fentanyl, cocaine. Negative salicylates, acetaminophen and ethanol level. COVID negative. At this time patient will be placed into physician observation to allow more time to be evaluated by the behavioral health team. At time observation was started patient common cooperative no acute distress will continue to monitor Time: 20:47 Medical Decision Making Medical Decision Making [facility] Narrative: 2007 32-year-old male presents with suicidal ideation with plan to cut or overdose. Physical exam benign Likely secondary to mood disorder or major depression. Unlikely metabolic disturbances or electrolyte abnormalities. Plan at this time medical clearance evaluation by care team Differential Diagnosis Differential Diagnoses: The differential diagnosis associated with the presentation includes Admission/Observation Consideration of admission/observation: Escalation of care including admission/observation considered Lab Data [facility] Lab Attestation statement: I reviewed the patient's lab results. 08/15/22 19:58 08/15/22 19:58 Labs: Lab Results 08/15/22 08/15/22 08/15/22 Range/Units 19:58 19:58 19:58 WBC 7.2 (4.8-10.8) X10*3/uL RBC 5.49 (4.60-5.80) X10*6/uL Hgb 15.7 (14.0-18.0) g/dl Hct 48.1 (42.0-52.0) % MCV 87.6 (80.0-98.0) fL MCH 28.6 (27.0-33.0) pg MCHC 32.6 (31.0-36.0) g/dl RDW 13.2 (11.0-16.0) % Plt Count 317 (160-400) X10*3/uL MPV 9.3 L (9.4-12.4) fL Immature Gran % (Auto) 0.3 (0.0-0.4) % Neut % (Auto) 72.2 (45-73) % Lymph % (Auto) 18.9 L (20-40) % [place] % (Auto) 3.9 (2-11) % Eos % (Auto) 3.9 (0-4) % Baso % (Auto) 0.8 (0-2) % Lymph # (Auto) 1.4 (1.2-4.9) X10*3/uL [place] # (Auto) 0.3 (0.1-1.2) X10*3/uL Eos # (Auto) 0.3 (0.0-0.4) X10*3/uL Baso # (Auto) 0.1 (0.0-0.2) X10*3/uL Abs Immat Gran (auto) 0.02 (0.00-0.03) X10*3/uL Absolute Neuts (auto) 5.2 (2.0-8.3) x10*3/uL Absolute Nucleated RBC 0.000 (0.0-0.012) X10*3/uL Nucleated RBC % (auto) 0.0 (0.0-0.2) /100WBC Sodium (135-145) mmol/L Potassium (3.3-5.1) mmol/L Chloride (96-108) mmol/L Carbon Dioxide (22-29) mmol/L Anion Gap (12-20) BUN (9-16) mg/dL Creatinine (0.5-1.4) mg/dL Estim Creat Clear Calc Estimated GFR Random Glucose (60-115) mg/dL Calcium (8.4-10.2) mg/dL Magnesium 1.8 (1.6-2.6) mg/dL Total Bilirubin (0.0-1.0) mg/dL AST (5-37) U/L ALT (0-40) U/L Alkaline Phosphatase (39-117) U/L Total Protein (6.5-8.0) g/dL Albumin (3.5-5.0) g/dL Urine Color Urine Appearance Urine pH (5.0-9.0) Ur Specific [place] (1.005-1.025) Urine Protein (Neg-Trace) mg/dL Urine Glucose (UA) (Negative) mg/dL Urine Ketones (Negative) mg/dL Urine Blood (Negative) Urine Nitrite (Negative) Ur Leukocyte Esterase (Negative) Salicylates < 5.0 L (15-30) mg/dL Urine Opiates Screen (Not Detect) Urine Fentanyl Screen (Not Detect) Acetaminophen < 17 (<30) mcg/mL Ur Barbiturates Screen (Not Detect) Ur Phencyclidine Scrn (Not Detect) Ur Amphetamines Screen (Not Detect) U Benzodiazepines Scrn (Not Detect) Urine Cocaine Screen (Not Detect) U Marijuana (THC) Screen (Not Detect) Ethyl Alcohol < 10 mg/dL COVID-19 (RENITA) Negative (Negative) COVID-19 Clin Com See Note 08/15/22 08/15/22 08/15/22 Range/Units 19:58 19:58 19:58 WBC (4.8-10.8) X10*3/uL RBC (4.60-5.80) X10*6/uL Hgb (14.0-18.0) g/dl Hct (42.0-52.0) % MCV (80.0-98.0) fL MCH (27.0-33.0) pg MCHC (31.0-36.0) g/dl RDW (11.0-16.0) % Plt Count (160-400) X10*3/uL MPV (9.4-12.4) fL Immature Gran % (Auto) (0.0-0.4) % Neut % (Auto) (45-73) % Lymph % (Auto) (20-40) % [place] % (Auto) (2-11) % Eos % (Auto) (0-4) % Baso % (Auto) (0-2) % Lymph # (Auto) (1.2-4.9) X10*3/uL [place] # (Auto) (0.1-1.2) X10*3/uL Eos # (Auto) (0.0-0.4) X10*3/uL Baso # (Auto) (0.0-0.2) X10*3/uL Abs Immat Gran (auto) (0.00-0.03) X10*3/uL Absolute Neuts (auto) (2.0-8.3) x10*3/uL Absolute Nucleated RBC (0.0-0.012) X10*3/uL Nucleated RBC % (auto) (0.0-0.2) /100WBC Sodium 142 (135-145) mmol/L Potassium 4.7 (3.3-5.1) mmol/L Chloride 104 (96-108) mmol/L Carbon Dioxide 28 (22-29) mmol/L Anion Gap 15 (12-20) BUN 18 H (9-16) mg/dL Creatinine 1.27 (0.5-1.4) mg/dL Estim Creat Clear Calc 74.6 Estimated GFR > 60 Random Glucose 105 (60-115) mg/dL Calcium 9.6 (8.4-10.2) mg/dL Magnesium (1.6-2.6) mg/dL Total Bilirubin 0.9 (0.0-1.0) mg/dL AST 11 (5-37) U/L ALT 17 (0-40) U/L Alkaline Phosphatase 97 (39-117) U/L Total Protein 7.3 (6.5-8.0) g/dL Albumin 4.1 (3.5-5.0) g/dL Urine Color Yellow Urine Appearance Clear Urine pH 7.0 (5.0-9.0) Ur Specific [place] 1.025 (1.005-1.025) Urine Protein Negative (Neg-Trace) mg/dL Urine Glucose (UA) Negative (Negative) mg/dL Urine Ketones Negative (Negative) mg/dL Urine Blood Negative (Negative) Urine Nitrite Negative (Negative) Ur Leukocyte Esterase Negative (Negative) Salicylates (15-30) mg/dL Urine Opiates Screen Not Detected (Not Detect) Urine Fentanyl Screen POSITIVE H (Not Detect) Acetaminophen (<30) mcg/mL Ur Barbiturates Screen Not Detected (Not Detect) Ur Phencyclidine Scrn Not Detected (Not Detect) Ur Amphetamines Screen Not Detected (Not Detect) U Benzodiazepines Scrn Not Detected (Not Detect) Urine Cocaine Screen POSITIVE H (Not Detect) U Marijuana (THC) Screen Not Detected (Not Detect) Ethyl Alcohol mg/dL COVID-19 ([facility]ENITA) (Negative) COVID-19 Clin Com Core Measures AMI core measures followed: Yes Measure exclusions: not indicated Critical Care Time Critical Care Time Critical Care Time: No Discharge Plan Discharge Clinical Impression: Opioid use disorder, MDD (major depressive disorder), recurrent episode, moderate, Suicidal ideation Patient Disposition: Still a Patient Prescriptions: No Action gabapentin 400 mg capsule 1 cap PO TID hydroxyzine pamoate 50 mg capsule 1 cap PO Q6H PRN (Reason: anxiety) risperidone 1 mg tablet 1 tab PO BEDTIME buprenorphine-naloxone [Suboxone] 8-2 mg film 3 strip sublingual DAILY clonidine HCl 0.1 mg tablet 1 tab PO TID trazodone 50 mg tablet 1 tab PO BEDTIME mirtazapine 30 mg tablet 1 tab PO BEDTIME nicotine (polacrilex) 2 mg Gum 2 mg buccal Q2H PRN (Reason: cravings) Qty: 60 0RF nicotine 21 mg/24 hr Patch 24 Hour 21 mg transdermal DAILY Qty: 30 0RF
[2022-08-15 20:21] LABS: MANUAL DIFF FLAG NO
[2022-08-15 20:23] LABS: Basophils Absolute Auto 0.1 X10*3/uL (0.0-0.2); Basophils Percent Auto 0.8 % (0-2); Eosinophils Absolute Auto 0.3 X10*3/uL (0.0-0.4); Eosinophils Percent Auto 3.9 % (0-4); Hematocrit 48.1 % (42.0-52.0); Hemoglobin 15.7 g/dl (14.0-18.0); Imm Gran Abs Auto 0.02 X10*3/uL (0.00-0.03); Imm Gran Pct Auto 0.3 % (0.0-0.4); Lymphocytes Absolute Auto 1.4 X10*3/uL (1.2-4.9); Lymphocytes Percent Auto 18.9 % (20-40); Mean Corpuscular HGB Conc 32.6 g/dl (31.0-36.0); Mean Corpuscular Hemoglobin 28.6 pg (27.0-33.0); Mean Corpuscular Volume 87.6 fL (80.0-98.0); Mean Platelet Volume 9.3 fL (9.4-12.4); Monocytes Absolute Auto 0.3 X10*3/uL (0.1-1.2); Monocytes Percent Auto 3.9 % (2-11); Neutrophils Absolute Auto 5.2 x10*3/uL (2.0-8.3); Neutrophils Percent Auto 72.2 % (45-73); Platelet Count 317 X10*3/uL (160-400); Red Blood Count 5.49 X10*6/uL (4.60-5.80); Red Cell Distribution Width 13.2 % (11.0-16.0); White Blood Count 7.2 X10*3/uL (4.8-10.8)
[2022-08-15 20:25] LABS: Appearance Urine Clear; Color Urine Yellow; Glucose Urine UA Negative (Negative); Leukocyte Esterase Urine Negative (Negative); Nitrite Urine Negative (Negative); Specific Gravity - Urine 1.025 (1.005-1.025); Urine Blood Negative (Negative); Urine Ketones Negative (Negative); Urine Protein Negative (Neg-Trace)
[2022-08-15 20:32] LABS: Amphetamine Screen Urine Not Detected (Not Detect); Barbiturates, Urine Not Detected (Not Detect); Benzodiazepines Screen Urine Not Detected (Not Detect); Cannabinoid Screen Urine Not Detected (Not Detect); Cocaine Screen Urine POSITIVE (Not Detect); Fentanyl, urine POSITIVE (Not Detect); Opiate Screen Urine Not Detected (Not Detect); Phencyclidine Screen Urine Not Detected (Not Detect)
[2022-08-15 20:36] LABS: Alanine Aminotransferase 17 U/L (0-40); Albumin Level 4.1 g/dL (3.5-5.0); Alkaline Phosphatase 97 U/L (39-117); Anion Gap 15 (12-20); Aspartate Amino Transferase 11 U/L (5-37); Bilirubin Total 0.9 mg/dL (0.0-1.0); Blood Urea Nitrogen 18 mg/dL (9-16); Calcium 9.6 mg/dL (8.4-10.2); Carbon Dioxide 28 mmol/L (22-29); Chloride 104 mmol/L (96-108); Creatinine Clr Calc Pharmacy 74.6; Estimated Glomerular Filt Rate > 60; Glucose Random 105 mg/dL (60-115); Potassium 4.7 mmol/L (3.3-5.1); Sodium 142 mmol/L (135-145); Total Protein 7.3 g/dL (6.5-8.0)
[2022-08-15 20:37] LABS: COVID-19 Test Negative (Negative); IDNOW Serial# 16C4AD1C
[2022-08-15 20:40] LABS: Acetaminophen LAB < 17 mcg/mL (<30); Ethanol < 10 mg/dL; Magnesium 1.8 mg/dL (1.6-2.6); Salicylate < 5.0 mg/dL (15-30)
--- NOTE | 2022-08-16 | ECG_ITS ---
Test Reason : CLEARANCE Blood Pressure : / mmHG Vent. Rate : 082 BPM Atrial Rate : 082 BPM P-R Int : 140 ms QRS Dur : 090 ms QT Int : 346 ms P-R-T Axes : 079 089 073 degrees QTc Int : 404 ms Normal sinus rhythm Normal ECG When compared with ECG of 09-JAN-2022 13:44, Vent. rate has increased BY 29 BPM Referred By: Homar Loza Electronically Signed By:WATSON PORTILLO MD
[2022-08-16 03:22] VITALS: BP 127/84; PULSE 83; RESP 16; TEMP 36.8; O2SAT 99
--- NOTE | 2022-08-16 06:54 | PC.NURSE ---
Patient slept through the night, no distress observed/reported, behavior non concerning, med rec completed/pending provider's approval, disposition per care team is section 12 inpatient bed search, VSS, will continue to monitor.
[2022-08-16 09:22] VITALS: BP 123/66; PULSE 66; RESP 14; TEMP 36.8; O2SAT 97
[2022-08-16] MEDS: Buprenorphine/Naloxone 8/2 mg FILM 1 FILM SUBLINGUAL ×3 (09:52→20:05)
[2022-08-16] MEDS: Gabapentin 400 MG CAPSULE PO ×3 (09:52→20:05)
[2022-08-16] MEDS: cloNIDine HCL 0.1 MG TABLET PO ×3 (09:53→20:05)
[2022-08-16] MEDS: Mirtazapine 30 MG TABLET PO ×2 (09:53→20:05)
--- NOTE | 2022-08-16 15:19 | MHC.CARE ---
Care Team exhausted bedsearch.
[2022-08-16 17:11] VITALS: BP 108/65; PULSE 58; RESP 16; TEMP 36.9; O2SAT 95
[2022-08-16] MEDS: risperiDONE 1 MG TABLET PO (20:05)
[2022-08-16] MEDS: traZODone HCL 50 MG TABLET PO (20:08)
[2022-08-16 20:10] VITALS: BP 128/81; PULSE 79; RESP 18; TEMP 36.6; O2SAT 92
[2022-08-16 21:36] VITALS: BP 129/79; PULSE 90; RESP 16; TEMP 36.6; O2SAT 95
[2022-08-16] MEDS: Albuterol Sulfate 90 MCG 8 GM INHALER 2 PUFF INHALE (21:51)
--- NOTE | 2022-08-17 | ECG_ITS ---
Test Reason : r/o prolonged qt Blood Pressure : / mmHG Vent. Rate : 056 BPM Atrial Rate : 056 BPM P-R Int : 152 ms QRS Dur : 088 ms QT Int : 402 ms P-R-T Axes : 075 085 062 degrees QTc Int : 387 ms Sinus bradycardia Otherwise normal ECG When compared with ECG of 16-AUG-2022 21:02, No significant change was found Referred By: Frances Lundy Electronically Signed By:WATSON PORTILLO MD
[2022-08-17 02:15] VITALS: BP 117/62; PULSE 80; RESP 14; TEMP 36.6; O2SAT 94
--- NOTE | 2022-08-17 06:16 | PC.NURSE ---
Patient slept through the night, no distress observed/reported, behavior non concerning, contracted for the safety, medication compliant, disposition per care team is section 12 inpatient bed search, VSS, will continue to monitor.
--- NOTE | 2022-08-17 07:05 | PC.NURSE ---
patient appears to remain asleep at present respirations are even and unlabored patient appears in no distress.
[2022-08-17] MEDS: Albuterol Sulfate 90 MCG 8 GM INHALER 2 PUFF INHALE (08:09)
[2022-08-17] MEDS: Acetaminophen 325 MG TABLET 650 MG PO (08:17)
[2022-08-17] MEDS: cloNIDine HCL 0.1 MG TABLET PO ×3 (09:15→20:54)
[2022-08-17] MEDS: Gabapentin 400 MG CAPSULE PO ×3 (09:15→20:54)
[2022-08-17] MEDS: Nicotine 21 MG PATCH.TD24 TRANSDERMA (09:15)
[2022-08-17] MEDS: Buprenorphine/Naloxone 8/2 mg FILM 1 FILM SUBLINGUAL ×3 (09:15→20:53)
[2022-08-17 10:24] VITALS: BP 111/72; PULSE 68; RESP 18; TEMP 37.4; O2SAT 98
[2022-08-17 15:48] VITALS: BP 140/85; PULSE 73; RESP 18; TEMP 36.7; O2SAT 100
[2022-08-17] MEDS: hydrOXYzine HCL 50 MG TABLET PO (17:23)
--- NOTE | 2022-08-17 17:42 | PC.ADMIT ---
Adam was admitted to [facility] at 15:45 from the Pod on Conditional voluntary for treatment of SI and unspecified depressive disorder. Precipitants of admission include increasing depression and anxiety SI with a plan to overdose or cut himself. Patient reported that he lost his job a month ago and had a break up with his significant other/ mother of his kids recently. Patient is alert and oriented x4, and pleasant/cooperative with admission. Mood is depressed. Affect is sad/ flat.? Patient denies Auditory / visual hallucinations. Reports of depression and anxiety are moderate to sever in regards to levels. The Thought Process appears to be linear and organized. Patient is currently denying HI. Reports that he is having passive thoughts of SI. Does not have a plan or intent while on the unit. Reports prior to coming to the hospital that appetite and sleep were poor. Sleep was only about 3 to 4 hours a night. Reported a weight loss of 25 pounds in the last 3 months without trying to lose weight. Reported that he has since been cat napping while in the POD and able to eat meals. The Patient's tox screen was positive for cocaine and fentanyl. Patient reported that he last used cocaine the day he presented to the ED (08/15/2022). Patient tested negative for benzos but reported he took a 0.5 mg klonopin prior to arrival to ED, but is not prescribed klonopin outpatient. Patient is currently on suboxone therapy, 8/2 mg TID. Reports he goes to [facility], and would like the program notified of his arrival here. Patient fears he will be kicked out. Patient reported being at [facility] on 07/26 for 4 days for detox. Reported a medical hx of asthma, and uses a pro air rescue inhaler as needed. No acute distress noted or reported. Reports he feels constipated at this time. Reports that this happens when he is anxious and depressed. 15 minute safety checks initiated.
[2022-08-17] MEDS: Mirtazapine 30 MG TABLET PO (20:53)
[2022-08-17] MEDS: traZODone HCL 50 MG TABLET PO (20:54)
[2022-08-17] MEDS: risperiDONE 1 MG TABLET PO (20:54)
[2022-08-17 20:56] VITALS: BP 127/71; PULSE 77; RESP 16; TEMP 36.6; O2SAT 99
[2022-08-18 09:00] VITALS: BP 119/76; PULSE 70; TEMP 36.6; O2SAT 97
[2022-08-18] MEDS: Buprenorphine/Naloxone 8/2 mg FILM 1 FILM SUBLINGUAL ×3 (09:33→20:01)
[2022-08-18] MEDS: Gabapentin 400 MG CAPSULE PO ×3 (09:33→20:00)
[2022-08-18] MEDS: cloNIDine HCL 0.1 MG TABLET PO ×3 (09:34→20:00)
[2022-08-18] MEDS: hydrOXYzine HCL 50 MG TABLET PO (09:35)
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
[2022-08-18 09:58] LABS: Estimated Average Glucose 120 mg/dL; Hemoglobin A1c % 5.8 %
[2022-08-18 10:05] LABS: Alanine Aminotransferase 15 U/L (0-40); Alkaline Phosphatase 91 U/L (39-117); Anion Gap 11 (12-20); Aspartate Amino Transferase 15 U/L (5-37); Bilirubin Total 0.8 mg/dL (0.0-1.0); Blood Urea Nitrogen 13 mg/dL (9-16); Carbon Dioxide 32 mmol/L (22-29); Chloride 102 mmol/L (96-108); Cholesterol 243 mg/dL; Creatinine Clr Calc Pharmacy 75.2; Estimated Glomerular Filt Rate > 60; Glucose Fasting 106 mg/dL (60-99); HDL Cholesterol 51 mg/dL; LDL Cholesterol Calculated 166 mg/dl; Magnesium 1.9 mg/dL (1.6-2.6); Potassium 5.2 mmol/L (3.3-5.1); Sodium 140 mmol/L (135-145); Total Protein 7.3 g/dL (6.5-8.0); Triglycerides 132 mg/dL
[2022-08-18 10:31] LABS: Thyroid Stimulating Hormone 2.31 uIU/mL (0.32-4.0)
[2022-08-18 10:58] LABS: Vitamin B12 556 pg/mL (200-900)
--- NOTE | 2022-08-18 14:14 | MHC.CLN ---
RE: CONSULT HT 65 WT 75.3KG BMI 26.8 IBW 142#+/-10% PT IS 117% IBW INDICATES OVER WT FOR HT PT REPORTS 25# WT LOSS X 3 MONTHS; UBW APPROX. 191# PT REPORTS 15% SIGNIFICANT WT LOSS X 3 MONTHS PT ALSO NOTED +COCAINE AND FENTANYL UPON ADMISSION CAN CONTRIBUTE TO WT LOSS HOWEVER WT HX REVEALS: CURRENT 75.3KG (01/08/22) 65.7KG TRIGGERS FOR 15% SIGNIFICANT WT GAIN X APPROX. 6 MONTHS (07/11/21)65.7KG TRIGGERS FOR 15% SIGNIFICANT WT GAIN X APPROX. 1 YEAR DIET REGULAR-APPROPRIATE REVIEWED LABS-UNREMARKABLE PT IS EATING WELL ON UNIT WITH GOOD APPETITE NO NEW ORDERS AT THIS TIME MONITOR PO INTAKE CLOSELY
[2022-08-18] MEDS: LORazepam 1 MG TABLET PO (15:22)
[2022-08-18] MEDS: Nicotine Polacrilex 2 MG GUM BUCCAL (17:09)
[2022-08-18 20:00] VITALS: BP 131/82; PULSE 92; RESP 16; TEMP 36.3; O2SAT 97
[2022-08-18] MEDS: Mirtazapine 30 MG TABLET PO (20:00)
[2022-08-18] MEDS: busPIRone HCl 10 MG TABLET PO (20:01)
[2022-08-19] MEDS: busPIRone HCl 10 MG TABLET PO ×2 (08:47→20:50)
[2022-08-19] MEDS: Buprenorphine/Naloxone 8/2 mg FILM 1 FILM SUBLINGUAL ×3 (08:47→20:49)
[2022-08-19] MEDS: Gabapentin 400 MG CAPSULE PO ×3 (08:47→20:50)
[2022-08-19] MEDS: cloNIDine HCL 0.1 MG TABLET PO ×3 (08:48→20:50)
[2022-08-19 09:00] VITALS: BP 120/84; PULSE 63; RESP 16; TEMP 36.9; O2SAT 98
--- NOTE | 2022-08-19 14:52 | HO.PSYCHPN ---
Subjective Subjective Date of Service: 08/19/22 Reason For Visit: SI Subjective Notes: Conditional Voluntary Interim History: Pt reports sleeping well. He reports feeling less overwhelmed. He reports moderate anxiety, more than previous admission. 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 Pt showed understanding about it and reports buspar in past helpful. He denies VH/AH/SI/HI. Medication Compliance: Yes Side effects from medications: No Attending Groups: Yes Review of Systems Acute medical concerns: No Review of Systems Review of Systems Constitutional : No Weight loss, No Fever, No Chills, No Fatigue, No Malaise ENT/Mouth : No sore throat, No Rhinorrhea Eyes: No Eye Pain, No Swelling, No Redness Cardiovascular : No Chest Pain, No SOB, No Dyspnea on Exertion, No Orthopnea, No Edema, No Palpitations Respiratory : No Cough, No Sputum, No Wheezing Gastrointestinal : No Nausea, No Vomiting, No Diarrhea, No Constipation, No abdominal Pain, No Hematochezia, No Melena Genitourinary : No Dysuria, No Urinary Frequency, No Hematuria, Musculoskeletal : No joint pain, No Myalgias, No Joint Swelling Skin : No Skin Lesions, No rash Neuro : No Weakness, No Numbness, No Dizziness, No Headache Psych : No Anxiety/Panic, + Depression, + SI no HI All other systems reviewed and are negative Yes all other systems are reviewed and are negative Constitutional: Reports no additional constitutional complaints, Reports fatigue, Reports poor appetite and Reports weight loss Eyes: Reports no additional eye complaints Cardiovascular: Denies chest pain, Denies chest pain with activity, Denies irregular heart rhythm and Denies lightheadedness Respiratory: Denies chest congestion and Denies cough Gastrointestinal: Denies bloating, Reports constipation and Denies heartburn Endocrine: Reports fatigue Mental Status Exam Mental Status Exam Narrative: Appearance: casually groomed, fair hygiene in NAD Behavior:cooperative psychomotor: no psychomotor agitation or retardation noted Speech:clear, normal rate/rhythm/volume, spontaneous Thought process:linear Thought content:no psychosis or delusions, wanting help with tx. Mood: depressed Affect: congruent SI:passive HI:none VH/AH denies Delusions:none Insight/judgment:fair x 2. Memory/cog: alert, oriented x 3. grossly intact to conversational testing. Diagnostics Vital Signs (24Hr): Vital Signs - 24 hr 08/18/22 20:00 08/19/22 09:00 Temperature 97.4 F 98.4 F Pulse Rate 92 63 Respiratory Rate 16 16 Blood Pressure 131/82 120/84 Pulse Oximetry 97 98 Oxygen Delivery Method Room Air Room Air BMI result Body Mass Index 26.8 Labs 08/15/22 19:58 08/18/22 09:12 Labs: Laboratory Results - last 48 hr 08/18/22 08/18/22 08/18/22 09:12 09:12 09:12 Sodium 140 Potassium 5.2 H Chloride 102 Carbon Dioxide 32 H Anion Gap 11 L BUN 13 Creatinine 1.26 Estim Creat Clear Calc 75.2 Estimated GFR > 60 Fasting Glucose 106 H Estimat Average Glucose 120 Hemoglobin A1c % 5.8 Calcium 10.0 Magnesium 1.9 Total Bilirubin 0.8 AST 15 ALT 15 Alkaline Phosphatase 91 Total Protein 7.3 Albumin 4.0 Triglycerides 132 Cholesterol 243 LDL Cholesterol, Calc 166 HDL Cholesterol 51 Vitamin B12 556 Folate 12.0 TSH 2.31 Medications Medications Current Medications Acetaminophen (Acetaminophen 325 Mg Tablet) 650 mg PO Q6H PRN PRN Reason: Headache/Pain Mild Scale (1-3) Al Hydroxide/Mg Hydroxide (Magnesium Hydrox/Alum Hydrox 30 Ml Oral.Susp) 30 ml PO Q6H PRN PRN Reason: Heartburn/Nausea Albuterol Sulfate (Albuterol Sulfate 90 Mcg 8 Gm Inhaler) 2 puff INHALE RQ4H WHILE AWAKE PRN PRN Reason: Wheezing Last Admin: 08/17/22 08:09 Dose: 2 puff Buprenorphine/Naloxone (Buprenorphine/Naloxone 8/2 Mg Film) 1 film SUBLINGUAL TID [facility] Last Admin: 08/19/22 08:47 Dose: 1 film Buspirone HCl (Buspirone Hcl 10 Mg Tablet) 10 mg PO BID [facility] Last Admin: 08/19/22 08:47 Dose: 10 mg Clonidine HCl (Clonidine Hcl 0.1 Mg Tablet) 0.1 mg PO TID [facility]; Protocol Last Admin: 08/19/22 08:48 Dose: 0.1 mg Gabapentin (Gabapentin 400 Mg Capsule) 400 mg PO TID [facility] Last Admin: 01/19/23 08:47 Dose: 400 mg Hydroxyzine HCl (Hydroxyzine Hcl 50 Mg Tablet) 50 mg PO Q6H PRN PRN Reason: anxiety Last Admin: 08/18/22 09:35 Dose: 50 mg Magnesium Hydroxide (Milk Of Magnesia 30 Ml Oral.Susp) 30 ml PO DAILY PRN PRN Reason: Constipation Mirtazapine (Mirtazapine 30 Mg Tablet) 30 mg PO BEDTIME [facility] Last Admin: 08/18/22 20:00 Dose: 30 mg Nicotine (Nicotine 21 Mg Patch.Td24) 21 mg TRANSDERMA DAILY [facility] Last Admin: 08/19/22 08:50 Dose: Not Given Nicotine Polacrilex (Nicotine Polacrilex 2 Mg Gum) 2 mg BUCCAL Q2H PRN PRN Reason: cravings Last Admin: 08/18/22 17:09 Dose: 2 mg Trazodone HCl (Trazodone Hcl 50 Mg Tablet) 50 mg PO BEDTIME PRN PRN Reason: Insomnia Allergies Allergies Allergy/AdvReac Type Severity Reaction Status Date / Time No Known Allergies Allergy Verified 08/15/22 19:47 Assessment & Plan Assessment & Plan (1) MDD (major depressive disorder), recurrent episode, moderate: Status: Acute Code(s): F33.1 - Major depressive disorder, recurrent, moderate (2) Cocaine use disorder, severe, dependence: Status: Acute Code(s): F14.20 - Cocaine dependence, uncomplicated (3) Opioid use disorder: Status: Acute Code(s): F11.90 - Opioid use, unspecified, uncomplicated Plan Mr. Hobson is a 32 year-old male with hx of opioid and cocaine use. He self [place] [facility] [place] reporting increase depression, SI with plan to OD in context of ongoing substance use. He is known to through previous admission on 12/2021 with similar presentation. We discussed risks, benefits and alternative treatment options. Pt agrees to d/c risperidone as he reports not currently hearing voices and thinks more related to cocaine use in the past. Continue remeron for depression/sleep. And add buspar for anxiety, which pt reports was helpful in the past. PLAN 1. Admit to , CV, 15 minutes checks for safety 2. continue remeron 30mg po qhs, start buspar 10mg po BID 3. Aftercare planning. 08/19 continue current medications. Patient educated on: diagnosis and substance abuse Informed Consent: understands Reason for contiued inpatient stay Substantial Risk for: harm to self Time Spent With Patient Time: Total time managing care of this patient today 30____ minutes.
[2022-08-19] MEDS: LORazepam 1 MG TABLET PO (15:20)
[2022-08-19] MEDS: Nicotine Polacrilex 2 MG GUM BUCCAL (15:23)
[2022-08-19] MEDS: Mirtazapine 30 MG TABLET PO (20:50)
[2022-08-19 20:53] VITALS: BP 128/80; PULSE 77; TEMP 36.9; O2SAT 98
[2022-08-20 08:46] VITALS: BP 126/75; PULSE 77; RESP 18; TEMP 36.3; O2SAT 98
[2022-08-20] MEDS: cloNIDine HCL 0.1 MG TABLET PO ×3 (08:47→22:34)
[2022-08-20] MEDS: busPIRone HCl 10 MG TABLET PO ×2 (08:47→22:34)
[2022-08-20] MEDS: Gabapentin 400 MG CAPSULE PO ×3 (08:47→22:34)
[2022-08-20] MEDS: Buprenorphine/Naloxone 8/2 mg FILM 1 FILM SUBLINGUAL ×3 (08:47→22:34)
--- NOTE | 2022-08-20 10:21 | P.PNPSI_ITS ---
Subjective Subjective Date of Service: 08/20/22 Reason For Visit: SI Subjective Notes: Conditional Voluntary Interim History: Pt reports feeling much less anxious, less depressed. He denies suicidal or homicidal ideation. He denies VH/AH. Pt pleasant on approach. Pt reports he will return to his sister's house and plans to do PHP. No behavioral concerns. Medication Compliance: Yes Side effects from medications: No Review of Systems Review of Systems Constitutional : No Weight loss, No Fever, No Chills, No Fatigue, No Malaise ENT/Mouth : No sore throat, No Rhinorrhea Eyes: No Eye Pain, No Swelling, No Redness Cardiovascular : No Chest Pain, No SOB, No Dyspnea on Exertion, No Orthopnea, No Edema, No Palpitations Respiratory : No Cough, No Sputum, No Wheezing Gastrointestinal : No Nausea, No Vomiting, No Diarrhea, No Constipation, No abdominal Pain, No Hematochezia, No Melena Genitourinary : No Dysuria, No Urinary Frequency, No Hematuria, Musculoskeletal : No joint pain, No Myalgias, No Joint Swelling Skin : No Skin Lesions, No rash Neuro : No Weakness, No Numbness, No Dizziness, No Headache Psych : No Anxiety/Panic, + Depression, + SI no HI All other systems reviewed and are negative Yes all other systems are reviewed and are negative Constitutional: Reports no additional constitutional complaints, Reports fatigue, Reports poor appetite and Reports weight loss Eyes: Reports no additional eye complaints Cardiovascular: Denies chest pain, Denies chest pain with activity, Denies irregular heart rhythm and Denies lightheadedness Respiratory: Denies chest congestion and Denies cough Gastrointestinal: Denies bloating, Reports constipation and Denies heartburn Endocrine: Reports fatigue Mental Status Exam Mental Status Exam Narrative: Appearance: casually groomed, fair hygiene in NAD Behavior:cooperative psychomotor: no psychomotor agitation or retardation noted Speech:clear, normal rate/rhythm/volume, spontaneous Thought process:linear Thought content:no psychosis or delusions, wanting help with tx. Mood: better Affect: brighter SI:none HI:none VH/AH denies Delusions:none Insight/judgment:fair x 2. Memory/cog: alert, oriented x 3. grossly intact to conversational testing. Diagnostics Vital Signs (24Hr): Vital Signs - 24 hr 08/19/22 20:53 08/20/22 08:46 Temperature 98.4 F 97.3 F Pulse Rate 77 77 Respiratory Rate 18 Blood Pressure 128/80 126/75 Pulse Oximetry 98 98 Oxygen Delivery Method Room Air Room Air BMI result Body Mass Index 26.8 Labs 08/15/22 19:58 08/18/22 09:12 Labs: Laboratory Results - last 48 hr 08/18/22 08/18/22 09:12 09:12 Vitamin B12 556 Folate 12.0 TSH 2.31 Medications Medications Current Medications Acetaminophen (Acetaminophen 325 Mg Tablet) 650 mg PO Q6H PRN PRN Reason: Headache/Pain Mild Scale (1-3) Al Hydroxide/Mg Hydroxide (Magnesium Hydrox/Alum Hydrox 30 Ml Oral.Susp) 30 ml PO Q6H PRN PRN Reason: Heartburn/Nausea Albuterol Sulfate (Albuterol Sulfate 90 Mcg 8 Gm Inhaler) 2 puff INHALE RQ4H WHILE AWAKE PRN PRN Reason: Wheezing Last Admin: 08/17/22 08:09 Dose: 2 puff Buprenorphine/Naloxone (Buprenorphine/Naloxone 8/2 Mg Film) 1 film SUBLINGUAL TID [facility] Last Admin: 08/20/22 08:47 Dose: 1 film Buspirone HCl (Buspirone Hcl 10 Mg Tablet) 10 mg PO BID [facility] Last Admin: 08/20/22 08:47 Dose: 10 mg Clonidine HCl (Clonidine Hcl 0.1 Mg Tablet) 0.1 mg PO TID [facility]; Protocol Last Admin: 08/20/22 08:47 Dose: 0.1 mg Gabapentin (Gabapentin 400 Mg Capsule) 400 mg PO TID [facility] Last Admin: 08/20/22 08:47 Dose: 400 mg Hydroxyzine HCl (Hydroxyzine Hcl 50 Mg Tablet) 50 mg PO Q6H PRN PRN Reason: anxiety Last Admin: 08/18/22 09:35 Dose: 50 mg Magnesium Hydroxide (Milk Of Magnesia 30 Ml Oral.Susp) 30 ml PO DAILY PRN PRN Reason: Constipation Mirtazapine (Mirtazapine 30 Mg Tablet) 30 mg PO BEDTIME [facility] Last Admin: 08/19/22 20:50 Dose: 30 mg Nicotine (Nicotine 21 Mg Patch.Td24) 21 mg TRANSDERMA DAILY [facility] Last Admin: 08/20/22 08:50 Dose: Not Given Nicotine Polacrilex (Nicotine Polacrilex 2 Mg Gum) 2 mg BUCCAL Q2H PRN PRN Reason: cravings Last Admin: 08/19/22 15:23 Dose: 2 mg Trazodone HCl (Trazodone Hcl 50 Mg Tablet) 50 mg PO BEDTIME PRN PRN Reason: Insomnia Allergies Allergies Allergy/AdvReac Type Severity Reaction Status Date / Time No Known Allergies Allergy Verified 08/15/22 19:47 Assessment & Plan Assessment & Plan (1) MDD (major depressive disorder), recurrent episode, moderate: Status: Acute Code(s): F33.1 - Major depressive disorder, recurrent, moderate (2) Cocaine use disorder, severe, dependence: Status: Acute Code(s): F14.20 - Cocaine dependence, uncomplicated (3) Opioid use disorder: Status: Acute Code(s): F11.90 - Opioid use, unspecified, uncomplicated Plan Mr. Hobson is a 32 year-old male with hx of opioid and cocaine use. He self presented to [facility] [place] [facility] reporting increase depression, SI with plan to OD in context of ongoing substance use. He is known to through previous admission on 12/2021 with similar presentation. We discussed risks, benefits and alternative nivia tment options. Pt agrees to d/c risperidone as he reports not currently hearing voices and thinks more related to cocaine use in the past. Continue remeron for depression/sleep. And add buspar for anxiety, which pt reports was helpful in the past. PLAN 1. Admit to , CV, 15 minutes checks for safety 2. continue remeron 30mg po qhs, start buspar 10mg po BID 3. Aftercare planning. 08/19 continue current medications. 08/20 continue current medications. pt stable. d/c for Tuesday. Reason for contiued inpatient stay Substantial Risk for: rapid decompensation Time Spent With Patient Time: Total time managing care of this patient today ____ minutes.
[2022-08-20 14:51] VITALS: BP 126/70; PULSE 72
[2022-08-20 22:32] VITALS: BP 123/74; PULSE 75; RESP 16; TEMP 35.9; O2SAT 98
[2022-08-20] MEDS: Mirtazapine 30 MG TABLET PO (22:34)
[2022-08-21] MEDS: Buprenorphine/Naloxone 8/2 mg FILM 1 FILM SUBLINGUAL ×3 (08:59→22:39)
[2022-08-21] MEDS: cloNIDine HCL 0.1 MG TABLET PO ×3 (08:59→22:39)
[2022-08-21] MEDS: busPIRone HCl 10 MG TABLET PO ×2 (08:59→22:39)
[2022-08-21 09:00] VITALS: BP 121/78; PULSE 74; RESP 18; O2SAT 99
[2022-08-21] MEDS: Gabapentin 400 MG CAPSULE PO ×3 (09:00→22:39)
[2022-08-21] MEDS: hydrOXYzine HCL 50 MG TABLET PO ×3 (09:04→23:00)
--- NOTE | 2022-08-21 09:53 | HO.PSYCHPN ---
Subjective Subjective Date of Service: 08/21/22 Reason For Visit: SI Subjective Notes: Conditional Voluntary Healthcare Proxy: No Guardianship: No Medical Problems Affecting Mental Status: No Interim History: Patient was seen and discussed in rounds today. Plans and regimen and records were reviewed. He has been doing better, is more future oriented. He is compliant with his medications. He is hoping to be discharged next week. On 08/18 his potassium was 5.2. I will repeat that. Eating and sleeping adequately. No changes were made today Medication Compliance: Yes Side effects from medications: No Attending Groups: Intermittent Review of Systems Review of Systems Yes all other systems are reviewed and are negative Mental Status Exam Mental Status Exam Narrative: In today's visit he is alert, oriented and pleasant. Normal speech. Moderate eye contact. Appropriate affect. No acute signs of psychosis. No delusions. No SI/HI. Judgment is intact Diagnostics Vital Signs (24Hr): Vital Signs - 24 hr 08/20/22 14:51 08/20/22 22:32 08/21/22 09:00 Temperature 96.7 F L Pulse Rate 72 75 74 Respiratory Rate 16 18 Blood Pressure 126/70 123/74 121/78 Pulse Oximetry 98 99 Oxygen Delivery Method Room Air Room Air BMI result Body Mass Index 26.8 Labs 08/15/22 19:58 08/18/22 09:12 Medications Medications Current Medications Acetaminophen (Acetaminophen 325 Mg Tablet) 650 mg PO Q6H PRN PRN Reason: Headache/Pain Mild Scale (1-3) Al Hydroxide/Mg Hydroxide (Magnesium Hydrox/Alum Hydrox 30 Ml Oral.Susp) 30 ml PO Q6H PRN PRN Reason: Heartburn/Nausea Albuterol Sulfate (Albuterol Sulfate 90 Mcg 8 Gm Inhaler) 2 puff INHALE RQ4H WHILE AWAKE PRN PRN Reason: Wheezing Last Admin: 08/17/22 08:09 Dose: 2 puff Buprenorphine/Naloxone (Buprenorphine/Naloxone 8/2 Mg Film) 1 film SUBLINGUAL TID [facility] Last Admin: 08/21/22 08:59 Dose: 1 film Buspirone HCl (Buspirone Hcl 10 Mg Tablet) 10 mg PO BID [facility] Last Admin: 08/21/22 08:59 Dose: 10 mg Clonidine HCl (Clonidine Hcl 0.1 Mg Tablet) 0.1 mg PO TID [facility]; Protocol Last Admin: 08/21/22 08:59 Dose: 0.1 mg Gabapentin (Gabapentin 400 Mg Capsule) 400 mg PO TID [facility] Last Admin: 08/21/22 09:00 Dose: 400 mg Hydroxyzine HCl (Hydroxyzine Hcl 50 Mg Tablet) 50 mg PO Q6H PRN PRN Reason: anxiety Last Admin: 08/21/22 09:04 Dose: 50 mg Magnesium Hydroxide (Milk Of Magnesia 30 Ml Oral.Susp) 30 ml PO DAILY PRN PRN Reason: Constipation Mirtazapine (Mirtazapine 30 Mg Tablet) 30 mg PO BEDTIME [facility] Last Admin: 08/20/22 22:34 Dose: 30 mg Nicotine (Nicotine 21 Mg Patch.Td24) 21 mg TRANSDERMA DAILY [facility] Last Admin: 08/21/22 09:05 Dose: Not Given Nicotine Polacrilex (Nicotine Polacrilex 2 Mg Gum) 2 mg BUCCAL Q2H PRN PRN Reason: cravings Last Admin: 08/19/22 15:23 Dose: 2 mg Trazodone HCl (Trazodone Hcl 50 Mg Tablet) 50 mg PO BEDTIME PRN PRN Reason: Insomnia Allergies Allergies Allergy/AdvReac Type Severity Reaction Status Date / Time No Known Allergies Allergy Verified 08/15/22 19:47 Assessment & Plan Assessment & Plan (1) MDD (major depressive disorder), recurrent episode, moderate: Status: Acute Code(s): F33.1 - Major depressive disorder, recurrent, moderate (2) Cocaine use disorder, severe, dependence: Status: Acute Code(s): F14.20 - Cocaine dependence, uncomplicated (3) Opioid use disorder: Status: Acute Code(s): F11.90 - Opioid use, unspecified, uncomplicated Plan Mr. Hobson is a 32 year-old male with hx of opioid and cocaine use. He self presented to [facility] [place] [facility] reporting increase depression, SI with plan to OD in context of ongoing substance use. He is known to through previous admission on 12/2021 with similar presentation. We discussed risks, benefits and alternative treatment options. Pt agrees to d/c risperidone as he reports not currently hearing voices and thinks more related to cocaine use in the past. Continue remeron for depression/sleep. And add buspar for anxiety, which pt reports was helpful in the past. PLAN 1. Admit to , CV, 15 minutes checks for safety 2. continue remeron 30mg po qhs, start buspar 10mg po BID 3. Aftercare planning. 08/19 continue current medications. 08/20 continue current medications. pt stable. d/c for Tuesday. 08/21: Continue current plans and regimen Reason for contiued inpatient stay Substantial Risk for: med/psych decompensation Time Spent With Patient Time: Total time managing care of this patient today ____ minutes.
[2022-08-21 14:32] VITALS: BP 127/69; PULSE 88; RESP 16; TEMP 36.4; O2SAT 97
[2022-08-21] MEDS: Nicotine Polacrilex 2 MG GUM BUCCAL (17:23)
[2022-08-21 18:49] VITALS: BP 144/79; PULSE 73; RESP 16; TEMP 37; O2SAT 98
[2022-08-21 22:34] VITALS: BP 138/95; PULSE 76
[2022-08-21] MEDS: Mirtazapine 30 MG TABLET PO (22:39)
--- NOTE | 2022-08-22 09:03 | P.PNPSI_ITS ---
Subjective Subjective Date of Service: 08/22/22 Reason For Visit: SI Subjective Notes: Conditional Voluntary Healthcare Proxy: No Guardianship: No Medical Problems Affecting Mental Status: No Interim History: Patient was seen and discussed in rounds today. Plans and regimen and records were reviewed. He has been pleasant, visible and interactive. He is planning on discharge, probably tomorrow. He is focused on trying to stay substance free. He is medication compliant. Eating and sleeping well. No complaints. No changes were made today Medication Compliance: Yes Side effects from medications: No Attending Groups: Intermittent Review of Systems Review of Systems Yes all other systems are reviewed and are negative Diagnostics Vital Signs (24Hr): Vital Signs - 24 hr 08/21/22 14:32 08/21/22 18:49 08/21/22 22:34 Temperature 97.6 F 98.6 F Pulse Rate 88 73 76 Respiratory Rate 16 16 Blood Pressure 127/69 144/79 H 138/95 H Pulse Oximetry 97 98 Oxygen Delivery Method Room Air Room Air BMI result Body Mass Index 26.8 Labs 08/15/22 19:58 08/18/22 09:12 Medications Medications Current Medications Acetaminophen (Acetaminophen 325 Mg Tablet) 650 mg PO Q6H PRN PRN Reason: Headache/Pain Mild Scale (1-3) Al Hydroxide/Mg Hydroxide (Magnesium Hydrox/Alum Hydrox 30 Ml Oral.Susp) 30 ml PO Q6H PRN PRN Reason: Heartburn/Nausea Albuterol Sulfate (Albuterol Sulfate 90 Mcg 8 Gm Inhaler) 2 puff INHALE RQ4H WHILE AWAKE PRN PRN Reason: Wheezing Last Admin: 08/17/22 08:09 Dose: 2 puff Buprenorphine/Naloxone (Buprenorphine/Naloxone 8/2 Mg Film) 1 film SUBLINGUAL TID [facility] Last Admin: 08/21/22 22:39 Dose: 1 film Buspirone HCl (Buspirone Hcl 10 Mg Tablet) 10 mg PO BID [facility] Last Admin: 08/21/22 22:39 Dose: 10 mg Clonidine HCl (Clonidine Hcl 0.1 Mg Tablet) 0.1 mg PO TID [facility]; Protocol Last Admin: 08/21/22 22:39 Dose: 0.1 mg Gabapentin (Gabapentin 400 Mg Capsule) 400 mg PO TID [facility] Last Admin: 08/21/22 22:39 Dose: 400 mg Hydroxyzine HCl (Hydroxyzine Hcl 50 Mg Tablet) 50 mg PO Q6H PRN PRN Reason: anxiety Last Admin: 08/21/22 18:44 Dose: 50 mg Magnesium Hydroxide (Milk Of Magnesia 30 Ml Oral.Susp) 30 ml PO DAILY PRN PRN Reason: Constipation Mirtazapine (Mirtazapine 30 Mg Tablet) 30 mg PO BEDTIME [facility] Last Admin: 08/21/22 22:39 Dose: 30 mg Nicotine (Nicotine 21 Mg Patch.Td24) 21 mg TRANSDERMA DAILY [facility] Last Admin: 08/21/22 09:05 Dose: Not Given Nicotine Polacrilex (Nicotine Polacrilex 2 Mg Gum) 2 mg BUCCAL Q2H PRN PRN Reason: cravings Last Admin: 08/21/22 17:23 Dose: 2 mg Trazodone HCl (Trazodone Hcl 50 Mg Tablet) 50 mg PO BEDTIME PRN PRN Reason: Insomnia Allergies Allergies Allergy/AdvReac Type Severity Reaction Status Date / Time No Known Allergies Allergy Verified 08/15/22 19:47 Assessment & Plan Assessment & Plan (1) MDD (major depressive disorder), recurrent episode, moderate: Status: Acute Code(s): F33.1 - Major depressive disorder, recurrent, moderate (2) Cocaine use disorder, severe, dependence: Status: Acute Code(s): F14.20 - Cocaine dependence, uncomplicated (3) Opioid use disorder: Status: Acute Code(s): F11.90 - Opioid use, unspecified, uncomplicated Plan Mr. Hobson is a 32 year-old male with hx of opioid and cocaine use. He self presented to [facility] [place] [facility] reporting increase depression, SI with plan to OD in context of ongoing substance use. He is known to through previous admission on 12/2021 with similar presentation. We discussed risks, benefits and alternative treatment options. Pt agrees to d/c risperidone as he reports not currently hearing voices and thinks more related to cocaine use in the past. Continue remeron for depression/sleep. And add buspar for anxiety, which pt reports was helpful in the past. PLAN 1. Admit to , CV, 15 minutes checks for safety 2. continue remeron 30mg po qhs, start buspar 10mg po BID 3. Aftercare planning. 08/19 continue current medications. 08/20 continue current medications. pt stable. d/c for Tuesday. 08/21: Continue current plans and regimen 08/22: Continue current regimen and plans. Repeat electrolytes Reason for contiued inpatient stay Substantial Risk for: med/psych decompensation Time Spent With Patient Time: Total time managing care of this patient today ____ minutes.
[2022-08-22 09:30] VITALS: BP 116/80; PULSE 76; RESP 16; TEMP 36.5; O2SAT 97
[2022-08-22] MEDS: Buprenorphine/Naloxone 8/2 mg FILM 1 FILM SUBLINGUAL ×3 (09:34→20:53)
[2022-08-22] MEDS: cloNIDine HCL 0.1 MG TABLET PO ×3 (09:34→20:53)
[2022-08-22] MEDS: Gabapentin 400 MG CAPSULE PO ×3 (09:34→20:53)
[2022-08-22] MEDS: busPIRone HCl 10 MG TABLET PO ×2 (09:34→20:53)
[2022-08-22 10:17] LABS: Anion Gap 19 (12-20); Carbon Dioxide 26 mmol/L (22-29); Chloride 103 mmol/L (96-108); Potassium 4.1 mmol/L (3.3-5.1); Sodium 144 mmol/L (135-145)
[2022-08-22] MEDS: Nicotine Polacrilex 2 MG GUM BUCCAL (19:33)
[2022-08-22] MEDS: hydrOXYzine HCL 50 MG TABLET PO (19:35)
[2022-08-22 20:30] VITALS: BP 149/81; PULSE 87; RESP 16; TEMP 36.7; O2SAT 97
[2022-08-22] MEDS: Mirtazapine 30 MG TABLET PO (20:53)
[2022-08-23] MEDS: busPIRone HCl 10 MG TABLET PO (08:35)
[2022-08-23] MEDS: Gabapentin 400 MG CAPSULE PO (08:35)
[2022-08-23] MEDS: cloNIDine HCL 0.1 MG TABLET PO (08:35)
[2022-08-23] MEDS: Buprenorphine/Naloxone 8/2 mg FILM 1 FILM SUBLINGUAL (08:35)
[2022-08-23 08:40] VITALS: BP 122/79; PULSE 87; RESP 16; TEMP 36.6; O2SAT 97
--- NOTE | 2022-08-23 09:34 | P.DS_ITS ---
DS: Providers Provider Date of Service: 08/23/22 Date of admission: 08/17/22 14:23 Primary care physician: Unknown Physician DS: Diagnosis Discharge Diagnosis (1) MDD (major depressive disorder), recurrent episode, moderate: Status: Acute (2) Cocaine use disorder, severe, dependence: Status: Acute (3) Opioid use disorder: Status: Acute DS: Medications Discharge Medications Home Medications: Home Medications Medication Instructions Recorded Confirmed buprenorphine 8 mg-naloxone 2 mg 1 strip sublingual TID 08/15/22 08/16/22 sublingual film (Suboxone) clonidine HCl 0.1 mg tablet 1 tab PO TID anxiety 08/15/22 08/15/22 gabapentin 400 mg capsule 1 cap PO TID 08/15/22 08/15/22 hydroxyzine pamoate 50 mg capsule 1 cap PO Q6H PRN anxiety 08/15/22 08/15/22 mirtazapine 30 mg tablet 1 tab PO BEDTIME 08/15/22 08/15/22 risperidone 1 mg tablet 1 tab PO BEDTIME 08/15/22 08/15/22 trazodone 50 mg tablet 1 tab PO BEDTIME 08/15/22 08/15/22 Previous Rx's Medication Instructions Recorded nicotine (polacrilex) 2 mg gum 2 mg buccal Q2H PRN cravings #60 ea 01/18/22 nicotine 21 mg/24 hr daily 21 mg transdermal DAILY #30 ea 01/18/22 transdermal patch Mental Status Exam Mental Status Exam Narrative: Appearance: casually groomed, fair hygiene in NAD Behavior:cooperative psychomotor: no psychomotor agitation or retardation noted Speech:clear, normal rate/rhythm/volume, spontaneous Thought process:linear Thought content:no psychosis or delusions, wanting help with tx. Mood: better Affect: congruent. SI:none HI:none VH/AH denies Delusions:none Insight/judgment:fair x 2. Memory/cog: alert, oriented x 3. grossly intact to conversational testing. Data Data Completed and Pending Completed studies during hospitalization [Text1]: 08/18/22 08/18/22 08/18/22 09:12 09:12 09:12 Sodium 140 Potassium 5.2 H Chloride 102 Carbon Dioxide 32 H Anion Gap 11 L BUN 13 Creatinine 1.26 Estim Creat Clear Calc 75.2 Estimated GFR > 60 Fasting Glucose 106 H Estimat Average Glucose 120 Hemoglobin A1c % 5.8 Calcium 10.0 Magnesium 1.9 Total Bilirubin 0.8 AST 15 ALT 15 Alkaline Phosphatase 91 Total Protein 7.3 Albumin 4.0 Triglycerides 132 Cholesterol 243 LDL Cholesterol, Calc 166 HDL Cholesterol 51 Vitamin B12 556 Folate 12.0 TSH 2.31 08/22/22 09:40 Sodium 144 Potassium 4.1 D Chloride 103 Carbon Dioxide 26 Anion Gap 19 BUN Creatinine Estim Creat Clear Calc Estimated GFR Fasting Glucose Estimat Average Glucose Hemoglobin A1c % Calcium Magnesium Total Bilirubin AST ALT Alkaline Phosphatase Total Protein Albumin Triglycerides Cholesterol LDL Cholesterol, Calc HDL Cholesterol Vitamin B12 Folate TSH DS: Summary Hospital Course Hospital Course: Subjective Notes: Leigh Warning (given and shows understanding) and Conditional Voluntary Narrative: Mr. Hobson is a 32 year-old male with hx of opioid and cocaine use, MDD, who presented to [facility] reporting increase depression, suicidal ideation with plan to cut his wrist or OD. In the ED, his utox is positive for fentanyl, opioids, cocaine and cannabinoids. Pt is known through one previous admission on back in 12/2021 with similar presentation. On the unit, Mr. Hobson reports that he felt better once discharged last December. He reports he began to feel more depressed, hopeless, decreased appetite, poor sleep. He reports he did not follow up with OP psych providers. He reports recently he asked his PCP to restart medications he was discharged on while he was on the unit. Pt endorses depressed mood, feelings of worthlessness, hopelessness. Pt reports he moved out of his GF's house due to ongoing substance use. Reports 1/2 gram cocaine use daily and 1-2 pills fentanyl twice a week. He is also on suboxone. He reports poor appetite, although here on the unit he reports eating well. He also reports poor sleep. He denies AH/VH. Past Psychiatric History: Inpatient: total of 3 inpt admission, mostly at [facility] OP: none Suicide attempts: 2- one OD prior to going to nursing home in 2011, and while in nursing home. Past medication trials: depakote, lithium, risperidone, olanzapine, remeron, trazodone Medical Evaluation Reviewed: Yes 08/15/2022- labs completed in ED include CBC wnl, CMP elevated BUN 18, Cr 1.27 wi th decrease creatinine clearance of 74 (pt also reports he also has one kidney). EKG normal sinus, Qtc 387ms. HOSPITAL COURSE On the unit, pt was admitted on a CV and placed on 15 minutes checks for safety. Pt presented as depressed, passive suicidal ideation. He denied psychosis and did not appear internally preoccupied. He reports after discharged from in 12/2021, that he went to [facility] for few days and left. He recently asked his PCP to restart remeron and gabapentin. He reports he has continued to struggle with substance use. He is suboxone and wants to continue it. After discussing risks, benefits and alternative treatment options, pt agreed to restart remeron. He denied psychosis, so decision not to restart risperidone was made. He was continued on gabapentin. His affect gradually presented as brighter. Pt was increasingly more visible and attended assigned groups. He denies SI/HI several days prior to discharge. No psychosis or delusions noted or reported. He was sleeping through the night. He declined referrals for CSS but agreed to step down to PHP and be referred to OP psych. Status at Discharge Cognitive/behavioral status at discharge: Pt with brighter, non labile affect. No SI/HI. No VH/AH. No delusions. Sleeping and eating well. No signs of aggression towards self or others. Harm reduction given narcan on discharge. Functional status at discharge: independent ambulation Overall status at discharge: patient is progressing back to baseline Time Spent with Patient Time attestation: Total time managing care of this patient today ___30_ minutes. Time spent: Greater than 30 minutes Discharge Plan Discharge Anticipated Discharge Date/Time: 08/23/22 09:42 Patient Disposition: Home, Self-Care Discharge Diagnosis: MDD Cocaine Use disorder Opioid Use Disorder Referrals: Partial Hospitalization Program (PHP) [Other] - 09/02/22 8:00 am (IN OFFICE INTAKE APPOINTMENT -Staff from the program will reach out to you over the phone if there are any cancellations which could get you into the program sooner. ) Kaylah Arroyo (therapy intake) [Other] - 08/25/22 3:00 pm (In office appointment) Brianna Estrella (psychiatrist) [Other] - 09/22/22 9:00 am (Telehealth appointment) Brianna Estrella (psychiatrist) [Other] - 10/21/22 10:00 am (Telehealth appointment) [facility] [Provider Group] - 1 Week Discharge Medications: New clonidine HCl 0.1 mg Tablet 0.1 mg PO TID Qty: 90 0RF Protocol: Hold for SBP< HOLD for SBP < : 90 nicotine 21 mg/24 hr Patch 24 Hour 21 mg transdermal DAILY Qty: 30 0RF albuterol sulfate [Ventolin HFA] 90 mcg/actuation Hfa Aerosol Inhaler 2 puff inhalation RQ4H WHILE AWAKE PRN (Reason: Wheezing) Qty: 6.7 0RF buprenorphine-naloxone [Suboxone] 8-2 mg Film 1 film sublingual TID Qty: 9 0RF gabapentin 400 mg Capsule 400 mg PO TID Qty: 90 0RF hydroxyzine HCl 50 mg Tablet 50 mg PO Q6H PRN (Reason: anxiety) Qty: 30 0RF mirtazapine 30 mg Tablet 30 mg PO BEDTIME Qty: 30 0RF buspirone 10 mg Tablet 10 mg PO BID Qty: 60 0RF Discontinued gabapentin 400 mg capsule 1 cap PO TID hydroxyzine pamoate 50 mg capsule 1 cap PO Q6H PRN (Reason: anxiety) risperidone 1 mg tablet 1 tab PO BEDTIME buprenorphine-naloxone [Suboxone] 8-2 mg film 1 strip sublingual TID clonidine HCl 0.1 mg tablet 1 tab PO TID trazodone 50 mg tablet 1 tab PO BEDTIME mirtazapine 30 mg tablet 1 tab PO BEDTIME nicotine (polacrilex) 2 mg Gum 2 mg buccal Q2H PRN (Reason: cravings) Qty: 60 0RF nicotine 21 mg/24 hr Patch 24 Hour 21 mg transdermal DAILY Qty: 30 0RF Discharge Orders: Discharge Order (Routine); Ordered 08/23/22 Ordered By: Frances Lundy Diet: Regular diet Activity on Discharge: As tolerated Stand Alone Forms: Patient Portal Discharge page Care Plan Goals: 1. Maintain mood 2. No SI/HI 3. Harm reduction: narcan given on discharge. Health Concerns: follow up with PCP Plan of Treatment: 1. Take medications as prescribed 2. Go to nearest ED or call 911 in event of emergency. Assessment: Pt with bright, non labile affect. No SI/HI. No psychosis. Future oriented looking forward to continue OP tx and seeing his family. Pt sleeping and eating well. Narcan given on discharge. No signs of aggression towards self or others.
[2022-08-23] MEDS: Nicotine Polacrilex 2 MG GUM BUCCAL (10:02)
[2022-08-23] MEDS: Naloxone HCl Nasal TAKE HOME 4 MG SPRAY NOSTRILALT (10:02)
== END 2022-08-23 10:49 | disposition home or self-care (01) | DRG 751 ==
LOC: HO.ED 08-17 12:58 → HO.PADLT16 08-17 14:37
PROVIDERS: Physician Assistant; Psychiatry & Neurology Psychiatry; Admitting Provider Psychiatry & Neurology Psychiatry; Emergency Provider Internal Medicine; Visit Provider Social Worker
DX: F33.1 Major depressive disorder, recurrent, moderate (principal); R45.851 Suicidal ideations; F14.20 Cocaine dependence, uncomplicated; F11.20 Opioid dependence, uncomplicated; F17.210 Nicotine dependence, cigarettes, uncomplicated; F43.10 Post-traumatic stress disorder, unspecified; Z20.822 Contact with and (suspected) exposure to COVID-19; Z71.6 Tobacco abuse counseling; Z79.899 Other long term (current) drug therapy
CPT/HCPCS: 36415; 80051; 80053; 80061; 80143; 80179; 80307; 81003; 82077; 82607; 82746; 83036; 83735; 84443; 85025; 87635; 93005; 99285; S9485

== ENCOUNTER 2022-08-23 11:52 | Outpatient (RCR) | payer OTHER, SELFPAY ==
--- NOTE | 2022-08-24 09:58 | PC.NURSE ---
Patient did not show up to the program this morning. I called patient and left a message for him to call me back x2. I called patient's emergency customer contact sales associate Margret Bladimir (his children's mother) who stated she texted him this morning and asked him if he was getting ready to come to the program and he told her he is not starting until the . I asked Margret to give me a call as we were expecting him to start the program today.
== END 2022-08-23 23:59 | disposition home or self-care (01) ==
LOC: HO.PHPA 11:52
PROVIDERS: Visit Provider Psychiatry & Neurology Psychiatry
DX: F33.1 Major depressive disorder, recurrent, moderate (principal); F11.90 Opioid use, unspecified, uncomplicated; F14.20 Cocaine dependence, uncomplicated
CPT/HCPCS: 90791

== ENCOUNTER 2022-09-03 03:52 | Emergency (ER) | payer OTHER, SELFPAY ==
[2022-09-03 04:08] VITALS: BP 140/90; PULSE 97; RESP 18; TEMP 36.1; O2SAT 96; BMI 25.8
== END 2022-09-03 05:33 | disposition left against medical advice (07) ==
LOC: HO.ED 05:25
PROVIDERS: Emergency Provider Emergency Medicine; PCP Internal Medicine
DX: R60.0 Localized edema (principal)
CPT/HCPCS: 99281

== ENCOUNTER 2022-09-10 23:30 | Inpatient (IN) | payer OTHER, SELFPAY ==
[2022-09-10 23:57] VITALS: BP 144/92; PULSE 100; RESP 16; TEMP 37.3; O2SAT 95; BMI 27.4
--- NOTE | 2022-09-11 00:20 | ED.PSYCH ---
HPI - Psych General Chief Complaint: Psychiatric Symptoms Stated Complaint: crisis Time Seen by Provider: 09/10/22 23:54 Source: patient Mode of arrival: ambulatory Limitations: no limitations History of Present Illness HPI Narrative: 32-year-old male with history of psychiatric disorder, substance abuse presents with paranoid delusions. Patient reports the sensation that someone is after him. He will not tell me who he thinks that is what the reasoning behind it. He also reports hearing voices again he will not expand class but the voices are saying. He denies suicidal or homicidal ideation. He describes his symptoms as moderate to severe in nature. He did use cocaine earlier today. Denies additional drug use or alcohol abuse. He also denies self-harming behavior. Otherwise, patient feels well and offers no acute medical complaints Related Data Home Medications Medication Instructions Recorded Confirmed albuterol sulfate 90 mcg/actuation 2 puff inhalation Q3-4H wheezing 09/10/22 09/10/22 aerosol inhaler (Ventolin HFA) buprenorphine 8 mg-naloxone 2 mg 3 strip sublingual DAILY 09/10/22 09/10/22 sublingual film (Suboxone) buspirone 10 mg tablet 1 tab PO BID 09/10/22 09/10/22 clonidine HCl 0.1 mg tablet 1 tab PO TID anxiety 09/10/22 09/10/22 gabapentin 400 mg capsule 1 cap PO TID 09/10/22 09/10/22 hydroxyzine pamoate 50 mg capsule 1 cap PO Q6H PRN anxiety 09/10/22 09/10/22 mirtazapine 30 mg tablet 1 tab PO BEDTIME 09/10/22 09/10/22 nicotine 21 mg/24 hr daily 1 patch topical DAILY 09/10/22 09/10/22 transdermal patch Allergies Allergy/AdvReac Type Severity Reaction Status Date / Time No Known Allergies Allergy Verified 09/03/22 04:11 Review of Systems Review of Systems: CONSTITUTIONAL: Denies weight loss, fever and chills. HEENT: Denies changes in vision and hearing. RESPIRATORY: Denies SOB and cough. CV: Denies palpitations no CP. GI: Denies abdominal pain, nausea, vomiting and diarrhea. : Denies dysuria and urinary frequency. MSK: Denies myalgia and joint pain. SKIN: Denies rash and pruritus. NEUROLOGICAL: Denies headache and syncope. PSYCHIATRIC: See HPI All other ROS are negative unless in HPI [facility] Past Medical History Medical History Anxiety and depression MDD (major depressive disorder), recurrent episode, moderate PTSD (post-traumatic stress disorder) Surgical History H/O kidney removal H/O right nephrectomy Social History Social History Household Members: Significant Other and Children Household Members Other:: Sister Housing: Apartment Do you presently have visiting nurse or other home services: No Unable to assess alcohol history related to: Refusing to respond Alcohol intake: current Alcohol intake frequency: does not drink Patient Tobacco Use Status: Current everyday Tobacco user Tobacco use type: Cigarette Cigarette Packs Per Day: 0.5 Cigarettes Per Day: 10.0 Years Smoked: 15 e-Cigarette/Vaping Use: Currently Using Second Hand Smoke Exposure: Yes Substance Use Type: Crack/Cocaine Advance Directives: No Advance Directives Information Provided: Yes service: No Current occupational status: unemployed Sexual orientation: Straight/Heterosexual Physical Exam Vital Signs: Vital Signs: Last Vital Signs Temp 99.2 F 09/10/22 23:57 Pulse 100 09/10/22 23:57 Resp 16 09/10/22 23:57 BP 144/92 H 09/10/22 23:57 Pulse Ox 95 09/10/22 23:57 O2 Del Method 09/10/22 23:57 BMI result Body Mass Index 27.4 GEN: Well developed, no acute distress, alert, oriented HEENT: Normocephalic, atraumatic, normal external ears, nose appears normal, no oropharyngeal edema or exudates Eyes: Normal to appearance Neck: Supple, no lymphadenopathy Respiratory: Talks in complete sentences, no respiratory distress, clear to auscultation bilaterally Cardiovascular: Regular rate and rhythm, no murmurs rubs or gallops Abdomen: Soft, nontender, nondistended, no guarding, no rebound Back: No CVA tenderness Extremities: No clubbing cyanosis or edema Neurologic: No focal neurologic deficits, cranial nerves 2-12 intact, strength is 5/5 bilaterally, gait normal Skin: No rash Psychiatric: Slow speech, poor eye contact, well kempt, no SI or HI Course Course Course Narrative: 32-year-old male with history of psychiatric disorder presents for evaluation paranoid delusions. He also expresses some auditory hallucinations. Denies suicidal or homicidal ideation. Crisis has been ordered. Routine laboratory analysis and toxicology screen have also been ordered. Patient's usual medications will also be ordered. Reevaluation(s) Reevaluation #1: Patient is medically clear for psychiatric evaluation Time: 04:48 Reevaluation #2: Patient will be signed out to the oncoming emergency room doctor. Patient is pending crisis evaluation and disposition. Time: 06:14 Medications Administered Generic Name Dose Route Start Last Admin Trade Name Freq PRN Reason Stop Dose Admin Albuterol Sulfate 2 puff 09/11/22 00:30 09/11/22 05:40 Albuterol Sulfate 90 Mcg 8 Gm Inhaler INHALE Not Given Q3H SHAILESH Clonidine HCl 0.1 mg 09/11/22 09:00 09/11/22 01:04 Clonidine Hcl 0.1 Mg Tablet PO 0.1 mg TID SHAILESH Administration Protocol Gabapentin 400 mg 09/11/22 09:00 09/11/22 01:05 Gabapentin 400 Mg Capsule PO 400 mg TID SHAILESH Administration Hydroxyzine HCl 50 mg 09/11/22 00:19 09/11/22 01:04 Hydroxyzine Hcl 50 Mg Tablet PO 50 mg Q6H PRN Administration anxiety Mirtazapine 30 mg 09/11/22 21:00 09/11/22 01:05 Mirtazapine 30 Mg Tablet PO 30 mg BEDTIME SHAILESH Administration Medical Decision Making Medical Decision Making [facility] Narrative: 32-year-old male with history of psychiatric disorder presents for evaluation paranoid delusions. He also expresses some auditory hallucinations. Denies suicidal or homicidal ideation. Crisis has been ordered. Routine laboratory analysis and toxicology screen have also been ordered. Patient's usual medications will also be ordered. Differential Diagnosis Differential Diagnoses: The differential diagnosis associated with the presentation includes (Schizophrenia, schizoaffective disorder, depression, anxiety, substance induced mood disorder) Substance abuse, mood disorder, hallucinations, delusions Admission/Observation Consideration of admission/observation: Escalation of care including admission/observation considered Consult Healthcare Provider Management of the patient was discussed with: Behavioral Health Provider Lab Data MDM Lab Attestation statement: I reviewed the patient's lab results. 09/11/22 00:43 09/11/22 00:43 Labs: Lab Results 09/11/22 09/11/22 09/11/22 Range/Units 00:42 00:43 00:43 WBC 7.4 (4.8-10.8) X10*3/uL RBC 5.29 (4.60-5.80) X10*6/uL Hgb 14.8 (14.0-18.0) g/dl Hct 44.1 (42.0-52.0) % MCV 83.4 (80.0-98.0) fL MCH 28.0 (27.0-33.0) pg MCHC 33.6 (31.0-36.0) g/dl RDW 12.4 (11.0-16.0) % Plt Count 360 (160-400) X10*3/uL MPV 8.8 L (9.4-12.4) fL Immature Gran % (Auto) 0.1 (0.0-0.4) % Neut % (Auto) 71.8 (45-73) % Lymph % (Auto) 21.7 (20-40) % Grayson % (Auto) 4.1 (2-11) % Eos % (Auto) 1.1 (0-4) % Baso % (Auto) 1.2 (0-2) % Lymph # (Auto) 1.6 (1.2-4.9) X10*3/uL Grayson # (Auto) 0.3 (0.1-1.2) X10*3/uL Eos # (Auto) 0.1 (0.0-0.4) X10*3/uL Baso # (Auto) 0.1 (0.0-0.2) X10*3/uL Abs Immat Gran (auto) 0.01 (0.00-0.03) X10*3/uL Absolute Neuts (auto) 5.3 (2.0-8.3) x10*3/uL Absolute Nucleated RBC 0.000 (0.0-0.012) X10*3/uL Nucleated RBC % (auto) 0.0 (0.0-0.2) /100WBC Sodium 143 (135-145) mmol/L Potassium 4.5 (3.3-5.1) mmol/L Chloride 104 (96-108) mmol/L Carbon Dioxide 28 (22-29) mmol/L Anion Gap 16 (12-20) BUN 19 H (9-16) mg/dL Creatinine 1.32 (0.5-1.4) mg/dL Estim Creat Clear Calc 77.8 Estimated GFR > 60 Random Glucose 131 H (60-115) mg/dL Calcium 10.0 (8.4-10.2) mg/dL Total Bilirubin 1.4 H (0.0-1.0) mg/dL AST 15 (5-37) U/L ALT 13 (0-40) U/L Alkaline Phosphatase 100 (39-117) U/L Total Protein 7.7 (6.5-8.0) g/dL Albumin 4.5 (3.5-5.0) g/dL Urine Opiates Screen (Not Detect) Urine Fentanyl Screen (Not Detect) Ur Barbiturates Screen (Not Detect) Ur Phencyclidine Scrn (Not Detect) Ur Amphetamines Screen (Not Detect) U Benzodiazepines Scrn (Not Detect) Urine Cocaine Screen (Not Detect) U Marijuana (THC) Screen (Not Detect) Ethyl Alcohol < 10 mg/dL COVID-19 ([facility]) Negative (Negative) COVID-19 Clin Com See Note 09/11/22 Range/Units 00:56 WBC (4.8-10.8) X10*3/uL RBC (4.60-5.80) X10*6/uL Hgb (14.0-18.0) g/dl Hct (42.0-52.0) % MCV (80.0-98.0) fL MCH (27.0-33.0) pg MCHC (31.0-36.0) g/dl RDW (11.0-16.0) % Plt Count (160-400) X10*3/uL MPV (9.4-12.4) fL Immature Gran % (Auto) (0.0-0.4) % Neut % (Auto) (45-73) % Lymph % (Auto) (20-40) % Grayson % (Auto) (2-11) % Eos % (Auto) (0-4) % Baso % (Auto) (0-2) % Lymph # (Auto) (1.2-4.9) X10*3/uL Grayson # (Auto) (0.1-1.2) X10*3/uL Eos # (Auto) (0.0-0.4) X10*3/uL Baso # (Auto) (0.0-0.2) X10*3/uL Abs Immat Gran (auto) (0.00-0.03) X10*3/uL Absolute Neuts (auto) (2.0-8.3) x10*3/uL Absolute Nucleated RBC (0.0-0.012) X10*3/uL Nucleated RBC % (auto) (0.0-0.2) /100WBC Sodium (135-145) mmol/L Potassium (3.3-5.1) mmol/L Chloride (96-108) mmol/L Carbon Dioxide (22-29) mmol/L Anion Gap (12-20) BUN (9-16) mg/dL Creatinine (0.5-1.4) mg/dL Estim Creat Clear Calc Estimated GFR Random Glucose (60-115) mg/dL Calcium (8.4-10.2) mg/dL Total Bilirubin (0.0-1.0) mg/dL AST (5-37) U/L ALT (0-40) U/L Alkaline Phosphatase (39-117) U/L Total Protein (6.5-8.0) g/dL Albumin (3.5-5.0) g/dL Urine Opiates Screen Not Detected (Not Detect) Urine Fentanyl Screen Not Detected (Not Detect) Ur Barbiturates Screen Not Detected (Not Detect) Ur Phencyclidine Scrn POSITIVE H (Not Detect) Ur Amphetamines Screen Not Detected (Not Detect) U Benzodiazepines Scrn POSITIVE H (Not Detect) Urine Cocaine Screen POSITIVE H (Not Detect) U Marijuana (THC) Screen Not Detected (Not Detect) Ethyl Alcohol mg/dL COVID-19 ([facility]) (Negative) COVID-19 Clin Com External Record Review External record reviewed: Inpatient record (Recent psychiatric hospitalization) Tests considered The following testing was considered but not selected: CT scan Prescription Management I considered prescription management with: Other (Psychiatric medications) Chronic Conditions Patient?s care impacted by: Other (Psychiatric disorder, substance abuse) Discharge Plan Discharge Clinical Impression: Mood disorder, Cocaine use disorder, severe, dependence Patient Disposition: Still a Patient Prescriptions: No Action gabapentin 400 mg capsule 1 cap PO TID hydroxyzine pamoate 50 mg capsule 1 cap PO Q6H PRN (Reason: anxiety) buspirone 10 mg tablet 1 tab PO BID nicotine 21 mg/24 hr patch 24 hour 1 patch topical DAILY albuterol sulfate [Ventolin HFA] 90 mcg/actuation HFA aerosol inhaler 2 puff inhalation Q3-4H buprenorphine-naloxone [Suboxone] 8-2 mg film 3 strip sublingual DAILY clonidine HCl 0.1 mg tablet 1 tab PO TID mirtazapine 30 mg tablet 1 tab PO BEDTIME Interventions: [place]-Suicide Risk Severity Scale Last Done: 09/11/22 00:26
[2022-09-11 00:47] LABS: MANUAL DIFF FLAG NO
[2022-09-11 00:51] LABS: Basophils Absolute Auto 0.1 X10*3/uL (0.0-0.2); Basophils Percent Auto 1.2 % (0-2); Eosinophils Absolute Auto 0.1 X10*3/uL (0.0-0.4); Eosinophils Percent Auto 1.1 % (0-4); Hematocrit 44.1 % (42.0-52.0); Hemoglobin 14.8 g/dl (14.0-18.0); Imm Gran Abs Auto 0.01 X10*3/uL (0.00-0.03); Imm Gran Pct Auto 0.1 % (0.0-0.4); Lymphocytes Absolute Auto 1.6 X10*3/uL (1.2-4.9); Lymphocytes Percent Auto 21.7 % (20-40); Mean Corpuscular HGB Conc 33.6 g/dl (31.0-36.0); Mean Corpuscular Volume 83.4 fL (80.0-98.0); Mean Platelet Volume 8.8 fL (9.4-12.4); Monocytes Absolute Auto 0.3 X10*3/uL (0.1-1.2); Monocytes Percent Auto 4.1 % (2-11); Neutrophils Absolute Auto 5.3 x10*3/uL (2.0-8.3); Neutrophils Percent Auto 71.8 % (45-73); Platelet Count 360 X10*3/uL (160-400); Red Blood Count 5.29 X10*6/uL (4.60-5.80); Red Cell Distribution Width 12.4 % (11.0-16.0); White Blood Count 7.4 X10*3/uL (4.8-10.8)
[2022-09-11 00:59] LABS: COVID-19 Test Negative (Negative); IDNOW Serial# 6674DD1D
[2022-09-11] MEDS: hydrOXYzine HCL 50 MG TABLET PO (01:04)
[2022-09-11] MEDS: cloNIDine HCL 0.1 MG TABLET PO ×4 (01:04→20:27)
[2022-09-11] MEDS: Mirtazapine 30 MG TABLET PO ×2 (01:05→20:27)
[2022-09-11] MEDS: Gabapentin 400 MG CAPSULE PO ×4 (01:05→20:27)
[2022-09-11 01:12] LABS: Amphetamine Screen Urine Not Detected (Not Detect); Barbiturates, Urine Not Detected (Not Detect); Benzodiazepines Screen Urine POSITIVE (Not Detect); Cannabinoid Screen Urine Not Detected (Not Detect); Cocaine Screen Urine POSITIVE (Not Detect); Fentanyl, urine Not Detected (Not Detect); Opiate Screen Urine Not Detected (Not Detect); Phencyclidine Screen Urine POSITIVE (Not Detect)
[2022-09-11 01:17] LABS: Alanine Aminotransferase 13 U/L (0-40); Albumin Level 4.5 g/dL (3.5-5.0); Alkaline Phosphatase 100 U/L (39-117); Anion Gap 16 (12-20); Aspartate Amino Transferase 15 U/L (5-37); Bilirubin Total 1.4 mg/dL (0.0-1.0); Blood Urea Nitrogen 19 mg/dL (9-16); Carbon Dioxide 28 mmol/L (22-29); Chloride 104 mmol/L (96-108); Creatinine Clr Calc Pharmacy 77.8; Estimated Glomerular Filt Rate > 60; Ethanol < 10 mg/dL; Glucose Random 131 mg/dL (60-115); Potassium 4.5 mmol/L (3.3-5.1); Sodium 143 mmol/L (135-145); Total Protein 7.7 g/dL (6.5-8.0)
--- NOTE | 2022-09-11 05:32 | PC.NURSE ---
Patient slept through the night, no distress observed/reported, behavior non concerning, medication compliant, VSS, care consult ordered/pending evaluation in the morning, will continue to monitor.
[2022-09-11] MEDS: busPIRone HCl 10 MG TABLET PO ×2 (09:05→20:27)
[2022-09-11] MEDS: Buprenorphine/Naloxone 8/2 mg FILM 1 FILM SUBLINGUAL ×2 (09:05→21:11)
[2022-09-11 09:06] VITALS: BP 123/75; PULSE 82; RESP 16; TEMP 36.7; O2SAT 97
[2022-09-11 14:21] VITALS: BP 124/70; PULSE 77; RESP 16; TEMP 37; O2SAT 96
--- NOTE | 2022-09-11 16:15 | MHC.CARE ---
patient is an inpt LOC bed search
[2022-09-11 20:39] VITALS: BP 119/52; PULSE 83; RESP 18; TEMP 36.2; O2SAT 97
--- NOTE | 2022-09-12 05:48 | PC.NURSE ---
Patient slept through the night, no distress observed/reported, behavior non concerning, medication compliant, VSS, disposition per care team is Voluntary inpatient bed search, will continue to monitor.
[2022-09-12 06:43] VITALS: BP 115/64; PULSE 56; RESP 15; TEMP 36.9; O2SAT 97
[2022-09-12] MEDS: Buprenorphine/Naloxone 8/2 mg FILM 1 FILM SUBLINGUAL ×3 (09:34→20:57)
[2022-09-12] MEDS: busPIRone HCl 10 MG TABLET PO ×2 (09:34→20:57)
[2022-09-12] MEDS: Gabapentin 400 MG CAPSULE PO ×3 (09:34→20:57)
[2022-09-12] MEDS: cloNIDine HCL 0.1 MG TABLET PO ×2 (09:34→20:57)
[2022-09-12 15:11] VITALS: BP 112/74; PULSE 65; RESP 18; TEMP 36.9; O2SAT 97
[2022-09-12] MEDS: Mirtazapine 30 MG TABLET PO (20:57)
--- NOTE | 2022-09-13 | ECG_ITS ---
Test Reason : + RUIZ COCAINE Blood Pressure : / mmHG Vent. Rate : 059 BPM Atrial Rate : 059 BPM P-R Int : 148 ms QRS Dur : 090 ms QT Int : 404 ms P-R-T Axes : 077 087 067 degrees QTc Int : 399 ms Sinus bradycardia Otherwise normal ECG When compared with ECG of 17-AUG-2022 12:01, No significant change was found Referred By: Bernadette Anderson Electronically Signed By:Peter Winston
[2022-09-13 04:14] VITALS: BP 127/88; PULSE 66; RESP 14; TEMP 37; O2SAT 99
--- NOTE | 2022-09-13 06:19 | PC.NURSE ---
Pt. asleep at 2200. Pt. briefly awake at 0400, requesting a snack and a drink, which was provided to pt. Pt. then returned to bed and to sleep. VSS. Pt. plan is inpatient bed. Pt. compliant with medications. Will continue to monitor.
[2022-09-13 08:11] VITALS: BP 135/82; PULSE 64; RESP 14; TEMP 36.8; O2SAT 98
[2022-09-13] MEDS: busPIRone HCl 10 MG TABLET PO ×2 (08:35→22:58)
[2022-09-13] MEDS: Buprenorphine/Naloxone 8/2 mg FILM 1 FILM SUBLINGUAL ×3 (08:35→22:58)
[2022-09-13] MEDS: Gabapentin 400 MG CAPSULE PO ×3 (08:35→22:58)
[2022-09-13] MEDS: cloNIDine HCL 0.1 MG TABLET PO ×3 (08:35→22:58)
[2022-09-13 10:44] LABS: COVID-19 Test Negative (Negative); IDNOW Serial# 16C4AD1C
[2022-09-13 16:09] VITALS: BP 131/79; PULSE 73; RESP 18; TEMP 36.6; O2SAT 98
[2022-09-13] MEDS: LORazepam 1 MG TABLET 2 MG PO (17:29)
--- NOTE | 2022-09-13 18:17 | PC.ADMIT ---
Adam was admitted to at 15:55 from the POD on a CV for treatment of Unspecified depressive disorder. Recent discharge from on 08/23/2022. Patient reports that after his recent discharge from that he did the intake at [facility] but did not follow up. Reported to have done his intake with Moses Escobedo and his first appt will be 09/25/2022 Precipitants of admission include feeling like he was being chased and followed, as well as sudden onset of AH. Patient is alert and oriented x4 Mood is depressed. Affect is flat, but does have full range. Patient reported that he is not currently experiencing AH, however Tuesday he had sudden onset of AH. Reported that he heard a feminine voice and he was responding thinking it was his sister, but his sister reality checked him and made him aware it was not her speaking to him. Denies current SI/HI/VH.? Thought Process linear, organized, and clear. Reports that his appetite has been diminished. Believes he had recent weight loss without trying. Reported sleep has been excessive, and when he wakes up he does not feel refreshed, but rather groggy.? Patient Toxicology was + for Benzos, cocaine, and PCP. Reported he was buying 1mg klonopin off the street. Pt reported last cocaine use on Tuesday09/10/2022. Patient was unaware of the PCP, ?maybe that's why I started bugging out and hearing things.? Patient reports a history of asthma with use of a ventolin inhaler almost daily. Denies any physical complaints. No acute distress noted or reported. 15 minute safety checks initiated for safety.
[2022-09-13] MEDS: Nicotine Polacrilex 2 MG GUM 4 MG BUCCAL (19:04)
[2022-09-13 22:55] VITALS: BP 121/75; PULSE 74; RESP 16; TEMP 36.3; O2SAT 98
[2022-09-13] MEDS: Mirtazapine 30 MG TABLET PO (22:58)
[2022-09-13] MEDS: LORazepam 1 MG TABLET PO (23:02)
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
[2022-09-14] MEDS: Buprenorphine/Naloxone 8/2 mg FILM 1 FILM SUBLINGUAL ×3 (09:31→20:25)
[2022-09-14] MEDS: busPIRone HCl 10 MG TABLET PO ×2 (09:31→20:26)
[2022-09-14] MEDS: cloNIDine HCL 0.1 MG TABLET PO ×3 (09:32→20:25)
[2022-09-14] MEDS: Gabapentin 400 MG CAPSULE PO (09:32)
[2022-09-14 09:37] LABS: Alanine Aminotransferase 19 U/L (0-40); Albumin Level 3.6 g/dL (3.5-5.0); Alkaline Phosphatase 84 U/L (39-117); Anion Gap 12 (12-20); Aspartate Amino Transferase 16 U/L (5-37); Bilirubin Total 0.4 mg/dL (0.0-1.0); Blood Urea Nitrogen 22 mg/dL (9-16); Calcium 9.4 mg/dL (8.4-10.2); Carbon Dioxide 31 mmol/L (22-29); Chloride 104 mmol/L (96-108); Cholesterol 186 mg/dL; Creatinine Clr Calc Pharmacy 85.6; Estimated Glomerular Filt Rate > 60; Glucose Fasting 103 mg/dL (60-99); HDL Cholesterol 39 mg/dL; LDL Cholesterol Calculated 120 mg/dl; Potassium 4.7 mmol/L (3.3-5.1); Sodium 142 mmol/L (135-145); Total Protein 6.2 g/dL (6.5-8.0); Triglycerides 136 mg/dL
[2022-09-14] MEDS: LORazepam 1 MG TABLET PO ×2 (09:43→16:44)
[2022-09-14] MEDS: Nicotine Polacrilex 2 MG GUM 4 MG BUCCAL ×2 (09:43→16:44)
[2022-09-14 09:45] VITALS: BP 125/77; PULSE 93; RESP 16; TEMP 36.8; O2SAT 97
[2022-09-14] MEDS: Sennosides/Docusate Sodium TABLET 1 TAB PO ×2 (11:52→20:26)
[2022-09-14] MEDS: hydrOXYzine HCL 50 MG TABLET PO ×2 (11:52→20:30)
[2022-09-14] MEDS: Gabapentin 300 MG CAPSULE 600 MG PO ×2 (15:44→20:26)
[2022-09-14 20:24] VITALS: BP 131/69; PULSE 90; RESP 18; TEMP 36.8; O2SAT 96
[2022-09-14] MEDS: Mirtazapine 30 MG TABLET PO (20:26)
[2022-09-14] MEDS: hydrOXYzine HCL 25 MG TABLET PO (23:48)
[2022-09-15] MEDS: LORazepam 1 MG TABLET PO ×3 (00:53→15:36)
[2022-09-15] MEDS: cloNIDine HCL 0.1 MG TABLET PO ×3 (08:46→20:28)
[2022-09-15] MEDS: Buprenorphine/Naloxone 8/2 mg FILM 1 FILM SUBLINGUAL ×3 (08:47→20:28)
[2022-09-15] MEDS: Sennosides/Docusate Sodium TABLET 1 TAB PO ×2 (08:47→20:28)
[2022-09-15] MEDS: Gabapentin 300 MG CAPSULE 600 MG PO ×3 (08:47→20:27)
[2022-09-15] MEDS: busPIRone HCl 10 MG TABLET PO ×2 (08:47→20:27)
[2022-09-15 08:48] VITALS: BP 121/61; PULSE 87; RESP 16; TEMP 36.7; O2SAT 97
[2022-09-15] MEDS: hydrOXYzine HCL 50 MG TABLET PO (12:31)
[2022-09-15] MEDS: hydrOXYzine HCL 25 MG TABLET PO (12:31)
--- NOTE | 2022-09-15 13:32 | P.PNPSI_ITS ---
Subjective Subjective Date of Service: 09/15/22 Reason For Visit: SI Subjective Notes: Conditional Voluntary Interim History: Pt reports feeling better, no SI/HI. No psychosis. visible at times, not attending groups. No behavioral concerns. Medication Compliance: Yes Review of Systems Review of Systems CONSTITUTIONAL: Denies weight loss, fever and chills. HEENT: Denies changes in vision and hearing. RESPIRATORY: Denies SOB and cough. CV: Denies palpitations no CP. GI: Denies abdominal pain, nausea, vomiting and diarrhea. : Denies dysuria and urinary frequency. MSK: Denies myalgia and joint pain. SKIN: Denies rash and pruritus. NEUROLOGICAL: Denies headache and syncope. PSYCHIATRIC: See HPI All other ROS are negative unless in HPI Mental Status Exam Mental Status Exam Narrative: Appearance: casually groomed, fair hygiene in NAD Behavior:cooperative psychomotor: no psychomotor agitation or retardation noted Speech:clear, normal rate/rhythm/volume, spontaneous Thought process:linear Thought content:no psychosis or delusions, wanting help temporary help with effects of substances Mood: better Affect: bright SI:none HI:none VH/AH denies Delusions:none Insight/judgment:fair x 2. Memory/cog: alert, oriented x 3. grossly intact to conversational testing. Diagnostics Vital Signs (24Hr): Vital Signs - 24 hr 09/15/22 20:15 Temperature 97.9 F Pulse Rate 96 Respiratory Rate 16 Blood Pressure 141/81 H Pulse Oximetry 97 Oxygen Delivery Method Room Air BMI result Body Mass Index 27.4 Labs 09/11/22 00:43 09/14/22 08:50 Medications Medications Current Medications Acetaminophen (Acetaminophen 325 Mg Tablet) 650 mg PO Q6H PRN PRN Reason: Headache/Pain Mild Scale (1-3) Al Hydroxide/Mg Hydroxide (Magnesium Hydrox/Alum Hydrox 30 Ml Oral.Susp) 30 ml PO Q6H PRN PRN Reason: Heartburn/Nausea Albuterol Sulfate (Albuterol Sulfate 90 Mcg 8 Gm Inhaler) 2 puff INHALE Q3H PRN PRN Reason: Wheezing Buprenorphine/Naloxone (Buprenorphine/Naloxone 8/2 Mg Film) 1 film SUBLINGUAL TID [facility] Last Admin: 09/16/22 08:55 Dose: 1 film Buspirone HCl (Buspirone Hcl 10 Mg Tablet) 10 mg PO BID [facility] Last Admin: 09/16/22 08:55 Dose: 10 mg Clonidine HCl (Clonidine Hcl 0.1 Mg Tablet) 0.1 mg PO TID [facility]; Protocol Last Admin: 09/16/22 08:55 Dose: 0.1 mg Gabapentin (Gabapentin 300 Mg Capsule) 600 mg PO TID [facility] Last Admin: 09/16/22 08:55 Dose: 600 mg Hydroxyzine HCl (Hydroxyzine Hcl 50 Mg Tablet) 50 mg PO Q6H PRN PRN Reason: anxiety Last Admin: 09/15/22 12:31 Dose: 50 mg Hydroxyzine HCl (Hydroxyzine Hcl 25 Mg Tablet) 25 mg PO Q6H PRN PRN Reason: Anxiety Last Admin: 09/15/22 12:31 Dose: 25 mg Lorazepam (Lorazepam 1 Mg Tablet) 1 mg PO Q8H PRN PRN Reason: Anxiety Last Admin: 09/15/22 15:36 Dose: 1 mg Magnesium Hydroxide (Milk Of Magnesia 30 Ml Oral.Susp) 30 ml PO DAILY PRN PRN Reason: Constipation Mirtazapine (Mirtazapine 30 Mg Tablet) 30 mg PO BEDTIME [facility] Last Admin: 09/15/22 20:27 Dose: 30 mg Nicotine (Nicotine 21 Mg Patch.Td24) 21 mg TRANSDERMA DAILY [facility] Last Admin: 09/16/22 08:56 Dose: Not Given Nicotine Polacrilex (Nicotine Polacrilex 2 Mg Gum) 4 mg BUCCAL Q2H PRN PRN Reason: Nicotine Cravings Last Admin: 09/14/22 16:44 Dose: 4 mg Senna/Docusate Sodium (Sennosides/Docusate Sodium Tablet) 1 tab PO BID [facility] Last Admin: 09/16/22 08:55 Dose: 1 tab Allergies Allergies Allergy/AdvReac Type Severity Reaction Status Date / Time No Known Allergies Allergy Verified 09/03/22 04:11 Assessment & Plan Assessment & Plan (1) MDD (major depressive disorder), recurrent episode, moderate: Status: Acute Code(s): F33.1 - Major depressive disorder, recurrent, moderate (2) Cocaine use disorder, severe, dependence: Status: Acute Code(s): F14.20 - Cocaine dependence, uncomplicated Plan Mr. Hobson is a 32 year-old male with hx of cocaine use, opioid use (on suboxone) who self presented to [facility] ED reporting increase depression, SI in context of cocaine use. Utox positive for cocaine and PCP. Pt recently discharged from [facility] with similar presentation. Pt reports he did not follow through with referral for PHP. Pt declines at this time further assistance with substance use treatment programs. We discussed risks, benefits and alternative treatment options. pt in agreement to restart remeron. PLAN 1. Admit to , CV, 15 minutes checks for safety 2. continue suboxone, remeron 3. PRN dose of ativan but understands this will not be prescribed on discharge. 4. Aftercare planning. 09/15 continue tx. Patient educated on: diagnosis Informed Consent: understands Reason for contiued inpatient stay Substantial Risk for: stable for discharge Time Spent With Patient Time: Total time managing care of this patient today __30__ minutes.
--- NOTE | 2022-09-15 14:03 | MHC.CLN ---
RE: CONSULT HT 65 WT 170# IBW 142#+/-10% PT IS 120% IBW INDICATES OBESE FOR HT PT REPORTS POOR PO AND WT LOSS NOTED COCAINE USE CAN CONTRIBUTE TO POOR PO PREVIOUS WT HX REVEALS 77.1KG (09/10/22) 68.2KG (10/21/21) PT WITH 13% NONSIGNIFICANT WT GAIN X 1 YEAR LABS REVIEWED UNREMARKABLE DIET RX: REGULAR-APPROPRIATE MONITOR PO INTAKE CLOSELY
[2022-09-15 20:15] VITALS: BP 141/81; PULSE 96; RESP 16; TEMP 36.6; O2SAT 97
[2022-09-15] MEDS: Mirtazapine 30 MG TABLET PO (20:27)
[2022-09-16] MEDS: cloNIDine HCL 0.1 MG TABLET PO (08:55)
[2022-09-16] MEDS: busPIRone HCl 10 MG TABLET PO (08:55)
[2022-09-16] MEDS: Buprenorphine/Naloxone 8/2 mg FILM 1 FILM SUBLINGUAL (08:55)
[2022-09-16] MEDS: Gabapentin 300 MG CAPSULE 600 MG PO (08:55)
[2022-09-16] MEDS: Sennosides/Docusate Sodium TABLET 1 TAB PO (08:55)
--- NOTE | 2022-09-16 09:11 | PM.PSYDC ---
DS: Providers Provider Date of Service: 09/16/22 Date of admission: 09/13/22 15:24 Primary care physician: Celine Duarte MD DS: Diagnosis Discharge Diagnosis (1) MDD (major depressive disorder), recurrent episode, moderate: Status: Acute (2) Cocaine use disorder, severe, dependence: Status: Acute DS: Medications Discharge Medications Home Medications: Home Medications Medication Instructions Recorded Confirmed albuterol sulfate 90 mcg/actuation 2 puff inhalation Q3-4H PRN 09/10/22 09/10/22 aerosol inhaler (Ventolin HFA) Wheezing buspirone 10 mg tablet 1 tab PO BID 09/10/22 09/10/22 clonidine HCl 0.1 mg tablet 1 tab PO TID anxiety 09/10/22 09/10/22 gabapentin 400 mg capsule 1 cap PO TID 09/10/22 09/10/22 hydroxyzine pamoate 50 mg capsule 1 cap PO Q6H PRN anxiety 09/10/22 09/10/22 mirtazapine 30 mg tablet 1 tab PO BEDTIME 09/10/22 09/10/22 nicotine 21 mg/24 hr daily 1 patch topical DAILY 09/10/22 09/10/22 transdermal patch buprenorphine 8 mg-naloxone 2 mg 1 strip sublingual TID 09/11/22 09/11/22 sublingual film (Suboxone) Mental Status Exam Mental Status Exam Narrative: Appearance: casually groomed, fair hygiene in NAD Behavior:cooperative psychomotor: no psychomotor agitation or retardation noted Speech:clear, normal rate/rhythm/volume, spontaneous Thought process:linear Thought content:no psychosis or delusions, wanting help temporary help with effects of substances Mood: better Affect: bright SI:none HI:none VH/AH denies Delusions:none Insight/judgment:fair x 2. Memory/cog: alert, oriented x 3. grossly intact to conversational testing. Data Data Completed and Pending Completed studies during hospitalization [Text1]: 09/11/22 09/11/22 09/11/22 00:42 00:43 00:43 WBC 7.4 RBC 5.29 Hgb 14.8 Hct 44.1 MCV 83.4 MCH 28.0 MCHC 33.6 RDW 12.4 Plt Count 360 MPV 8.8 L Immature Gran % (Auto) 0.1 Neut % (Auto) 71.8 Lymph % (Auto) 21.7 [place] % (Auto) 4.1 Eos % (Auto) 1.1 Baso % (Auto) 1.2 Lymph # (Auto) 1.6 [place] # (Auto) 0.3 Eos # (Auto) 0.1 Baso # (Auto) 0.1 Abs Immat Gran (auto) 0.01 Absolute Neuts (auto) 5.3 Absolute Nucleated RBC 0.000 Nucleated RBC % (auto) 0.0 Sodium 143 Potassium 4.5 Chloride 104 Carbon Dioxide 28 Anion Gap 16 BUN 19 H Creatinine 1.32 Estim Creat Clear Calc 77.8 Estimated GFR > 60 Random Glucose 131 H Fasting Glucose Calcium 10.0 Total Bilirubin 1.4 H AST 15 ALT 13 Alkaline Phosphatase 100 Total Protein 7.7 Albumin 4.5 Triglycerides Cholesterol LDL Cholesterol, Calc HDL Cholesterol Urine Opiates Screen Urine Fentanyl Screen Ur Barbiturates Screen Ur Phencyclidine Scrn Ur Amphetamines Screen U Benzodiazepines Scrn Urine Cocaine Screen U Marijuana (THC) Screen Ethyl Alcohol < 10 COVID-19 ([facility]) Negative COVID-19 Clin Com See Note 09/11/22 09/13/22 09/14/22 00:56 10:05 08:50 WBC RBC Hgb Hct MCV MCH MCHC RDW Plt Count MPV Immature Gran % (Auto) Neut % (Auto) Lymph % (Auto) [place] % (Auto) Eos % (Auto) Baso % (Auto) Lymph # (Auto) [place] # (Auto) Eos # (Auto) Baso # (Auto) Abs Immat Gran (auto) Absolute Neuts (auto) Absolute Nucleated RBC Nucleated RBC % (auto) Sodium 142 Potassium 4.7 Chloride 104 Carbon Dioxide 31 H Anion Gap 12 BUN 22 H Creatinine 1.20 Estim Creat Clear Calc 85.6 Estimated GFR > 60 Random Glucose Fasting Glucose 103 H Calcium 9.4 Total Bilirubin 0.4 AST 16 ALT 19 Alkaline Phosphatase 84 Total Protein 6.2 L Albumin 3.6 Triglycerides 136 Cholesterol 186 LDL Cholesterol, Calc 120 HDL Cholesterol 39 Urine Opiates Screen Not Detected Urine Fentanyl Screen Not Detected Ur Barbiturates Screen Not Detected Ur Phencyclidine Scrn POSITIVE H Ur Amphetamines Screen Not Detected U Benzodiazepines Scrn POSITIVE H Urine Cocaine Screen POSITIVE H U Marijuana (THC) Screen Not Detected Ethyl Alcohol COVID-19 ([facility]) Negative COVID-19 Clin Com See Note DS: Summary Hospital Course Hospital Course: HPI: Mr. Hobson is a 32 year-old male with hx of cocaine use, mood disorder who self presented to [facility] ED reporting increase depression, SI in setting of cocaine use. In the ED- pt's utox was positive for benzodiazepines, cocaine and PCP. Pt known to [facility] through 2 previous inpatient admission with similar presentation. Pt was last discharged from on 08/2022. On the unit, pt reports he did not follow up with PHP. He reports he quickly relapsed on cocaine and heard some voices briefly. He denies hearing voices now. He reports he was not aware that he had used PCP and thinks possibly cocaine was laced. He denies suicidal or homicidal ideation. He reports he wants to get back on remeron for depression. Although he notes his substance use, he minimizes its effects on his mood and ability to have more stable life. He reports he plans to return to his sister's house. He is not sure about referrals for residential substance use treatment programs. Past Psychiatric History: Inpatient: total of 3 inpt admission, mostly at [facility] OP: none Suicide attempts: 2- one OD prior to going to [facility] in 2011, and while in [facility]. Past medication trials: depakote, lithium, risperidone, olanzapine, remeron, trazodone Medical Evaluation Reviewed: Yes HOSPITAL COURSE On the unit, pt was admitted on CV and placed on 15 minutes checks for safety. On the unit, pt was pleasant and cooperative. He reported he did not follow up with PHP. He reports he quickly relapsed on cocaine, no opioids. He has continued on suboxone with good effect. He reports PCP probably laced with cocaine. He reports hearing voices when using substances. We discussed risks, benefit and alternative treatment options, he agreed to continue remeron, gabapentin. He declined referrals for CSS. He agreed to follow up with psych OP. Given narcan on discharge. Status at Discharge Cognitive/behavioral status at discharge: Pt with bright, non labile mood. No SI/HI. No signs of psychosis or delusions. He is sleeping and eating well. No behavioral concerns. He is future oriented in that he is looking forward to continue OP tx. Functional status at discharge: independent ambulation Overall status at discharge: patient is progressing back to baseline Time Spent with Patient Time attestation: Total time managing care of this patient today __30__ minutes. Time spent: Less than 30 minutes Discharge Plan Discharge Anticipated Discharge Date/Time: 09/16/22 09:10 Patient Disposition: Home, Self-Care Discharge Diagnosis: MDD, recurrent, moderate Opioid Use disorder cocaine use disorder Referrals: Brianna Estrella (Psychiatry) [Other] - 09/22/22 9:00 am (IN OFFICE APPOINTMENT -Psychiatric Evaluation ) Brianna Estrella (Psychiatry) [Other] - 10/21/22 10:00 am (IN OFFICE APPOINTMENT -Medication Management ) Celine Duarte MD [Primary Care Provider] - 1 Week Discharge Medications: New clonidine HCl 0.1 mg Tablet 0.1 mg PO TID Qty: 90 0RF Protocol: Hold for SBP< HOLD for SBP < : 90 nicotine (polacrilex) 2 mg Gum 4 mg buccal Q2H PRN (Reason: Nicotine Cravings) Qty: 30 0RF albuterol sulfate [Ventolin HFA] 90 mcg/actuation Hfa Aerosol Inhaler 2 puff inhalation Q3H PRN (Reason: Wheezing) Qty: 6.7 0RF buprenorphine-naloxone [Suboxone] 8-2 mg Film 1 film sublingual TID Qty: 21 0RF buspirone 10 mg Tablet 10 mg PO BID Qty: 60 0RF gabapentin 600 mg tablet 600 mg PO TID Qty: 90 0RF sennosides-docusate sodium [Senna Plus] 8.6-50 mg Tablet 1 tab PO BID Qty: 60 0RF hydroxyzine HCl 50 mg Tablet 50 mg PO Q6H PRN (Reason: anxiety) Qty: 30 0RF mirtazapine 30 mg Tablet 30 mg PO BEDTIME Qty: 30 0RF Discontinued gabapentin 400 mg capsule 1 cap PO TID hydroxyzine pamoate 50 mg capsule 1 cap PO Q6H PRN (Reason: anxiety) buspirone 10 mg tablet 1 tab PO BID nicotine 21 mg/24 hr patch 24 hour 1 patch topical DAILY albuterol sulfate [Ventolin HFA] 90 mcg/actuation HFA aerosol inhaler 2 puff inhalation Q3-4H PRN (Reason: Wheezing) clonidine HCl 0.1 mg tablet 1 tab PO TID mirtazapine 30 mg tablet 1 tab PO BEDTIME buprenorphine-naloxone [Suboxone] 8-2 mg film 1 strip sublingual TID Discharge Orders: Discharge Order (Routine); Ordered 09/16/22 Ordered By: Frances Lundy Diet: Regular diet Activity on Discharge: As tolerated Stand Alone Forms: Patient Portal Discharge page, Community Support Care Plan Goals: 1. Maintain mood 2. No SI/HI 3. Harm reduction- narcan given on discharge. Health Concerns: Follow up with PCP Plan of Treatment: 1. Take medications as prescribed 2. Go to nearest ED or call 911 in event of emergency Assessment: Pt with bright, non labile mood. No SI/HI. No signs of psychosis or delusions. He is sleeping and eating well. No behavioral concerns.
[2022-09-16] MEDS: Naloxone HCl Nasal TAKE HOME 4 MG SPRAY NOSTRILALT (09:52)
== END 2022-09-16 11:38 | disposition home or self-care (01) | DRG 751 ==
LOC: HO.ED 09-12 18:34 → HO.PADLT16 09-13 15:32
PROVIDERS: Emergency Medicine; Admitting Provider Social Worker; Emergency Provider Emergency Medicine Emergency Medical Services; PCP Internal Medicine; Visit Provider Social Worker
DX: F33.1 Major depressive disorder, recurrent, moderate (principal); R45.851 Suicidal ideations; F14.20 Cocaine dependence, uncomplicated; F17.210 Nicotine dependence, cigarettes, uncomplicated; F41.8 Other specified anxiety disorders; F43.10 Post-traumatic stress disorder, unspecified; F11.20 Opioid dependence, uncomplicated; Z20.822 Contact with and (suspected) exposure to COVID-19; Z90.5 Acquired absence of kidney; Z71.6 Tobacco abuse counseling; Z79.899 Other long term (current) drug therapy
CPT/HCPCS: 36415; 80053; 80061; 80307; 82077; 85025; 87635; 93005; 99285; S9485

== ENCOUNTER 2022-09-25 03:36 | Emergency (ER) | payer OTHER, SELFPAY ==
[2022-09-25 03:45] VITALS: BMI 26.6
[2022-09-25 04:46] LABS: COVID-19 Test Negative (Negative); IDNOW Serial# 6674DD1D
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
[2022-09-25] MEDS: LORazepam 1 MG TABLET 2 MG PO (05:46)
[2022-09-25 05:53] LABS: MANUAL DIFF FLAG NO
[2022-09-25 05:54] LABS: Basophils Absolute Auto 0.1 X10*3/uL (0.0-0.2); Eosinophils Absolute Auto 0.5 X10*3/uL (0.0-0.4); Eosinophils Percent Auto 5.8 % (0-4); Hematocrit 40.5 % (42.0-52.0); Hemoglobin 13.4 g/dl (14.0-18.0); Imm Gran Abs Auto 0.02 X10*3/uL (0.00-0.03); Imm Gran Pct Auto 0.3 % (0.0-0.4); Lymphocytes Absolute Auto 2.2 X10*3/uL (1.2-4.9); Lymphocytes Percent Auto 28.2 % (20-40); Mean Corpuscular HGB Conc 33.1 g/dl (31.0-36.0); Mean Corpuscular Hemoglobin 28.1 pg (27.0-33.0); Mean Corpuscular Volume 84.9 fL (80.0-98.0); Mean Platelet Volume 9.5 fL (9.4-12.4); Monocytes Absolute Auto 0.6 X10*3/uL (0.1-1.2); Monocytes Percent Auto 7.2 % (2-11); Neutrophils Absolute Auto 4.5 x10*3/uL (2.0-8.3); Neutrophils Percent Auto 57.5 % (45-73); Platelet Count 236 X10*3/uL (160-400); Red Blood Count 4.77 X10*6/uL (4.60-5.80); Red Cell Distribution Width 13.1 % (11.0-16.0); White Blood Count 7.7 X10*3/uL (4.8-10.8)
[2022-09-25 05:55] LABS: Appearance Urine Clear; Color Urine Yellow; Glucose Urine UA Negative (Negative); Leukocyte Esterase Urine Negative (Negative); Nitrite Urine Negative (Negative); PH 5.5 (5.0-9.0); Specific Gravity - Urine >= 1.030 (1.005-1.025); UMIC TRIGGER UA YES; Urine Blood Negative (Negative); Urine Ketones Trace mg/dL (Negative); Urine Protein 30 (1+) mg/dL (Neg-Trace)
[2022-09-25 06:00] LABS: Bacteria Urine None Seen (None Seen); Hyaline Casts Urine 0-2 /LPF (0-2); Squamous Epithelial Cell Urine 0-2 /HPF (0-2); WBC Urine 0-5 /HPF (0-5)
[2022-09-25 06:04] LABS: Amphetamine Screen Urine Not Detected (Not Detect); Barbiturates, Urine Not Detected (Not Detect); Benzodiazepines Screen Urine POSITIVE (Not Detect); Cannabinoid Screen Urine Not Detected (Not Detect); Cocaine Screen Urine POSITIVE (Not Detect); Fentanyl, urine POSITIVE (Not Detect); Opiate Screen Urine POSITIVE (Not Detect); Phencyclidine Screen Urine Not Detected (Not Detect)
[2022-09-25 06:14] LABS: Alanine Aminotransferase 21 U/L (0-40); Albumin Level 4.5 g/dL (3.5-5.0); Alkaline Phosphatase 87 U/L (39-117); Anion Gap 15 (12-20); Aspartate Amino Transferase 23 U/L (5-37); Bilirubin Total 1.2 mg/dL (0.0-1.0); Blood Urea Nitrogen 26 mg/dL (9-16); Calcium 9.4 mg/dL (8.4-10.2); Carbon Dioxide 24 mmol/L (22-29); Chloride 107 mmol/L (96-108); Creatinine Clr Calc Pharmacy 80.3; Estimated Glomerular Filt Rate > 60; Ethanol < 10 mg/dL; Glucose Random 96 mg/dL (60-115); Potassium 4.3 mmol/L (3.3-5.1); Sodium 142 mmol/L (135-145); Total Protein 7.6 g/dL (6.5-8.0)
--- NOTE | 2022-09-25 06:58 | PC.NURSE ---
Patient was up until 0600, Ativan 2 mg po administered at 0546 with + effect, patient is currently in bed appears sleeping, no distress observed/reported, behavior non concerning at this time but may escalates, med rec competed/pending provider's approval, VSS, care consult ordered/pending evaluation, will continue to monitor.
--- NOTE | 2022-09-25 15:20 | PC.NURSE ---
Care team in at bedside
--- NOTE | 2022-09-25 17:39 | PHA.MEDREC ---
Pharmacy Consult ? Medication Reconciliation Pharmacy has completed the medication reconciliation. Patient reports that via doctor they should still be on buspirone and risperidone, but patient has decided on their own accord to stop risperidone and hasn't taken buspirone in a week. Reasoning per patient is that they just stopped taking them . Spoke to patient to confirm meds.
--- NOTE | 2022-09-25 17:45 | MHC.RECOVSUP ---
? Reason for consult:Recovery Support o Current location: [facility]? o Identified substance use concern: JESUS ? - Support ? ?Intervention: o Community resources provided o Harm reduction discussion ? Additional information:?Patient consultation with care team before entry. I was able to review community resources with pt before discharge and harm reduction strategies.
--- NOTE | 2022-09-29 09:36 | MHC.CARE ---
[facility] referral was completed 09/28/22
== END 2022-09-25 17:57 | disposition home or self-care (01) ==
PROVIDERS: Emergency Provider Emergency Medicine
DX: F19.10 Other psychoactive substance abuse, uncomplicated (principal); F91.8 Other conduct disorders; Z20.822 Contact with and (suspected) exposure to COVID-19; F43.10 Post-traumatic stress disorder, unspecified; F33.1 Major depressive disorder, recurrent, moderate; F41.9 Anxiety disorder, unspecified; F11.20 Opioid dependence, uncomplicated; F14.20 Cocaine dependence, uncomplicated; F17.210 Nicotine dependence, cigarettes, uncomplicated; Z79.899 Other long term (current) drug therapy
CPT/HCPCS: 36415; 80053; 80307; 81001; 82077; 85025; 87635; 99284; S9485

== ENCOUNTER 2022-09-29 19:34 | Emergency (ER) | payer OTHER, SELFPAY ==
[2022-09-29 19:44] VITALS: BP 144/91; PULSE 90; RESP 16; TEMP 37.1; O2SAT 100; BMI 27.4
[2022-09-29 21:21] LABS: Amphetamine Screen Urine Not Detected (Not Detect); Barbiturates, Urine Not Detected (Not Detect); Benzodiazepines Screen Urine POSITIVE (Not Detect); Cannabinoid Screen Urine Not Detected (Not Detect); Cocaine Screen Urine POSITIVE (Not Detect); Fentanyl, urine POSITIVE (Not Detect); Opiate Screen Urine Not Detected (Not Detect); Phencyclidine Screen Urine Not Detected (Not Detect)
[2022-09-29] MEDS: LORazepam 1 MG TABLET 2 MG PO (21:25)
[2022-09-29 21:37] LABS: COVID-19 Test Negative (Negative); IDNOW Serial# BCCEAD1C
[2022-09-29 21:50] LABS: MANUAL DIFF FLAG NO
[2022-09-29 21:52] LABS: Basophils Absolute Auto 0.1 X10*3/uL (0.0-0.2); Basophils Percent Auto 1.1 % (0-2); Eosinophils Absolute Auto 0.3 X10*3/uL (0.0-0.4); Hematocrit 44.1 % (42.0-52.0); Hemoglobin 14.3 g/dl (14.0-18.0); Imm Gran Abs Auto 0.01 X10*3/uL (0.00-0.03); Imm Gran Pct Auto 0.2 % (0.0-0.4); Lymphocytes Absolute Auto 2.9 X10*3/uL (1.2-4.9); Lymphocytes Percent Auto 45.6 % (20-40); Mean Corpuscular HGB Conc 32.4 g/dl (31.0-36.0); Mean Corpuscular Hemoglobin 28.3 pg (27.0-33.0); Mean Corpuscular Volume 87.2 fL (80.0-98.0); Mean Platelet Volume 9.6 fL (9.4-12.4); Monocytes Absolute Auto 0.3 X10*3/uL (0.1-1.2); Monocytes Percent Auto 4.4 % (2-11); Neutrophils Absolute Auto 2.8 x10*3/uL (2.0-8.3); Neutrophils Percent Auto 43.7 % (45-73); Platelet Count 266 X10*3/uL (160-400); Red Blood Count 5.06 X10*6/uL (4.60-5.80); Red Cell Distribution Width 13.7 % (11.0-16.0); White Blood Count 6.4 X10*3/uL (4.8-10.8)
[2022-09-29 22:03] LABS: Ethanol < 10 mg/dL
[2022-09-29 22:05] LABS: Alanine Aminotransferase 19 U/L (0-40); Albumin Level 4.8 g/dL (3.5-5.0); Alkaline Phosphatase 86 U/L (39-117); Anion Gap 13 (12-20); Aspartate Amino Transferase 23 U/L (5-37); Bilirubin Total 0.9 mg/dL (0.0-1.0); Blood Urea Nitrogen 15 mg/dL (9-16); Calcium 9.9 mg/dL (8.4-10.2); Carbon Dioxide 30 mmol/L (22-29); Chloride 104 mmol/L (96-108); Creatinine Clr Calc Pharmacy 95.1; Estimated Glomerular Filt Rate > 60; Glucose Random 94 mg/dL (60-115); Potassium 4.1 mmol/L (3.3-5.1); Sodium 143 mmol/L (135-145); Total Protein 8.1 g/dL (6.5-8.0)
--- NOTE | 2022-09-29 22:08 | ED.PSYCH ---
HPI - Psych General Chief Complaint: Psychiatric Symptoms Stated Complaint: hearing voices,crisis eval Time Seen by Provider: 09/29/22 20:00 History of Present Illness HPI Narrative: Patient 32-year-old male positive history of cocaine use presented today with hearing voices. Patient had voices telling him to kill himself. And kill other people. Patient denies any specific plans. Positive history of opiate use as well. No chest pain or systemic complaints. Patient is very hungry. Admit to using cocaine just prior to arrival Related Data Home Medications Medication Instructions Recorded Confirmed albuterol sulfate 90 mcg/actuation 2 puff inhalation Q4H PRN Wheezing 09/25/22 09/29/22 aerosol inhaler (Ventolin HFA) nicotine 21 mg/24 hr daily 1 patch topical DAILY 09/25/22 09/29/22 transdermal patch topiramate 25 mg tablet 1 tab PO DAILY 09/29/22 09/29/22 Previous Rx's Medication Instructions Recorded buprenorphine 8 mg-naloxone 2 mg 1 tab sublingual TID 7 days #21 09/16/22 sublingual tablet tabs gabapentin 600 mg tablet 600 mg PO TID #90 tabs 09/16/22 hydroxyzine HCl 50 mg tablet 50 mg PO Q6H PRN anxiety #30 tabs 09/16/22 Allergies Allergy/AdvReac Type Severity Reaction Status Date / Time No Known Allergies Allergy Verified 09/03/22 04:11 Review of Systems Review of Systems: Positive hearing voices Positive history of PTSD Positive history of depression All system reviewed otherwise negative [facility] Past Medical History Attestation statement: The following information was validated with the patient. Medical History Anxiety and depression MDD (major depressive disorder), recurrent episode, moderate PTSD (post-traumatic stress disorder) Surgical History H/O kidney removal H/O right nephrectomy Social History Social History Household Members: Family Household Members Other:: Sister Housing: Apartment Do you presently have visiting nurse or other home services: No Unable to assess alcohol history related to: Refusing to respond Alcohol intake: current Alcohol intake frequency: does not drink Patient Tobacco Use Status: Current everyday Tobacco user Tobacco use type: Cigarette and Smokeless Tobacco Cigarette Packs Per Day: 0.5 Cigarettes Per Day: 10.0 Years Smoked: 15 e-Cigarette/Vaping Use: Currently Using Second Hand Smoke Exposure: Yes Substance Use Type: Crack/Cocaine and Other Advance Directives: No Advance Directives Information Provided: No service: No Current occupational status: unemployed Sexual orientation: Straight/Heterosexual Physical Exam Vital Signs: Vital Signs: Last Vital Signs Temp 98.7 F 09/29/22 19:44 Pulse 90 09/29/22 19:44 Resp 16 09/29/22 19:44 BP 144/91 H 09/29/22 19:44 Pulse Ox 100 09/29/22 19:44 O2 Del Method 09/29/22 19:44 BMI result Body Mass Index 27.4 Appearance: Alert. Oriented X3. No acute distress. Eyes: Pupils equal, round and reactive to light. ENT: Pharynx normal. Neck: Normal inspection. Neck supple. No lymph nodes noted. No crepitus CVS: Normal heart rate and rhythm. Pulses normal. Normal S1 and S2 Respiratory: No respiratory distress. Breath sounds normal. No Wheezing. No rales Abdomen: Soft and nontender. No rigidity. No distention. good BS x4 Skin: Skin warm and dry. Normal skin color. Normal skin turgor. Extremities: No lower extremity edema. Neurovascular intact to all extremities. No Lacerations. No Rash Neuro: Oriented X 3. No motor deficit. No sensory deficit. Moving all extermities. No slurred speech. Cranial nerves grossly intact Medications Administered Discontinued Medications Generic Name Dose Route Start Last Admin Trade Name Dyllanq PRN Reason Stop Dose Admin Lorazepam 2 mg 09/29/22 21:21 09/29/22 21:25 Lorazepam 1 Mg Tablet PO 09/29/22 21:22 2 mg ONCE ONE Administration Medical Decision Making Medical Decision Making [facility] Narrative: Well-appearing no acute distress. Positive cocaine use. Tox screen also positive for fentanyl. Positive psychiatric history of PTSD and major depression. Now hearing voices. Will get crisis to evaluate patient. Lab Data [facility] Lab Attestation statement: I reviewed the patient's lab results. 09/29/22 21:46 09/29/22 21:46 Labs: Lab Results 09/29/22 09/29/22 09/29/22 Range/Units 20:41 20:41 21:46 WBC 6.4 (4.8-10.8) X10*3/uL RBC 5.06 (4.60-5.80) X10*6/uL Hgb 14.3 (14.0-18.0) g/dl Hct 44.1 (42.0-52.0) % MCV 87.2 (80.0-98.0) fL MCH 28.3 (27.0-33.0) pg MCHC 32.4 (31.0-36.0) g/dl RDW 13.7 (11.0-16.0) % Plt Count 266 (160-400) X10*3/uL MPV 9.6 (9.4-12.4) fL Immature Gran % (Auto) 0.2 (0.0-0.4) % Neut % (Auto) 43.7 L (45-73) % Lymph % (Auto) 45.6 H (20-40) % Fleming % (Auto) 4.4 (2-11) % Eos % (Auto) 5.0 H (0-4) % Baso % (Auto) 1.1 (0-2) % Lymph # (Auto) 2.9 (1.2-4.9) X10*3/uL Fleming # (Auto) 0.3 (0.1-1.2) X10*3/uL Eos # (Auto) 0.3 (0.0-0.4) X10*3/uL Baso # (Auto) 0.1 (0.0-0.2) X10*3/uL Abs Immat Gran (auto) 0.01 (0.00-0.03) X10*3/uL Absolute Neuts (auto) 2.8 (2.0-8.3) x10*3/uL Absolute Nucleated RBC 0.000 (0.0-0.012) X10*3/uL Nucleated RBC % (auto) 0.0 (0.0-0.2) /100WBC Sodium (135-145) mmol/L Potassium (3.3-5.1) mmol/L Chloride (96-108) mmol/L Carbon Dioxide (22-29) mmol/L Anion Gap (12-20) BUN (9-16) mg/dL Creatinine (0.5-1.4) mg/dL Estim Creat Clear Calc Estimated GFR Random Glucose (60-115) mg/dL Calcium (8.4-10.2) mg/dL Total Bilirubin (0.0-1.0) mg/dL AST (5-37) U/L ALT (0-40) U/L Alkaline Phosphatase (39-117) U/L Total Protein (6.5-8.0) g/dL Albumin (3.5-5.0) g/dL Urine Opiates Screen Not Detected (Not Detect) Urine Fentanyl Screen POSITIVE H (Not Detect) Ur Barbiturates Screen Not Detected (Not Detect) Ur Phencyclidine Scrn Not Detected (Not Detect) Ur Amphetamines Screen Not Detected (Not Detect) U Benzodiazepines Scrn POSITIVE H (Not Detect) Urine Cocaine Screen POSITIVE H (Not Detect) U Marijuana (THC) Screen Not Detected (Not Detect) Ethyl Alcohol mg/dL COVID-19 ([facility]) Negative (Negative) COVID-19 Clin Com See Note 09/29/22 09/29/22 Range/Units 21:46 21:46 WBC (4.8-10.8) X10*3/uL RBC (4.60-5.80) X10*6/uL Hgb (14.0-18.0) g/dl Hct (42.0-52.0) % MCV (80.0-98.0) fL MCH (27.0-33.0) pg MCHC (31.0-36.0) g/dl RDW (11.0-16.0) % Plt Count (160-400) X10*3/uL MPV (9.4-12.4) fL Immature Gran % (Auto) (0.0-0.4) % Neut % (Auto) (45-73) % Lymph % (Auto) (20-40) % Fleming % (Auto) (2-11) % Eos % (Auto) (0-4) % Baso % (Auto) (0-2) % Lymph # (Auto) (1.2-4.9) X10*3/uL Fleming # (Auto) (0.1-1.2) X10*3/uL Eos # (Auto) (0.0-0.4) X10*3/uL Baso # (Auto) (0.0-0.2) X10*3/uL Abs Immat Gran (auto) (0.00-0.03) X10*3/uL Absolute Neuts (auto) (2.0-8.3) x10*3/uL Absolute Nucleated RBC (0.0-0.012) X10*3/uL Nucleated RBC % (auto) (0.0-0.2) /100WBC Sodium 143 (135-145) mmol/L Potassium 4.1 (3.3-5.1) mmol/L Chloride 104 (96-108) mmol/L Carbon Dioxide 30 H (22-29) mmol/L Anion Gap 13 (12-20) BUN 15 (9-16) mg/dL Creatinine 1.08 (0.5-1.4) mg/dL Estim Creat Clear Calc 95.1 Estimated GFR > 60 Random Glucose 94 (60-115) mg/dL Calcium 9.9 (8.4-10.2) mg/dL Total Bilirubin 0.9 (0.0-1.0) mg/dL AST 23 (5-37) U/L ALT 19 (0-40) U/L Alkaline Phosphatase 86 (39-117) U/L Total Protein 8.1 H (6.5-8.0) g/dL Albumin 4.8 (3.5-5.0) g/dL Urine Opiates Screen (Not Detect) Urine Fentanyl Screen (Not Detect) Ur Barbiturates Screen (Not Detect) Ur Phencyclidine Scrn (Not Detect) Ur Amphetamines Screen (Not Detect) U Benzodiazepines Scrn (Not Detect) Urine Cocaine Screen (Not Detect) U Marijuana (THC) Screen (Not Detect) Ethyl Alcohol < 10 mg/dL COVID-19 ([facility]) (Negative) COVID-19 Clin Com Chronic Conditions Polysubstance abuse Social Determinants Patient?s care significantly limited by Social Determinants of Health including: Alcoholism and drug addiction in family Discharge Plan Discharge Clinical Impression: Drug overdose, Depression, Drug-induced psychotic disorder Patient Disposition: Still a Patient Prescriptions: No Action gabapentin 600 mg tablet 600 mg PO TID Qty: 90 0RF hydroxyzine HCl 50 mg Tablet 50 mg PO Q6H PRN (Reason: anxiety) Qty: 30 0RF buprenorphine-naloxone 8-2 mg tablet, sublingual 1 tab sublingual TID 7 Days Qty: 21 0RF nicotine 21 mg/24 hr patch 24 hour 1 patch topical DAILY albuterol sulfate [Ventolin HFA] 90 mcg/actuation HFA aerosol inhaler 2 puff inhalation Q4H PRN (Reason: Wheezing) topiramate 25 mg tablet 1 tab PO DAILY
[2022-09-30 06:36] VITALS: BP 123/70; PULSE 78; RESP 16; TEMP 36.7; O2SAT 98
--- NOTE | 2022-09-30 06:40 | PC.NURSE ---
Patient slept through the night, restless at the time of arrival/Ativan 2 mg PO administered at 2125 with + effect, med rec completed/pending provider's approval, behavior non concerning, engaged appropriately with care team clinician, disposition is [facility]ONAN follow up due to inability to get hold of his sister for collateral information, will continue to monitor.
[2022-09-30 07:40] VITALS: BP 102/68; PULSE 84; RESP 14; TEMP 36.4; O2SAT 99
--- NOTE | 2022-09-30 07:48 | PC.NURSE ---
Report from Gregorio RN, pt resting quietly in bed at this time, resp reg and even, NAD.
[2022-09-30] MEDS: Gabapentin 600 MG TABLET PO (10:31)
[2022-09-30] MEDS: Buprenorphine/Naloxone 8/2 mg TAB.SUBL 1 TAB SUBLINGUAL (10:31)
[2022-09-30] MEDS: Topiramate 25 MG TABLET PO (10:31)
--- NOTE | 2022-09-30 13:29 | MHC.CARE ---
CARE Team received call from [facility] dialysis social worker that Pts Section 35 warrant has been issued.
--- NOTE | 2022-09-30 13:30 | MHC.CARE ---
CARE Team reviewed case with Dr. Madison and Dr. Cortez, both in agreement with plan for Pt to be discharged to PD for Section 35.
--- NOTE | 2022-10-01 07:49 | MHC.CARE ---
CARE Team received message from Kori [facility] [employer] Pt was successfully Section 35'd
== END 2022-09-30 13:54 ==
PROVIDERS: Emergency Provider Emergency Medicine Emergency Medical Services; PCP Internal Medicine
DX: F14.251 Cocaine dependence with cocaine-induced psychotic disorder with hallucinations (principal); R44.0 Auditory hallucinations; T40.5X1A Poisoning by cocaine, accidental (unintentional), initial encounter; T40.411A Poisoning by fentanyl or fentanyl analogs, accidental (unintentional), initial encounter; Y92.009 Unspecified place in unspecified non-institutional (private) residence as the place of occurrence of the external cause; F33.1 Major depressive disorder, recurrent, moderate; R45.851 Suicidal ideations; R45.850 Homicidal ideations; F43.10 Post-traumatic stress disorder, unspecified; F11.90 Opioid use, unspecified, uncomplicated; F17.210 Nicotine dependence, cigarettes, uncomplicated; Z20.822 Contact with and (suspected) exposure to COVID-19; Z79.899 Other long term (current) drug therapy
CPT/HCPCS: 36415; 80053; 80307; 82077; 85025; 87635; 99284; 99285; S9485

== ENCOUNTER 2023-02-09 04:49 | Inpatient (IN) | payer OTHER, SELFPAY ==
--- NOTE | 2023-02-09 | ECG_ITS ---
Test Reason : CHECK QT Blood Pressure : / mmHG Vent. Rate : 061 BPM Atrial Rate : 061 BPM P-R Int : 126 ms QRS Dur : 094 ms QT Int : 414 ms P-R-T Axes : 054 085 076 degrees QTc Int : 416 ms Normal sinus rhythm Normal ECG When compared with ECG of 13-SEP-2022 10:01, No significant change was found Referred By: Kaylah Massey Electronically Signed By:WATSON PROTILLO MD
[2023-02-09 04:54] VITALS: BP 149/101; PULSE 96; RESP 17; TEMP 36.5; O2SAT 97; BMI 25.8
[2023-02-09 05:26] LABS: Basophils Absolute Auto 0.1 X10*3/uL (0.0-0.2); Eosinophils Absolute Auto 0.3 X10*3/uL (0.0-0.4); Eosinophils Percent Auto 2.8 % (0-4); Hematocrit 41.3 % (42.0-52.0); Hemoglobin 13.4 g/dl (14.0-18.0); Imm Gran Abs Auto 0.03 X10*3/uL (0.00-0.03); Imm Gran Pct Auto 0.3 % (0.0-0.4); Lymphocytes Absolute Auto 2.4 X10*3/uL (1.2-4.9); Lymphocytes Percent Auto 27.5 % (20-40); MANUAL DIFF FLAG NO; Mean Corpuscular HGB Conc 32.4 g/dl (31.0-36.0); Mean Corpuscular Hemoglobin 28.5 pg (27.0-33.0); Mean Corpuscular Volume 87.7 fL (80.0-98.0); Mean Platelet Volume 9.3 fL (9.4-12.4); Monocytes Absolute Auto 0.4 X10*3/uL (0.1-1.2); Monocytes Percent Auto 4.6 % (2-11); Neutrophils Absolute Auto 5.6 x10*3/uL (2.0-8.3); Neutrophils Percent Auto 63.8 % (45-73); Platelet Count 253 X10*3/uL (160-400); Red Blood Count 4.71 X10*6/uL (4.60-5.80); Red Cell Distribution Width 12.6 % (11.0-16.0); White Blood Count 8.8 X10*3/uL (4.8-10.8)
[2023-02-09 05:29] LABS: Appearance Urine Cloudy; Color Urine Yellow; Glucose Urine UA Negative (Negative); Leukocyte Esterase Urine Trace (Negative); Nitrite Urine Negative (Negative); PH 7.5 (5.0-9.0); Specific Gravity - Urine 1.025 (1.005-1.025); UMIC TRIGGER UA YES; Urine Blood Negative (Negative); Urine Ketones Trace mg/dL (Negative); Urine Protein 300 (3+) mg/dL (Neg-Trace)
[2023-02-09 05:49] LABS: Alanine Aminotransferase 18 U/L (0-40); Albumin Level 4.2 g/dL (3.5-5.0); Alkaline Phosphatase 79 U/L (39-117); Anion Gap 14 (12-20); Aspartate Amino Transferase 15 U/L (5-37); Bilirubin Total 1.1 mg/dL (0.0-1.0); Blood Urea Nitrogen 10 mg/dL (9-16); Calcium 9.8 mg/dL (8.4-10.2); Carbon Dioxide 27 mmol/L (22-29); Chloride 104 mmol/L (96-108); Creatinine Clr Calc Pharmacy 84.6; Estimated Glomerular Filt Rate > 60; Ethanol < 10 mg/dL; Glucose Random 103 mg/dL (60-115); Potassium 4.2 mmol/L (3.3-5.1); Sodium 141 mmol/L (135-145); Total Protein 7.4 g/dL (6.5-8.0)
[2023-02-09 06:03] LABS: Amphetamine Screen Urine Not Detected (Not Detect); Barbiturates, Urine Not Detected (Not Detect); Benzodiazepines Screen Urine Not Detected (Not Detect); Cannabinoid Screen Urine POSITIVE (Not Detect); Cocaine Screen Urine POSITIVE (Not Detect); Fentanyl, urine Not Detected (Not Detect); Opiate Screen Urine Not Detected (Not Detect); Phencyclidine Screen Urine Not Detected (Not Detect)
--- NOTE | 2023-02-09 06:10 | PC.NURSE ---
Patient is currently in bed appears sleeping, no distress observed/reported, behavior non concerning, care consult ordered/pending evaluation, med rec completed/pending provider's approval, Labs completed/resulted, VSS, will continue to monitor.
--- NOTE | 2023-02-09 07:13 | ED_ITS ---
HPI - Psych General Chief Complaint: Psychiatric Symptoms Stated Complaint: S/I Time Seen by Provider: 02/09/23 06:56 Source: patient Mode of arrival: ambulatory Limitations: no limitations History of Present Illness HPI Narrative: 32 yo male with history of PTSD, MDD, opioid use disorder, polysubstance abuse who presents to the ER for evaluation of suicidal ideation and auditory hallucinations. He states his suicidal ideation and auditory hallucinations have been on and off since 2011 when he attempted suicide. He has been thinking about cutting himself to harm himself. He has not acted on these thoughts. He has been compliant with his medications. He has been staying with a friend and has support. He reports actively using crack cocaine as of 2 weeks ago. He admits this worsens his symptoms. He denies any alcohol use. MD complaint: suicidal ideation and hallucinations Onset (ago): day(s) Duration: getting worse History of same: Yes Relieving factors: medication Exacerbating factors: drug use Context: recent drug abuse Associated psychiatric symptoms: depression and suicidal ideation Associated symptoms: denies other symptoms If self harm: admits thoughts of self harm and has plan Related Data Home Medications Medication Instructions Recorded Confirmed albuterol sulfate 90 mcg/actuation 2 puff inhalation Q4H PRN Wheezing 09/25/22 02/09/23 aerosol inhaler (Ventolin HFA) nicotine 21 mg/24 hr daily 1 patch topical DAILY 09/25/22 02/09/23 transdermal patch buprenorphine 300 mg/1.5 mL 300 mg subcut Q1M 02/09/23 02/09/23 solution,exten.rel.subcutaneous syringe (Sublocade) buprenorphine 8 mg-naloxone 2 mg 10 mg sublingual TID 02/09/23 02/09/23 sublingual film (Suboxone) clonidine HCl 0.1 mg tablet 0.1 mg PO TID PRN anxiety 02/09/23 02/09/23 gabapentin 400 mg capsule 400 mg PO TID 02/09/23 02/09/23 hydroxyzine pamoate 50 mg capsule 50 mg PO Q6H PRN anxiety 02/09/23 02/09/23 mirtazapine 30 mg tablet 30 mg PO BEDTIME 02/09/23 02/09/23 risperidone 1 mg tablet 1 mg PO BEDTIME 02/09/23 02/09/23 trazodone 50 mg tablet 50 mg PO BEDTIME 02/09/23 02/09/23 Allergies Allergy/AdvReac Type Severity Reaction Status Date / Time No Known Allergies Allergy Verified 09/03/22 04:11 Review of Systems Review of Systems: Yes all other systems are reviewed and are negative [facility] Past Medical History Medical History Anxiety and depression MDD (major depressive disorder), recurrent episode, moderate PTSD (post-traumatic stress disorder) Surgical History H/O kidney removal H/O right nephrectomy Social History Social History Household Members: Family Household Members Other:: Sister Housing: Apartment Do you presently have visiting nurse or other home services: No Unable to assess alcohol history related to: Refusing to respond Alcohol intake: current Alcohol intake frequency: does not drink Patient Tobacco Use Status: Current everyday Tobacco user Tobacco use type: Cigarette and Smokeless Tobacco Cigarette Packs Per Day: 0.5 Cigarettes Per Day: 10.0 Years Smoked: 15 e-Cigarette/Vaping Use: Currently Using Second Hand Smoke Exposure: Yes Substance Use Type: Crack/Cocaine and Other Advance Directives: No Advance Directives Information Provided: No Healthcare Proxy: No Guardian: No service: No Current occupational status: unemployed Sexual orientation: Straight/Heterosexual Physical Exam Vital Signs: Vital Signs: Last Vital Signs Temp 97.7 F 02/09/23 04:54 Pulse 96 02/09/23 04:54 Resp 17 02/09/23 04:54 BP 149/101 H 02/09/23 04:54 Pulse Ox 97 02/09/23 04:54 O2 Del Method Room Air 02/09/23 04:54 BMI result Body Mass Index 25.8 Appearance: Alert. Oriented X3. No acute distress. Head: normocephalic, atraumatic. Eyes: Pupils equal, round and reactive to light. ENT: Pharynx normal. No tonsillar swelling or exudate. Neck: Normal inspection. Neck supple. CVS: Normal heart rate and rhythm. Pulses normal. Respiratory: No respiratory distress. Breath sounds normal. Abdomen: Soft and nontender. +BS x4 Skin: Skin warm and dry. Normal skin color. Normal skin turgor. No rashes. Extremities: No lower extremity edema. No joint swelling. No cuts on his UE. Neuro/psych: Oriented X 3. No motor deficit. No sensory deficit. CN II-XII intact. Normal speech and cognition. Depressed mood. +SI Course Reevaluation(s) Reevaluation #1: Physician observation started at 0942. Patient placed in physician observation because patient is awaiting CARE team evaluation for the possible need of inpatient psych admission. At the time observation was started patient's vital signs were stable. Patient is alert and oriented. Neuro exam is non-focal. CV: RRR and lungs are clear. Will continue to monitor. Time: 09:42 Reevaluation #2: Spoke with care team. Patient is to be admitted psychiatrically. Patient agrees with plan. Will continue to monitor. Home meds reordered (awaiting clarification on sublocade vs suboxone) Time: 14:42 Medical Decision Making Medical Decision Making [facility] Narrative: 32-year-old male with a history of PTSD, depression, cocaine use, opioid use, admission to the [facility] in [place] for depression and SI along with cocaine use who presents to the ER for evaluation of suicidal ideation. He self presented as soon as symptoms started. He has been compliant with his medications. He has history of 2 suicide attempts in the past, 1 overdose prior to [facility] in 1 [facility]. Patient medically clear. He was seen by the care team and will require inpatient level of care. Differential Diagnosis Differential Diagnoses: The differential diagnosis associated with the presentation includes substance induced mood disorder, acute psychosis, schizophrenia, schizoaffective disorder, PTSD, bipolar disorder, major depression with psychotic features Admission/Observation Consideration of admission/observation: Escalation of care including admi ssion/observation considered SI, psych admit Consult Healthcare Provider Management of the patient was discussed with: Behavioral Health Provider Lab Data [facility] Lab Attestation statement: I reviewed the patient's lab results. Stable anemia, mild 02/09/23 05:21 02/09/23 05:21 Labs: Lab Results 02/09/23 02/09/23 02/09/23 Range/Units 05:20 05:20 05:21 WBC (4.8-10.8) X10*3/uL RBC (4.60-5.80) X10*6/uL Hgb (14.0-18.0) g/dl Hct (42.0-52.0) % MCV (80.0-98.0) fL MCH (27.0-33.0) pg MCHC (31.0-36.0) g/dl RDW (11.0-16.0) % Plt Count (160-400) X10*3/uL MPV (9.4-12.4) fL Immature Gran % (Auto) (0.0-0.4) % Neut % (Auto) (45-73) % Lymph % (Auto) (20-40) % [place] % (Auto) (2-11) % Eos % (Auto) (0-4) % Baso % (Auto) (0-2) % Lymph # (Auto) (1.2-4.9) X10*3/uL [place] # (Auto) (0.1-1.2) X10*3/uL Eos # (Auto) (0.0-0.4) X10*3/uL Baso # (Auto) (0.0-0.2) X10*3/uL Abs Immat Gran (auto) (0.00-0.03) X10*3/uL Absolute Neuts (auto) (2.0-8.3) x10*3/uL Absolute Nucleated RBC (0.0-0.012) X10*3/uL Nucleated RBC % (auto) (0.0-0.2) /100WBC Sodium 141 (135-145) mmol/L Potassium 4.2 (3.3-5.1) mmol/L Chloride 104 (96-108) mmol/L Carbon Dioxide 27 (22-29) mmol/L Anion Gap 14 (12-20) BUN 10 (9-16) mg/dL Creatinine 1.12 (0.5-1.4) mg/dL Estim Creat Clear Calc 84.6 Estimated GFR > 60 Random Glucose 103 (60-115) mg/dL Calcium 9.8 (8.4-10.2) mg/dL Total Bilirubin 1.1 H (0.0-1.0) mg/dL AST 15 (5-37) U/L ALT 18 (0-40) U/L Alkaline Phosphatase 79 (39-117) U/L Total Protein 7.4 (6.5-8.0) g/dL Albumin 4.2 (3.5-5.0) g/dL Urine Color Yellow Urine Appearance Cloudy Urine pH 7.5 (5.0-9.0) Ur Specific [place] 1.025 (1.005-1.025) Urine Protein 300 (3+) H (Neg-Trace) mg/dL Urine Glucose (UA) Negative (Negative) mg/dL Urine Ketones Trace (Negative) mg/dL Urine Blood Negative (Negative) Urine Nitrite Negative (Negative) Ur Leukocyte Esterase Trace H (Negative) Urine RBC 3-5 H (0-2) /HPF Urine WBC 21-50 H (0-5) /HPF Ur Squamous Epith Cells 0-2 (0-2) /HPF Urine Bacteria None Seen (None Seen) Hyaline Casts 3-5 (0-2) /LPF Urine Opiates Screen Not Detected (Not Detect) Urine Fentanyl Screen Not Detected (Not Detect) Ur Barbiturates Screen Not Detected (Not Detect) Ur Phencyclidine Scrn Not Detected (Not Detect) Ur Amphetamines Screen Not Detected (Not Detect) U Benzodiazepines Scrn Not Detected (Not Detect) Urine Cocaine Screen POSITIVE H (Not Detect) U Marijuana (THC) Screen POSITIVE H (Not Detect) Ethyl Alcohol < 10 mg/dL 02/09/23 Range/Units 05:21 WBC 8.8 (4.8-10.8) X10*3/uL RBC 4.71 (4.60-5.80) X10*6/uL Hgb 13.4 L (14.0-18.0) g/dl Hct 41.3 L (42.0-52.0) % MCV 87.7 (80.0-98.0) fL MCH 28.5 (27.0-33.0) pg MCHC 32.4 (31.0-36.0) g/dl RDW 12.6 (11.0-16.0) % Plt Count 253 (160-400) X10*3/uL MPV 9.3 L (9.4-12.4) fL Immature Gran % (Auto) 0.3 (0.0-0.4) % Neut % (Auto) 63.8 (45-73) % Lymph % (Auto) 27.5 (20-40) % [place] % (Auto) 4.6 (2-11) % Eos % (Auto) 2.8 (0-4) % Baso % (Auto) 1.0 (0-2) % Lymph # (Auto) 2.4 (1.2-4.9) X10*3/uL [place] # (Auto) 0.4 (0.1-1.2) X10*3/uL Eos # (Auto) 0.3 (0.0-0.4) X10*3/uL Baso # (Auto) 0.1 (0.0-0.2) X10*3/uL Abs Immat Gran (auto) 0.03 (0.00-0.03) X10*3/uL Absolute Neuts (auto) 5.6 (2.0-8.3) x10*3/uL Absolute Nucleated RBC 0.000 (0.0-0.012) X10*3/uL Nucleated RBC % (auto) 0.0 (0.0-0.2) /100WBC Sodium (135-145) mmol/L Potassium (3.3-5.1) mmol/L Chloride (96-108) mmol/L Carbon Dioxide (22-29) mmol/L Anion Gap (12-20) BUN (9-16) mg/dL Creatinine (0.5-1.4) mg/dL Estim Creat Clear Calc Estimated GFR Random Glucose (60-115) mg/dL Calcium (8.4-10.2) mg/dL Total Bilirubin (0.0-1.0) mg/dL AST (5-37) U/L ALT (0-40) U/L Alkaline Phosphatase (39-117) U/L Total Protein (6.5-8.0) g/dL Albumin (3.5-5.0) g/dL Urine Color Urine Appearance Urine pH (5.0-9.0) Ur Specific [place] (1.005-1.025) Urine Protein (Neg-Trace) mg/dL Urine Glucose (UA) (Negative) mg/dL Urine Ketones (Negative) mg/dL Urine Blood (Negative) Urine Nitrite (Negative) Ur Leukocyte Esterase (Negative) Urine RBC (0-2) /HPF Urine WBC (0-5) /HPF Ur Squamous Epith Cells (0-2) /HPF Urine Bacteria (None Seen) Hyaline Casts (0-2) /LPF Urine Opiates Screen (Not Detect) Urine Fentanyl Screen (Not Detect) Ur Barbiturates Screen (Not Detect) Ur Phencyclidine Scrn (Not Detect) Ur Amphetamines Screen (Not Detect) U Benzodiazepines Scrn (Not Detect) Urine Cocaine Screen (Not Detect) U Marijuana (THC) Screen (Not Detect) Ethyl Alcohol mg/dL External Record Review External record reviewed: Inpatient record, Office record, Outpatient record, Prior outpatient labs and Prior outpatient radiology Prescription Management I considered prescription management with: Other (Antipsychotic) Chronic Conditions Patient?s care impacted by: Other (Schizoaffective disorder, polysubstance abuse) Social Determinants Patient?s care significantly limited by Social Determinants of Health including: Inadequate housing, Alcoholism and drug addiction in family and Other Social Determinant of Health Critical Care Time Critical Care Time Critical Care Time: No Discharge Plan Discharge Clinical Impression: Suicidal ideation Patient Disposition: Admitted As Inpatient Prescriptions: No Action nicotine 21 mg/24 hr patch 24 hour 1 patch topical DAILY albuterol sulfate [Ventolin HFA] 90 mcg/actuation HFA aerosol inhaler 2 puff inhalation Q4H PRN (Reason: Wheezing) clonidine HCl 0.1 mg tablet 0.1 mg PO TID PRN (Reason: anxiety) trazodone 50 mg tablet 50 mg PO BEDTIME gabapentin 400 mg capsule 400 mg PO TID hydroxyzine pamoate 50 mg capsule 50 mg PO Q6H PRN (Reason: anxiety) mirtazapine 30 mg tablet 30 mg PO BEDTIME risperidone 1 mg tablet 1 mg PO BEDTIME buprenorphine-naloxone [Suboxone] 8-2 mg film 10 mg sublingual TID Sublocade 300 mg/1.5 mL solution, extended rel syringe 300 mg subcut Q1M Interventions: [facility]-Suicide Risk Severity Scale Last Done: 02/09/23 13:13
[2023-02-09 09:06] LABS: Bacteria Urine None Seen (None Seen); Squamous Epithelial Cell Urine 0-2 /HPF (0-2); WBC Urine 21-50 /HPF (0-5)
--- NOTE | 2023-02-09 13:13 | PC.NURSE ---
pt has been sleeping/resting most of day. denies interest in lunch tray
[2023-02-09] MEDS: Gabapentin 400 MG CAPSULE PO ×2 (15:03→23:06)
[2023-02-09 15:20] LABS: COVID-19 Test Negative (Negative); IDNOW Serial# 08D9AD1C
--- NOTE | 2023-02-09 15:24 | PC.NURSE ---
Report taken, and care assumed of pt at this time. Pt resting quietly in bed, resp reg and even, NAD.
[2023-02-09 17:26] VITALS: BP 126/81; PULSE 68; RESP 18; TEMP 36.6; O2SAT 99
--- NOTE | 2023-02-09 18:32 | PC.NURSE ---
Care team clinician in to bedside, plan for pt to admit to M3, signed his CV. Calm and cooperative at this time, eating his dinner.
--- NOTE | 2023-02-09 20:10 | PC.NURSE ---
patient received in the unit in bed with eyes closed patient showing no distress at this time patient is being administered all medications with no issues patient will be admitted safety will continue to be montiored for safety
--- NOTE | 2023-02-09 22:05 | PC.NURSE ---
patient report was given to the receiving nurse Johanna patient will be admitted with no issues at this time patient was not medicated due to the nurse stated she wanted to do it patient will continue to be monitored for safety.
[2023-02-09] MEDS: risperiDONE 1 MG TABLET PO (23:07)
[2023-02-09] MEDS: traZODone HCL 50 MG TABLET PO (23:07)
[2023-02-09] MEDS: Mirtazapine 30 MG TABLET PO (23:07)
[2023-02-09 23:19] VITALS: BP 158/82; PULSE 65; TEMP 35.9; O2SAT 97
[2023-02-09] MEDS: Buprenorphine/Naloxone 8/2 mg FILM 1 FILM SUBLINGUAL (23:31)
--- NOTE | 2023-02-09 23:51 | PC.ADMIT ---
Patient is a 32 year-old bilingual single male admitted as a CV admission to at 2215 and placed on 15 minute safety checks. He was medically cleared in the [facility] ED, evaluated by the CARE team and deemed in need of IPLOC secondary to SI , AH and positive tox screen for cocaine and marijuana. Patient admission dx Major Depressive D/O recurrent, Cocaine dependence, Opioid use d/o and Cannabis use disorder. No current medical issues. Patient has a history of IPLOC at [facility] and was last on M3 09/12/22. The patient has [facility] in [facility] for his SUBOXONE clinic and his PCP prescribes his psychiatric medications. Patient was polite during admission process and was able to answer all of the questions and sign legals.Patient denied any current SI, HI, AH or VH. He did say he had been having SI and AH prior to admission and feels safe on the unit. He was noted to be sniffling and patient stated he had not received any Suboxone today and was having some withdrawals. Dr. Ed Delcid, clinical documentation spec provider, ordered the Suboxone and patient was able to go to bed without any issues. Safety tool and treatment plan started.
[2023-02-10 08:45] VITALS: BP 141/86; PULSE 86; RESP 18; TEMP 36.6; O2SAT 97
[2023-02-10] MEDS: Gabapentin 400 MG CAPSULE PO ×2 (08:51→14:06)
[2023-02-10] MEDS: Buprenorphine/Naloxone 8/2 mg FILM 1 FILM SUBLINGUAL ×3 (08:52→22:34)
[2023-02-10] MEDS: hydrOXYzine HCL 25 MG TABLET PO ×2 (08:55→16:27)
[2023-02-10] MEDS: cloNIDine HCL 0.1 MG TABLET PO ×2 (08:55→22:37)
[2023-02-10 09:47] LABS: Alanine Aminotransferase 17 U/L (0-40); Albumin Level 3.8 g/dL (3.5-5.0); Alkaline Phosphatase 79 U/L (39-117); Anion Gap 12 (12-20); Aspartate Amino Transferase 14 U/L (5-37); Blood Urea Nitrogen 9 mg/dL (9-16); Calcium 9.8 mg/dL (8.4-10.2); Carbon Dioxide 27 mmol/L (22-29); Chloride 108 mmol/L (96-108); Cholesterol 167 mg/dL; Creatinine Clr Calc Pharmacy 100.8; Estimated Glomerular Filt Rate > 60; Glucose Fasting 84 mg/dL (60-99); HDL Cholesterol 44 mg/dL; LDL Cholesterol Calculated 101 mg/dl; Potassium 4.9 mmol/L (3.3-5.1); Sodium 142 mmol/L (135-145); Triglycerides 111 mg/dL
[2023-02-10 09:55] LABS: Estimated Average Glucose 105 mg/dL; Hemoglobin A1c % 5.3 %
[2023-02-10 10:00] LABS: Free T4 (Free Thyroxine) 1.04 ng/dL (0.71-1.85); Thyroid Stimulating Hormone 0.35 uIU/mL (0.32-4.0)
[2023-02-10 10:17] LABS: Folate 11.5 ng/mL (> or = 4.0); Vitamin B12 587 pg/mL (200-900)
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
[2023-02-10 16:49] LABS: Iron 74 mcg/dL (45-160); Percent Iron Saturation 33 % (15-50); Total Iron Binding Capacity 227 mcg/dL (228-428); Unsaturated Iron Binding 153 ug/dL
[2023-02-10] MEDS: LORazepam 0.5 MG TABLET PO (19:19)
[2023-02-10] MEDS: Mirtazapine 30 MG TABLET PO (22:33)
[2023-02-10] MEDS: Gabapentin 300 MG CAPSULE 600 MG PO (22:33)
[2023-02-10] MEDS: traZODone HCL 50 MG TABLET PO (22:34)
[2023-02-10] MEDS: risperiDONE 1 MG TABLET PO (22:34)
[2023-02-10 22:45] VITALS: BP 118/66; PULSE 78; TEMP 36.7
[2023-02-11] MEDS: Buprenorphine/Naloxone 8/2 mg FILM 1 FILM SUBLINGUAL ×3 (08:44→20:32)
[2023-02-11] MEDS: Gabapentin 300 MG CAPSULE 600 MG PO ×3 (08:44→20:31)
[2023-02-11] MEDS: Multivitamin TABLET 1 TAB PO (08:44)
[2023-02-11 08:45] VITALS: BP 124/73; PULSE 88; RESP 18; TEMP 36.4; O2SAT 98
[2023-02-11] MEDS: Nicotine 14 MG PATCH.TD24 TRANSDERMA (08:45)
[2023-02-11] MEDS: LORazepam 0.5 MG TABLET PO ×2 (10:11→18:06)
--- NOTE | 2023-02-11 10:47 | HO.PSYCHPN ---
Subjective Subjective Date of Service: 02/11/23 Reason For Visit: S/I Subjective Notes: Conditional Voluntary Healthcare Proxy: No Guardianship: No Medical Problems Affecting Mental Status: No Interim History: Tolerating medication changes Discussed Wellbutrin augmentation. Pt reports he has been using Wellbutrin at home (an old Rx). Will trial to target current depressive sx. Medication Compliance: Yes Side effects from medications: No Attending Groups: Yes Review of Systems Acute medical concerns: No Medical Review of Systems: unchanged Mental Status Exam Mental Status Exam Patient Appearance: Fatigued Patient Orientation: Person, Place, Time and Situation Level of Consciousness: Alert Patient Behavior: Appropriate, Talkative, Cooperative and Good Eye Contact Mood Description: Depressed Affect Description: Flat Patient Cognition Impaired: No Ability to Follow Directions: Good Speech Pattern: Spontaneous Speech Memory Description: Intact Hallucinations: Auditory Delusions: Paranoid Ideation Perceptual Disturbances: Depersonalization and Derealization Thought Process: Rumination Thought Content: positive for Perseveration Depressive Symptoms: Thoughts of /Suicide and Difficulty Concentrating Judgement: Fair Diagnostics Vital Signs (24Hr): Vital Signs - 24 hr 02/10/23 22:45 02/11/23 08:45 Temperature 98.0 F 97.5 F Pulse Rate 78 88 Respiratory Rate 18 Blood Pressure 118/66 124/73 Pulse Oximetry 98 Oxygen Delivery Method Room Air BMI result Body Mass Index 25.8 Labs 02/09/23 05:21 02/10/23 08:48 Labs: Laboratory Results - last 48 hr 02/09/23 02/10/23 02/10/23 14:51 08:48 08:48 Sodium 142 Potassium 4.9 Chloride 108 Carbon Dioxide 27 Anion Gap 12 BUN 9 Creatinine 0.94 Estim Creat Clear Calc 100.8 Estimated GFR > 60 Fasting Glucose 84 Estimat Average Glucose 105 Hemoglobin A1c % 5.3 Calcium 9.8 Iron TIBC % Saturation Unsat Iron Binding Total Bilirubin 1.0 AST 14 ALT 17 Alkaline Phosphatase 79 Total Protein 7.0 Albumin 3.8 Triglycerides 111 Cholesterol 167 LDL Cholesterol, Calc 101 HDL Cholesterol 44 Vitamin B12 Folate TSH 0.35 Free T4 1.04 COVID-19 ([facility]) Negative COVID-19 Clin Com See Note 02/10/23 02/10/23 08:48 16:25 Sodium Potassium Chloride Carbon Dioxide Anion Gap BUN Creatinine Estim Creat Clear Calc Estimated GFR Fasting Glucose Estimat Average Glucose Hemoglobin A1c % Calcium Iron 74 TIBC 227 L % Saturation 33 Unsat Iron Binding 153 Total Bilirubin AST ALT Alkaline Phosphatase Total Protein Albumin Triglycerides Cholesterol LDL Cholesterol, Calc HDL Cholesterol Vitamin B12 587 Folate 11.5 TSH Free T4 COVID-19 ([facility]) COVID-19 Clin Com Medications Medications Current Medications Acetaminophen (Acetaminophen 325 Mg Tablet) 650 mg PO Q6H PRN PRN Reason: Headache/Pain Mild Scale (1-3) Al Hydroxide/Mg Hydroxide (Magnesium Hydrox/Alum Hydrox 30 Ml Oral.Susp) 30 ml PO Q6H PRN PRN Reason: Heartburn/Nausea Albuterol Sulfate (Albuterol Sulfate 90 Mcg 8 Gm Inhaler) 2 puff INHALE Q4H PRN PRN Reason: Wheezing Bisacodyl (Bisacodyl 5 Mg Tablet.Dr) 10 mg PO DAILY PRN PRN Reason: Constipation Buprenorphine/Naloxone (Buprenorphine/Naloxone 8/2 Mg Film) 1 film SUBLINGUAL TID [facility] Last Admin: 02/11/23 08:44 Dose: 1 film Clonidine HCl (Clonidine Hcl 0.1 Mg Tablet) 0.1 mg PO TID PRN; Protocol PRN Reason: anxiety Last Admin: 02/10/23 22:37 Dose: 0.1 mg Gabapentin (Gabapentin 300 Mg Capsule) 600 mg PO TID [facility] Last Admin: 02/11/23 08:44 Dose: 600 mg Hydroxyzine HCl (Hydroxyzine Hcl 25 Mg Tablet) 25 mg PO Q6H PRN PRN Reason: Anxiety Last Admin: 02/10/23 16:27 Dose: 25 mg Lorazepam (Lorazepam 0.5 Mg Tablet) 0.5 mg PO Q8H PRN PRN Reason: Anxiety Last Admin: 02/11/23 10:11 Dose: 0.5 mg Magnesium Hydroxide (Milk Of Magnesia 30 Ml Oral.Susp) 30 ml PO DAILY PRN PRN Reason: Constipation Mirtazapine (Mirtazapine 30 Mg Tablet) 30 mg PO BEDTIME [facility] Last Admin: 02/10/23 22:33 Dose: 30 mg Multivitamins/Vitamin C (Multivitamin Tablet) 1 tab PO DAILY [facility] Last Admin: 02/11/23 08:44 Dose: 1 tab Nicotine (Nicotine 14 Mg Patch.Td24) 14 mg TRANSDERMA DAILY [facility] Last Admin: 02/11/23 08:45 Dose: 14 mg Nicotine Polacrilex (Nicotine Polacrilex 2 Mg Gum) 2 mg BUCCAL Q2H PRN PRN Reason: Nicotine Cravings Risperidone (Risperidone 1 Mg Tablet) 1 mg PO BEDTIME [facility] Last Admin: 02/10/23 22:34 Dose: 1 mg Trazodone HCl (Trazodone Hcl 50 Mg Tablet) 50 mg PO BEDTIME [facility] Last Admin: 02/10/23 22:34 Dose: 50 mg Trazodone HCl (Trazodone Hcl 50 Mg Tablet) 50 mg PO BEDTIME MRX1 PRN PRN Reason: Insomnia Allergies Allergies Allergy/AdvReac Type Severity Reaction Status Date / Time No Known Allergies Allergy Verified 09/03/22 04:11 Assessment & Plan Assessment & Plan (1) PTSD (post-traumatic stress disorder): Status: Acute Code(s): F43.10 - Post-traumatic stress disorder, unspecified (2) MDD (major depressive disorder), recurrent episode, moderate: Status: Acute Code(s): F33.1 - Major depressive disorder, recurrent, moderate (3) Cocaine use disorder, severe, dependence: Status: Acute Code(s): F14.20 - Cocaine dependence, uncomplicated (4) Opioid use disorder: Status: Acute Code(s): F11.90 - Opioid use, unspecified, uncomplicated Plan 32 yo male, history of PTSD, Depression, Opiate use disorder, polysubstance use disorder(cocaine) presents with reports of SI with plan and intent and relapse of substance use along with auditory perceptual alterations. Plan: Re-establish regime Diagnostics as needed Collateral contact Out patient referral planning Bisacodyl prn for constipation reported Gabapentin 600 mg tid [facility] i daily Lorazepam 0.5 mg q8h prn anxiety. Pt aware he will not receive this upon discharge. 02/11/23 Wellbutrin XL 150 mg a.m. Patient educated on: medication risk/benefits and therapeutic strategies Informed Consent: understands Reason for continued inpatient stay Substantial Risk for: rapid decompensation Time Spent With Patient Time: Total time managing care of this patient today ____ minutes.
[2023-02-11] MEDS: cloNIDine HCL 0.1 MG TABLET PO (14:31)
[2023-02-11 14:33] VITALS: BP 127/77; PULSE 92
[2023-02-11] MEDS: bisacodyL 5 MG TABLET.DR 10 MG PO (18:06)
[2023-02-11 18:28] VITALS: BP 124/70; PULSE 89; TEMP 36.1
[2023-02-11] MEDS: Mirtazapine 30 MG TABLET PO (20:32)
[2023-02-11] MEDS: risperiDONE 1 MG TABLET PO (20:32)
[2023-02-11] MEDS: traZODone HCL 50 MG TABLET PO (20:32)
[2023-02-12 08:30] VITALS: BP 142/94; PULSE 95; RESP 18; TEMP 36.4; O2SAT 97
[2023-02-12] MEDS: Nicotine 14 MG PATCH.TD24 TRANSDERMA (09:16)
[2023-02-12] MEDS: buPROPion HCl XL 150 MG TAB.ER.24H PO (09:16)
[2023-02-12] MEDS: Multivitamin TABLET 1 TAB PO (09:16)
[2023-02-12] MEDS: Ferrous Sulfate 324 MG TABLET.DR PO (09:16)
[2023-02-12] MEDS: Buprenorphine/Naloxone 8/2 mg FILM 1 FILM SUBLINGUAL ×3 (09:16→21:21)
[2023-02-12] MEDS: Gabapentin 300 MG CAPSULE 600 MG PO ×3 (09:16→21:21)
[2023-02-12] MEDS: LORazepam 0.5 MG TABLET PO ×2 (09:20→19:31)
--- NOTE | 2023-02-12 11:29 | HO.PSYCHPN ---
Subjective Subjective Date of Service: 02/12/23 Reason For Visit: S/I Interim History: Met with patient; discussed with team Patient quiet and mostly keeping to himself however he says he is feeling better and that depression is significantly lower. Denies any SI and says anxiety is also better. No AVH for couple days. Reports he is sleeping well enough. Mental Status Exam Mental Status Exam Patient Appearance: Appropriate Patient Orientation: Person, Place, Time and Situation Level of Consciousness: Awake and Alert Patient Behavior: Appropriate, Guarded (a little), Cooperative and Good Eye Contact Mood Description: Depressed (but much less) Affect Description: Apprehensive Patient Cognition Impaired: No Ability to Follow Directions: Good Speech Pattern: Spontaneous Speech Memory Description: Intact Hallucinations: None and Auditory (denies) Delusions: Paranoid Ideation (resolving) Perceptual Disturbances: Depersonalization and Derealization Thought Process: Rumination and Goal Oriented Thought Content: positive for Perseveration (however denies SI/HI) Judgement and Insight: impaired but improving Diagnostics Vital Signs (24Hr): Vital Signs - 24 hr 02/11/23 14:33 02/11/23 18:28 Temperature 97 F Pulse Rate 92 89 Blood Pressure 127/77 124/70 BMI result Body Mass Index 25.8 Labs 02/09/23 05:21 02/10/23 08:48 Labs: Laboratory Results - last 48 hr 02/10/23 16:25 Iron 74 TIBC 227 L % Saturation 33 Unsat Iron Binding 153 Medications Medications Current Medications Acetaminophen (Acetaminophen 325 Mg Tablet) 650 mg PO Q6H PRN PRN Reason: Headache/Pain Mild Scale (1-3) Al Hydroxide/Mg Hydroxide (Magnesium Hydrox/Alum Hydrox 30 Ml Oral.Susp) 30 ml PO Q6H PRN PRN Reason: Heartburn/Nausea Albuterol Sulfate (Albuterol Sulfate 90 Mcg 8 Gm Inhaler) 2 puff INHALE Q4H PRN PRN Reason: Wheezing Bisacodyl (Bisacodyl 5 Mg Tablet.Dr) 10 mg PO DAILY PRN PRN Reason: Constipation Last Admin: 02/11/23 18:06 Dose: 10 mg Buprenorphine/Naloxone (Buprenorphine/Naloxone 8/2 Mg Film) 1 film SUBLINGUAL TID [facility] Last Admin: 02/12/23 09:16 Dose: 1 film Bupropion HCl (Bupropion Hcl Xl 150 Mg Tab.Er.24h) 150 mg PO DAILY [facility] Last Admin: 02/12/23 09:16 Dose: 150 mg Clonidine HCl (Clonidine Hcl 0.1 Mg Tablet) 0.1 mg PO TID PRN; Protocol PRN Reason: anxiety Last Admin: 02/11/23 14:31 Dose: 0.1 mg Ferrous Sulfate (Ferrous Sulfate 324 Mg Tablet.Dr) 324 mg PO DAILY [facility] Last Admin: 02/12/23 09:16 Dose: 324 mg Gabapentin (Gabapentin 300 Mg Capsule) 600 mg PO TID [facility] Last Admin: 02/12/23 09:16 Dose: 600 mg Hydroxyzine HCl (Hydroxyzine Hcl 25 Mg Tablet) 25 mg PO Q6H PRN PRN Reason: Anxiety Last Admin: 02/10/23 16:27 Dose: 25 mg Lorazepam (Lorazepam 0.5 Mg Tablet) 0.5 mg PO Q8H PRN PRN Reason: Anxiety Last Admin: 02/12/23 09:20 Dose: 0.5 mg Magnesium Hydroxide (Milk Of Magnesia 30 Ml Oral.Susp) 30 ml PO DAILY PRN PRN Reason: Constipation Mirtazapine (Mirtazapine 30 Mg Tablet) 30 mg PO BEDTIME [facility] Last Admin: 02/11/23 20:32 Dose: 30 mg Multivitamins/Vitamin C (Multivitamin Tablet) 1 tab PO DAILY [facility] Last Admin: 02/12/23 09:16 Dose: 1 tab Nicotine (Nicotine 14 Mg Patch.Td24) 14 mg TRANSDERMA DAILY [facility] Last Admin: 02/12/23 09:16 Dose: 14 mg Nicotine Polacrilex (Nicotine Polacrilex 2 Mg Gum) 2 mg BUCCAL Q2H PRN PRN Reason: Nicotine Cravings Risperidone (Risperidone 1 Mg Tablet) 1 mg PO BEDTIME [facility] Last Admin: 02/11/23 20:32 Dose: 1 mg Trazodone HCl (Trazodone Hcl 50 Mg Tablet) 50 mg PO BEDTIME [facility] Last Admin: 02/11/23 20:32 Dose: 50 mg Trazodone HCl (Trazodone Hcl 50 Mg Tablet) 50 mg PO BEDTIME MRX1 PRN PRN Reason: Insomnia Allergies Allergies Allergy/AdvReac Type Severity Reaction Status Date / Time No Known Allergies Allergy Verified 09/03/22 04:11 Assessment & Plan Assessment & Plan (1) PTSD (post-traumatic stress disorder): Status: Acute Code(s): F43.10 - Post-traumatic stress disorder, unspecified (2) MDD (major depressive disorder), recurrent episode, moderate: Status: Acute Code(s): F33.1 - Major depressive disorder, recurrent, moderate (3) Cocaine use disorder, severe, dependence: Status: Acute Code(s): F14.20 - Cocaine dependence, uncomplicated (4) Opioid use disorder: Status: Acute Code(s): F11.90 - Opioid use, unspecified, uncomplicated Plan 32 yo male, history of PTSD, Depression, Opiate use disorder, polysubstance use disorder(cocaine) presents with reports of SI with plan and intent and relapse of substance use along with auditory perceptual alterations. Plan: Re-establish regime Diagnostics as needed Collateral contact Out patient referral planning Bisacodyl prn for constipation reported Gabapentin 600 mg tid [facility] i daily Lorazepam 0.5 mg q8h prn anxiety. Pt aware he will not receive this upon discharge. 02/11/23 Wellbutrin XL 150 mg a.m. 02/12/23 patient reports no AVH; depression getting better and no SI; will continue with current treatment plan as patient seems to be stabilizing Patient educated on: diagnosis and medication risk/benefits Informed Consent: understands Reason for continued inpatient stay Substantial Risk for: rapid decompensation Time Spent With Patient Time: Total time managing care of this patient today ____ minutes.
[2023-02-12] MEDS: cloNIDine HCL 0.1 MG TABLET PO ×2 (13:52→21:57)
[2023-02-12] MEDS: Nicotine Polacrilex 2 MG GUM BUCCAL (19:31)
[2023-02-12 19:34] VITALS: BP 128/85; PULSE 114; RESP 18; TEMP 36.2; O2SAT 99
[2023-02-12] MEDS: traZODone HCL 50 MG TABLET PO (21:21)
[2023-02-12] MEDS: Mirtazapine 30 MG TABLET PO (21:21)
[2023-02-12] MEDS: risperiDONE 1 MG TABLET PO (21:21)
[2023-02-12 21:55] VITALS: BP 122/91; PULSE 113; RESP 18
[2023-02-13 08:20] VITALS: BP 126/76; PULSE 103; RESP 18; TEMP 36.4; O2SAT 98
[2023-02-13] MEDS: Multivitamin TABLET 1 TAB PO (08:42)
[2023-02-13] MEDS: Gabapentin 300 MG CAPSULE 600 MG PO ×3 (08:42→21:37)
[2023-02-13] MEDS: Ferrous Sulfate 324 MG TABLET.DR PO (08:42)
[2023-02-13] MEDS: LORazepam 0.5 MG TABLET PO ×2 (08:42→18:13)
[2023-02-13] MEDS: Buprenorphine/Naloxone 8/2 mg FILM 1 FILM SUBLINGUAL ×3 (08:43→21:37)
[2023-02-13] MEDS: Nicotine 14 MG PATCH.TD24 TRANSDERMA (08:43)
[2023-02-13] MEDS: buPROPion HCl XL 150 MG TAB.ER.24H PO (08:43)
--- NOTE | 2023-02-13 10:32 | P.PNPSI_ITS ---
Subjective Subjective Date of Service: 02/13/23 Reason For Visit: S/I Interim History: Met with patient; discussed with team Patient reports that he is overall better however he says he always gets very anxious the moment he wakes up in the morning, having panic attacks, which accounts for his tachycardia. Reviewed vitals and patient has had tachycardia up into the 130s Patient said that usually he takes clonidine 1st thing in the morning. Discussed medication regimen and he agrees to take clonidine at bedtime to see if that can prevent morning panic but also to have clonidine in the morning available to which he agrees Mental Status Exam Mental Status Exam Patient Appearance: Appropriate Patient Orientation: Person, Place, Time and Situation Level of Consciousness: Awake and Alert Patient Behavior: Appropriate, Guarded (a little), Cooperative and Good Eye Contact Mood Description: Depressed (but much less) Affect Description: Apprehensive Patient Cognition Impaired: No Ability to Follow Directions: Good Speech Pattern: Spontaneous Speech Memory Description: Intact Hallucinations: None and Auditory (denies) Delusions: Paranoid Ideation (resolving) Perceptual Disturbances: Depersonalization and Derealization Thought Process: Rumination and Goal Oriented Thought Content: positive for Perseveration (however denies SI/HI) Judgement and Insight: impaired but improving Diagnostics Vital Signs (24Hr): Vital Signs - 24 hr 02/12/23 19:34 02/12/23 21:55 02/13/23 08:20 Temperature 97.1 F 97.6 F Pulse Rate 114 H 113 H 103 H Respiratory Rate 18 18 18 Blood Pressure 128/85 122/91 H 126/76 Pulse Oximetry 99 98 Oxygen Delivery Method Room Air Room Air BMI result Body Mass Index 25.8 Labs 02/09/23 05:21 02/10/23 08:48 Medications Medications Current Medications Acetaminophen (Acetaminophen 325 Mg Tablet) 650 mg PO Q6H PRN PRN Reason: Headache/Pain Mild Scale (1-3) Al Hydroxide/Mg Hydroxide (Magnesium Hydrox/Alum Hydrox 30 Ml Oral.Susp) 30 ml PO Q6H PRN PRN Reason: Heartburn/Nausea Albuterol Sulfate (Albuterol Sulfate 90 Mcg 8 Gm Inhaler) 2 puff INHALE Q4H PRN PRN Reason: Wheezing Bisacodyl (Bisacodyl 5 Mg Tablet.) 10 mg PO DAILY PRN PRN Reason: Constipation Last Admin: 07/14/23 18:06 Dose: 10 mg Buprenorphine/Naloxone (Buprenorphine/Naloxone 8/2 Mg Film) 1 film SUBLINGUAL TID [facility] Last Admin: 02/13/23 08:43 Dose: 1 film Bupropion HCl (Bupropion Hcl Xl 150 Mg Tab.Er.24h) 150 mg PO DAILY [facility] Last Admin: 02/13/23 08:43 Dose: 150 mg Clonidine HCl (Clonidine Hcl 0.1 Mg Tablet) 0.1 mg PO TID PRN; Protocol PRN Reason: anxiety Last Admin: 02/12/23 21:57 Dose: 0.1 mg Ferrous Sulfate (Ferrous Sulfate 324 Mg Tablet.Dr) 324 mg PO DAILY [facility] Last Admin: 02/13/23 08:42 Dose: 324 mg Gabapentin (Gabapentin 300 Mg Capsule) 600 mg PO TID [facility] Last Admin: 02/13/23 08:42 Dose: 600 mg Hydroxyzine HCl (Hydroxyzine Hcl 25 Mg Tablet) 25 mg PO Q6H PRN PRN Reason: Anxiety Last Admin: 02/10/23 16:27 Dose: 25 mg Lorazepam (Lorazepam 0.5 Mg Tablet) 0.5 mg PO Q8H PRN PRN Reason: Anxiety Last Admin: 02/13/23 08:42 Dose: 0.5 mg Magnesium Hydroxide (Milk Of Magnesia 30 Ml Oral.Susp) 30 ml PO DAILY PRN PRN Reason: Constipation Mirtazapine (Mirtazapine 30 Mg Tablet) 30 mg PO BEDTIME [facility] Last Admin: 02/12/23 21:21 Dose: 30 mg Multivitamins/Vitamin C (Multivitamin Tablet) 1 tab PO DAILY [facility] Last Admin: 02/13/23 08:42 Dose: 1 tab Nicotine (Nicotine 14 Mg Patch.Td24) 14 mg TRANSDERMA DAILY [facility] Last Admin: 02/13/23 08:43 Dose: 14 mg Nicotine Polacrilex (Nicotine Polacrilex 2 Mg Gum) 2 mg BUCCAL Q2H PRN PRN Reason: Nicotine Cravings Last Admin: 02/12/23 19:31 Dose: 2 mg Risperidone (Risperidone 1 Mg Tablet) 1 mg PO BEDTIME [facility] Last Admin: 02/12/23 21:21 Dose: 1 mg Trazodone HCl (Trazodone Hcl 50 Mg Tablet) 50 mg PO BEDTIME [facility] Last Admin: 02/12/23 21:21 Dose: 50 mg Trazodone HCl (Trazodone Hcl 50 Mg Tablet) 50 mg PO BEDTIME MRX1 PRN PRN Reason: Insomnia Allergies Allergies Allergy/AdvReac Type Severity Reaction Status Date / Time No Known Allergies Allergy Verified 09/03/22 04:11 Assessment & Plan Assessment & Plan (1) PTSD (post-traumatic stress disorder): Status: Acute Code(s): F43.10 - Post-traumatic stress disorder, unspecified (2) MDD (major depressive disorder), recurrent episode, moderate: Status: Acute Code(s): F33.1 - Major depressive disorder, recurrent, moderate (3) Cocaine use disorder, severe, dependence: Status: Acute Code(s): F14.20 - Cocaine dependence, uncomplicated (4) Opioid use disorder: Status: Acute Code(s): F11.90 - Opioid use, unspecified, uncomplicated Plan 32 yo male, history of PTSD, Depression, Opiate use disorder, polysubstance use disorder(cocaine) presents with reports of SI with plan and intent and relapse of substance use along with auditory perceptual alterations. Plan: Re-establish regime Diagnostics as needed Collateral contact Out patient referral planning Bisacodyl prn for constipation reported Gabapentin 600 mg tid [facility] i daily Lorazepam 0.5 mg q8h prn anxiety. Pt aware he will not receive this upon discharge. 02/11/23 Wellbutrin XL 150 mg a.m. 02/12/23 patient reports no AVH; depression getting better and no SI; will continue with current treatment plan as patient seems to be stabilizing 02/13/23 adding clonidine 0.1 mg b.i.d.; patient says he always takes clonidine the morning to prevent panic but will see if taking at bedtime can help delay or resolve Patient educated on: diagnosis and medication risk/benefits Informed Consent: understands Reason for continued inpatient stay Substantial Risk for: med/psych decompensation Time Spent With Patient Time: Total time managing care of this patient today ____ minutes.
[2023-02-13] MEDS: cloNIDine HCL 0.1 MG TABLET PO ×2 (13:44→21:37)
[2023-02-13] MEDS: hydrOXYzine HCL 25 MG TABLET PO (13:44)
[2023-02-13 13:45] VITALS: BP 132/77; PULSE 132; RESP 18
[2023-02-13] MEDS: Mirtazapine 30 MG TABLET PO (21:36)
[2023-02-13] MEDS: risperiDONE 1 MG TABLET PO (21:37)
[2023-02-13] MEDS: traZODone HCL 50 MG TABLET PO ×2 (21:37)
[2023-02-13 22:10] VITALS: BP 130/97; PULSE 96; RESP 16; TEMP 36.3; O2SAT 98
[2023-02-14 08:00] VITALS: BP 123/78; PULSE 90; RESP 18; TEMP 36.3; O2SAT 99
[2023-02-14] MEDS: cloNIDine HCL 0.1 MG TABLET PO ×2 (08:35→21:29)
[2023-02-14] MEDS: Nicotine 14 MG PATCH.TD24 TRANSDERMA (08:35)
[2023-02-14] MEDS: Buprenorphine/Naloxone 8/2 mg FILM 1 FILM SUBLINGUAL ×3 (08:36→21:30)
[2023-02-14] MEDS: Ferrous Sulfate 324 MG TABLET.DR PO (08:36)
[2023-02-14] MEDS: buPROPion HCl XL 150 MG TAB.ER.24H PO (08:36)
[2023-02-14] MEDS: Multivitamin TABLET 1 TAB PO (08:36)
[2023-02-14] MEDS: Gabapentin 300 MG CAPSULE 600 MG PO ×3 (08:37→21:29)
[2023-02-14] MEDS: LORazepam 0.5 MG TABLET PO (13:19)
--- NOTE | 2023-02-14 13:47 | HO.PSYCHPN ---
Subjective Subjective Date of Service: 02/14/23 Reason For Visit: S/I Subjective Notes: Conditional Voluntary Healthcare Proxy: No Guardianship: No Medical Problems Affecting Mental Status: No Interim History: Reports Wellbutrin is tolerated. Is interested in titration. Discussed further mood stabilization. Pleased with Gabapentin. Discussed hx of [place] use-reported increase in sedation and depression. Discussed use of recreational substances to medicate anxiety. Pt would like to see how Wellbutrin increase will work prior to consideration of another agent. Reports sleep/appetite/mood are improving. Medication Compliance: Yes Side effects from medications: No Attending Groups: Intermittent Review of Systems Acute medical concerns: No Medical Review of Systems: unchanged Mental Status Exam Mental Status Exam Patient Appearance: Appropriate Patient Orientation: Person, Place, Time and Situation Level of Consciousness: Alert Patient Behavior: Appropriate, Talkative, Cooperative and Good Eye Contact Mood Description: Depressed Affect Description: Flat Patient Cognition Impaired: No Ability to Follow Directions: Good Speech Pattern: Clear, Appropriate, Spontaneous Speech and Coherent Memory Description: Intact Hallucinations: None Delusions: Not Present Thought Process: Rumination Thought Content: positive for Intact, positive for [place], positive for Circumstantial and positive for Suicidal Ideation (denies) Depressive Symptoms: Thoughts of /Suicide (denies) Judgement: Good Diagnostics Vital Signs (24Hr): Vital Signs - 24 hr 02/13/23 22:10 02/14/23 08:00 Temperature 97.3 F 97.3 F Pulse Rate 96 90 Respiratory Rate 16 18 Blood Pressure 130/97 H 123/78 Pulse Oximetry 98 99 Oxygen Delivery Method Room Air Room Air BMI result Body Mass Index 25.8 Labs 02/09/23 05:21 02/10/23 08:48 Medications Medications Current Medications Acetaminophen (Acetaminophen 325 Mg Tablet) 650 mg PO Q6H PRN PRN Reason: Headache/Pain Mild Scale (1-3) Al Hydroxide/Mg Hydroxide (Magnesium Hydrox/Alum Hydrox 30 Ml Oral.Susp) 30 ml PO Q6H PRN PRN Reason: Heartburn/Nausea Albuterol Sulfate (Albuterol Sulfate 90 Mcg 8 Gm Inhaler) 2 puff INHALE Q4H PRN PRN Reason: Wheezing Bisacodyl (Bisacodyl 5 Mg Tablet.Dr) 10 mg PO DAILY PRN PRN Reason: Constipation Last Admin: 02/11/23 18:06 Dose: 10 mg Buprenorphine/Naloxone (Buprenorphine/Naloxone 8/2 Mg Film) 1 film SUBLINGUAL TID [facility] Last Admin: 02/14/23 08:36 Dose: 1 film Bupropion HCl (Bupropion Hcl Xl 150 Mg Tab.Er.24h) 150 mg PO DAILY [facility] Last Admin: 02/14/23 08:36 Dose: 150 mg Clonidine HCl (Clonidine Hcl 0.1 Mg Tablet) 0.1 mg PO TID PRN; Protocol PRN Reason: anxiety Last Admin: 02/13/23 13:44 Dose: 0.1 mg Clonidine HCl (Clonidine Hcl 0.1 Mg Tablet) 0.1 mg PO BID [facility]; Protocol Last Admin: 02/14/23 08:35 Dose: 0.1 mg Ferrous Sulfate (Ferrous Sulfate 324 Mg Tablet.Dr) 324 mg PO DAILY [facility] Last Admin: 02/14/23 08:36 Dose: 324 mg Gabapentin (Gabapentin 300 Mg Capsule) 600 mg PO TID [facility] Last Admin: 02/14/23 08:37 Dose: 600 mg Hydroxyzine HCl (Hydroxyzine Hcl 25 Mg Tablet) 25 mg PO Q6H PRN PRN Reason: Anxiety Last Admin: 02/13/23 13:44 Dose: 25 mg Lorazepam (Lorazepam 0.5 Mg Tablet) 0.5 mg PO Q8H PRN PRN Reason: Anxiety Last Admin: 02/14/23 13:19 Dose: 0.5 mg Magnesium Hydroxide (Milk Of Magnesia 30 Ml Oral.Susp) 30 ml PO DAILY PRN PRN Reason: Constipation Mirtazapine (Mirtazapine 30 Mg Tablet) 30 mg PO BEDTIME [facility] Last Admin: 02/13/23 21:36 Dose: 30 mg Multivitamins/Vitamin C (Multivitamin Tablet) 1 tab PO DAILY [facility] Last Admin: 02/14/23 08:36 Dose: 1 tab Nicotine (Nicotine 14 Mg Patch.Td24) 14 mg TRANSDERMA DAILY [facility] Last Admin: 02/14/23 08:35 Dose: 14 mg Nicotine Polacrilex (Nicotine Polacrilex 2 Mg Gum) 2 mg BUCCAL Q2H PRN PRN Reason: Nicotine Cravings Last Admin: 02/12/23 19:31 Dose: 2 mg Risperidone (Risperidone 1 Mg Tablet) 1 mg PO BEDTIME [facility] Last Admin: 02/13/23 21:37 Dose: 1 mg Trazodone HCl (Trazodone Hcl 50 Mg Tablet) 50 mg PO BEDTIME [facility] Last Admin: 02/13/23 21:37 Dose: 50 mg Trazodone HCl (Trazodone Hcl 50 Mg Tablet) 50 mg PO BEDTIME MRX1 PRN PRN Reason: Insomnia Last Admin: 02/13/23 21:37 Dose: 50 mg Allergies Allergies Allergy/AdvReac Type Severity Reaction Status Date / Time No Known Allergies Allergy Verified 09/03/22 04:11 Assessment & Plan Assessment & Plan (1) PTSD (post-traumatic stress disorder): Status: Acute Code(s): F43.10 - Post-traumatic stress disorder, unspecified (2) MDD (major depressive disorder), recurrent episode, moderate: Status: Acute Code(s): F33.1 - Major depressive disorder, recurrent, moderate (3) Cocaine use disorder, severe, dependence: Status: Acute Code(s): F14.20 - Cocaine dependence, uncomplicated (4) Opioid use disorder: Status: Acute Code(s): F11.90 - Opioid use, unspecified, uncomplicated Plan 32 yo male, history of PTSD, Depression, Opiate use disorder, polysubstance use disorder(cocaine) presents with reports of SI with plan and intent and relapse of substance use along with auditory perceptual alterations. Plan: Re-establish regime Diagnostics as needed Collateral contact Out patient referral planning Bisacodyl prn for constipation reported Gabapentin 600 mg tid [facility]VI i daily Lorazepam 0.5 mg q8h prn anxiety. Pt aware he will not receive this upon discharge. 02/11/23 Wellbutrin XL 150 mg a.m. 02/12/23 patient reports no AVH; depression getting better and no SI; will continue with current treatment plan as patient seems to be stabilizing 02/13/23 adding clonidine 0.1 mg b.i.d.; patient says he always takes clonidine the morning to prevent panic but will see if taking at bedtime can help delay or resolve 02/14/23 Increase Wellbutrin XL to 300 mg Patient educated on: medication risk/benefits Informed Consent: understands Reason for continued inpatient stay Substantial Risk for: rapid decompensation Time Spent With Patient Time: Total time managing care of this patient today ____ minutes.
[2023-02-14 16:19] VITALS: BP 140/82; PULSE 92; RESP 18; TEMP 36.3; O2SAT 98
[2023-02-14] MEDS: Nicotine Polacrilex 2 MG GUM BUCCAL (18:15)
[2023-02-14] MEDS: traZODone HCL 50 MG TABLET PO (21:30)
[2023-02-14] MEDS: risperiDONE 1 MG TABLET PO (21:30)
[2023-02-14] MEDS: Mirtazapine 30 MG TABLET PO (21:30)
[2023-02-15 06:00] VITALS: BP 133/70; PULSE 84; RESP 16; TEMP 36.4; O2SAT 100
[2023-02-15] MEDS: Nicotine 14 MG PATCH.TD24 TRANSDERMA (08:41)
[2023-02-15] MEDS: Buprenorphine/Naloxone 8/2 mg FILM 1 FILM SUBLINGUAL ×3 (08:41→20:22)
[2023-02-15] MEDS: buPROPion HCl XL 300 MG TAB.ER.24H PO (08:42)
[2023-02-15] MEDS: Ferrous Sulfate 324 MG TABLET.DR PO (08:42)
[2023-02-15] MEDS: Multivitamin TABLET 1 TAB PO (08:42)
[2023-02-15] MEDS: cloNIDine HCL 0.1 MG TABLET PO ×2 (08:42→20:22)
[2023-02-15] MEDS: Gabapentin 300 MG CAPSULE 600 MG PO ×3 (08:43→20:22)
--- NOTE | 2023-02-15 12:26 | HO.PSYCHPN ---
Subjective Subjective Date of Service: 02/15/23 Reason For Visit: S/I Subjective Notes: Conditional Voluntary Healthcare Proxy: No Guardianship: No Medical Problems Affecting Mental Status: No Interim History: Tolerating Wellbutrin increase. Ambivalent about ongoing treatment as he believes he will be unable to contact his children if in CSS, however continues to evaluate his needs and what would be best for his future health and well being along with his family. Medication Compliance: Yes Side effects from medications: No Attending Groups: Intermittent Review of Systems Acute medical concerns: No Medical Review of Systems: unchanged Mental Status Exam Mental Status Exam Patient Appearance: Appropriate Patient Orientation: Person, Place, Time and Situation Level of Consciousness: Alert Patient Behavior: Appropriate, Talkative, Cooperative and Good Eye Contact Mood Description: Depressed Affect Description: Flat Patient Cognition Impaired: No Ability to Follow Directions: Good Speech Pattern: Clear, Appropriate, Spontaneous Speech and Coherent Memory Description: Intact Hallucinations: None Delusions: Not Present Thought Process: Rumination Thought Content: positive for Intact, positive for [place], positive for Circum[place] and positive for Suicidal Ideation (denies) Depressive Symptoms: Thoughts of /Suicide (denies) Judgement: Good Diagnostics Vital Signs (24Hr): Vital Signs - 24 hr 02/14/23 16:19 02/15/23 06:00 Temperature 97.3 F 97.6 F Pulse Rate 92 84 Respiratory Rate 18 16 Blood Pressure 140/82 H 133/70 Pulse Oximetry 98 100 Oxygen Delivery Method Room Air Room Air BMI result Body Mass Index 25.8 Labs 02/09/23 05:21 02/10/23 08:48 Medications Medications Current Medications Acetaminophen (Acetaminophen 325 Mg Tablet) 650 mg PO Q6H PRN PRN Reason: Headache/Pain Mild Scale (1-3) Al Hydroxide/Mg Hydroxide (Magnesium Hydrox/Alum Hydrox 30 Ml Oral.Susp) 30 ml PO Q6H PRN PRN Reason: Heartburn/Nausea Albuterol Sulfate (Albuterol Sulfate 90 Mcg 8 Gm Inhaler) 2 puff INHALE Q4H PRN PRN Reason: Wheezing Bisacodyl (Bisacodyl 5 Mg Tablet.Dr) 10 mg PO DAILY PRN PRN Reason: Constipation Last Admin: 02/11/23 18:06 Dose: 10 mg Buprenorphine/Naloxone (Buprenorphine/Naloxone 8/2 Mg Film) 1 film SUBLINGUAL TID [facility]AILESH Last Admin: 02/15/23 08:41 Dose: 1 film Bupropion HCl (Bupropion Hcl Xl 300 Mg Tab.Er.24h) 300 mg PO DAILY [facility] Last Admin: 02/15/23 08:42 Dose: 300 mg Clonidine HCl (Clonidine Hcl 0.1 Mg Tablet) 0.1 mg PO TID PRN; Protocol PRN Reason: anxiety Last Admin: 02/13/23 13:44 Dose: 0.1 mg Clonidine HCl (Clonidine Hcl 0.1 Mg Tablet) 0.1 mg PO BID SHAILESH; Protocol Last Admin: 02/15/23 08:42 Dose: 0.1 mg Ferrous Sulfate (Ferrous Sulfate 324 Mg Tablet.Dr) 324 mg PO DAILY [facility] Last Admin: 02/15/23 08:42 Dose: 324 mg Gabapentin (Gabapentin 300 Mg Capsule) 600 mg PO TID [facility] Last Admin: 02/15/23 08:43 Dose: 600 mg Hydroxyzine HCl (Hydroxyzine Hcl 25 Mg Tablet) 25 mg PO Q6H PRN PRN Reason: Anxiety Last Admin: 02/13/23 13:44 Dose: 25 mg Lorazepam (Lorazepam 0.5 Mg Tablet) 0.5 mg PO Q8H PRN PRN Reason: Anxiety Last Admin: 02/14/23 13:19 Dose: 0.5 mg Magnesium Hydroxide (Milk Of Magnesia 30 Ml Oral.Susp) 30 ml PO DAILY PRN PRN Reason: Constipation Mirtazapine (Mirtazapine 30 Mg Tablet) 30 mg PO BEDTIME [facility] Last Admin: 02/14/23 21:30 Dose: 30 mg Multivitamins/Vitamin C (Multivitamin Tablet) 1 tab PO DAILY [facility] Last Admin: 02/15/23 08:42 Dose: 1 tab Nicotine (Nicotine 14 Mg Patch.Td24) 14 mg TRANSDERMA DAILY [facility] Last Admin: 02/15/23 08:41 Dose: 14 mg Nicotine Polacrilex (Nicotine Polacrilex 2 Mg Gum) 2 mg BUCCAL Q2H PRN PRN Reason: Nicotine Cravings Last Admin: 02/14/23 18:15 Dose: 2 mg Risperidone (Risperidone 1 Mg Tablet) 1 mg PO BEDTIME [facility] Last Admin: 02/14/23 21:30 Dose: 1 mg Trazodone HCl (Trazodone Hcl 50 Mg Tablet) 50 mg PO BEDTIME [facility] Last Admin: 02/14/23 21:30 Dose: 50 mg Trazodone HCl (Trazodone Hcl 50 Mg Tablet) 50 mg PO BEDTIME MRX1 PRN PRN Reason: Insomnia Last Admin: 02/13/23 21:37 Dose: 50 mg Allergies Allergies Allergy/AdvReac Type Severity Reaction Status Date / Time No Known Allergies Allergy Verified 09/03/22 04:11 Assessment & Plan Assessment & Plan (1) PTSD (post-traumatic stress disorder): Status: Acute Code(s): F43.10 - Post-traumatic stress disorder, unspecified (2) MDD (major depressive disorder), recurrent episode, moderate: Status: Acute Code(s): F33.1 - Major depressive disorder, recurrent, moderate (3) Cocaine use disorder, severe, dependence: Status: Acute Code(s): F14.20 - Cocaine dependence, uncomplicated (4) Opioid use disorder: Status: Acute Code(s): F11.90 - Opioid use, unspecified, uncomplicated Plan 32 yo male, history of PTSD, Depression, Opiate use disorder, polysubstance use disorder(cocaine) presents with reports of SI with plan and intent and relapse of substance use along with auditory perceptual alterations. Plan: Re-establish regime Diagnostics as needed Collateral contact Out patient referral planning Bisacodyl prn for constipation reported Gabapentin 600 mg tid MVI i daily Lorazepam 0.5 mg q8h prn anxiety. Pt aware he will not receive this upon discharge. 02/11/23 Wellbutrin XL 150 mg a.m. 02/12/23 patient reports no AVH; depression getting better and no SI; will continue with current treatment plan as patient seems to be stabilizing 02/13/23 adding clonidine 0.1 mg b.i.d.; patient says he always takes clonidine the morning to prevent panic but will see if taking at bedtime can help delay or resolve 02/14/23 Increase Wellbutrin XL to 300 mg 02/15/23 Continue current regime and plan. Informed Consent: understands Reason for continued inpatient stay Substantial Risk for: rapid decompensation Time Spent With Patient Time: Total time managing care of this patient today ____ minutes.
[2023-02-15] MEDS: LORazepam 0.5 MG TABLET PO (14:48)
[2023-02-15 17:04] VITALS: BP 124/78; PULSE 99; RESP 18; TEMP 36.4; O2SAT 97
[2023-02-15] MEDS: risperiDONE 1 MG TABLET PO (20:22)
[2023-02-15] MEDS: Mirtazapine 30 MG TABLET PO (20:22)
[2023-02-15] MEDS: traZODone HCL 50 MG TABLET PO (20:22)
[2023-02-16] MEDS: Gabapentin 300 MG CAPSULE 600 MG PO (08:54)
[2023-02-16] MEDS: Nicotine 14 MG PATCH.TD24 TRANSDERMA (08:54)
[2023-02-16] MEDS: Ferrous Sulfate 324 MG TABLET.DR PO (08:54)
[2023-02-16] MEDS: cloNIDine HCL 0.1 MG TABLET PO ×3 (08:54→20:26)
[2023-02-16] MEDS: buPROPion HCl XL 300 MG TAB.ER.24H PO (08:54)
[2023-02-16] MEDS: Buprenorphine/Naloxone 8/2 mg FILM 1 FILM SUBLINGUAL ×3 (08:54→20:26)
[2023-02-16] MEDS: Multivitamin TABLET 1 TAB PO (08:54)
[2023-02-16] MEDS: hydrOXYzine HCL 25 MG TABLET PO ×2 (09:38→17:59)
[2023-02-16] MEDS: LORazepam 0.5 MG TABLET PO ×2 (10:08→20:26)
[2023-02-16 10:11] VITALS: BP 144/81; PULSE 83; RESP 16; TEMP 36.1; O2SAT 97
[2023-02-16 14:39] VITALS: BP 142/80; PULSE 99
[2023-02-16] MEDS: Gabapentin 400 MG CAPSULE 800 MG PO ×2 (14:47→20:25)
--- NOTE | 2023-02-16 17:29 | P.PNPSI_ITS ---
Subjective Subjective Date of Service: 02/16/23 Reason For Visit: S/I Subjective Notes: Conditional Voluntary Healthcare Proxy: No Guardianship: No Medical Problems Affecting Mental Status: No Interim History: Pt has decided he will not accept CSS admission, but will discharge outright as he will not be allowed to see his children if he commits to CSS admission. He feels with recent [place] [employer] and being away from the family for ~5 months that more time away will jeopardize his relationship with the family. Pt did not want to wake up the kids mom to discuss so he made the decision without her. Not attending groups. Agrees that discharge will be on 02/17/23. Denies SI,HI. Pt will accept out patient referrals. Medication Compliance: Yes Side effects from medications: No Attending Groups: No Review of Systems Acute medical concerns: No Medical Review of Systems: unchanged Mental Status Exam Mental Status Exam Patient Appearance: Appropriate Patient Orientation: Person, Place, Time and Situation Level of Consciousness: Alert Patient Behavior: Appropriate, Talkative, Cooperative and Good Eye Contact Mood Description: Depressed Affect Description: Flat Patient Cognition Impaired: No Ability to Follow Directions: Good Speech Pattern: Clear, Appropriate, Spontaneous Speech and Coherent Memory Description: Intact Hallucinations: None Delusions: Not Present Thought Process: Rumination Thought Content: positive for Intact, positive for [place], positive for Circumstantial and positive for Suicidal Ideation (denies) Depressive Symptoms: Thoughts of /Suicide (denies) Judgement: Good Diagnostics Vital Signs (24Hr): Vital Signs - 24 hr 02/16/23 10:11 02/16/23 14:39 Temperature 96.9 F Pulse Rate 83 99 Respiratory Rate 16 Blood Pressure 144/81 H 142/80 H Pulse Oximetry 97 Oxygen Delivery Method Room Air BMI result Body Mass Index 25.8 Labs 02/09/23 05:21 02/10/23 08:48 Medications Medications Current Medications Acetaminophen (Acetaminophen 325 Mg Tablet) 650 mg PO Q6H PRN PRN Reason: Headache/Pain Mild Scale (1-3) Al Hydroxide/Mg Hydroxide (Magnesium Hydrox/Alum Hydrox 30 Ml Oral.Susp) 30 ml PO Q6H PRN PRN Reason: Heartburn/Nausea Albuterol Sulfate (Albuterol Sulfate 90 Mcg 8 Gm Inhaler) 2 puff INHALE Q4H PRN PRN Reason: Wheezing Bisacodyl (Bisacodyl 5 Mg Tablet.Dr) 10 mg PO DAILY PRN PRN Reason: Constipation Last Admin: 02/11/23 18:06 Dose: 10 mg Buprenorphine/Naloxone (Buprenorphine/Naloxone 8/2 Mg Film) 1 film SUBLINGUAL TID [facility] Last Admin: 02/16/23 14:47 Dose: 1 film Bupropion HCl (Bupropion Hcl Xl 300 Mg Tab.Er.24h) 300 mg PO DAILY [facility] Last Admin: 02/16/23 08:54 Dose: 300 mg Clonidine HCl (Clonidine Hcl 0.1 Mg Tablet) 0.1 mg PO TID PRN; Protocol PRN Reason: anxiety Last Admin: 02/13/23 13:44 Dose: 0.1 mg Clonidine HCl (Clonidine Hcl 0.1 Mg Tablet) 0.1 mg PO TID SHAILESH; Protocol Last Admin: 02/16/23 14:47 Dose: 0.1 mg Ferrous Sulfate (Ferrous Sulfate 324 Mg Tablet.) 324 mg PO DAILY [facility] Last Admin: 02/16/23 08:54 Dose: 324 mg Gabapentin (Gabapentin 400 Mg Capsule) 800 mg PO TID [facility] Last Admin: 02/16/23 14:47 Dose: 800 mg Hydroxyzine HCl (Hydroxyzine Hcl 25 Mg Tablet) 25 mg PO Q6H PRN PRN Reason: Anxiety Last Admin: 02/16/23 09:38 Dose: 25 mg Lorazepam (Lorazepam 0.5 Mg Tablet) 0.5 mg PO Q8H PRN PRN Reason: anxiety Last Admin: 02/16/23 10:08 Dose: 0.5 mg Magnesium Hydroxide (Milk Of Magnesia 30 Ml Oral.Susp) 30 ml PO DAILY PRN PRN Reason: Constipation Mirtazapine (Mirtazapine 30 Mg Tablet) 30 mg PO BEDTIME [facility] Last Admin: 02/15/23 20:22 Dose: 30 mg Multivitamins/Vitamin C (Multivitamin Tablet) 1 tab PO DAILY [facility] Last Admin: 02/16/23 08:54 Dose: 1 tab Nicotine (Nicotine 14 Mg Patch.Td24) 14 mg TRANSDERMA DAILY [facility] Last Admin: 02/16/23 08:54 Dose: 14 mg Nicotine Polacrilex (Nicotine Polacrilex 2 Mg Gum) 2 mg BUCCAL Q2H PRN PRN Reason: Nicotine Cravings Last Admin: 02/14/23 18:15 Dose: 2 mg Risperidone (Risperidone 1 Mg Tablet) 1 mg PO BEDTIME [facility] Last Admin: 02/15/23 20:22 Dose: 1 mg Trazodone HCl (Trazodone Hcl 50 Mg Tablet) 50 mg PO BEDTIME [facility] Last Admin: 02/15/23 20:22 Dose: 50 mg Trazodone HCl (Trazodone Hcl 50 Mg Tablet) 50 mg PO BEDTIME MRX1 PRN PRN Reason: Insomnia Last Admin: 02/13/23 21:37 Dose: 50 mg Allergies Allergies Allergy/AdvReac Type Severity Reaction Status Date / Time No Known Allergies Allergy Verified 09/03/22 04:11 Assessment & Plan Assessment & Plan (1) PTSD (post-traumatic stress disorder): Status: Acute Code(s): F43.10 - Post-traumatic stress disorder, unspecified (2) MDD (major depressive disorder), recurrent episode, moderate: Status: Acute Code(s): F33.1 - Major depressive disorder, recurrent, moderate (3) Cocaine use disorder, severe, dependence: Status: Acute Code(s): F14.20 - Cocaine dependence, uncomplicated (4) Opioid use disorder: Status: Acute Code(s): F11.90 - Opioid use, unspecified, uncomplicated Plan 32 yo male, history of PTSD, Depression, Opiate use disorder, polysubstance use disorder(cocaine) presents with reports of SI with plan and intent and relapse of substance use along with auditory perceptual alterations. Plan: Re-establish regime Diagnostics as needed Collateral contact Out patient referral planning Bisacodyl prn for constipation reported Gabapentin 600 mg tid MVI i daily Lorazepam 0.5 mg q8h prn anxiety. Pt aware he will not receive this upon discharge. 02/11/23 Wellbutrin XL 150 mg a.m. 02/12/23 patient reports no AVH; depression getting better and no SI; will continue with current treatment plan as patient seems to be stabilizing 02/13/23 adding clonidine 0.1 mg b.i.d.; patient says he always takes clonidine the morning to prevent panic but will see if taking at bedtime can help delay or resolve 02/14/23 Increase Wellbutrin XL to 300 mg 02/15/23 Continue current regime and plan. 02/16/23 Declines CSS treatment, will discharge 02/17. Patient educated on: medication risk/benefits and therapeutic strategies Informed Consent: understands Reason for continued inpatient stay Substantial Risk for: rapid decompensation Time Spent With Patient Time: Total time managing care of this patient today ____ minutes.
[2023-02-16 20:12] VITALS: BP 120/73; PULSE 94; TEMP 36.4
[2023-02-16] MEDS: traZODone HCL 50 MG TABLET PO (20:26)
[2023-02-16] MEDS: risperiDONE 1 MG TABLET PO (20:26)
[2023-02-16] MEDS: Mirtazapine 30 MG TABLET PO (20:26)
[2023-02-17 08:50] VITALS: BP 119/73; PULSE 100; RESP 20; TEMP 36.8; O2SAT 95
[2023-02-17] MEDS: Ferrous Sulfate 324 MG TABLET.DR PO (09:18)
[2023-02-17] MEDS: buPROPion HCl XL 300 MG TAB.ER.24H PO (09:18)
[2023-02-17] MEDS: cloNIDine HCL 0.1 MG TABLET PO (09:18)
[2023-02-17] MEDS: Buprenorphine/Naloxone 8/2 mg FILM 1 FILM SUBLINGUAL (09:18)
[2023-02-17] MEDS: Gabapentin 400 MG CAPSULE 800 MG PO (09:18)
[2023-02-17] MEDS: Multivitamin TABLET 1 TAB PO (09:18)
[2023-02-17] MEDS: Nicotine 14 MG PATCH.TD24 TRANSDERMA (09:19)
[2023-02-17] MEDS: LORazepam 0.5 MG TABLET PO (12:09)
--- NOTE | 2023-02-17 14:46 | PM.PSYDC ---
DS: Providers Provider Date of Service: 02/17/23 Date of admission: 02/09/23 21:44 Date of discharge: 02/17/23 Primary care physician: Celine Duarte MD Admitting clinician: Trupti Zamora Attending physician on admission: Shyam Zambrano Attending physician on discharge: Shyam Zambrano Discharging clinician: Trupti Zamora DS: Diagnosis Discharge Diagnosis (1) PTSD (post-traumatic stress disorder): Status: Acute (2) MDD (major depressive disorder), recurrent episode, moderate: Status: Acute (3) Cocaine use disorder, severe, dependence: Status: Acute (4) Opioid use disorder: Status: Acute DS: Medications Discharge Medications Home Medications: Previous Rx's Medication Instructions Recorded albuterol sulfate 90 mcg/actuation 2 puff inhalation Q4H PRN Wheezing 02/17/23 aerosol inhaler (Ventolin HFA) #1 inhaler buprenorphine 8 mg-naloxone 2 mg 1 film sublingual TID #3 ea 02/17/23 sublingual film (Suboxone) bupropion HCl 300 mg 24 hr tablet, 300 mg PO DAILY #30 tabs 02/17/23 extended release clonidine HCl 0.1 mg tablet 0.1 mg PO TID PRN anxiety #30 tabs 02/17/23 ferrous sulfate 324 mg (65 mg 324 mg PO DAILY #30 tabs 02/17/23 iron) tablet,delayed release gabapentin 800 mg tablet 800 mg PO TID #45 tabs 02/17/23 hydroxyzine pamoate 50 mg capsule 50 mg PO Q6H PRN anxiety #30 caps 02/17/23 mirtazapine 30 mg tablet 30 mg PO BEDTIME #30 tabs 02/17/23 multivitamin (Daily-Wali tablet) 1 tab PO DAILY #30 tabs 02/17/23 naloxone 4 mg/actuation nasal 4 mg intranasal Q2M PRN opioid 02/17/23 spray (Narcan) overdose #2 ea nicotine (polacrilex) 2 mg gum 2 mg buccal Q2H PRN Nicotine 02/17/23 Cravings #60 ea nicotine 14 mg/24 hr daily 14 mg transdermal DAILY #30 ea 02/17/23 transdermal patch risperidone 1 mg tablet 1 mg PO BEDTIME #30 tabs 02/17/23 trazodone 50 mg tablet 50 mg PO BEDTIME #30 tabs 02/17/23 Mental Status Exam Mental Status Exam Patient Appearance: Appropriate Patient Orientation: Person, Place, Time and Situation Level of Consciousness: Alert Patient Behavior: Appropriate, Talkative, Cooperative and Good Eye Contact Mood Description: Depressed Affect Description: Flat Patient Cognition Impaired: No Ability to Follow Directions: Good Speech Pattern: Clear, Appropriate, Spontaneous Speech and Coherent Memory Description: Intact Hallucinations: None Delusions: Not Present Thought Process: Rumination Thought Content: positive for Intact, positive for [place], positive for Circumstantial and positive for Suicidal Ideation (denies) Depressive Symptoms: Thoughts of /Suicide (denies) Judgement: Good Data Data Completed and Pending Completed studies during hospitalization [Text1]: 02/10/23 16:25 Iron 74 TIBC 227 L % Saturation 33 Unsat Iron Binding 153 DS: Summary Hospital Course Hospital Course: Admission to adult psychiatry for exacerbation of PTSD, depression, opiate and cocaine use disorder in the context of unemployment, homelessness and resulting relapse. Medications were evaluated and adjusted with Adam. Milieu work was encouraged. Aftercare planning was implemented. Pt will follow up with intensive out patient services along with out patient therapy and psychiatry. Time spent discussing smoking cessation with patient: 3 to 10 minutes Status at Discharge Functional status at discharge: independent ambulation Overall status at discharge: patient is progressing back to baseline Time Spent with Patient Time attestation: Total time managing care of this patient today ____ minutes. Time spent: Greater than 30 minutes Discharge Plan Discharge Anticipated Discharge Date/Time: 02/17/23 12:06 Patient Disposition: Xfer Other Discharge Diagnosis: PTSD Recurrent Major Depression Opiate Use Disorder Cocaine Use Disorder Referrals: [facility] [Other] - 02/18/23 2:00 pm (Follow-up discharge appointment for Medication assisted treatment (Suboxone)) [facility]: Lukas Cramer (therapist) [Other] - 02/23/23 2:00 pm (Initial diagnostic evaluation for therapy services Patient must attend initial appointment to receive psychiatric medication management services. Appointment in person at [facility] in [place] ) Doretha Pollock: [facility] (psychiatry) [Other] - 03/17/23 3:00 pm (Initial psychiatric evaluation by psychiatric medication provider Appointment is by tele-health. Provider will call you on day of appointment.) Doretha Stone: [facility] (psychiatry) [Other] - 04/14/23 11:00 am (Medication Management appointment Appointment is by tele-health) [facility] [Other] - 03/03/23 1:00 pm (Referral for [facility] Scheduled intake at [facility]. Intake is with Sam.) Celine Duarte MD [Primary Care Provider] - 1 Week Discharge Medications: New multivitamin [Daily-Wali] Tablet 1 tab PO DAILY Qty: 30 0RF nicotine 14 mg/24 hr Patch 24 Hour 14 mg transdermal DAILY Qty: 30 0RF nicotine (polacrilex) 2 mg Gum 2 mg buccal Q2H PRN (Reason: Nicotine Cravings) Qty: 60 0RF bupropion HCl 300 mg Tablet Extended Release 24 Hr 300 mg PO DAILY Qty: 30 0RF ferrous sulfate 324 mg (65 mg iron) Tablet,Delayed Release (Dr/Ec) 324 mg PO DAILY Qty: 30 0RF buprenorphine-naloxone [Suboxone] 8-2 mg Film 1 film sublingual TID Qty: 3 0RF gabapentin 800 mg tablet 800 mg PO TID Qty: 45 1RF naloxone [Narcan] 4 mg/actuation spray,non-aerosol 4 mg intranasal Q2M PRN (Reason: opioid overdose) Qty: 2 0RF Rx Instructions: spray 1 dose into ONE nostril; alternate nostrils w each dose until help arrives Continued clonidine HCl 0.1 mg tablet 0.1 mg PO TID PRN (Reason: anxiety) Qty: 30 0RF trazodone 50 mg tablet 50 mg PO BEDTIME Qty: 30 0RF hydroxyzine pamoate 50 mg capsule 50 mg PO Q6H PRN (Reason: anxiety) Qty: 30 0RF mirtazapine 30 mg tablet 30 mg PO BEDTIME Qty: 30 0RF albuterol sulfate [Ventolin HFA] 90 mcg/actuation HFA aerosol inhaler 2 puff inhalation Q4H PRN (Reason: Wheezing) Qty: 1 0RF risperidone 1 mg tablet 1 mg PO BEDTIME Qty: 30 0RF Discontinued nicotine 21 mg/24 hr patch 24 hour 1 patch topical DAILY gabapentin 400 mg capsule 400 mg PO TID buprenorphine-naloxone [Suboxone] 8-2 mg film 10 mg sublingual TID Sublocade 300 mg/1.5 mL solution, extended rel syringe 300 mg subcut Q1M No Action acetaminophen [Tylenol Extra Strength] 500 mg tablet 500 mg PO Q6H PRN (Reason: fever or pain) Qty: 14 0RF lidocaine [Lidoderm] 5 % adhesive patch,medicated 1 patch topical DAILY MDD remove after 12 hours PRN (Reason: pain) Qty: 30 0RF Rx Instructions: leave on most painful area for up to 12 hrs naproxen 500 mg tablet 500 mg PO BID PRN (Reason: pain) 10 Days Qty: 20 0RF cyclobenzaprine 5 mg tablet 5 mg PO Q8H PRN (Reason: pain (scale score 7-10)) 5 Days Qty: 14 0RF Discharge Orders: Discharge Order (Routine); Ordered 02/17/23 Ordered By: Trupti Zamora Diet: Advance to usual diet Activity on Discharge: As tolerated Stand Alone Forms: Patient Portal Discharge page, Community Support Care Plan Goals: Mood and Behavioral Stability Work on Sobriety Health Concerns: Mood and Behavioral Stability Sobriety Plan of Treatment: Attend scheduled appointments Take medications as directed Assessment: Pt interviewed prior to discharge and found to be fully oriented and without SI/HI. Pt has insight and demonstrates good judgment in terms of wanting to pursue out patient treatment. Pt is not in imminent risk of harm to self or others and has a safety plan that includes presenting to the closest ER or calling 911 if feeling unsafe. Pt has been observed closely by nursing and unit staff throughout admission. Pt has not engaged in any behaviors that suggest dangerousness to self or others and has demonstrated appropriate behaviors and impulse control. Discharge Date/Time: 02/17/23 13:03
== END 2023-02-17 13:03 | disposition other institution (70) | DRG 751 ==
LOC: HO.ED 14:45 → HO.PM5 21:57
PROVIDERS: Physician Assistant; Admitting Provider Psychiatry & Neurology Psychiatry; Emergency Provider Emergency Medicine; PCP Internal Medicine; Visit Provider Clinical Nurse Specialist Psychiatric/Mental Health, Adult
DX: F33.1 Major depressive disorder, recurrent, moderate (principal); R45.851 Suicidal ideations; F43.10 Post-traumatic stress disorder, unspecified; F14.20 Cocaine dependence, uncomplicated; F11.20 Opioid dependence, uncomplicated; F17.210 Nicotine dependence, cigarettes, uncomplicated; Z20.822 Contact with and (suspected) exposure to COVID-19; Z90.5 Acquired absence of kidney; Z71.6 Tobacco abuse counseling; Z91.51 Personal history of suicidal behavior; Z79.899 Other long term (current) drug therapy
CPT/HCPCS: 36415; 80053; 80061; 80307; 81001; 82607; 82746; 83036; 83540; 84439; 84443; 85025; 87635; 93005; 99285; S9485

== ENCOUNTER → 2023-02-09 14:57 | Outpatient (BNV) | payer OTHER, SELFPAY | PROVIDERS: Emergency Provider Emergency Medicine; PCP Internal Medicine; Visit Provider Internal Medicine Cardiovascular Disease | DX: I45.81 Long QT syndrome (principal) | CPT/HCPCS: 93010 ==

== ENCOUNTER → 2023-02-09 21:44 | Outpatient (BNV) | payer OTHER, SELFPAY | PROVIDERS: Admitting Provider Psychiatry & Neurology Psychiatry; Emergency Provider Emergency Medicine; PCP Internal Medicine; Visit Provider Clinical Nurse Specialist Psychiatric/Mental Health, Adult | DX: F43.11 Post-traumatic stress disorder, acute (principal); F33.1 Major depressive disorder, recurrent, moderate; F14.20 Cocaine dependence, uncomplicated; F11.90 Opioid use, unspecified, uncomplicated | CPT/HCPCS: 90792; 99232; 99239 ==

== ENCOUNTER 2023-02-22 19:54 | Emergency (ER) | payer OTHER, SELFPAY ==
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
[2023-02-22 20:10] VITALS: BP 117/64; PULSE 83; RESP 18; TEMP 36; O2SAT 96; BMI 27.4
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
== END 2023-02-23 00:11 | disposition home or self-care (01) ==
PROVIDERS: Emergency Provider Internal Medicine; PCP Internal Medicine
DX: Z04.1 Encounter for examination and observation following transport accident (principal); M54.89 Other dorsalgia; F17.210 Nicotine dependence, cigarettes, uncomplicated; F11.20 Opioid dependence, uncomplicated; Z79.899 Other long term (current) drug therapy
CPT/HCPCS: 72072; 72100; 99283

== ENCOUNTER 2023-03-05 09:02 | Emergency (ER) | payer OTHER, SELFPAY ==
[2023-03-05 09:08] VITALS: BP 123/78; BP 140/90; PULSE 78; PULSE 89; RESP 16; TEMP 37.1; O2SAT 94; O2SAT 96; BMI 29.0
--- NOTE | 2023-03-05 09:14 | PC.NURSE ---
belongings in [employer] - cell phone with pt
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
--- NOTE | 2023-03-05 09:27 | PC.NURSE ---
pt desat x2 to the 60s. placed on 2L NC and administered 4mg Nasal narcan at this time. pt unable to remain awake/alert causing his O2 to drop. admitting to heroin use prior to coming to the hospital,
[2023-03-05] MEDS: Naloxone HCl Nasal 4 MG SPRAY NOSTRILALT (09:29)
[2023-03-05 09:55] VITALS: PULSE 96; RESP 18; O2SAT 100
[2023-03-05] MEDS: Albuterol Sulfate (0.083%) 2.5 MG/3 ML VIAL.NEB 7.5 MG INHALE (09:55)
[2023-03-05 10:07] LABS: MANUAL DIFF FLAG NO
[2023-03-05 10:12] LABS: Basophils Percent Auto 0.5 % (0-2); Eosinophils Absolute Auto 0.3 X10*3/uL (0.0-0.4); Eosinophils Percent Auto 3.5 % (0-4); Hematocrit 41.4 % (42.0-52.0); Imm Gran Abs Auto 0.03 X10*3/uL (0.00-0.03); Imm Gran Pct Auto 0.4 % (0.0-0.4); Lymphocytes Absolute Auto 1.4 X10*3/uL (1.2-4.9); Lymphocytes Percent Auto 17.1 % (20-40); Mean Corpuscular HGB Conc 33.8 g/dl (31.0-36.0); Mean Corpuscular Hemoglobin 29.1 pg (27.0-33.0); Mean Corpuscular Volume 86.1 fL (80.0-98.0); Mean Platelet Volume 9.4 fL (9.4-12.4); Monocytes Absolute Auto 0.4 X10*3/uL (0.1-1.2); Monocytes Percent Auto 4.3 % (2-11); Neutrophils Absolute Auto 6.1 x10*3/uL (2.0-8.3); Neutrophils Percent Auto 74.2 % (45-73); Platelet Count 252 X10*3/uL (160-400); Red Blood Count 4.81 X10*6/uL (4.60-5.80); Red Cell Distribution Width 12.8 % (11.0-16.0); White Blood Count 8.2 X10*3/uL (4.8-10.8)
--- NOTE | 2023-03-05 11:04 | PC.NURSE ---
pt rpeorts wanting to leave. reports he no longer is interested in getting into detox/tx programs. informed pt that because his O2 continues to drop below 90% he should stay at this time until her O2 is more stable. pt agreeable to this plan.
[2023-03-05 11:07] LABS: Alanine Aminotransferase 17 U/L (0-40); Albumin Level 4.2 g/dL (3.5-5.0); Alkaline Phosphatase 81 U/L (39-117); Anion Gap 15 (12-20); Aspartate Amino Transferase 17 U/L (5-37); Bilirubin Total 1.1 mg/dL (0.0-1.0); Blood Urea Nitrogen 17 mg/dL (9-16); Calcium 9.4 mg/dL (8.4-10.2); Carbon Dioxide 24 mmol/L (22-29); Chloride 102 mmol/L (96-108); Creatinine Clr Calc Pharmacy 96.7; Estimated Glomerular Filt Rate > 60; Ethanol < 10 mg/dL; Glucose Random 135 mg/dL (60-115); Potassium 3.5 mmol/L (3.3-5.1); Sodium 137 mmol/L (135-145); Total Protein 7.4 g/dL (6.5-8.0)
[2023-03-05 11:09] VITALS: BP 125/64; PULSE 84; RESP 12; TEMP 36.7; O2SAT 96
[2023-03-05 11:19] LABS: TSH reflex Free T4 1.59 uIU/mL (0.32-4.0)
--- NOTE | 2023-03-05 12:58 | MHC.CARE ---
attempted to meet with patient re: GEMINI, he is unrousable at the time of this medical technical writer's attempt
[2023-03-05 13:55] VITALS: BP 112/59; PULSE 78; RESP 12; TEMP 36.5; O2SAT 95
[2023-03-05] MEDS: Naloxone HCl Nasal TAKE HOME 4 MG SPRAY 8 MG NOSTRILALT (14:05)
== END 2023-03-05 14:09 | disposition home or self-care (01) ==
PROVIDERS: Emergency Provider Emergency Medicine; PCP Internal Medicine
DX: T40.5X1A Poisoning by cocaine, accidental (unintentional), initial encounter (principal); R40.0 Somnolence; F11.20 Opioid dependence, uncomplicated; Y92.481 Parking lot as the place of occurrence of the external cause; R06.02 Shortness of breath; R06.2 Wheezing; F17.210 Nicotine dependence, cigarettes, uncomplicated; Z79.899 Other long term (current) drug therapy
CPT/HCPCS: 36415; 80053; 80307; 84443; 85025; 94640; 99285

== ENCOUNTER 2023-12-16 13:48 | Outpatient (AMB) | payer OTHER, SELFPAY ==
--- NOTE | 2023-12-16 14:16 | MHC.AM.SUB ---
Vital Signs 12/16/23 14:48 BP 110/90 H Blood Pressure Location Lt brachial Position Sitting Respiration 20 Pulse 84 Pulse Source Pulse Oximeter Pulse Oximetry (%) 98 Intake Visit Reasons: Intake Allergies No Known Allergies Allergy (Verified 02/22/23 20:10) Medication List - Last Reconciled 12/16/23 by Evonne Roth CNP acetaminophen (Tylenol Extra Strength) 500 mg PO Q6H PRN albuterol sulfate 90 mcg/actuation (Ventolin HFA) 2 puffs inhalation Q4H PRN baclofen 5 mg PO DAILY buprenorphine-naloxone 8-2 mg (Suboxone) 1 film sublingual TID docusate sodium (Colace) 100 mg PO DAILY PRN HPI HPI Intake: Details: Patient presents for intake and continuation of treatment for OUD recently released from incarceration --was taking 8mg BID while there, but dose in the community is usually 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 Rangel --needs to set up appt Discussed recovery supports--at this time he has minimal supports in place aside from [facility] and [facility]. He is hoping to get back to work --keeping busy is helpful to his recovery [facility] Medical History Anxiety and depression MDD (major depressive disorder), recurrent episode, moderate PTSD (post-traumatic stress disorder) Surgical History H/O kidney removal H/O right nephrectomy Social History Household Members: Unknown / Unable to assess Household Members Other:: Sister Housing: Apartment Do you presently have visiting nurse or other home services: No Unable to assess alcohol history related to: Refusing to respond Alcohol intake: never Patient Tobacco Use Status: Current everyday Tobacco user Tobacco use type: Cigarette Cigarette Packs Per Day: 0.5 Cigarettes Per Day: 10.0 Years Smoked: 15 e-Cigarette/Vaping Use: Never Used Second Hand Smoke Exposure: Yes Substance Use Type: Crack/Cocaine and Heroin service: No Current occupational status: unemployed Sexual orientation: Straight/Heterosexual Review of Systems Const Reports as per HPI and Reports no additional complaints Physical Exam Vital Signs: Last Vital Signs Pulse 84 12/16/23 14:48 Resp 20 12/16/23 14:48 BP 110/90 H 12/16/23 14:48 Pulse Ox 98 12/16/23 14:48 Const General: cooperative, healthy appearing and no acute distress Nutritional Appearance: well nourished Orientation/consciousness: patient oriented x3 Limitations: no limitations Neuro General: patient oriented x3 Psych Appearance: well kempt Speech and movement: Normal speech and movement present Affect: normal affect Attitude: cooperative Thought process: Normal thought process present Thought content: Normal thought content present Insight: Good insight present (Psych) Judgement: Good judgement present (Psych) Results AMB 14 Panel Urine Drug Screen Urine Marijuana (THC) Negative Last Edit by Laura Justice RN on 12/16/23 14:59 Urine Cocaine Negative Last Edit by Laura Justice RN on 12/16/23 14:59 Urine Morphine Negative Last Edit by Laura Justice RN on 12/16/23 14:59 Urine Methamphetamine Negative Last Edit by Laura Justice RN on 12/16/23 14:59 Urine Amphetamine Negative Last Edit by Laura Justice RN on 12/16/23 14:59 Urine Benzodiazepine Negative Last Edit by Laura Justice RN on 12/16/23 14:59 Urine Barbiturates Negative Last Edit by Laura Justice RN on 12/16/23 14:59 Urine Methadone Negative Last Edit by Laura Justice RN on 12/16/23 14:59 Urine Buprenorphine Positive Last Edit by Laura Justice RN on 12/16/23 14:59 Urine Tricyclic Antidepressant Negative Last Edit by Laura Justice RN on 12/16/23 14:59 Urine MDMA Negative Last Edit by Laura Justice RN on 12/16/23 14:59 Urine Oxycodone Negative Last Edit by Laura Justice RN on 12/16/23 14:59 Urine Phencyclidine Negative Last Edit by Laura Justice RN on 12/16/23 14:59 Urine Propoxyphene Negative Last Edit by Laura Justice RN on 12/16/23 14:59 Results Reviewed Results Reviewed: Laboratory Last Values POC Urine Buprenorphine Positive 12/16/23 14:57 POC Urine Morphine Negative 12/16/23 14:57 POC Urine Oxycodone Negative 12/16/23 14:57 POC Urine Methadone Negative 12/16/23 14:57 POC Urine Propoxyphene Negative 12/16/23 14:57 POC Urine Barbiturates Negative 12/16/23 14:57 POC U Tricyclic Antidpr Negative 12/16/23 14:57 POC Urine PCP Negative 12/16/23 14:57 POC Ur Amphetamines Negative 12/16/23 14:57 POC Ur Methamphetamine Negative 12/16/23 14:57 POC Urine MDMA Negative 12/16/23 14:57 POC Ur Benzodiazepine Negative 12/16/23 14:57 POC Urine Cocaine Negative 12/16/23 14:57 POC Ur Marijuana (THC) Negative 12/16/23 14:57 Assessment & Plan Assessment & Plan (1) Opioid use disorder: Code(s): F11.90 - Opioid use, unspecified, uncomplicated Category: Medical Plan: continue suboxone 8mg TID refill not due today--will call next week for refill relapse prevention discussion overdose prevention discussion (2) Cocaine use disorder, severe, dependence: Code(s): F14.20 - Cocaine dependence, uncomplicated Category: Medical Plan: risk reduction discussion restarted baclofen 5mg QD as he found this helpful in the past for cocaine cravings Orders: Orders AMB 14 Panel Urine Drug Screen 12/16/23 F11.90 - Opioid use, unspecified, uncomplicated Medications: New docusate sodium (Colace) 100 mg PO DAILY PRN 90 caps 0RF constipation buspirone 15 mg PO BID hydroxyzine HCl 25 mg PO BID PRN clonidine HCl 0.2 mg PO BID docusate sodium (Colace) 100 mg PO DAILY PRN 30 caps 0RF constipation baclofen 5 mg PO DAILY 30 tabs 0RF gabapentin 400 mg PO BID hydroxyzine HCl 100 mg PO BEDTIME MAT Intake Nursing Intake Are you currently using?: Yes What are you taking?: Cocaine When was your last use?: Yesterday How much?: A dime What is your source of income?: Unemployed/ was just released from incarceration What is your current relationship status?: single Referral Source: [facility] Substance Abuse History Substance Abuse History (includes route, frequency and quantity): Heroin, Fentanyl, Buprenorphine/naloxone, Methadone, Oxycodone product, Cocaine, Benzodiazepines and Marijuana Age of first use: 25 years old Social History Domestic Violence concerns: No Children: 2 twins a boy and girl, trying to get custody now Do you have a support system?: Yes, Sister Current mode of transportation?: None Where are you currently residing?: With sister IV Drug Use Have you ever shared needles?: No Have you ever belonged to a needle exchange program?: No Do you buy needles at a pharmacy?: No Have you ever overdosed?: Yes Number of lifetime overdoses: 4 Have you ever been hospitalized for an overdose?: Yes Was Naloxone administered?: Yes Recovery History Have you had any periods of recovery?: Yes What is your longest time in recovery?: 20 months Have you ever had inpatient treatment for your substance abuse disorder?: Yes Have you been in an inpatient detoxification program?: Yes Have you been in an inpatient Rehab/Skilled Nursing house?: No Have you been in an outpatient Methadone Maintenance program?: No Have you been in an outpatient Suboxone Maintenance program?: Yes Have you been in an AA/NA support program?: No Have you had a Recovery Support Pull Worker?: No (states he is not interested) Have you had Peer Support?: No Behavioral Health History BH diagnosis: PTSD, Bi-Polar, Anxiety/Depression History of other addictive behavior: No History of inpatient psychiatric hospitalization? If so, how many? Most Recent? Where?: Yes, last year, [facility] History of self harming thoughts?: Yes History of homicidal or suicidal intentions?: No Medical Conditions Endocarditis?: No Skin Infection: No Seizure related to withdrawal or overdose: No Head or brain injury: No Hepatitis A (if yes, have you been treated?): No Hepatitis B (if yes, have you been treated?): No Hepatitis C (if yes, have you been treated?): No HIV (if yes, have you been treated?): No TB (if yes, have you been treated?): No Other: No Legal History History of incarceration: Yes Currently on parole or probation: No Court mandated programs: No Pending court cases: No DCF involvement: No
[2023-12-16 14:48] VITALS: BP 110/90; PULSE 84; RESP 20; O2SAT 98
== END 2023-12-16 14:33 | disposition home or self-care (01) ==
PROVIDERS: PCP Internal Medicine; Visit Provider Nurse Practitioner Psychiatric/Mental Health
DX: F11.90 Opioid use, unspecified, uncomplicated (principal); F14.20 Cocaine dependence, uncomplicated
CPT/HCPCS: 99214

== ENCOUNTER → 2023-12-16 13:48 | Outpatient (BNVA) | payer OTHER, SELFPAY | PROVIDERS: PCP Internal Medicine; Visit Provider Nurse Practitioner Psychiatric/Mental Health | DX: F11.20 Opioid dependence, uncomplicated (principal); F14.20 Cocaine dependence, uncomplicated | CPT/HCPCS: 80305; 99212 ==

== ENCOUNTER 2023-12-27 09:31 | Outpatient (AMB) | payer OTHER, SELFPAY ==
[2023-12-27 09:30] VITALS: BP 132/84; PULSE 89; O2SAT 96
--- NOTE | 2023-12-27 09:30 | A.OFFVISCC_ITS ---
Vital Signs 12/27/23 09:30 BP 132/84 Blood Pressure Location Lt brachial Position Sitting Pulse 89 Pulse Source Pulse Oximeter Pulse Oximetry (%) 96 Oxygen Delivery Method Room Air Intake Visit Reasons: Mat Visit Allergies No Known Allergies Allergy (Verified 02/22/23 20:10) HPI HPI Mat Visit: Details: Patient presents for follow up Anxious affect, reporting increasing stress --feels like he is impatient with all of the things he still has to do like getting a job and finding a place to live for himself Staying with his sister. Reports using cocaine use 2x/wk--down time is a trigger for him. He also reports that he does not have the same family support he once had--including his children who he has not seen in some time Also reports taking more baclofen than prescribed due to increase in cravings. Discussed strategies to increase supports, including recovery support centers [facility] Medical History Anxiety and depression MDD (major depressive disorder), recurrent episode, moderate PTSD (post-traumatic stress disorder) Surgical History H/O kidney removal H/O right nephrectomy Social History Household Members: Unknown / Unable to assess Household Members Other:: Sister Housing: Apartment Do you presently have visiting nurse or other home services: No Unable to assess alcohol history related to: Refusing to respond Alcohol intake: never Patient Tobacco Use Status: Current everyday Tobacco user Tobacco use type: Cigarette Cigarette Packs Per Day: 0.5 Cigarettes Per Day: 10.0 Years Smoked: 15 e-Cigarette/Vaping Use: Never Used Second Hand Smoke Exposure: Yes Substance Use Type: Crack/Cocaine and Heroin service: No Current occupational status: unemployed Sexual orientation: Straight/Heterosexual Review of Systems Const Reports as per HPI Physical Exam Vital Signs: Last Vital Signs Pulse 89 12/27/23 09:30 BP 132/84 12/27/23 09:30 Pulse Ox 96 12/27/23 09:30 Oxygen Delivery Method Room Air 12/27/23 09:30 Const General: cooperative, healthy appearing and no acute distress Nutritional Appearance: well nourished Orientation/consciousness: patient oriented x3 Limitations: no limitations Neuro General: patient oriented x3 Psych Appearance: well kempt Speech and movement: Normal speech and movement present Affect: normal affect Attitude: cooperative Thought process: Normal thought process present Thought content: Normal thought content present Insight: Good insight present (Psych) Judgement: Good judgement present (Psych) Assessment & Plan Assessment & Plan (1) Opioid use disorder: Code(s): F11.90 - Opioid use, unspecified, uncomplicated Category: Medical Plan: * continue suboxone 8mg TID * relapse prevention discussion * overdose prevention discussion * provided with information on peer recovery center in [place] (2) Cocaine use disorder, severe, dependence: Code(s): F14.20 - Cocaine dependence, uncomplicated Category: Medical Plan: * risk reduction discussion * increased baclofen to 10mg BID Medications: New baclofen 10 mg PO BID 60 tabs 0RF Refilled buprenorphine-naloxone 8-2 mg (Suboxone) 1 film sublingual TID 21 ea 0RF Discontinued baclofen Discontinued Reason: Doctor's Order 5 mg PO DAILY 30 tabs 0RF
== END 2023-12-27 10:07 | disposition home or self-care (01) ==
PROVIDERS: PCP Internal Medicine; Visit Provider Nurse Practitioner Psychiatric/Mental Health
DX: F11.90 Opioid use, unspecified, uncomplicated (principal); F14.20 Cocaine dependence, uncomplicated
CPT/HCPCS: 99214

== ENCOUNTER → 2023-12-27 09:31 | Outpatient (BNVA) | payer OTHER, SELFPAY | PROVIDERS: PCP Internal Medicine; Visit Provider Nurse Practitioner Psychiatric/Mental Health | DX: F11.20 Opioid dependence, uncomplicated (principal); F14.20 Cocaine dependence, uncomplicated; Z79.899 Other long term (current) drug therapy; Z51.81 Encounter for therapeutic drug level monitoring | CPT/HCPCS: 99212 ==

== ENCOUNTER 2024-01-04 13:52 | Outpatient (AMB) | payer OTHER, SELFPAY ==
[2024-01-04 14:05] VITALS: BP 126/70; PULSE 99; O2SAT 98
--- NOTE | 2024-01-04 14:05 | A.OFFVISCC_ITS ---
Vital Signs 01/04/24 14:05 BP 126/70 Blood Pressure Location Lt brachial Position Sitting Pulse 99 Pulse Source Pulse Oximeter Pulse Oximetry (%) 98 Oxygen Delivery Method Room Air Intake Visit Reasons: MAT Allergies No Known Allergies Allergy (Verified 01/09/24 14:09) HPI HPI MAT: Details: Patient presents for follow up Currently prescribed suboxone 8mg TID Increase in Baclofen beneficial Received [employer] voucher for an apt [facility] Medical History PTSD (post-traumatic stress disorder) MDD (major depressive disorder), recurrent episode, moderate Anxiety and depression Surgical History H/O right nephrectomy H/O kidney removal Social History Household Members: Unknown / Unable to assess Household Members Other:: Sister Housing: Apartment Do you presently have visiting nurse or other home services: No Unable to assess alcohol history related to: Refusing to respond Alcohol intake: never Patient Tobacco Use Status: Current everyday Tobacco user Tobacco use type: Cigarette Cigarette Packs Per Day: 0.5 Cigarettes Per Day: 10.0 Years Smoked: 15 Smoked in Last 30 Days: Yes e-Cigarette/Vaping Use: Never Used Second Hand Smoke Exposure: Yes Use of substances other than those prescribed or required for medical reasons: Yes Substance Use Type: Crack/Cocaine Substance Use Frequency: Occasionally Substance Use Frequency Other:: just yesterday Last Used Substance: Days (ago) Any prior treatment program specific to substance use: No Advance Directives: No Advance Directives Information Provided: No service: No Current occupational status: unemployed Sexual orientation: Straight/Heterosexual Review of Systems Const Reports as per HPI and Reports no additional complaints Physical Exam Vital Signs: Last Vital Signs Pulse 99 01/04/24 14:05 BP 126/70 01/04/24 14:05 Pulse Ox 98 01/04/24 14:05 Oxygen Delivery Method Room Air 01/04/24 14:05 Const General: cooperative, healthy appearing and no acute distress Nutritional Appearance: well nourished Orientation/consciousness: patient oriented x3 Limitations: no limitations Neuro General: patient oriented x3 Psych Appearance: well kempt Speech and movement: Normal speech and movement present Affect: normal affect Attitude: cooperative Thought process: Normal thought process present Thought content: Normal thought content present Insight: Good insight present (Psych) Judgement: Good judgement present (Psych) Assessment & Plan Assessment & Plan (1) Opioid use disorder: Code(s): F11.90 - Opioid use, unspecified, uncomplicated Category: Medical Plan: * continue suboxone 8mg TID * relapse prevention discussion * overdose prevention discussion * encouraged to seek out recovery supports (2) Cocaine use disorder, severe, dependence: Code(s): F14.20 - Cocaine dependence, uncomplicated Category: Medical Plan: * risk reduction discussion * continue baclofen at current dose Medications: Refilled buprenorphine-naloxone 8-2 mg (Suboxone) 1 film sublingual TID 21 ea 0RF
== END 2024-01-04 14:21 | disposition home or self-care (01) ==
PROVIDERS: PCP Internal Medicine; Visit Provider Nurse Practitioner Psychiatric/Mental Health
DX: F11.90 Opioid use, unspecified, uncomplicated (principal); F14.20 Cocaine dependence, uncomplicated
CPT/HCPCS: 99213

== ENCOUNTER → 2024-01-04 13:52 | Outpatient (BNVA) | payer OTHER, SELFPAY | PROVIDERS: PCP Internal Medicine; Visit Provider Nurse Practitioner Psychiatric/Mental Health | DX: F11.20 Opioid dependence, uncomplicated (principal); F14.20 Cocaine dependence, uncomplicated | CPT/HCPCS: 99212 ==

== ENCOUNTER 2024-01-09 13:50 | Inpatient (IN) | payer OTHER, SELFPAY ==
[2024-01-09 14:06] VITALS: BP 142/91; PULSE 102; RESP 16; TEMP 37.1; O2SAT 100; BMI 33.3
[2024-01-09 14:10] VITALS: RESP 16
--- NOTE | 2024-01-09 14:17 | ED_ITS ---
HPI - General Adult General Chief complaint: Psychiatric Symptoms Stated complaint: SI Time Seen by Provider: 01/09/24 14:16 Source: patient Mode of arrival: ambulatory Limitations: no limitations History of Present Illness ED Provider: Jihan Luis PA-C HPI narrative: Patient is a 33 year old assigned male at with a history of PTSD and MDD presenting to the emergency department today with suicidal ideation. Patient states that over the last few weeks he has been having increased auditory hallucinations and feels suicidal. Patient denies any dizziness, lightheadedness, abdominal pain, nausea, vomiting, fever, chills, blurry vision, double vision, loss of vision, chest pain, difficulty breathing, shortness of breath, back pain, night sweats, pain with urination, increased urinary frequency, increased urinary urgency, blood in his urine or stool, syncope or a near syncopal episode, recent trauma or falls, bowel incontinence, bladder incontinence, or any other complaints at this time. Relieving factors: none Exacerbating factors: none Associated symptoms: denies other symptoms Treatments prior to arrival: none Related Data Home Medications ?Medication ?Instructions ?Recorded ?Confirmed clonidine HCl 0.1 mg tablet 0.1 mg PO TID anxiety 01/09/24 01/09/24 gabapentin 600 mg tablet 600 mg PO TID 01/09/24 01/09/24 hydroxyzine pamoate 50 mg capsule 50 mg PO Q6H PRN anxiety 01/09/24 01/09/24 lisinopril 20 mg tablet 20 mg PO DAILY 01/09/24 01/09/24 nicotine 14 mg/24 hr daily 1 patch topical DAILY 01/09/24 01/09/24 transdermal patch sertraline 50 mg tablet 50 mg PO DAILY 01/09/24 01/09/24 Previous Rx's ?Medication ?Instructions ?Recorded docusate sodium 100 mg capsule 100 mg PO DAILY PRN constipation 12/16/23 (Colace) #90 caps baclofen 10 mg tablet 10 mg PO BID #60 tabs 12/27/23 buprenorphine 8 mg-naloxone 2 mg 1 film sublingual TID #21 ea 01/04/24 sublingual film (Suboxone) Allergies Allergy/AdvReac Type Severity Reaction Status Date / Time No Known Allergies Allergy Verified 01/09/24 14:09 Review of Systems 2 Constitutional: Constitutional: Reports no additional constitutional complaints, Denies chills, Denies fever(s) and Denies night sweats Eyes: Eyes: Reports no additional eye complaints, Denies blurry vision, Denies change in vision, Denies diplopia, Denies eye discharge, Denies loss of vision and Denies eye pain ENT: Denies dizziness Cardiovascular: Cardiovascular: Reports no additional cardiovascular complaints, Denies chest pain, Denies lightheadedness, Denies Loss of Consciousness and Denies dyspnea Respiratory: Respiratory: Reports no additional respiratory complaints and Denies dyspnea Gastrointestinal: Gastrointestinal: Reports no additional gastrointestinal complaints, Denies abdominal pain, Denies melena, Denies hematochezia, Denies change in bowel habits and Denies change in stool character Genitourinary: Genitourinary: Reports no additional male genitourinary complaints, Denies hematuria, Denies oliguria, Denies difficulty urinating, Denies dysuria, Denies urinary frequency, Denies urinary hesitancy, Denies urinary incontinence and Denies urinary urgency Musculoskeletal: Musculoskeletal: Reports no additional musculoskeletal complaints, Denies numbness and Denies tingling Neurologic: Denies dizziness, Denies loss of vision, Denies numbness and Denies tingling Psychiatric: Psychiatric: Reports auditory hallucinations, Denies homicidal ideation and Reports suicidal ideation Endocrine: Endocrine: Reports no additional endocrine complaints Hematologic/Lymphatic: Hematologic/Lymphatic: Reports no additional hematologic/lymphatic complaints Allergic/Immunologic: Allergic/Immunologic: Reports no additional allergic/immunologic complaints PMFSH Past Medical History Attestation statement: The following information was validated with the patient. Source: old records reviewed and nursing notes reviewed Medical History PTSD (post-traumatic stress disorder) MDD (major depressive disorder), recurrent episode, moderate Anxiety and depression Surgical History H/O right nephrectomy H/O kidney removal Social History Social History Household Members: Unknown / Unable to assess Household Members Other:: Sister Housing: Apartment Do you presently have visiting nurse or other home services: No Unable to assess alcohol history related to: Refusing to respond Alcohol intake: never Patient Tobacco Use Status: Current everyday Tobacco user Tobacco use type: Cigarette Cigarette Packs Per Day: 0.5 Cigarettes Per Day: 10.0 Years Smoked: 15 Smoked in Last 30 Days: Yes e-Cigarette/Vaping Use: Never Used Second Hand Smoke Exposure: Yes Use of substances other than those prescribed or required for medical reasons: Yes Substance Use Type: Crack/Cocaine Substance Use Frequency: Occasionally Substance Use Frequency Other:: just yesterday Last Used Substance: Days (ago) Any prior treatment program specific to substance use: No Advance Directives: No Advance Directives Information Provided: No service: No Current occupational status: unemployed Sexual orientation: Straight/Heterosexual Physical Exam ED Vital Signs: Vital Signs - 24 hr 01/09/24 14:06 01/09/24 14:10 Temperature 98.8 F Pulse Rate 102 H Respiratory Rate 16 16 Blood Pressure 142/91 H Pulse Oximetry 100 Oxygen Delivery Method Room Air BMI result Body Mass Index 33.3 Const General: cooperative, no acute distress, alert and awake Nutritional Appearance: well nourished Orientation/consciousness: patient oriented x3 Limitations: no limitations HENMT Head: Yes normal to inspection and Yes atraumatic Ears: hearing grossly normal bilaterally and external ears normal General nose exam: Normal external nose present, no nasal discharge noted and no epistaxis Face and sinus: Yes normal facial exam, No abrasion and No laceration Mouth: Normal oral and palatal mucosa present, no drooling and no muffled voice Eyes General: appearance normal, both eyes and all related structures Periorbital: periorbital findings normal Eyelids: Yes eyelids normal Conjunctivae: conjunctivae normal Pupils: Equal, round and reactive pupils present EOM: EOMs intact bilaterally Neck Neck: Yes normal visual inspection, Yes full ROM and Yes no lymphadenopathy Chest Chest palpation & inspection: normal inspection of the chest Resp Effort & Inspection: normal respiratory effort and able to speak in complete sentences GI Inspection: Yes normal to inspection Neuro General: patient oriented x3 and moves all extremities Cranial nerves: Yes Equal, round and reactive pupils present Cognition (Neuro): normal cognition Motor exam (neuro): 5/5 motor strength present throughout Sensory Exam: Normal double simultaneous stimulation for sensation Coordination: [id number] test normal Extrem General: Yes normal to inspection, Yes full ROM and Yes capillary refill normal Psych Appearance: grossly normal Mental Status: mental status grossly normal Affect: normal affect Attitude: cooperative Thought process: Normal thought process present Thought content: Normal thought content present Insight: Good insight present (Psych) Medications Administered Discontinued Medications Generic Name Dose Route Start Last Admin Trade Name Federico PRN Reason Stop Dose Admin Diphenhydramine HCl 50 mg 01/09/24 16:03 01/09/24 16:10 Diphenhydramine Hcl 25 Mg Capsule PO 01/09/24 16:04 50 mg ONCE ONE Administration Olanzapine 2.5 mg 01/09/24 18:06 01/09/24 18:14 Olanzapine 2.5 Mg Tablet PO 01/09/24 18:07 2.5 mg ONCE ONE Administration Medical Decision Making Medical Decision Making [facility] Narrative: Patient is a 33 year old assigned male at with a history of PTSD and MDD presenting to the emergency department today with suicidal ideation and increased auditory hallucinations. Patient's physical exam was as noted in the physical exam portion of this note. Patient's blood work was unremarkable. Patient's urine showed no acute process. I explained my physical exam findings as well as all test results to the patient. I answered all questions asked by the patient. Patient is awaiting evaluation by the CARE team. Patient's disposition will be determined after CARE team evaluation. Physician observation began at 1417. Differential Diagnosis Differential Diagnoses: The differential diagnosis associated with the presentation includes Suicidal ideation Auditory hallucinations Admission/Observation Consideration of admission/observation: Escalation of care including admission/observation considered Patient's disposition will be determined after CARE team evaluation. Lab Data [facility] Lab Attestation statement: I reviewed the patient's lab results. My interpretation of these results are in the MDM Rationale portion of this note. 01/09/24 14:35 01/09/24 14:35 Labs: Lab Results 01/09/24 01/09/24 Range/Units 14:21 14:35 WBC 7.2 (4.8-10.8) X10*3/uL RBC 5.13 (4.60-5.80) X10*6/uL Hgb 15.2 (14.0-18.0) g/dl Hct 44.6 (42.0-52.0) % MCV 86.9 (80.0-98.0) fL MCH 29.6 (27.0-33.0) pg MCHC 34.1 (31.0-36.0) g/dl RDW 12.5 (11.0-16.0) % Plt Count 259 (160-400) X10*3/uL MPV 9.6 (9.4-12.4) fL Immature Gran % (Auto) 0.3 (0.0-0.4) % Neut % (Auto) 78.7 H (45-73) % Lymph % (Auto) 14.2 L (20-40) % [place] % (Auto) 6.1 (2-11) % Eos % (Auto) 0.3 (0-4) % Baso % (Auto) 0.4 (0-2) % Lymph # (Auto) 1.0 L (1.2-4.9) X10*3/uL [place] # (Auto) 0.4 (0.1-1.2) X10*3/uL Eos # (Auto) 0.0 (0.0-0.4) X10*3/uL Baso # (Auto) 0.0 (0.0-0.2) X10*3/uL Abs Immat Gran (auto) 0.02 (0.00-0.03) X10*3/uL Absolute Neuts (auto) 5.7 (2.0-8.3) x10*3/uL Absolute Nucleated RBC 0.000 (0.0-0.012) X10*3/uL Nucleated RBC % (auto) 0.0 (0.0-0.2) /100WBC Sodium 141 (135-145) mmol/L Potassium 4.2 (3.3-5.1) mmol/L Chloride 101 (96-108) mmol/L Carbon Dioxide 25 (22-29) mmol/L Anion Gap 19 (12-20) BUN 15 (9-16) mg/dL Creatinine 1.13 (0.5-1.4) mg/dL Estim Creat Clear Calc 95.3 Estimated GFR > 60 Random Glucose 118 H (60-115) mg/dL Calcium 10.2 D (8.4-10.2) mg/dL Total Bilirubin 1.1 H (0.0-1.0) mg/dL AST 28 (5-37) U/L ALT 25 (0-40) U/L Alkaline Phosphatase 116 (39-117) U/L Total Protein 8.4 H (6.5-8.0) g/dL Albumin 4.9 (3.5-5.0) g/dL Urine Color Yellow Urine Appearance Clear Urine pH 5.5 (5.0-9.0) Ur Specific [place] 1.025 (1.005-1.025) Urine Protein Trace (Neg-Trace) mg/dL Urine Glucose (UA) Negative (Negative) mg/dL Urine Ketones 15 (Negative) mg/dL Urine Blood Trace H (Negative) Urine Nitrite Negative (Negative) Ur Leukocyte Esterase Negative (Negative) Urine RBC 3-5 H (0-2) /HPF Urine WBC 0-5 (0-5) /HPF Ur Squamous Epith Cells 0-2 (0-2) /HPF Urine Bacteria None Seen (None Seen) Hyaline Casts 0-2 (0-2) /LPF Salicylates < 5.0 L (15-30) mg/dL Urine Opiates Screen Not Detected (Not Detect) Ur Buprenorphine Scrn Positive H (Not Detect) ng/mL Ur Oxycodone Screen Not Detected (Not Detect) ng/mL Urine Methadone Screen Not Detected (Not Detect) ng/mL Urine Fentanyl Screen POSITIVE H (Not Detect) Acetaminophen 3 (<30) mcg/mL Ur Barbiturates Screen Not Detected (Not Detect) Ur Phencyclidine Scrn Not Detected (Not Detect) Ur Amphetamines Screen Not Detected (Not Detect) U Benzodiazepines Scrn Not Detected (Not Detect) Urine Cocaine Screen POSITIVE H (Not Detect) U Marijuana (THC) Screen Not Detected (Not Detect) Ethyl Alcohol < 10 mg/dL Critical Care Time Critical Care Time Critical Care Time: Yes Total Critical Care Time: 37 Attestation: I spent 37 minutes of Critical Care Time with this patient. This does not include time spent on separately reported billable procedures. Discharge Plan Discharge Clinical Impression: Suicidal ideation Prescriptions: No Action clonidine HCl 0.1 mg tablet 0.1 mg PO TID gabapentin 600 mg tablet 600 mg PO TID nicotine 14 mg/24 hr patch 24 hour 1 patch topical DAILY lisinopril 20 mg tablet 20 mg PO DAILY hydroxyzine pamoate 50 mg capsule 50 mg PO Q6H PRN (Reason: anxiety) sertraline 50 mg tablet 50 mg PO DAILY baclofen 10 mg tablet 10 mg PO BID Qty: 60 0RF buprenorphine-naloxone [Suboxone] 8-2 mg film 1 film sublingual TID Qty: 21 0RF docusate sodium [Colace] 100 mg capsule 100 mg PO DAILY PRN (Reason: constipation) Qty: 90 0RF Interventions: [place]-Suicide Risk Severity Scale Last Done: 01/09/24 14:13 Print Language: Urdu
--- NOTE | 2024-01-09 14:26 | PC.NURSE ---
Adam comes to the ED today reporting suicidal thoughts without a specific plan as well as non-command auditory hallucinations. He reports that the voices and thoughts have been going on for about 3 weeks now and are causing him to lose sleep at this time. Patient is calm and cooperative, help seeking, does not appear to be responding to internal stimuli at this time. Patient is alert and oriented x4, skin pwd, respirations even and unlabored, no apparent distress noted. Continue plan of care for med clearance and then CARE team lelia
[2024-01-09 14:39] LABS: Appearance Urine Clear; Color Urine Yellow; Glucose Urine UA Negative (Negative); Leukocyte Esterase Urine Negative (Negative); Nitrite Urine Negative (Negative); PH 5.5 (5.0-9.0); Specific Gravity - Urine 1.025 (1.005-1.025); UMIC TRIGGER UA YES; Urine Blood Trace (Negative); Urine Ketones 15 mg/dL (Negative); Urine Protein Trace mg/dL (Neg-Trace)
[2024-01-09 14:41] LABS: Bacteria Urine None Seen (None Seen); Hyaline Casts Urine 0-2 /LPF (0-2); Squamous Epithelial Cell Urine 0-2 /HPF (0-2); WBC Urine 0-5 /HPF (0-5)
[2024-01-09 14:42] LABS: MANUAL DIFF FLAG NO
[2024-01-09 14:43] LABS: Basophils Percent Auto 0.4 % (0-2); Eosinophils Percent Auto 0.3 % (0-4); Hematocrit 44.6 % (42.0-52.0); Hemoglobin 15.2 g/dl (14.0-18.0); Imm Gran Abs Auto 0.02 X10*3/uL (0.00-0.03); Imm Gran Pct Auto 0.3 % (0.0-0.4); Lymphocytes Percent Auto 14.2 % (20-40); Mean Corpuscular HGB Conc 34.1 g/dl (31.0-36.0); Mean Corpuscular Hemoglobin 29.6 pg (27.0-33.0); Mean Corpuscular Volume 86.9 fL (80.0-98.0); Mean Platelet Volume 9.6 fL (9.4-12.4); Monocytes Absolute Auto 0.4 X10*3/uL (0.1-1.2); Monocytes Percent Auto 6.1 % (2-11); Neutrophils Absolute Auto 5.7 x10*3/uL (2.0-8.3); Neutrophils Percent Auto 78.7 % (45-73); Platelet Count 259 X10*3/uL (160-400); Red Blood Count 5.13 X10*6/uL (4.60-5.80); Red Cell Distribution Width 12.5 % (11.0-16.0); White Blood Count 7.2 X10*3/uL (4.8-10.8)
[2024-01-09 14:54] LABS: Amphetamine Screen Urine Not Detected (Not Detect); Barbiturates, Urine Not Detected (Not Detect); Benzodiazepines Screen Urine Not Detected (Not Detect); Buprenorphine Scr Positive (Not Detect); Cannabinoid Screen Urine Not Detected (Not Detect); Cocaine Screen Urine POSITIVE (Not Detect); Fentanyl, urine POSITIVE (Not Detect); Methadone Screen, Urine Not Detected (Not Detect); Opiate Screen Urine Not Detected (Not Detect); Oxycodone Screen Urine Not Detected (Not Detect); Phencyclidine Screen Urine Not Detected (Not Detect)
[2024-01-09 15:00] LABS: Acetaminophen LAB 3 mcg/mL (<30); Alanine Aminotransferase 25 U/L (0-40); Albumin Level 4.9 g/dL (3.5-5.0); Alkaline Phosphatase 116 U/L (39-117); Anion Gap 19 (12-20); Aspartate Amino Transferase 28 U/L (5-37); Bilirubin Total 1.1 mg/dL (0.0-1.0); Blood Urea Nitrogen 15 mg/dL (9-16); Calcium 10.2 mg/dL (8.4-10.2); Carbon Dioxide 25 mmol/L (22-29); Chloride 101 mmol/L (96-108); Creatinine Clr Calc Pharmacy 95.3; Estimated Glomerular Filt Rate > 60; Ethanol < 10 mg/dL; Glucose Random 118 mg/dL (60-115); Potassium 4.2 mmol/L (3.3-5.1); Salicylate < 5.0 mg/dL (15-30); Sodium 141 mmol/L (135-145); Total Protein 8.4 g/dL (6.5-8.0)
--- NOTE | 2024-01-09 15:25 | PC.NURSE ---
Patient Belongings: locker 7
[2024-01-09] MEDS: diphenhydrAMINE HCL 25 MG CAPSULE 50 MG PO ×2 (16:10→21:45)
[2024-01-09] MEDS: OLANZapine 2.5 MG TABLET PO (18:14)
[2024-01-09 20:26] VITALS: BP 144/87
[2024-01-09] MEDS: cloNIDine HCL 0.1 MG TABLET PO (20:26)
[2024-01-09] MEDS: Nicotine 21 MG PATCH.TD24 TRANSDERMA (20:26)
[2024-01-09] MEDS: Baclofen 10 MG TABLET PO (20:26)
[2024-01-09] MEDS: Buprenorphine/Naloxone 8/2 mg FILM 1 FILM SUBLINGUAL (20:31)
[2024-01-09] MEDS: Gabapentin 600 MG TABLET PO (20:32)
[2024-01-09 20:35] VITALS: BP 144/87; PULSE 73; RESP 18; TEMP 36.7; O2SAT 97
--- NOTE | 2024-01-10 | ECG_ITS ---
Test Reason : RULE OUT QT PROLONGATION Blood Pressure : / mmHG Vent. Rate : 100 BPM Atrial Rate : 100 BPM P-R Int : 120 ms QRS Dur : 080 ms QT Int : 326 ms P-R-T Axes : 071 082 044 degrees QTc Int : 420 ms Normal sinus rhythm Normal ECG When compared with ECG of 09-FEB-2023 14:57, Vent. rate has increased BY 39 BPM Referred By: Mireille Cardoza Electronically Signed By:CYNDI OLIVAS
[2024-01-10] MEDS: hydrOXYzine HCL 50 MG TABLET PO ×4 (03:02→22:17)
[2024-01-10] MEDS: Baclofen 10 MG TABLET PO ×2 (08:08→20:01)
[2024-01-10] MEDS: Buprenorphine/Naloxone 8/2 mg FILM 1 FILM SUBLINGUAL ×3 (08:08→20:58)
[2024-01-10] MEDS: Gabapentin 600 MG TABLET PO ×3 (08:08→20:02)
[2024-01-10] MEDS: Nicotine 14 MG PATCH.TD24 TRANSDERMA (08:08)
[2024-01-10] MEDS: lisinopriL 20 MG TABLET PO (08:08)
[2024-01-10] MEDS: Sertraline HCL 50 MG TABLET PO (08:08)
[2024-01-10] MEDS: cloNIDine HCL 0.1 MG TABLET PO ×3 (08:08→20:02)
[2024-01-10 08:26] VITALS: BP 151/93; PULSE 108; RESP 18; TEMP 37.4; O2SAT 98
--- NOTE | 2024-01-10 09:07 | PC.NURSE ---
Patient appears to be having increased auditory hallucinations and also visual hallucinations now. Patient would like medication and this RN feels patient may benefit from Zyprexa. MD Anshul pascual
[2024-01-10] MEDS: OLANZapine ODT 10 MG TAB.RAPDIS TRANSLINGU (09:24)
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
[2024-01-10 12:55] VITALS: BP 132/93; PULSE 76; RESP 16; TEMP 36.8; O2SAT 98
[2024-01-10 14:12] VITALS: BMI 31.9
[2024-01-10 14:35] VITALS: BP 142/81
[2024-01-10 14:42] VITALS: BP 142/81
[2024-01-10] MEDS: OLANZapine 5 MG TABLET PO ×2 (15:59→22:17)
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
[2024-01-10] MEDS: risperiDONE 1 MG TABLET PO ×2 (17:59→20:02)
[2024-01-10 19:50] VITALS: BP 139/82; PULSE 90; RESP 16; TEMP 36.6; O2SAT 95
[2024-01-10] MEDS: traZODone HCL 50 MG TABLET PO (20:01)
[2024-01-10 20:02] VITALS: BP 139/82
[2024-01-11 08:00] VITALS: BP 139/83; PULSE 114; TEMP 37.1; O2SAT 97
[2024-01-11 08:11] LABS: Estimated Average Glucose 108 mg/dL; Hemoglobin A1c % 5.4 % (<6.0)
[2024-01-11 08:21] LABS: Alanine Aminotransferase 20 U/L (0-40); Alkaline Phosphatase 98 U/L (39-117); Anion Gap 11 (12-20); Aspartate Amino Transferase 16 U/L (5-37); Bilirubin Total 0.5 mg/dL (0.0-1.0); Blood Urea Nitrogen 19 mg/dL (9-16); Calcium 9.5 mg/dL (8.4-10.2); Carbon Dioxide 28 mmol/L (22-29); Chloride 105 mmol/L (96-108); Cholesterol 215 mg/dL (<200); Creatinine Clr Calc Pharmacy 90.9; Estimated Glomerular Filt Rate > 60; Glucose Fasting 115 mg/dL (60-99); HDL Cholesterol 51 mg/dL (>40); LDL Cholesterol Calculated 149 mg/dL (<100); Potassium 3.7 mmol/L (3.3-5.1); Sodium 140 mmol/L (135-145); Total Protein 7.1 g/dL (6.5-8.0); Triglycerides 78 mg/dL (<150)
[2024-01-11 08:42] LABS: Vitamin B12 539 pg/mL (200-900)
[2024-01-11] MEDS: Nicotine 14 MG PATCH.TD24 TRANSDERMA (09:05)
[2024-01-11] MEDS: risperiDONE 1 MG TABLET PO ×2 (09:09→20:45)
[2024-01-11] MEDS: Gabapentin 600 MG TABLET PO ×3 (09:09→20:45)
[2024-01-11] MEDS: Baclofen 10 MG TABLET PO ×2 (09:09→20:45)
[2024-01-11 09:11] VITALS: BP 139/83
[2024-01-11] MEDS: lisinopriL 20 MG TABLET PO (09:11)
[2024-01-11] MEDS: cloNIDine HCL 0.1 MG TABLET PO ×3 (09:11→20:44)
[2024-01-11] MEDS: Buprenorphine/Naloxone 8/2 mg FILM 1 FILM SUBLINGUAL ×3 (09:14→20:45)
[2024-01-11] MEDS: OLANZapine 5 MG TABLET PO ×2 (09:25→21:44)
--- NOTE | 2024-01-11 13:13 | HO.PSYCHPN ---
Subjective Subjective Date of Service: 01/11/24 Reason For Visit: SI Interim History: calm, cooperative. reporits sleeping well. states he was up 3.5 days [employer]. still c/o AH, SI without plan. per staff, utox cocaine, fentanyl, suboxone POS. restarted risperidone 1 BID. appeared to have slept overnight. Mental Status Exam Mental Status Exam Narrative: Appearance: wearing hospital gown, in NAD Behavior: cooperative Psychomotor: no PMA/PMR Speech: clear, normal rate/rhythm/loudness, spontaneous TP: linear TC: hearing voices Mood: numbish Affect: constricted, normo-intense, non-labile SI: passive HI: none expressed VH/AH: AH Delusions: no overt delusional content noted or reported Insight/judgment: fair x 2. memory/cog: alert, oriented x 3. grossly intact to conversational testing. Diagnostics Vital Signs (24Hr): Vital Signs - 24 hr 01/10/24 14:35 01/10/24 14:42 01/10/24 19:50 Temperature 97.8 F Pulse Rate 90 Respiratory Rate 16 Blood Pressure 142/81 H 142/81 H 139/82 Pulse Oximetry 95 Oxygen Delivery Method Room Air 01/10/24 19:50 01/10/24 20:02 01/11/24 08:00 Temperature 97.8 F 98.8 F Pulse Rate 90 114 H Respiratory Rate 16 Blood Pressure 139/82 139/82 139/83 Pulse Oximetry 95 97 Oxygen Delivery Method Room Air Room Air 01/11/24 09:11 01/11/24 09:11 Temperature Pulse Rate Respiratory Rate Blood Pressure 139/83 139/83 Pulse Oximetry Oxygen Delivery Method BMI result Body Mass Index 31.9 Labs 01/09/24 14:35 01/11/24 07:50 Labs: Laboratory Results - last 48 hr 01/09/24 01/09/24 01/11/24 14:21 14:35 07:49 WBC 7.2 RBC 5.13 Hgb 15.2 Hct 44.6 MCV 86.9 MCH 29.6 MCHC 34.1 RDW 12.5 Plt Count 259 MPV 9.6 Immature Gran % (Auto) 0.3 Neut % (Auto) 78.7 H Lymph % (Auto) 14.2 L Stanly % (Auto) 6.1 Eos % (Auto) 0.3 Baso % (Auto) 0.4 Lymph # (Auto) 1.0 L Stanly # (Auto) 0.4 Eos # (Auto) 0.0 Baso # (Auto) 0.0 Abs Immat Gran (auto) 0.02 Absolute Neuts (auto) 5.7 Absolute Nucleated RBC 0.000 Nucleated RBC % (auto) 0.0 Sodium 141 Potassium 4.2 Chloride 101 Carbon Dioxide 25 Anion Gap 19 BUN 15 Creatinine 1.13 Estim Creat Clear Calc 95.3 Estimated GFR > 60 Random Glucose 118 H Fasting Glucose Estimat Average Glucose Hemoglobin A1c % Calcium 10.2 D Total Bilirubin 1.1 H AST 28 ALT 25 Alkaline Phosphatase 116 Total Protein 8.4 H Albumin 4.9 Triglycerides Cholesterol LDL Cholesterol, Calc HDL Cholesterol Vitamin B12 539 TSH Urine Color Yellow Urine Appearance Clear Urine pH 5.5 Ur Specific Commerce 1.025 Urine Protein Trace Urine Glucose (UA) Negative Urine Ketones 15 Urine Blood Trace H Urine Nitrite Negative Ur Leukocyte Esterase Negative Urine RBC 3-5 H Urine WBC 0-5 Ur Squamous Epith Cells 0-2 Urine Bacteria None Seen Hyaline Casts 0-2 Salicylates < 5.0 L Urine Opiates Screen Not Detected Ur Buprenorphine Scrn Positive H Ur Oxycodone Screen Not Detected Urine Methadone Screen Not Detected Urine Fentanyl Screen POSITIVE H Acetaminophen 3 Ur Barbiturates Screen Not Detected Ur Phencyclidine Scrn Not Detected Ur Amphetamines Screen Not Detected U Benzodiazepines Scrn Not Detected Urine Cocaine Screen POSITIVE H U Marijuana (THC) Screen Not Detected Ethyl Alcohol < 10 01/11/24 07:50 WBC RBC Hgb Hct MCV MCH MCHC RDW Plt Count MPV Immature Gran % (Auto) Neut % (Auto) Lymph % (Auto) Stanly % (Auto) Eos % (Auto) Baso % (Auto) Lymph # (Auto) Stanly # (Auto) Eos # (Auto) Baso # (Auto) Abs Immat Gran (auto) Absolute Neuts (auto) Absolute Nucleated RBC Nucleated RBC % (auto) Sodium 140 Potassium 3.7 Chloride 105 Carbon Dioxide 28 Anion Gap 11 L BUN 19 H Creatinine 1.16 Estim Creat Clear Calc 90.9 Estimated GFR > 60 Random Glucose Fasting Glucose 115 H Estimat Average Glucose 108 Hemoglobin A1c % 5.4 Calcium 9.5 D Total Bilirubin 0.5 AST 16 ALT 20 Alkaline Phosphatase 98 Total Protein 7.1 Albumin 4.0 Triglycerides 78 Cholesterol 215 H LDL Cholesterol, Calc 149 H HDL Cholesterol 51 Vitamin B12 TSH 1.00 Urine Color Urine Appearance Urine pH Ur Specific Commerce Urine Protein Urine Glucose (UA) Urine Ketones Urine Blood Urine Nitrite Ur Leukocyte Esterase Urine RBC Urine WBC Ur Squamous Epith Cells Urine Bacteria Hyaline Casts Salicylates Urine Opiates Screen Ur Buprenorphine Scrn Ur Oxycodone Screen Urine Methadone Screen Urine Fentanyl Screen Acetaminophen Ur Barbiturates Screen Ur Phencyclidine Scrn Ur Amphetamines Screen U Benzodiazepines Scrn Urine Cocaine Screen U Marijuana (THC) Screen Ethyl Alcohol Medications Medications Current Medications Acetaminophen (Acetaminophen 325 Mg Tablet) 650 mg PO Q6H PRN PRN Reason: Headache/Pain Mild Scale (1-3) Al Hydroxide/Mg Hydroxide (Magnesium Hydrox/Alum Hydrox 30 Ml Oral.Susp) 30 ml PO Q6H PRN PRN Reason: Heartburn/Nausea Baclofen (Baclofen 10 Mg Tablet) 10 mg PO BID [facility] Last Admin: 01/11/24 09:09 Dose: 10 mg Buprenorphine/Naloxone (Buprenorphine/Naloxone 8/2 Mg Film) 1 film SUBLINGUAL TID [facility] Last Admin: 01/11/24 09:14 Dose: 1 film Clonidine HCl (Clonidine Hcl 0.1 Mg Tablet) 0.1 mg PO TID [facility]; Protocol Last Admin: 01/11/24 09:11 Dose: 0.1 mg Docusate Sodium (Docusate Sodium 100 Mg Capsule) 100 mg PO DAILY PRN PRN Reason: constipation Gabapentin (Gabapentin 600 Mg Tablet) 600 mg PO TID [facility] Last Admin: 01/11/24 09:09 Dose: 600 mg Hydroxyzine HCl (Hydroxyzine Hcl 50 Mg Tablet) 50 mg PO Q6H PRN PRN Reason: anxiety Last Admin: 01/10/24 22:17 Dose: 50 mg Lisinopril (Lisinopril 20 Mg Tablet) 20 mg PO DAILY [facility]; Protocol Last Admin: 01/11/24 09:11 Dose: 20 mg Magnesium Hydroxide (Milk Of Magnesia 30 Ml Oral.Susp) 30 ml PO DAILY PRN PRN Reason: Constipation Nicotine (Nicotine 14 Mg Patch.Td24) 14 mg TRANSDERMA DAILY [facility] Last Admin: 01/11/24 09:05 Dose: 14 mg Olanzapine (Olanzapine 5 Mg Tablet) 5 mg PO Q6H PRN PRN Reason: agitation Last Admin: 01/11/24 09:25 Dose: 5 mg Risperidone (Risperidone 1 Mg Tablet) 1 mg PO BID [facility] Last Admin: 01/11/24 09:09 Dose: 1 mg Trazodone HCl (Trazodone Hcl 50 Mg Tablet) 50 mg PO BEDTIME MRX1 PRN PRN Reason: Insomnia Last Admin: 01/10/24 20:01 Dose: 50 mg Allergies Allergies Allergy/AdvReac Type Severity Reaction Status Date / Time No Known Allergies Allergy Verified 01/09/24 14:09 Assessment & Plan Assessment & Plan (1) MDD (major depressive disorder), recurrent episode, moderate: Status: Acute Code(s): F33.1 - Major depressive disorder, recurrent, moderate (2) PTSD (post-traumatic stress disorder): Status: Acute Code(s): F43.10 - Post-traumatic stress disorder, unspecified (3) Cocaine use disorder, severe, dependence: Status: Acute Code(s): F14.20 - Cocaine dependence, uncomplicated (4) Opioid use disorder: Status: Acute Code(s): F11.90 - Opioid use, unspecified, uncomplicated Plan Mr. Hobson is a 33 year-old male with hx of cocaine and opioid use disorder who self presented reporting increase depression visual and auditory hallucinations in context of cocaine and opioid use. Utox positive for cocaine, fentanyl and buprenorphine. Pt is known to [facility] through previous admission with similar presentation. We discussed risks, benefits and alternative treatment options. Will restart risperidone for psychosis. PLAN 1. Admit M3, CV, 15 minutes checks 2. start risperidone 1mg po BID 3. aftercare planning. 01/10: calm, cooperative. prior DC summaries reviewed, meds Hx reviewed. pt noted to be on twice as much antipsychotic now as he was at last admission; AH had been banished at prior dosing. pt agreed to continue with current plan for now, despite lack of symptom resolution at this point in his stay. Reason for continued inpatient stay Substantial Risk for: harm to self and inability to function Time Spent With Patient Time: Total time managing care of this patient today __35__ minutes.
[2024-01-11 15:37] VITALS: BP 136/81; PULSE 115; RESP 16; TEMP 36.9; O2SAT 98
[2024-01-11 15:39] VITALS: BP 136/81
[2024-01-11 20:40] VITALS: BP 135/71; PULSE 97; RESP 18; TEMP 37.4; O2SAT 97
[2024-01-11 20:44] VITALS: BP 135/71
[2024-01-11] MEDS: hydrOXYzine HCL 50 MG TABLET PO (20:56)
[2024-01-11] MEDS: Milk of Magnesia 30 ML ORAL.SUSP PO (20:56)
[2024-01-11] MEDS: traZODone HCL 50 MG TABLET PO (21:44)
[2024-01-12 07:00] VITALS: BMI 32.0
[2024-01-12 07:27] VITALS: BP 126/77; PULSE 109; RESP 16; TEMP 36.9; O2SAT 95
[2024-01-12] MEDS: risperiDONE 1 MG TABLET PO ×2 (09:14→21:31)
[2024-01-12 09:15] VITALS: BP 126/77
[2024-01-12] MEDS: Baclofen 10 MG TABLET PO ×2 (09:15→21:29)
[2024-01-12] MEDS: cloNIDine HCL 0.1 MG TABLET PO ×3 (09:15→21:32)
[2024-01-12 09:16] VITALS: BP 126/77
[2024-01-12] MEDS: Gabapentin 600 MG TABLET PO ×3 (09:16→21:30)
[2024-01-12] MEDS: lisinopriL 20 MG TABLET PO (09:16)
[2024-01-12] MEDS: Nicotine 14 MG PATCH.TD24 TRANSDERMA (09:17)
[2024-01-12] MEDS: Buprenorphine/Naloxone 8/2 mg FILM 1 FILM SUBLINGUAL ×3 (09:18→21:29)
[2024-01-12] MEDS: Acetaminophen 325 MG TABLET 650 MG PO ×2 (09:21→21:32)
[2024-01-12] MEDS: OLANZapine 5 MG TABLET PO ×2 (09:21→21:39)
--- NOTE | 2024-01-12 12:34 | P.PNPSI_ITS ---
Subjective Subjective Date of Service: 01/12/24 Reason For Visit: SI Interim History: calm, cooperative. in bed. would like ibuprofen for back pain and to try something other than trazodone for sleep. agreeable to trial of remeron. reports AH continue. per staff, de 7 anx 8. +meds. isolative. c/o disturbing hallucinations. had zyprexa and trazodone PRNs. slept adequately. Mental Status Exam Mental Status Exam Narrative: Appearance: wearing hospital gown, in NAD Behavior: cooperative Psychomotor: no PMA/PMR Speech: clear, normal rate/rhythm/loudness, spontaneous TP: linear TC: hearing voices Mood: not assessed Affect: constricted, normo-intense, non-labile SI: none expressed HI: none expressed VH/AH: AH Delusions: no overt delusional content noted or reported Insight/judgment: fair x 2. memory/cog: alert, oriented x 3. grossly intact to conversational testing. Diagnostics Vital Signs (24Hr): Vital Signs - 24 hr 01/11/24 15:37 01/11/24 15:39 01/11/24 20:40 Temperature 98.4 F 99.4 F Pulse Rate 115 H 97 Respiratory Rate 16 18 Blood Pressure 136/81 136/81 135/71 Pulse Oximetry 98 97 Oxygen Delivery Method Room Air 01/11/24 20:44 01/12/24 07:27 01/12/24 09:15 Temperature 98.4 F Pulse Rate 109 H Respiratory Rate 16 Blood Pressure 135/71 126/77 126/77 Pulse Oximetry 95 Oxygen Delivery Method Room Air 01/12/24 09:16 Temperature Pulse Rate Respiratory Rate Blood Pressure 126/77 Pulse Oximetry Oxygen Delivery Method BMI result Body Mass Index 31.9 Labs 01/09/24 14:35 01/11/24 07:50 Labs: Laboratory Results - last 48 hr 01/11/24 01/11/24 07:49 07:50 Sodium 140 Potassium 3.7 Chloride 105 Carbon Dioxide 28 Anion Gap 11 L BUN 19 H Creatinine 1.16 Estim Creat Clear Calc 90.9 Estimated GFR > 60 Fasting Glucose 115 H Estimat Average Glucose 108 Hemoglobin A1c % 5.4 Calcium 9.5 D Total Bilirubin 0.5 AST 16 ALT 20 Alkaline Phosphatase 98 Total Protein 7.1 Albumin 4.0 Triglycerides 78 Cholesterol 215 H LDL Cholesterol, Calc 149 H HDL Cholesterol 51 Vitamin B12 539 TSH 1.00 Medications Medications Current Medications Acetaminophen (Acetaminophen 325 Mg Tablet) 650 mg PO Q6H PRN PRN Reason: Headache/Pain Mild Scale (1-3) Last Admin: 01/12/24 09:21 Dose: 650 mg Al Hydroxide/Mg Hydroxide (Magnesium Hydrox/Alum Hydrox 30 Ml Oral.Susp) 30 ml PO Q6H PRN PRN Reason: Heartburn/Nausea Baclofen (Baclofen 10 Mg Tablet) 10 mg PO BID [facility] Last Admin: 01/12/24 09:15 Dose: 10 mg Buprenorphine/Naloxone (Buprenorphine/Naloxone 8/2 Mg Film) 1 film SUBLINGUAL TID [facility] Last Admin: 01/12/24 09:18 Dose: 1 film Clonidine HCl (Clonidine Hcl 0.1 Mg Tablet) 0.1 mg PO TID [facility]; Protocol Last Admin: 01/12/24 09:15 Dose: 0.1 mg Docusate Sodium (Docusate Sodium 100 Mg Capsule) 100 mg PO DAILY PRN PRN Reason: constipation Gabapentin (Gabapentin 600 Mg Tablet) 600 mg PO TID [facility] Last Admin: 01/12/24 09:16 Dose: 600 mg Hydroxyzine HCl (Hydroxyzine Hcl 50 Mg Tablet) 50 mg PO Q6H PRN PRN Reason: anxiety Last Admin: 01/11/24 20:56 Dose: 50 mg Ibuprofen (Ibuprofen 600 Mg Tablet) 600 mg PO Q6H PRN PRN Reason: moderate pain (4-6) Lisinopril (Lisinopril 20 Mg Tablet) 20 mg PO DAILY [facility]; Protocol Last Admin: 01/12/24 09:16 Dose: 20 mg Magnesium Hydroxide (Milk Of Magnesia 30 Ml Oral.Susp) 30 ml PO DAILY PRN PRN Reason: Constipation Last Admin: 01/11/24 20:56 Dose: 30 ml Mirtazapine (Mirtazapine 15 Mg Tablet) 15 mg PO BEDTIME SHAILESH Mirtazapine (Mirtazapine 15 Mg Tablet) 15 mg PO BEDTIME PRN PRN Reason: insomnia Nicotine (Nicotine 14 Mg Patch.Td24) 14 mg TRANSDERMA DAILY [facility] Last Admin: 01/12/24 09:17 Dose: 14 mg Olanzapine (Olanzapine 5 Mg Tablet) 5 mg PO Q6H PRN PRN Reason: agitation Last Admin: 01/12/24 09:21 Dose: 5 mg Risperidone (Risperidone 1 Mg Tablet) 1 mg PO BID [facility] Last Admin: 01/12/24 09:14 Dose: 1 mg Allergies Allergies Allergy/AdvReac Type Severity Reaction Status Date / Time No Known Allergies Allergy Verified 01/09/24 14:09 Assessment & Plan Assessment & Plan (1) MDD (major depressive disorder), recurrent episode, moderate: Status: Acute Code(s): F33.1 - Major depressive disorder, recurrent, moderate (2) PTSD (post-traumatic stress disorder): Status: Acute Code(s): F43.10 - Post-traumatic stress disorder, unspecified (3) Cocaine use disorder, severe, dependence: Status: Acute Code(s): F14.20 - Cocaine dependence, uncomplicated (4) Opioid use disorder: Status: Acute Code(s): F11.90 - Opioid use, unspecified, uncomplicated Plan Mr. Hboson is a 33 year-old male with hx of cocaine and opioid use disorder who self presented reporting increase depression visual and auditory hallucinations in context of cocaine and opioid use. Utox positive for cocaine, fentanyl and buprenorphine. Pt is known to [facility] through previous admission with similar presentation. We discussed risks, benefits and alternative treatment options. Will restart risperidone for psychosis. PLAN 1. Admit M3, CV, 15 minutes checks 2. start risperidone 1mg po BID 3. aftercare planning. 01/10: calm, cooperative. prior DC summaries reviewed, meds Hx reviewed. pt noted to be on twice as much antipsychotic now as he was at last admission; AH had been banished at prior dosing. pt agreed to continue with current plan for now, despite lack of symptom resolution at this point in his stay. 01/11: DC trazodone and start remeron for insomnia, although staff report is that pt slept adequately. reports ongoing AH. onel current mgmt. Reason for continued inpatient stay Substantial Risk for: inability to function Time Spent With Patient Time: Total time managing care of this patient today __25__ minutes.
[2024-01-12] MEDS: Ibuprofen 600 MG TABLET PO (14:05)
[2024-01-12] MEDS: hydrOXYzine HCL 50 MG TABLET PO ×2 (14:06→21:31)
[2024-01-12 14:59] VITALS: BP 113/76
[2024-01-12 21:25] VITALS: BP 122/72; PULSE 109; RESP 18; TEMP 37.1; O2SAT 96
[2024-01-12] MEDS: Mirtazapine 15 MG TABLET PO (21:30)
[2024-01-13] VITALS (7 sets, daily range): BP systolic 124–140; BP diastolic 65–84; PULSE 98–108; RESP 12–18; TEMP 36.9–37.7; O2SAT 95–98
[2024-01-13] MEDS: Gabapentin 600 MG TABLET PO ×3 (08:45→20:40)
[2024-01-13] MEDS: lisinopriL 20 MG TABLET PO (08:46)
[2024-01-13] MEDS: cloNIDine HCL 0.1 MG TABLET PO ×3 (08:47→20:40)
[2024-01-13] MEDS: Baclofen 10 MG TABLET PO ×2 (08:47→20:40)
[2024-01-13] MEDS: risperiDONE 1 MG TABLET PO ×2 (08:47→20:40)
[2024-01-13] MEDS: Buprenorphine/Naloxone 8/2 mg FILM 1 FILM SUBLINGUAL ×3 (08:48→20:40)
[2024-01-13] MEDS: OLANZapine 5 MG TABLET PO ×3 (08:53→20:40)
[2024-01-13] MEDS: hydrOXYzine HCL 50 MG TABLET PO ×3 (08:53→20:40)
[2024-01-13] MEDS: Acetaminophen 325 MG TABLET 650 MG PO (08:54)
--- NOTE | 2024-01-13 12:11 | HO.PSYCHPN ---
Subjective Subjective Date of Service: 01/13/24 Reason For Visit: SI Interim History: sleeping late morning, rousable. agreeable to DC scheduled remeron as not necessary, since he overslept from last night. believes a [facility] referral has been placed by ISABELLE Ruiz on his behalf. no other requests or complaints. per staff, c/o AH. + anx/dep. slept 8 hours. Mental Status Exam Mental Status Exam Narrative: Appearance: wearing street clothes, in NAD Behavior: cooperative Psychomotor: no PMA/PMR Speech: clear, normal rate/rhythm/loudness, spontaneous TP: linear TC: hearing voices Mood: not assessed Affect: constricted, normo-intense, non-labile SI: none expressed HI: none expressed VH/AH: AH Delusions: no overt delusional content noted or reported Insight/judgment: fair x 2. memory/cog: alert, oriented x 3. grossly intact to conversational testing. Diagnostics Vital Signs (24Hr): Vital Signs - 24 hr 01/12/24 14:59 01/12/24 21:25 01/13/24 07:35 Temperature 98.7 F 98.4 F Pulse Rate 109 H 98 Respiratory Rate 18 12 Blood Pressure 113/76 122/72 137/83 Pulse Oximetry 96 98 Oxygen Delivery Method Room Air Room Air 01/13/24 08:38 01/13/24 08:46 01/13/24 08:47 Temperature Pulse Rate Respiratory Rate Blood Pressure 140/84 H 140/84 H 140/84 H Pulse Oximetry Oxygen Delivery Method BMI result Body Mass Index 32.0 Labs 01/09/24 14:35 01/11/24 07:50 Medications Medications Current Medications Acetaminophen (Acetaminophen 325 Mg Tablet) 650 mg PO Q6H PRN PRN Reason: Headache/Pain Mild Scale (1-3) Last Admin: 01/13/24 08:54 Dose: 650 mg Al Hydroxide/Mg Hydroxide (Magnesium Hydrox/Alum Hydrox 30 Ml Oral.Susp) 30 ml PO Q6H PRN PRN Reason: Heartburn/Nausea Baclofen (Baclofen 10 Mg Tablet) 10 mg PO BID [facility] Last Admin: 01/13/24 08:47 Dose: 10 mg Buprenorphine/Naloxone (Buprenorphine/Naloxone 8/2 Mg Film) 1 film SUBLINGUAL TID [facility] Last Admin: 01/13/24 08:48 Dose: 1 film Clonidine HCl (Clonidine Hcl 0.1 Mg Tablet) 0.1 mg PO TID [facility]; Protocol Last Admin: 01/13/24 08:47 Dose: 0.1 mg Docusate Sodium (Docusate Sodium 100 Mg Capsule) 100 mg PO DAILY PRN PRN Reason: constipation Gabapentin (Gabapentin 600 Mg Tablet) 600 mg PO TID [facility] Last Admin: 01/13/24 08:45 Dose: 600 mg Hydroxyzine HCl (Hydroxyzine Hcl 50 Mg Tablet) 50 mg PO Q6H PRN PRN Reason: anxiety Last Admin: 01/13/24 08:53 Dose: 50 mg Ibuprofen (Ibuprofen 600 Mg Tablet) 600 mg PO Q6H PRN PRN Reason: moderate pain (4-6) Last Admin: 01/12/24 14:05 Dose: 600 mg Lisinopril (Lisinopril 20 Mg Tablet) 20 mg PO DAILY [facility]; Protocol Last Admin: 01/13/24 08:46 Dose: 20 mg Magnesium Hydroxide (Milk Of Magnesia 30 Ml Oral.Susp) 30 ml PO DAILY PRN PRN Reason: Constipation Last Admin: 01/11/24 20:56 Dose: 30 ml Mirtazapine (Mirtazapine 15 Mg Tablet) 15 mg PO BEDTIME PRN PRN Reason: insomnia Nicotine (Nicotine 14 Mg Patch.Td24) 14 mg TRANSDERMA DAILY [facility] Last Admin: 01/13/24 10:28 Dose: Not Given Olanzapine (Olanzapine 5 Mg Tablet) 5 mg PO Q4H PRN PRN Reason: agitation Last Admin: 01/13/24 08:53 Dose: 5 mg Risperidone (Risperidone 1 Mg Tablet) 1 mg PO BID [facility] Last Admin: 01/13/24 08:47 Dose: 1 mg Allergies Allergies Allergy/AdvReac Type Severity Reaction Status Date / Time No Known Allergies Allergy Verified 01/09/24 14:09 Assessment & Plan Assessment & Plan (1) MDD (major depressive disorder), recurrent episode, moderate: Status: Acute Code(s): F33.1 - Major depressive disorder, recurrent, moderate (2) PTSD (post-traumatic stress disorder): Status: Acute Code(s): F43.10 - Post-traumatic stress disorder, unspecified (3) Cocaine use disorder, severe, dependence: Status: Acute Code(s): F14.20 - Cocaine dependence, uncomplicated (4) Opioid use disorder: Status: Acute Code(s): F11.90 - Opioid use, unspecified, uncomplicated Plan Mr. Hobson is a 33 year-old male with hx of cocaine and opioid use disorder who self presented reporting increase depression visual and auditory hallucinations in context of cocaine and opioid use. Utox positive for cocaine, fentanyl and buprenorphine. Pt is known to [facility] through previous admission with similar presentation. We discussed risks, benefits and alternative treatment options. Will restart risperidone for psychosis. PLAN 1. Admit M3, CV, 15 minutes checks 2. start risperidone 1mg po BID 3. aftercare planning. 01/10: calm, cooperative. prior DC summaries reviewed, meds Hx reviewed. pt noted to be on twice as much antipsychotic now as he was at last admission; AH had been banished at prior dosing. pt agreed to continue with current plan for now, despite lack of symptom resolution at this point in his stay. 01/11: DC trazodone and start remeron for insomnia, although staff report is that pt slept adequately. reports ongoing AH. continue current mgmt. 01/12: overslept today; DC scheduled remeron and leave PRN. otherwise continue current mgmt. awaiting word from [facility]. AH continue, PRN zyprexa dosing interval shortened. Reason for continued inpatient stay Substantial Risk for: inability to function and rapid decompensation Time Spent With Patient Time: Total time managing care of this patient today __25__ minutes.
[2024-01-13] MEDS: Nicotine 14 MG PATCH.TD24 TRANSDERMA (12:20)
[2024-01-13] MEDS: Ibuprofen 600 MG TABLET PO (14:39)
--- NOTE | 2024-01-13 21:43 | PC.NURSE ---
Patient reporting auditory hallucinations is causing some mild agitation for him. Given PRN zyprexa PO. Patient also given Atarax PO prn for elevated anxiety levels.
[2024-01-14 07:25] VITALS: BP 130/71; PULSE 94; RESP 16; TEMP 36.6; O2SAT 98
[2024-01-14 08:45] VITALS: BP 135/74; PULSE 90
[2024-01-14 08:50] VITALS: BP 135/74
[2024-01-14] MEDS: cloNIDine HCL 0.1 MG TABLET PO ×3 (08:50→20:42)
[2024-01-14] MEDS: lisinopriL 20 MG TABLET PO (08:50)
[2024-01-14] MEDS: Baclofen 10 MG TABLET PO ×2 (08:50→20:42)
[2024-01-14] MEDS: hydrOXYzine HCL 50 MG TABLET PO ×2 (08:51→17:23)
[2024-01-14] MEDS: OLANZapine 5 MG TABLET PO ×3 (08:51→19:13)
[2024-01-14] MEDS: risperiDONE 1 MG TABLET PO ×2 (08:51→20:42)
[2024-01-14] MEDS: Gabapentin 600 MG TABLET PO ×3 (08:51→20:42)
[2024-01-14] MEDS: Buprenorphine/Naloxone 8/2 mg FILM 1 FILM SUBLINGUAL ×3 (08:52→20:43)
--- NOTE | 2024-01-14 09:39 | P.PNPSI_ITS ---
Subjective Subjective Date of Service: 01/14/24 Reason For Visit: SI Subjective Notes: Conditional Voluntary Interim History: Patient was seen and discussed in rounds today. Records and plans were reviewed. He continues to be feeling better with anxiety and depression but has some auditory hallucinations. He also complains of some lower back pain. Eating and sleeping okay. No SI. No changes were made today Review of Systems Review of Systems Yes all other systems are reviewed and are negative Mental Status Exam Mental Status Exam Narrative: Appearance: wearing street clothes, in NAD Behavior: cooperative Psychomotor: no PMA/PMR Speech: clear, normal rate/rhythm/loudness, spontaneous TP: linear TC: hearing voices Mood: not assessed Affect: constricted, normo-intense, non-labile SI: none expressed HI: none expressed VH/AH: AH Delusions: no overt delusional content noted or reported Insight/judgment: fair x 2. memory/cog: alert, oriented x 3. grossly intact to conversational testing. Diagnostics Vital Signs (24Hr): Vital Signs - 24 hr 01/13/24 14:39 01/13/24 20:30 01/14/24 07:25 Temperature 99.9 F 97.8 F Pulse Rate 108 H 94 Respiratory Rate 18 16 Blood Pressure 136/80 124/66 130/71 Pulse Oximetry 95 98 Oxygen Delivery Method Room Air Room Air 01/14/24 08:45 01/14/24 08:50 01/14/24 08:50 Temperature Pulse Rate 90 Respiratory Rate Blood Pressure 135/74 135/74 135/74 Pulse Oximetry Oxygen Delivery Method BMI result Body Mass Index 32.0 Labs 01/09/24 14:35 01/11/24 07:50 Medications Medications Current Medications Acetaminophen (Acetaminophen 325 Mg Tablet) 650 mg PO Q6H PRN PRN Reason: Headache/Pain Mild Scale (1-3) Last Admin: 01/13/24 08:54 Dose: 650 mg Al Hydroxide/Mg Hydroxide (Magnesium Hydrox/Alum Hydrox 30 Ml Oral.Susp) 30 ml PO Q6H PRN PRN Reason: Heartburn/Nausea Baclofen (Baclofen 10 Mg Tablet) 10 mg PO BID [facility] Last Admin: 01/14/24 08:50 Dose: 10 mg Buprenorphine/Naloxone (Buprenorphine/Naloxone 8/2 Mg Film) 1 film SUBLINGUAL TID [facility] Last Admin: 01/14/24 08:52 Dose: 1 film Clonidine HCl (Clonidine Hcl 0.1 Mg Tablet) 0.1 mg PO TID [facility]; Protocol Last Admin: 01/14/24 08:50 Dose: 0.1 mg Docusate Sodium (Docusate Sodium 100 Mg Capsule) 100 mg PO DAILY PRN PRN Reason: constipation Gabapentin (Gabapentin 600 Mg Tablet) 600 mg PO TID [facility] Last Admin: 01/14/24 08:51 Dose: 600 mg Hydroxyzine HCl (Hydroxyzine Hcl 50 Mg Tablet) 50 mg PO Q6H PRN PRN Reason: anxiety Last Admin: 01/14/24 08:51 Dose: 50 mg Ibuprofen (Ibuprofen 600 Mg Tablet) 600 mg PO Q6H PRN PRN Reason: moderate pain (4-6) Last Admin: 01/13/24 14:39 Dose: 600 mg Lisinopril (Lisinopril 20 Mg Tablet) 20 mg PO DAILY [facility]; Protocol Last Admin: 01/14/24 08:50 Dose: 20 mg Magnesium Hydroxide (Milk Of Magnesia 30 Ml Oral.Susp) 30 ml PO DAILY PRN PRN Reason: Constipation Last Admin: 01/11/24 20:56 Dose: 30 ml Mirtazapine (Mirtazapine 15 Mg Tablet) 15 mg PO BEDTIME PRN PRN Reason: insomnia Nicotine (Nicotine 14 Mg Patch.Td24) 14 mg TRANSDERMA DAILY [facility] Last Admin: 01/13/24 12:20 Dose: 14 mg Olanzapine (Olanzapine 5 Mg Tablet) 5 mg PO Q4H PRN PRN Reason: agitation Last Admin: 01/14/24 08:51 Dose: 5 mg Risperidone (Risperidone 1 Mg Tablet) 1 mg PO BID [facility] Last Admin: 01/14/24 08:51 Dose: 1 mg Allergies Allergies Allergy/AdvReac Type Severity Reaction Status Date / Time No Known Allergies Allergy Verified 01/09/24 14:09 Assessment & Plan Assessment & Plan (1) MDD (major depressive disorder), recurrent episode, moderate: Status: Acute Code(s): F33.1 - Major depressive disorder, recurrent, moderate (2) PTSD (post-traumatic stress disorder): Status: Acute Code(s): F43.10 - Post-traumatic stress disorder, unspecified (3) Cocaine use disorder, severe, dependence: Status: Acute Code(s): F14.20 - Cocaine dependence, uncomplicated (4) Opioid use disorder: Status: Acute Code(s): F11.90 - Opioid use, unspecified, uncomplicated Plan Mr. Hobson is a 33 year-old male with hx of cocaine and opioid use disorder who self presented reporting increase depression visual and auditory hallucinations in context of cocaine and opioid use. Utox positive for cocaine, fentanyl and buprenorphine. Pt is known to [facility] through previous admission with similar presentation. We discussed risks, benefits and alternative treatment options. Will restart risperidone for psychosis. PLAN 1. Admit M3, CV, 15 minutes checks 2. start risperidone 1mg po BID 3. aftercare planning. 01/10: calm, cooperative. prior DC summaries reviewed, meds Hx reviewed. pt noted to be on twice as much antipsychotic now as he was at last admission; AH had been banished at prior dosing. pt agreed to continue with current plan for now, despite lack of symptom resolution at this point in his stay. 01/11: DC trazodone and start remeron for insomnia, although staff report is that pt slept adequately. reports ongoing AH. continue current mgmt. 01/12: overslept today; DC scheduled remeron and leave PRN. otherwise continue current mgmt. awaiting word from [facility]. AH continue, PRN zyprexa dosing interval shortened. 01/13: Continue current regimen and plans Reason for continued inpatient stay Substantial Risk for: rapid decompensation Time Spent With Patient Time: Total time managing care of this patient today ____ minutes.
[2024-01-14 14:57] VITALS: BP 134/65
[2024-01-14 20:30] VITALS: BP 117/71; PULSE 116; RESP 16; TEMP 36.9; O2SAT 95
[2024-01-15] VITALS (7 sets, daily range): BP systolic 119–130; BP diastolic 66–73; PULSE 88–100; RESP 16; TEMP 36.4–37.2; O2SAT 95–96
[2024-01-15] MEDS: Acetaminophen 325 MG TABLET 650 MG PO (08:53)
[2024-01-15] MEDS: Gabapentin 600 MG TABLET PO ×3 (08:53→20:56)
[2024-01-15] MEDS: Baclofen 10 MG TABLET PO ×2 (08:54→20:58)
[2024-01-15] MEDS: lisinopriL 20 MG TABLET PO (08:54)
[2024-01-15] MEDS: hydrOXYzine HCL 50 MG TABLET PO ×3 (08:55→22:04)
[2024-01-15] MEDS: OLANZapine 5 MG TABLET PO ×3 (08:55→21:02)
[2024-01-15] MEDS: risperiDONE 1 MG TABLET PO ×2 (08:55→20:58)
[2024-01-15] MEDS: cloNIDine HCL 0.1 MG TABLET PO ×3 (08:55→20:56)
[2024-01-15] MEDS: Buprenorphine/Naloxone 8/2 mg FILM 1 FILM SUBLINGUAL ×3 (08:56→20:58)
--- NOTE | 2024-01-15 09:57 | HO.PSYCHPN ---
Subjective Subjective Date of Service: 01/15/24 Reason For Visit: SI Subjective Notes: Conditional Voluntary Interim History: Patient was seen and discussed in rounds today. Records and plans were reviewed. He has been stable and feels improved. Isolative and in his room and on the bed most of the time. Some decrease in auditory hallucinations. No SI. Cooperative and denies any side effects. No changes were made today Review of Systems Review of Systems Yes all other systems are reviewed and are negative Mental Status Exam Mental Status Exam Narrative: In today's visit he is alert, pleasant and minimally interactive with in his means. Soft-spoken. Little eye contact. Affect is subdued. Admits to auditory hallucinations which have decreased. No overt delusions. No SI. Cognitively is intact to observation. Judgment is intact Diagnostics Vital Signs (24Hr): Vital Signs - 24 hr 01/14/24 14:57 01/14/24 20:30 01/15/24 08:36 Temperature 98.5 F 97.6 F Pulse Rate 116 H 88 Respiratory Rate 16 16 Blood Pressure 134/65 117/71 130/73 Pulse Oximetry 95 95 Oxygen Delivery Method Room Air Room Air 01/15/24 08:54 01/15/24 08:55 Temperature Pulse Rate Respiratory Rate Blood Pressure 130/73 130/73 Pulse Oximetry Oxygen Delivery Method BMI result Body Mass Index 32.0 Labs 01/09/24 14:35 01/11/24 07:50 Medications Medications Current Medications Acetaminophen (Acetaminophen 325 Mg Tablet) 650 mg PO Q6H PRN PRN Reason: Headache/Pain Mild Scale (1-3) Last Admin: 01/15/24 08:53 Dose: 650 mg Al Hydroxide/Mg Hydroxide (Magnesium Hydrox/Alum Hydrox 30 Ml Oral.Susp) 30 ml PO Q6H PRN PRN Reason: Heartburn/Nausea Baclofen (Baclofen 10 Mg Tablet) 10 mg PO BID [facility] Last Admin: 01/15/24 08:54 Dose: 10 mg Buprenorphine/Naloxone (Buprenorphine/Naloxone 8/2 Mg Film) 1 film SUBLINGUAL TID [facility] Last Admin: 01/15/24 08:56 Dose: 1 film Clonidine HCl (Clonidine Hcl 0.1 Mg Tablet) 0.1 mg PO TID [facility]; Protocol Last Admin: 01/15/24 08:55 Dose: 0.1 mg Docusate Sodium (Docusate Sodium 100 Mg Capsule) 100 mg PO DAILY PRN PRN Reason: constipation Gabapentin (Gabapentin 600 Mg Tablet) 600 mg PO TID [facility] Last Admin: 01/15/24 08:53 Dose: 600 mg Hydroxyzine HCl (Hydroxyzine Hcl 50 Mg Tablet) 50 mg PO Q6H PRN PRN Reason: anxiety Last Admin: 01/15/24 08:55 Dose: 50 mg Ibuprofen (Ibuprofen 600 Mg Tablet) 600 mg PO Q6H PRN PRN Reason: moderate pain (4-6) Last Admin: 01/13/24 14:39 Dose: 600 mg Lisinopril (Lisinopril 20 Mg Tablet) 20 mg PO DAILY [facility]; Protocol Last Admin: 01/15/24 08:54 Dose: 20 mg Magnesium Hydroxide (Milk Of Magnesia 30 Ml Oral.Susp) 30 ml PO DAILY PRN PRN Reason: Constipation Last Admin: 01/11/24 20:56 Dose: 30 ml Mirtazapine (Mirtazapine 15 Mg Tablet) 15 mg PO BEDTIME PRN PRN Reason: insomnia Nicotine (Nicotine 14 Mg Patch.Td24) 14 mg TRANSDERMA DAILY [facility] Last Admin: 01/15/24 09:13 Dose: Not Given Olanzapine (Olanzapine 5 Mg Tablet) 5 mg PO Q4H PRN PRN Reason: agitation Last Admin: 01/15/24 08:55 Dose: 5 mg Risperidone (Risperidone 1 Mg Tablet) 1 mg PO BID [facility] Last Admin: 01/15/24 08:55 Dose: 1 mg Allergies Allergies Allergy/AdvReac Type Severity Reaction Status Date / Time No Known Allergies Allergy Verified 01/09/24 14:09 Assessment & Plan Assessment & Plan (1) MDD (major depressive disorder), recurrent episode, moderate: Status: Acute Code(s): F33.1 - Major depressive disorder, recurrent, moderate (2) PTSD (post-traumatic stress disorder): Status: Acute Code(s): F43.10 - Post-traumatic stress disorder, unspecified (3) Cocaine use disorder, severe, dependence: Status: Acute Code(s): F14.20 - Cocaine dependence, uncomplicated (4) Opioid use disorder: Status: Acute Code(s): F11.90 - Opioid use, unspecified, uncomplicated Plan Mr. Hobson is a 33 year-old male with hx of cocaine and opioid use disorder who self presented reporting increase depression visual and auditory hallucinations in context of cocaine and opioid use. Utox positive for cocaine, fentanyl and buprenorphine. Pt is known to [facility] through previous admission with similar presentation. We discussed risks, benefits and alternative treatment options. Will restart risperidone for psychosis. PLAN 1. Admit M3, CV, 15 minutes checks 2. start risperidone 1mg po BID 3. aftercare planning. 01/10: calm, cooperative. prior DC summaries reviewed, meds Hx reviewed. pt noted to be on twice as much antipsychotic now as he was at last admission; AH had been banished at prior dosing. pt agreed to continue with current plan for now, despite lack of symptom resolution at this point in his stay. 01/11: DC trazodone and start remeron for insomnia, although staff report is that pt slept adequately. reports ongoing AH. continue current mgmt. 01/12: overslept today; DC scheduled remeron and leave PRN. otherwise continue current mgmt. awaiting word from [facility]. AH continue, PRN zyprexa dosing interval shortened. 01/13: Continue current regimen and plans 01/14: Continue current plans and regimen. Reason for continued inpatient stay Substantial Risk for: rapid decompensation Time Spent With Patient Time: Total time managing care of this patient today ____ minutes.
[2024-01-15] MEDS: Ibuprofen 600 MG TABLET PO (13:24)
[2024-01-16 07:55] VITALS: BP 112/74; PULSE 109; RESP 14; TEMP 36.9; O2SAT 96
[2024-01-16] MEDS: Nicotine 14 MG PATCH.TD24 TRANSDERMA (08:57)
[2024-01-16 08:58] VITALS: BP 112/74
[2024-01-16] MEDS: Buprenorphine/Naloxone 8/2 mg FILM 1 FILM SUBLINGUAL ×3 (08:58→21:25)
[2024-01-16] MEDS: lisinopriL 20 MG TABLET PO (08:58)
[2024-01-16] MEDS: Baclofen 10 MG TABLET PO ×2 (08:58→21:23)
[2024-01-16] MEDS: cloNIDine HCL 0.1 MG TABLET PO ×3 (08:58→21:24)
[2024-01-16] MEDS: Gabapentin 600 MG TABLET PO ×3 (08:58→21:23)
[2024-01-16] MEDS: risperiDONE 1 MG TABLET PO (08:58)
[2024-01-16] MEDS: OLANZapine 5 MG TABLET PO ×3 (09:05→21:24)
[2024-01-16] MEDS: hydrOXYzine HCL 50 MG TABLET PO ×2 (12:00→19:11)
[2024-01-16 14:56] VITALS: BP 128/72; PULSE 116; RESP 16; O2SAT 95
[2024-01-16] MEDS: Acetaminophen 325 MG TABLET 650 MG PO (15:02)
[2024-01-16 15:06] VITALS: BP 128/72
--- NOTE | 2024-01-16 15:15 | HO.PSYCHPN ---
Subjective Subjective Date of Service: 01/16/24 Reason For Visit: SI Interim History: calm, cooperative. some AH but feeling improved overall. interested in rehab. using zyprexa PRNs, willing to swap out risperidone for zyprexa. per staff, c/o AH, but not as loud. broad affect. using zyprexa PRN. slept 7 hours. Mental Status Exam Mental Status Exam Narrative: Appearance: wearing street clothes, in NAD Behavior: cooperative Psychomotor: no PMA/PMR Speech: clear, normal rate/rhythm/loudness, spontaneous TP: linear TC: hearing voices Mood: not assessed Affect: constricted, normo-intense, non-labile SI: none expressed HI: none expressed VH/AH: AH Delusions: no overt delusional content noted or reported Insight/judgment: fair x 2. memory/cog: alert, oriented x 3. grossly intact to conversational testing. Diagnostics Vital Signs (24Hr): Vital Signs - 24 hr 01/15/24 20:00 01/15/24 20:56 01/16/24 07:55 Temperature 99 F 98.5 F Pulse Rate 100 109 H Respiratory Rate 16 14 Blood Pressure 119/66 119/66 112/74 Pulse Oximetry 96 96 Oxygen Delivery Method Room Air Room Air 01/16/24 08:58 01/16/24 08:58 01/16/24 14:56 Temperature Pulse Rate 116 H Respiratory Rate 16 Blood Pressure 112/74 112/74 128/72 Pulse Oximetry 95 Oxygen Delivery Method Room Air 01/16/24 15:06 Temperature Pulse Rate Respiratory Rate Blood Pressure 128/72 Pulse Oximetry Oxygen Delivery Method BMI result Body Mass Index 32.0 Labs 01/09/24 14:35 01/11/24 07:50 Medications Medications Current Medications Acetaminophen (Acetaminophen 325 Mg Tablet) 650 mg PO Q6H PRN PRN Reason: Headache/Pain Mild Scale (1-3) Last Admin: 01/16/24 15:02 Dose: 650 mg Al Hydroxide/Mg Hydroxide (Magnesium Hydrox/Alum Hydrox 30 Ml Oral.Susp) 30 ml PO Q6H PRN PRN Reason: Heartburn/Nausea Baclofen (Baclofen 10 Mg Tablet) 10 mg PO BID [facility] Last Admin: 01/16/24 08:58 Dose: 10 mg Buprenorphine/Naloxone (Buprenorphine/Naloxone 8/2 Mg Film) 1 film SUBLINGUAL TID [facility] Last Admin: 01/16/24 15:03 Dose: 1 film Clonidine HCl (Clonidine Hcl 0.1 Mg Tablet) 0.1 mg PO TID [facility]; Protocol Last Admin: 01/16/24 15:06 Dose: 0.1 mg Docusate Sodium (Docusate Sodium 100 Mg Capsule) 100 mg PO DAILY PRN PRN Reason: constipation Gabapentin (Gabapentin 600 Mg Tablet) 600 mg PO TID [facility] Last Admin: 01/16/24 15:02 Dose: 600 mg Hydroxyzine HCl (Hydroxyzine Hcl 50 Mg Tablet) 50 mg PO Q6H PRN PRN Reason: anxiety Last Admin: 01/16/24 12:00 Dose: 50 mg Ibuprofen (Ibuprofen 600 Mg Tablet) 600 mg PO Q6H PRN PRN Reason: moderate pain (4-6) Last Admin: 01/15/24 13:24 Dose: 600 mg Lisinopril (Lisinopril 20 Mg Tablet) 20 mg PO DAILY [facility]; Protocol Last Admin: 01/16/24 08:58 Dose: 20 mg Magnesium Hydroxide (Milk Of Magnesia 30 Ml Oral.Susp) 30 ml PO DAILY PRN PRN Reason: Constipation Last Admin: 01/11/24 20:56 Dose: 30 ml Mirtazapine (Mirtazapine 15 Mg Tablet) 15 mg PO BEDTIME PRN PRN Reason: insomnia Nicotine (Nicotine 14 Mg Patch.Td24) 14 mg TRANSDERMA DAILY [facility] Last Admin: 01/16/24 08:57 Dose: 14 mg Olanzapine (Olanzapine 5 Mg Tablet) 5 mg PO Q4H PRN PRN Reason: agitation Last Admin: 01/16/24 15:02 Dose: 5 mg Risperidone (Risperidone 1 Mg Tablet) 1 mg PO BID [facility] Last Admin: 01/16/24 08:58 Dose: 1 mg Allergies Allergies Allergy/AdvReac Type Severity Reaction Status Date / Time No Known Allergies Allergy Verified 01/09/24 14:09 Assessment & Plan Assessment & Plan (1) MDD (major depressive disorder), recurrent episode, moderate: Status: Acute Code(s): F33.1 - Major depressive disorder, recurrent, moderate (2) PTSD (post-traumatic stress disorder): Status: Acute Code(s): F43.10 - Post-traumatic stress disorder, unspecified (3) Cocaine use disorder, severe, dependence: Status: Acute Code(s): F14.20 - Cocaine dependence, uncomplicated (4) Opioid use disorder: Status: Acute Code(s): F11.90 - Opioid use, unspecified, uncomplicated Plan Mr. Hobson is a 33 year-old male with hx of cocaine and opioid use disorder who self presented reporting increase depression visual and auditory hallucinations in context of cocaine and opioid use. Utox positive for cocaine, fentanyl and buprenorphine. [place] [facility] [place] with similar presentation. We discussed risks, benefits and alternative treatment options. Will restart risperidone for psychosis. PLAN 1. Admit M3, CV, 15 minutes checks 2. start risperidone 1mg po BID 3. aftercare planning. 01/10: calm, cooperative. prior DC summaries reviewed, meds Hx reviewed. pt noted to be on twice as much antipsychotic now as he was at last admission; AH had been banished at prior dosing. pt agreed to continue with current plan for now, despite lack of symptom resolution at this point in his stay. 01/11: DC trazodone and start remeron for insomnia, although staff report is that pt slept adequately. reports ongoing AH. continue current mgmt. 01/12: overslept today; DC scheduled remeron and leave PRN. otherwise continue current mgmt. awaiting word from [facility]. AH continue, PRN zyprexa dosing interval shortened. 01/13: Continue current regimen and plans 01/14: Continue current plans and regimen. 01/15: DC risperidone 1 BID, start zyprexa 1 BID, as pt is using multiple zyprexa PRNs and monotherapy is desirable. awaiting word from rehab. AH improved, mood improved. Reason for continued inpatient stay Substantial Risk for: inability to function and rapid decompensation Time Spent With Patient Time: Total time managing care of this patient today __25__ minutes.
[2024-01-16 20:00] VITALS: BP 126/72; PULSE 100; RESP 16; TEMP 36.9; O2SAT 98
[2024-01-16 21:24] VITALS: BP 120/70
[2024-01-17] VITALS (7 sets, daily range): BP systolic 113–131; BP diastolic 63–77; PULSE 86–122; RESP 16; TEMP 36.6; O2SAT 96–98
[2024-01-17] MEDS: Acetaminophen 325 MG TABLET 650 MG PO (09:20)
[2024-01-17] MEDS: Nicotine 14 MG PATCH.TD24 TRANSDERMA (09:20)
[2024-01-17] MEDS: Gabapentin 600 MG TABLET PO ×3 (09:20→20:56)
[2024-01-17] MEDS: cloNIDine HCL 0.1 MG TABLET PO ×3 (09:21→20:56)
[2024-01-17] MEDS: OLANZapine 5 MG TABLET PO ×3 (09:21→20:55)
[2024-01-17] MEDS: Baclofen 10 MG TABLET PO ×2 (09:21→20:56)
[2024-01-17] MEDS: lisinopriL 20 MG TABLET PO (09:22)
[2024-01-17] MEDS: Buprenorphine/Naloxone 8/2 mg FILM 1 FILM SUBLINGUAL ×3 (09:22→20:56)
[2024-01-17] MEDS: Milk of Magnesia 30 ML ORAL.SUSP PO (13:30)
[2024-01-17] MEDS: hydrOXYzine HCL 50 MG TABLET PO ×2 (13:30→21:32)
--- NOTE | 2024-01-17 15:53 | P.PNPSI_ITS ---
Subjective Subjective Date of Service: 01/17/24 Reason For Visit: SI Interim History: calm, cooperative. some AH continue. mood improved. no questions or complaints. informed rehab not likely to accept pt with continued psychotic Sx. pt expressed understanding. per staff, +AH. no SI/HI/AVH. +meds. feels safe. taking PRNs. sleeping through the night. Mental Status Exam Mental Status Exam Narrative: Appearance: wearing street clothes, in NAD Behavior: cooperative Psychomotor: no PMA/PMR Speech: clear, normal rate/rhythm/loudness, spontaneous TP: linear TC: hearing voices Mood: improved Affect: constricted, normo-intense, non-labile SI: none expressed HI: none expressed VH/AH: AH Delusions: no overt delusional content noted or reported Insight/judgment: fair x 2. memory/cog: alert, oriented x 3. grossly intact to conversational testing. Diagnostics Vital Signs (24Hr): Vital Signs - 24 hr 01/16/24 20:00 01/16/24 21:24 01/17/24 07:43 Temperature 98.5 F 97.8 F Pulse Rate 100 86 Respiratory Rate 16 16 Blood Pressure 126/72 120/70 131/70 Pulse Oximetry 98 98 Oxygen Delivery Method Room Air Room Air 01/17/24 09:11 01/17/24 09:21 01/17/24 09:22 Temperature Pulse Rate Respiratory Rate Blood Pressure 120/77 120/77 120/77 Pulse Oximetry Oxygen Delivery Method 01/17/24 14:58 01/17/24 15:04 Temperature Pulse Rate 100 Respiratory Rate Blood Pressure 122/63 122/63 Pulse Oximetry Oxygen Delivery Method BMI result Body Mass Index 32.0 Labs 01/09/24 14:35 01/11/24 07:50 Medications Medications Current Medications Acetaminophen (Acetaminophen 325 Mg Tablet) 650 mg PO Q6H PRN PRN Reason: Headache/Pain Mild Scale (1-3) Last Admin: 01/17/24 09:20 Dose: 650 mg Al Hydroxide/Mg Hydroxide (Magnesium Hydrox/Alum Hydrox 30 Ml Oral.Susp) 30 ml PO Q6H PRN PRN Reason: Heartburn/Nausea Baclofen (Baclofen 10 Mg Tablet) 10 mg PO BID [facility] Last Admin: 01/17/24 09:21 Dose: 10 mg Buprenorphine/Naloxone (Buprenorphine/Naloxone 8/2 Mg Film) 1 film SUBLINGUAL TID [facility] Last Admin: 01/17/24 15:05 Dose: 1 film Clonidine HCl (Clonidine Hcl 0.1 Mg Tablet) 0.1 mg PO TID [facility]; Protocol Last Admin: 01/17/24 15:04 Dose: 0.1 mg Docusate Sodium (Docusate Sodium 100 Mg Capsule) 100 mg PO DAILY PRN PRN Reason: constipation Gabapentin (Gabapentin 600 Mg Tablet) 600 mg PO TID [facility] Last Admin: 01/17/24 15:04 Dose: 600 mg Hydroxyzine HCl (Hydroxyzine Hcl 50 Mg Tablet) 50 mg PO Q6H PRN PRN Reason: anxiety Last Admin: 01/17/24 13:30 Dose: 50 mg Ibuprofen (Ibuprofen 600 Mg Tablet) 600 mg PO Q6H PRN PRN Reason: moderate pain (4-6) Last Admin: 01/15/24 13:24 Dose: 600 mg Lisinopril (Lisinopril 20 Mg Tablet) 20 mg PO DAILY [facility]; Protocol Last Admin: 01/17/24 09:22 Dose: 20 mg Magnesium Hydroxide (Milk Of Magnesia 30 Ml Oral.Susp) 30 ml PO DAILY PRN PRN Reason: Constipation Last Admin: 01/17/24 13:30 Dose: 30 ml Mirtazapine (Mirtazapine 15 Mg Tablet) 15 mg PO BEDTIME PRN PRN Reason: insomnia Nicotine (Nicotine 14 Mg Patch.Td24) 14 mg TRANSDERMA DAILY [facility] Last Admin: 01/17/24 09:20 Dose: 14 mg Olanzapine (Olanzapine 5 Mg Tablet) 5 mg PO Q4H PRN PRN Reason: agitation Last Admin: 01/17/24 15:08 Dose: 5 mg Olanzapine (Olanzapine 5 Mg Tablet) 5 mg PO BID [facility] Last Admin: 01/17/24 09:21 Dose: 5 mg Allergies Allergies Allergy/AdvReac Type Severity Reaction Status Date / Time No Known Allergies Allergy Verified 01/09/24 14:09 Assessment & Plan Assessment & Plan (1) MDD (major depressive disorder), recurrent episode, moderate: Status: Acute Code(s): F33.1 - Major depressive disorder, recurrent, moderate (2) PTSD (post-traumatic stress disorder): Status: Acute Code(s): F43.10 - Post-traumatic stress disorder, unspecified (3) Cocaine use disorder, severe, dependence: Status: Acute Code(s): F14.20 - Cocaine dependence, uncomplicated (4) Opioid use disorder: Status: Acute Code(s): F11.90 - Opioid use, unspecified, uncomplicated Plan Mr. Hobson is a 33 year-old male with hx of cocaine and opioid use disorder who self presented reporting increase depression visual and auditory hallucinations in context of cocaine and opioid use. Utox positive for cocaine, fentanyl and buprenorphine. Pt is known to [facility] through previous admission with similar presentation. We discussed risks, benefits and alternative treatment options. Will restart risperidone for psychosis. PLAN 1. Admit M3, CV, 15 minutes checks 2. start risperidone 1mg po BID 3. aftercare planning. 01/10: calm, cooperative. prior DC summaries reviewed, meds Hx reviewed. pt noted to be on twice as much antipsychotic now as he was at last admission; AH had been banished at prior dosing. pt agreed to continue with current plan for now, despite lack of symptom resolution at this point in his stay. 01/11: DC trazodone and start remeron for insomnia, although staff report is that pt slept adequately. reports ongoing AH. continue current mgmt. 01/12: overslept today; DC scheduled remeron and leave PRN. otherwise continue current mgmt. awaiting word from [facility]. AH continue, PRN zyprexa dosing interval shortened. 01/13: Continue current regimen and plans 01/14: Continue current plans and regimen. 01/15: DC risperidone 1 BID, start zyprexa 1 BID, as pt is using multiple zyprexa PRNs and monotherapy is desirable. awaiting word from rehab. AH improved, mood improved. 01/16: some AH persist. mood improved. rejected from [facility] 2/2 AH. continue current mgmt, search for alternate placement. pt may need to discharge to intermediate if unable to be accepted to rehab. Reason for continued inpatient stay Substantial Risk for: rapid decompensation Time Spent With Patient Time: Total time managing care of this patient today __25__ minutes.
--- NOTE | 2024-01-17 21:33 | PC.NURSE ---
Adam given Atarax PO prn for elevated anxiety [id number]
[2024-01-18 07:40] VITALS: BP 123/74; PULSE 98; RESP 16; TEMP 36.7; O2SAT 98
[2024-01-18 08:36] VITALS: BP 123/74
[2024-01-18] MEDS: cloNIDine HCL 0.1 MG TABLET PO ×3 (08:36→20:46)
[2024-01-18 08:37] VITALS: BP 123/74
[2024-01-18] MEDS: Gabapentin 600 MG TABLET PO ×3 (08:37→20:46)
[2024-01-18] MEDS: Baclofen 10 MG TABLET PO ×2 (08:37→20:46)
[2024-01-18] MEDS: Nicotine 14 MG PATCH.TD24 TRANSDERMA (08:37)
[2024-01-18] MEDS: lisinopriL 20 MG TABLET PO (08:37)
[2024-01-18] MEDS: OLANZapine 5 MG TABLET PO ×3 (08:37→20:46)
[2024-01-18] MEDS: Buprenorphine/Naloxone 8/2 mg FILM 1 FILM SUBLINGUAL ×3 (08:38→20:46)
[2024-01-18] MEDS: hydrOXYzine HCL 50 MG TABLET PO ×2 (13:51→23:07)
[2024-01-18 15:18] VITALS: BP 127/75
--- NOTE | 2024-01-18 16:18 | HO.PSYCHPN ---
Subjective Subjective Date of Service: 01/18/24 Reason For Visit: SI Interim History: improved mood, no AH. per staff, dep/anx 5, which he reports is his baseline. +AH yesterday morning, but they were less intense. taking PRN zyprexa and atarax. no AH today. slept 7 hours. some groups. Mental Status Exam Mental Status Exam Narrative: Appearance: wearing street clothes, in NAD Behavior: cooperative Psychomotor: no PMA/PMR Speech: clear, normal rate/rhythm/loudness, spontaneous TP: linear TC: hearing voices Mood: improved Affect: constricted, normo-intense, non-labile SI: none expressed HI: none expressed VH/AH: denies Delusions: no overt delusional content noted or reported Insight/judgment: fair x 2. memory/cog: alert, oriented x 3. grossly intact to conversational testing. Diagnostics Vital Signs (24Hr): Vital Signs - 24 hr 01/17/24 20:45 01/18/24 07:40 01/18/24 08:36 Temperature 97.9 F 98.1 F Pulse Rate 122 H 98 Respiratory Rate 16 16 Blood Pressure 113/63 123/74 123/74 Pulse Oximetry 96 98 Oxygen Delivery Method Room Air Room Air 01/18/24 08:37 01/18/24 15:18 Temperature Pulse Rate Respiratory Rate Blood Pressure 123/74 127/75 Pulse Oximetry Oxygen Delivery Method BMI result Body Mass Index 32.0 Labs 01/09/24 14:35 01/11/24 07:50 Medications Medications Current Medications Acetaminophen (Acetaminophen 325 Mg Tablet) 650 mg PO Q6H PRN PRN Reason: Headache/Pain Mild Scale (1-3) Last Admin: 01/17/24 09:20 Dose: 650 mg Al Hydroxide/Mg Hydroxide (Magnesium Hydrox/Alum Hydrox 30 Ml Oral.Susp) 30 ml PO Q6H PRN PRN Reason: Heartburn/Nausea Baclofen (Baclofen 10 Mg Tablet) 10 mg PO BID [facility] Last Admin: 01/18/24 08:37 Dose: 10 mg Buprenorphine/Naloxone (Buprenorphine/Naloxone 8/2 Mg Film) 1 film SUBLINGUAL TID [facility] Last Admin: 01/18/24 15:18 Dose: 1 film Clonidine HCl (Clonidine Hcl 0.1 Mg Tablet) 0.1 mg PO TID [facility]; Protocol Last Admin: 01/18/24 15:18 Dose: 0.1 mg Docusate Sodium (Docusate Sodium 100 Mg Capsule) 100 mg PO DAILY PRN PRN Reason: constipation Gabapentin (Gabapentin 600 Mg Tablet) 600 mg PO TID [facility] Last Admin: 01/18/24 15:17 Dose: 600 mg Hydroxyzine HCl (Hydroxyzine Hcl 50 Mg Tablet) 50 mg PO Q6H PRN PRN Reason: anxiety Last Admin: 01/18/24 13:51 Dose: 50 mg Ibuprofen (Ibuprofen 600 Mg Tablet) 600 mg PO Q6H PRN PRN Reason: moderate pain (4-6) Last Admin: 01/15/24 13:24 Dose: 600 mg Lisinopril (Lisinopril 20 Mg Tablet) 20 mg PO DAILY [facility]; Protocol Last Admin: 01/18/24 08:37 Dose: 20 mg Magnesium Hydroxide (Milk Of Magnesia 30 Ml Oral.Susp) 30 ml PO DAILY PRN PRN Reason: Constipation Last Admin: 01/17/24 13:30 Dose: 30 ml Mirtazapine (Mirtazapine 15 Mg Tablet) 15 mg PO BEDTIME PRN PRN Reason: insomnia Nicotine (Nicotine 14 Mg Patch.Td24) 14 mg TRANSDERMA DAILY [facility] Last Admin: 01/18/24 08:37 Dose: 14 mg Olanzapine (Olanzapine 5 Mg Tablet) 5 mg PO Q4H PRN PRN Reason: agitation Last Admin: 01/17/24 15:08 Dose: 5 mg Olanzapine (Olanzapine 5 Mg Tablet) 5 mg PO BID [facility] Last Admin: 01/18/24 08:37 Dose: 5 mg Allergies Allergies Allergy/AdvReac Type Severity Reaction Status Date / Time No Known Allergies Allergy Verified 01/09/24 14:09 Assessment & Plan Assessment & Plan (1) MDD (major depressive disorder), recurrent episode, moderate: Status: Acute Code(s): F33.1 - Major depressive disorder, recurrent, moderate (2) PTSD (post-traumatic stress disorder): Status: Acute Code(s): F43.10 - Post-traumatic stress disorder, unspecified (3) Cocaine use disorder, severe, dependence: Status: Acute Code(s): F14.20 - Cocaine dependence, uncomplicated (4) Opioid use disorder: Status: Acute Code(s): F11.90 - Opioid use, unspecified, uncomplicated Plan Mr. Hobson is a 33 year-old male with hx of cocaine and opioid use disorder who self presented reporting increase depression visual and auditory hallucinations in context of cocaine and opioid use. Utox positive for cocaine, fentanyl and buprenorphine. Pt is known to [facility] through previous admission with similar presentation. We discussed risks, benefits and alternative treatment options. Will restart risperidone for psychosis. PLAN 1. Admit M3, CV, 15 minutes checks 2. start risperidone 1mg po BID 3. aftercare planning. 01/10: calm, cooperative. prior DC summaries reviewed, meds Hx reviewed. pt noted to be on twice as much antipsychotic now as he was at last admission; AH had been banished at prior dosing. pt agreed to continue with current plan for now, despite lack of symptom resolution at this point in his stay. 01/11: DC trazodone and start remeron for insomnia, although staff report is that pt slept adequately. reports ongoing AH. continue current mgmt. 01/12: overslept today; DC scheduled remeron and leave PRN. otherwise continue current mgmt. awaiting word from [facility]. AH continue, PRN zyprexa dosing interval shortened. 01/13: Continue current regimen and plans 01/14: Continue current plans and regimen. 01/15: DC risperidone 1 BID, start zyprexa 1 BID, as pt is using multiple zyprexa PRNs and monotherapy is desirable. awaiting word from rehab. AH improved, mood improved. 01/16: some AH persist. mood improved. rejected from [facility] 2/2 AH. continue current mgmt, search for alternate placement. pt may need to discharge to [facility] if unable to be accepted to rehab. 01/17: mood improved, no AH. continue with plan to refer to [facility] a second time. continue current mgmt. Reason for continued inpatient stay Substantial Risk for: inability to function and rapid decompensation Time Spent With Patient Time: Total time managing care of this patient today __25__ minutes.
[2024-01-18] MEDS: Acetaminophen 325 MG TABLET 650 MG PO (17:12)
--- NOTE | 2024-01-18 18:03 | PC.NURSE ---
Pt reported 7/10 headache pain. RN informed pt of 1-3 pain scale for Tylenol, pt still requested and received Tylenol 650mg.
[2024-01-18 20:00] VITALS: BP 123/64; PULSE 108; RESP 16; TEMP 37; O2SAT 98
[2024-01-18 20:46] VITALS: BP 123/64
[2024-01-19 07:00] VITALS: BMI 32.7
[2024-01-19 07:35] VITALS: BP 105/51; PULSE 97; RESP 14; TEMP 37.1; O2SAT 96
[2024-01-19] MEDS: Baclofen 10 MG TABLET PO ×2 (09:07→21:30)
[2024-01-19] MEDS: OLANZapine 5 MG TABLET PO ×3 (09:07→21:30)
[2024-01-19] MEDS: Nicotine 14 MG PATCH.TD24 TRANSDERMA (09:09)
[2024-01-19] MEDS: Gabapentin 600 MG TABLET PO ×3 (09:09→21:30)
[2024-01-19 09:11] VITALS: BP 123/79
[2024-01-19] MEDS: lisinopriL 20 MG TABLET PO (09:11)
[2024-01-19] MEDS: Buprenorphine/Naloxone 8/2 mg FILM 1 FILM SUBLINGUAL ×3 (09:14→21:30)
[2024-01-19 09:16] VITALS: BP 123/79
[2024-01-19] MEDS: cloNIDine HCL 0.1 MG TABLET PO ×3 (09:16→21:30)
[2024-01-19] MEDS: Docusate Sodium 100 MG CAPSULE PO (09:17)
--- NOTE | 2024-01-19 13:44 | HO.PSYCHPN ---
Subjective Subjective Date of Service: 01/19/24 Reason For Visit: SI Interim History: feeling well, no complaints. discussed likely timing of dispo depending on whether or not [facility] is able to accept him in the next several days. per staff, denies anx/dep. AH improved. +meds. brighter. slept 8 hours. Mental Status Exam Mental Status Exam Narrative: Appearance: wearing street clothes, in NAD Behavior: cooperative Psychomotor: no PMA/PMR Speech: clear, normal rate/rhythm/loudness, spontaneous TP: linear TC: not hearing voices. no delusions or paranoia expressed. Mood: pretty good Affect: constricted, normo-intense, non-labile SI: denies HI: denies VH/AH: denies Insight/judgment: fair x 2. memory/cog: alert, oriented x 3. grossly intact to conversational testing. Diagnostics Vital Signs (24Hr): Vital Signs - 24 hr 01/18/24 15:18 01/18/24 20:00 01/18/24 20:46 Temperature 98.6 F Pulse Rate 108 H Respiratory Rate 16 Blood Pressure 127/75 123/64 123/64 Pulse Oximetry 98 Oxygen Delivery Method Room Air 01/19/24 07:35 01/19/24 09:11 01/19/24 09:16 Temperature 98.8 F Pulse Rate 97 Respiratory Rate 14 Blood Pressure 105/51 L 123/79 123/79 Pulse Oximetry 96 Oxygen Delivery Method Room Air BMI result Body Mass Index 32.7 Labs 01/09/24 14:35 01/11/24 07:50 Medications Medications Current Medications Acetaminophen (Acetaminophen 325 Mg Tablet) 650 mg PO Q6H PRN PRN Reason: Headache/Pain Mild Scale (1-3) Last Admin: 01/18/24 17:12 Dose: 650 mg Al Hydroxide/Mg Hydroxide (Magnesium Hydrox/Alum Hydrox 30 Ml Oral.Susp) 30 ml PO Q6H PRN PRN Reason: Heartburn/Nausea Baclofen (Baclofen 10 Mg Tablet) 10 mg PO BID [facility] Last Admin: 01/19/24 09:07 Dose: 10 mg Buprenorphine/Naloxone (Buprenorphine/Naloxone 8/2 Mg Film) 1 film SUBLINGUAL TID [facility] Last Admin: 01/19/24 09:14 Dose: 1 film Clonidine HCl (Clonidine Hcl 0.1 Mg Tablet) 0.1 mg PO TID [facility]; Protocol Last Admin: 01/19/24 09:16 Dose: 0.1 mg Docusate Sodium (Docusate Sodium 100 Mg Capsule) 100 mg PO DAILY PRN PRN Reason: constipation Last Admin: 01/19/24 09:17 Dose: 100 mg Gabapentin (Gabapentin 600 Mg Tablet) 600 mg PO TID [facility] Last Admin: 01/19/24 09:09 Dose: 600 mg Hydroxyzine HCl (Hydroxyzine Hcl 50 Mg Tablet) 50 mg PO Q6H PRN PRN Reason: anxiety Last Admin: 01/18/24 23:07 Dose: 50 mg Ibuprofen (Ibuprofen 600 Mg Tablet) 600 mg PO Q6H PRN PRN Reason: moderate pain (4-6) Last Admin: 01/15/24 13:24 Dose: 600 mg Lisinopril (Lisinopril 20 Mg Tablet) 20 mg PO DAILY [facility]; Protocol Last Admin: 01/19/24 09:11 Dose: 20 mg Magnesium Hydroxide (Milk Of Magnesia 30 Ml Oral.Susp) 30 ml PO DAILY PRN PRN Reason: Constipation Last Admin: 01/17/24 13:30 Dose: 30 ml Mirtazapine (Mirtazapine 15 Mg Tablet) 15 mg PO BEDTIME PRN PRN Reason: insomnia Nicotine (Nicotine 14 Mg Patch.Td24) 14 mg TRANSDERMA DAILY [facility] Last Admin: 01/19/24 09:09 Dose: 14 mg Olanzapine (Olanzapine 5 Mg Tablet) 5 mg PO Q4H PRN PRN Reason: agitation Last Admin: 01/18/24 17:13 Dose: 5 mg Olanzapine (Olanzapine 5 Mg Tablet) 5 mg PO BID [facility] Last Admin: 01/19/24 09:07 Dose: 5 mg Allergies Allergies Allergy/AdvReac Type Severity Reaction Status Date / Time No Known Allergies Allergy Verified 01/09/24 14:09 Assessment & Plan Assessment & Plan (1) MDD (major depressive disorder), recurrent episode, moderate: Status: Acute Code(s): F33.1 - Major depressive disorder, recurrent, moderate (2) PTSD (post-traumatic stress disorder): Status: Acute Code(s): F43.10 - Post-traumatic stress disorder, unspecified (3) Cocaine use disorder, severe, dependence: Status: Acute Code(s): F14.20 - Cocaine dependence, uncomplicated (4) Opioid use disorder: Status: Acute Code(s): F11.90 - Opioid use, unspecified, uncomplicated Plan Mr. Hobson is a 33 year-old male with hx of cocaine and opioid use disorder who self presented reporting increase depression visual and auditory hallucinations in context of cocaine and opioid use. Utox positive for cocaine, fentanyl and buprenorphine. Pt is known to [facility] through previous admission with similar presentation. We discussed risks, benefits and alternative treatment options. Will restart risperidone for psychosis. PLAN 1. Admit M3, CV, 15 minutes checks 2. start risperidone 1mg po BID 3. aftercare planning. 01/10: calm, cooperative. prior DC summaries reviewed, meds Hx reviewed. pt noted to be on twice as much antipsychotic now as he was at last admission; AH had been banished at prior dosing. pt agreed to continue with current plan for now, despite lack of symptom resolution at this point in his stay. 01/11: DC trazodone and start remeron for insomnia, although staff report is that pt slept adequately. reports ongoing AH. continue current mgmt. 01/12: overslept today; DC scheduled remeron and leave PRN. otherwise continue current mgmt. awaiting word from [facility]. AH continue, PRN zyprexa dosing interval shortened. 01/13: Continue current regimen and plans 01/14: Continue current plans and regimen. 01/15: DC risperidone 1 BID, start zyprexa 1 BID, as pt is using multiple zyprexa PRNs and monotherapy is desirable. awaiting word from rehab. AH improved, mood improved. 01/16: some AH persist. mood improved. rejected from [facility] 2/2 AH. continue current mgmt, search for alternate placement. pt may need to discharge to detention if unable to be accepted to rehab. 01/17: mood improved, no AH. continue with plan to refer to [facility] a second time. continue current mgmt. 01/18: continues without AH, in a good mood, no safety concerns. will get to [facility] if accepted by tuesday, otherwise will need to discharge to detention. Reason for continued inpatient stay Substantial Risk for: inability to function and rapid decompensation Time Spent With Patient Time: Total time managing care of this patient today __25__ minutes.
[2024-01-19 14:35] VITALS: BP 127/73
[2024-01-19] MEDS: hydrOXYzine HCL 50 MG TABLET PO (18:21)
[2024-01-19 20:00] VITALS: BP 120/68; PULSE 108; RESP 18; TEMP 36.8; O2SAT 97
[2024-01-19 21:30] VITALS: BP 120/68
[2024-01-19] MEDS: Mirtazapine 15 MG TABLET PO (21:30)
[2024-01-20 08:00] VITALS: BP 132/77; PULSE 93; RESP 14; TEMP 36.6; O2SAT 99
[2024-01-20 08:46] VITALS: BP 132/77
[2024-01-20] MEDS: lisinopriL 20 MG TABLET PO (08:46)
[2024-01-20] MEDS: Gabapentin 600 MG TABLET PO ×3 (08:46→21:51)
[2024-01-20] MEDS: Baclofen 10 MG TABLET PO ×2 (08:46→21:51)
[2024-01-20 08:47] VITALS: BP 132/77
[2024-01-20] MEDS: cloNIDine HCL 0.1 MG TABLET PO ×3 (08:47→21:52)
[2024-01-20] MEDS: OLANZapine 5 MG TABLET PO ×3 (08:47→21:52)
[2024-01-20] MEDS: Buprenorphine/Naloxone 8/2 mg FILM 1 FILM SUBLINGUAL ×3 (08:47→21:52)
[2024-01-20] MEDS: Nicotine 14 MG PATCH.TD24 TRANSDERMA (08:48)
--- NOTE | 2024-01-20 12:45 | HO.PSYCHPN ---
Subjective Subjective Date of Service: 01/20/24 Reason For Visit: SI Interim History: no change in presentation. denies AH for the past 24H. [facility] wants updated notes tuesday and will make a decision then. per staff, broader, brighter affect. slept 8 hours overnight. Mental Status Exam Mental Status Exam Narrative: Appearance: wearing street clothes, in NAD Behavior: cooperative Psychomotor: no PMA/PMR Speech: clear, normal rate/rhythm/loudness, spontaneous TP: linear TC: not hearing voices. no delusions or paranoia expressed. Mood: improved Affect: constricted, normo-intense, non-labile SI: none expressed HI: none expressed VH/AH: denies Insight/judgment: fair x 2. memory/cog: alert, oriented x 3. grossly intact to conversational testing. Diagnostics Vital Signs (24Hr): Vital Signs - 24 hr 01/19/24 14:35 01/19/24 20:00 01/19/24 21:30 Temperature 98.2 F Pulse Rate 108 H Respiratory Rate 18 Blood Pressure 127/73 120/68 120/68 Pulse Oximetry 97 Oxygen Delivery Method Room Air 01/20/24 08:00 01/20/24 08:46 01/20/24 08:47 Temperature 97.8 F Pulse Rate 93 Respiratory Rate 14 Blood Pressure 132/77 132/77 132/77 Pulse Oximetry 99 Oxygen Delivery Method Room Air BMI result Body Mass Index 32.7 Labs 01/09/24 14:35 01/11/24 07:50 Medications Medications Current Medications Acetaminophen (Acetaminophen 325 Mg Tablet) 650 mg PO Q6H PRN PRN Reason: Headache/Pain Mild Scale (1-3) Last Admin: 01/18/24 17:12 Dose: 650 mg Al Hydroxide/Mg Hydroxide (Magnesium Hydrox/Alum Hydrox 30 Ml Oral.Susp) 30 ml PO Q6H PRN PRN Reason: Heartburn/Nausea Baclofen (Baclofen 10 Mg Tablet) 10 mg PO BID [facility] Last Admin: 01/20/24 08:46 Dose: 10 mg Buprenorphine/Naloxone (Buprenorphine/Naloxone 8/2 Mg Film) 1 film SUBLINGUAL TID [facility] Last Admin: 01/20/24 08:47 Dose: 1 film Clonidine HCl (Clonidine Hcl 0.1 Mg Tablet) 0.1 mg PO TID [facility]; Protocol Last Admin: 01/20/24 08:47 Dose: 0.1 mg Docusate Sodium (Docusate Sodium 100 Mg Capsule) 100 mg PO DAILY PRN PRN Reason: constipation Last Admin: 01/19/24 09:17 Dose: 100 mg Gabapentin (Gabapentin 600 Mg Tablet) 600 mg PO TID [facility] Last Admin: 01/20/24 08:46 Dose: 600 mg Hydroxyzine HCl (Hydroxyzine Hcl 50 Mg Tablet) 50 mg PO Q6H PRN PRN Reason: anxiety Last Admin: 01/19/24 18:21 Dose: 50 mg Ibuprofen (Ibuprofen 600 Mg Tablet) 600 mg PO Q6H PRN PRN Reason: moderate pain (4-6) Last Admin: 01/15/24 13:24 Dose: 600 mg Lisinopril (Lisinopril 20 Mg Tablet) 20 mg PO DAILY [facility]; Protocol Last Admin: 01/20/24 08:46 Dose: 20 mg Magnesium Hydroxide (Milk Of Magnesia 30 Ml Oral.Susp) 30 ml PO DAILY PRN PRN Reason: Constipation Last Admin: 01/17/24 13:30 Dose: 30 ml Mirtazapine (Mirtazapine 15 Mg Tablet) 15 mg PO BEDTIME PRN PRN Reason: insomnia Last Admin: 01/19/24 21:30 Dose: 15 mg Nicotine (Nicotine 14 Mg Patch.Td24) 14 mg TRANSDERMA DAILY [facility] Last Admin: 01/20/24 08:48 Dose: 14 mg Olanzapine (Olanzapine 5 Mg Tablet) 5 mg PO Q4H PRN PRN Reason: agitation Last Admin: 01/19/24 14:45 Dose: 5 mg Olanzapine (Olanzapine 5 Mg Tablet) 5 mg PO BID [facility] Last Admin: 01/20/24 08:47 Dose: 5 mg Allergies Allergies Allergy/AdvReac Type Severity Reaction Status Date / Time No Known Allergies Allergy Verified 01/09/24 14:09 Assessment & Plan Assessment & Plan (1) MDD (major depressive disorder), recurrent episode, moderate: Status: Acute Code(s): F33.1 - Major depressive disorder, recurrent, moderate (2) PTSD (post-traumatic stress disorder): Status: Acute Code(s): F43.10 - Post-traumatic stress disorder, unspecified (3) Cocaine use disorder, severe, dependence: Status: Acute Code(s): F14.20 - Cocaine dependence, uncomplicated (4) Opioid use disorder: Status: Acute Code(s): F11.90 - Opioid use, unspecified, uncomplicated Plan Mr. Hobson is a 33 year-old male with hx of cocaine and opioid use disorder who self presented reporting increase depression visual and auditory hallucinations in context of cocaine and opioid use. Utox positive for cocaine, fentanyl and buprenorphine. Pt is [place] [facility] [place] admission with similar presentation. We discussed risks, benefits and alternative treatment options. Will restart risperidone for psychosis. PLAN 1. Admit M3, CV, 15 minutes checks 2. start risperidone 1mg po BID 3. aftercare planning. 01/10: calm, cooperative. prior DC summaries reviewed, meds Hx reviewed. pt noted to be on twice as much antipsychotic now as he was at last admission; AH had been banished at prior dosing. pt agreed to continue with current plan for now, despite lack of symptom resolution at this point in his stay. 01/11: DC trazodone and start remeron for insomnia, although staff report is that pt slept adequately. reports ongoing AH. continue current mgmt. 01/12: overslept today; DC scheduled remeron and leave PRN. otherwise continue current mgmt. awaiting word from [facility]. AH continue, PRN zyprexa dosing interval shortened. 01/13: Continue current regimen and plans 01/14: Continue current plans and regimen. 01/15: DC risperidone 1 BID, start zyprexa 1 BID, as pt is using multiple zyprexa PRNs and monotherapy is desirable. awaiting word from rehab. AH improved, mood improved. 01/16: some AH persist. mood improved. rejected from [facility] 2/2 AH. continue current mgmt, search for alternate placement. pt may need to discharge to long-term if unable to be accepted to rehab. 01/17: mood improved, no AH. continue with plan to refer to [facility] a second time. continue current mgmt. 01/18: continues without AH, in a good mood, no safety concerns. will get to [facility] if accepted by tuesday, otherwise will need to discharge to long-term. 01/19: no change in presentation. no AH in the past 24H. refer to [facility] tuesday. Reason for continued inpatient stay Substantial Risk for: rapid decompensation Time Spent With Patient Time: Total time managing care of this patient today __25__ minutes.
[2024-01-20] MEDS: hydrOXYzine HCL 50 MG TABLET PO ×2 (13:23→22:36)
[2024-01-20] MEDS: Docusate Sodium 100 MG CAPSULE PO (13:23)
[2024-01-20 15:49] VITALS: BP 121/67
[2024-01-20] MEDS: Acetaminophen 325 MG TABLET 650 MG PO (16:02)
--- NOTE | 2024-01-20 16:04 | PC.NURSE ---
Pt requested tylenol for 5/10 headache pain, pt aware of pain scale, pt received Tylenol 650mg.
[2024-01-20 21:40] VITALS: BP 131/69; PULSE 99; RESP 18; O2SAT 95
[2024-01-21 08:00] VITALS: BP 122/71; PULSE 88; RESP 16; TEMP 36.6; O2SAT 98
--- NOTE | 2024-01-21 08:32 | P.PNPSI_ITS ---
Subjective Subjective Date of Service: 01/21/24 Reason For Visit: SI Subjective Notes: Conditional Voluntary Interim History: 33 yo hoping to go to [facility]- feels he is told no other option than that or [facility]- REports olanzapine helpful wondering about inc dose currently taking 5 bid and prn , will change to 12.5mg qhs - does not need to be bid-dosing. denies current si Medication Compliance: Yes Side effects from medications: No Attending Groups: Intermittent Review of Systems Acute medical concerns: No Medical Review of Systems: unchanged Mental Status Exam Mental Status Exam Patient Appearance: Well Grooomed Patient Orientation: Person, Place, Time and Situation Level of Consciousness: Awake Patient Behavior: Appropriate, Cooperative and Good Eye Contact Affect Description: Calm Patient Cognition Impaired: No Ability to Follow Directions: Good Speech Pattern: Clear Thought Process: Intact Thought Content: positive for Goal Oriented Judgement: Fair Judgement and Insight: future oriented worried about placement dc plans Diagnostics Vital Signs (24Hr): Vital Signs - 24 hr 01/20/24 08:46 01/20/24 08:47 01/20/24 15:49 Temperature Pulse Rate Respiratory Rate Blood Pressure 132/77 132/77 121/67 Pulse Oximetry Oxygen Delivery Method 01/20/24 21:40 01/21/24 08:00 Temperature 97.9 F Pulse Rate 99 88 Respiratory Rate 18 16 Blood Pressure 131/69 122/71 Pulse Oximetry 95 98 Oxygen Delivery Method Room Air Room Air BMI result Body Mass Index 32.7 Labs 01/09/24 14:35 01/11/24 07:50 Medications Medications Current Medications Acetaminophen (Acetaminophen 325 Mg Tablet) 650 mg PO Q6H PRN PRN Reason: Headache/Pain Mild Scale (1-3) Last Admin: 01/20/24 16:02 Dose: 650 mg Al Hydroxide/Mg Hydroxide (Magnesium Hydrox/Alum Hydrox 30 Ml Oral.Susp) 30 ml PO Q6H PRN PRN Reason: Heartburn/Nausea Baclofen (Baclofen 10 Mg Tablet) 10 mg PO BID [facility] Last Admin: 01/20/24 21:51 Dose: 10 mg Buprenorphine/Naloxone (Buprenorphine/Naloxone 8/2 Mg Film) 1 film SUBLINGUAL TID [facility] Last Admin: 01/20/24 21:52 Dose: 1 film Clonidine HCl (Clonidine Hcl 0.1 Mg Tablet) 0.1 mg PO TID [facility]; Protocol Last Admin: 01/20/24 21:52 Dose: 0.1 mg Docusate Sodium (Docusate Sodium 100 Mg Capsule) 100 mg PO DAILY PRN PRN Reason: constipation Last Admin: 01/20/24 13:23 Dose: 100 mg Gabapentin (Gabapentin 600 Mg Tablet) 600 mg PO TID [facility] Last Admin: 01/20/24 21:51 Dose: 600 mg Hydroxyzine HCl (Hydroxyzine Hcl 50 Mg Tablet) 50 mg PO Q6H PRN PRN Reason: anxiety Last Admin: 01/20/24 22:36 Dose: 50 mg Ibuprofen (Ibuprofen 600 Mg Tablet) 600 mg PO Q6H PRN PRN Reason: moderate pain (4-6) Last Admin: 01/15/24 13:24 Dose: 600 mg Lisinopril (Lisinopril 20 Mg Tablet) 20 mg PO DAILY [facility]; Protocol Last Admin: 01/20/24 08:46 Dose: 20 mg Magnesium Hydroxide (Milk Of Magnesia 30 Ml Oral.Susp) 30 ml PO DAILY PRN PRN Reason: Constipation Last Admin: 01/17/24 13:30 Dose: 30 ml Mirtazapine (Mirtazapine 15 Mg Tablet) 15 mg PO BEDTIME PRN PRN Reason: insomnia Last Admin: 01/19/24 21:30 Dose: 15 mg Nicotine (Nicotine 14 Mg Patch.Td24) 14 mg TRANSDERMA DAILY [facility] Last Admin: 01/20/24 08:48 Dose: 14 mg Olanzapine (Olanzapine 5 Mg Tablet) 5 mg PO Q4H PRN PRN Reason: agitation Last Admin: 01/20/24 16:02 Dose: 5 mg Olanzapine (Olanzapine 5 Mg Tablet) 5 mg PO BID [facility] Last Admin: 01/20/24 21:52 Dose: 5 mg Allergies Allergies Allergy/AdvReac Type Severity Reaction Status Date / Time No Known Allergies Allergy Verified 01/09/24 14:09 Assessment & Plan Assessment & Plan (1) MDD (major depressive disorder), recurrent episode, moderate: Status: Acute Code(s): F33.1 - Major depressive disorder, recurrent, moderate (2) PTSD (post-traumatic stress disorder): Status: Acute Code(s): F43.10 - Post-traumatic stress disorder, unspecified (3) Cocaine use disorder, severe, dependence: Status: Acute Code(s): F14.20 - Cocaine dependence, uncomplicated (4) Opioid use disorder: Status: Acute Code(s): F11.90 - Opioid use, unspecified, uncomplicated Plan Mr. Hobson is a 33 year-old male with hx of cocaine and opioid use disorder who self presented reporting increase depression visual and auditory hallucinations in context of cocaine and opioid use. Utox positive for cocaine, fentanyl and buprenorphine. Pt is known to [facility] through previous admission with similar presentation. We discussed risks, benefits and alternative treatment options. Will restart risperidone for psychosis. PLAN 1. Admit M3, CV, 15 minutes checks 2. start risperidone 1mg po BID 3. aftercare planning. 01/10: calm, cooperative. prior DC summaries reviewed, meds Hx reviewed. pt noted to be on twice as much antipsychotic now as he was at last admission; AH had been banished at prior dosing. pt agreed to continue with current plan for now, despite lack of symptom resolution at this point in his stay. 01/11: DC trazodone and start remeron for insomnia, although staff report is that pt slept adequately. reports ongoing AH. continue current mgmt. 01/12: overslept today; DC scheduled remeron and leave PRN. otherwise continue current mgmt. awaiting word from [facility]. AH continue, PRN zyprexa dosing interval shortened. 01/13: Continue current regimen and plans 01/14: Continue current plans and regimen. 01/15: DC risperidone 1 BID, start zyprexa 1 BID, as pt is using multiple zyprexa PRNs and monotherapy is desirable. awaiting word from rehab. AH improved, mood improved. 01/16: some AH persist. mood improved. rejected from [facility] 2/2 AH. continue current mgmt, search for alternate placement. pt may need to discharge to [facility] if unable to be accepted to rehab. 01/17: mood improved, no AH. continue with plan to refer to [facility] a second time. continue current mgmt. 01/18: continues without AH, in a good mood, no safety concerns. will get to [facility] if accepted by tuesday, otherwise will need to discharge to [facility]. 01/19: no change in presentation. no AH in the past 24H. refer to [facility] tuesday. 01/20- CTP inc olanzapine a bit to 12.5 total/day Patient educated on: medication risk/benefits and substance abuse Informed Consent: understands Reason for continued inpatient stay Substantial Risk for: rapid decompensation Time Spent With Patient Time: Total time managing care of this patient today ____ minutes.
[2024-01-21 09:14] VITALS: BP 132/75; PULSE 82; RESP 16; O2SAT 98
[2024-01-21] MEDS: Gabapentin 600 MG TABLET PO ×3 (09:15→20:48)
[2024-01-21] MEDS: Baclofen 10 MG TABLET PO ×2 (09:15→20:48)
[2024-01-21 09:16] VITALS: BP 132/75
[2024-01-21] MEDS: OLANZapine 5 MG TABLET PO ×2 (09:16→15:22)
[2024-01-21] MEDS: lisinopriL 20 MG TABLET PO (09:16)
[2024-01-21] MEDS: cloNIDine HCL 0.1 MG TABLET PO ×3 (09:16→20:48)
[2024-01-21] MEDS: Buprenorphine/Naloxone 8/2 mg FILM 1 FILM SUBLINGUAL ×3 (09:17→20:49)
[2024-01-21] MEDS: Nicotine 14 MG PATCH.TD24 TRANSDERMA (09:18)
[2024-01-21] MEDS: hydrOXYzine HCL 50 MG TABLET PO ×2 (13:02→19:04)
[2024-01-21 15:16] VITALS: BP 129/61; PULSE 110; RESP 18; O2SAT 98
[2024-01-21 15:21] VITALS: BP 129/61
[2024-01-21 20:47] VITALS: BP 117/71; PULSE 102; RESP 16; TEMP 36.9; O2SAT 98
[2024-01-21] MEDS: OLANZapine 2.5 MG TABLET 12.5 MG PO (20:48)
[2024-01-21] MEDS: Milk of Magnesia 30 ML ORAL.SUSP PO (22:57)
[2024-01-22 09:25] VITALS: BP 135/67; PULSE 83; RESP 16; TEMP 36.8; O2SAT 98
[2024-01-22 09:31] VITALS: BP 135/67
[2024-01-22] MEDS: cloNIDine HCL 0.1 MG TABLET PO ×3 (09:31→20:55)
[2024-01-22] MEDS: Acetaminophen 325 MG TABLET 650 MG PO (09:32)
[2024-01-22] MEDS: Gabapentin 600 MG TABLET PO ×3 (09:32→20:56)
[2024-01-22 09:33] VITALS: BP 135/67
[2024-01-22] MEDS: lisinopriL 20 MG TABLET PO (09:33)
[2024-01-22] MEDS: hydrOXYzine HCL 50 MG TABLET PO ×2 (09:33→20:56)
[2024-01-22] MEDS: Baclofen 10 MG TABLET PO ×2 (09:33→20:56)
[2024-01-22] MEDS: Buprenorphine/Naloxone 8/2 mg FILM 1 FILM SUBLINGUAL ×3 (09:33→20:56)
[2024-01-22] MEDS: Nicotine 14 MG PATCH.TD24 TRANSDERMA (09:36)
[2024-01-22] MEDS: Docusate Sodium 100 MG CAPSULE PO (10:04)
--- NOTE | 2024-01-22 11:59 | P.PNPSI_ITS ---
Subjective Subjective Date of Service: 01/22/24 Reason For Visit: SI Subjective Notes: Conditional Voluntary Interim History: 33 yo reports dec in with inc olanzapine last pm, changed all olanzapine to hs and discussed his prns for day use if needed- Pt wanting to go to [facility] for further treatment and addressing sub use- Slept last pm - dep anxiety 12/03 , Medication Compliance: Yes Side effects from medications: Yes (some constipation took mom) Attending Groups: Intermittent Review of Systems Acute medical concerns: No Medical Review of Systems: unchanged Mental Status Exam Mental Status Exam Patient Appearance: Well Grooomed Patient Orientation: Person, Place, Time and Situation Level of Consciousness: Awake Patient Behavior: Appropriate, Cooperative and Good Eye Contact Affect Description: Calm Patient Cognition Impaired: No Ability to Follow Directions: Good Speech Pattern: Clear Hallucinations: Auditory (decreased) Thought Process: Intact Thought Content: positive for Goal Oriented Judgement: Fair Judgement and Insight: future oriented worried about placement dc plans Diagnostics Vital Signs (24Hr): Vital Signs - 24 hr 01/21/24 15:16 01/21/24 15:21 01/21/24 20:47 Temperature 98.4 F Pulse Rate 110 H 102 H Respiratory Rate 18 16 Blood Pressure 129/61 129/61 117/71 Pulse Oximetry 98 98 Oxygen Delivery Method Room Air Room Air 01/22/24 09:25 01/22/24 09:31 01/22/24 09:33 Temperature 98.2 F Pulse Rate 83 Respiratory Rate 16 Blood Pressure 135/67 135/67 135/67 Pulse Oximetry 98 Oxygen Delivery Method Room Air BMI result Body Mass Index 32.7 Labs 01/09/24 14:35 01/11/24 07:50 Medications Medications Current Medications Acetaminophen (Acetaminophen 325 Mg Tablet) 650 mg PO Q6H PRN PRN Reason: Headache/Pain Mild Scale (1-3) Last Admin: 01/22/24 09:32 Dose: 650 mg Al Hydroxide/Mg Hydroxide (Magnesium Hydrox/Alum Hydrox 30 Ml Oral.Susp) 30 ml PO Q6H PRN PRN Reason: Heartburn/Nausea Baclofen (Baclofen 10 Mg Tablet) 10 mg PO BID [facility] Last Admin: 01/22/24 09:33 Dose: 10 mg Buprenorphine/Naloxone (Buprenorphine/Naloxone 8/2 Mg Film) 1 film SUBLINGUAL TID [facility] Last Admin: 01/22/24 09:33 Dose: 1 film Clonidine HCl (Clonidine Hcl 0.1 Mg Tablet) 0.1 mg PO TID [facility]; Protocol Last Admin: 01/22/24 09:31 Dose: 0.1 mg Docusate Sodium (Docusate Sodium 100 Mg Capsule) 100 mg PO DAILY PRN PRN Reason: constipation Last Admin: 01/22/24 10:04 Dose: 100 mg Gabapentin (Gabapentin 600 Mg Tablet) 600 mg PO TID [facility] Last Admin: 01/22/24 09:32 Dose: 600 mg Hydroxyzine HCl (Hydroxyzine Hcl 50 Mg Tablet) 50 mg PO Q6H PRN PRN Reason: anxiety Last Admin: 01/22/24 09:33 Dose: 50 mg Ibuprofen (Ibuprofen 600 Mg Tablet) 600 mg PO Q6H PRN PRN Reason: moderate pain (4-6) Last Admin: 01/15/24 13:24 Dose: 600 mg Lisinopril (Lisinopril 20 Mg Tablet) 20 mg PO DAILY [facility]; Protocol Last Admin: 01/22/24 09:33 Dose: 20 mg Magnesium Hydroxide (Milk Of Magnesia 30 Ml Oral.Susp) 30 ml PO DAILY PRN PRN Reason: Constipation Last Admin: 01/21/24 22:57 Dose: 30 ml Mirtazapine (Mirtazapine 15 Mg Tablet) 15 mg PO BEDTIME PRN PRN Reason: insomnia Last Admin: 01/19/24 21:30 Dose: 15 mg Nicotine (Nicotine 14 Mg Patch.Td24) 14 mg TRANSDERMA DAILY [facility] Last Admin: 01/22/24 09:36 Dose: 14 mg Olanzapine (Olanzapine 5 Mg Tablet) 5 mg PO Q4H PRN PRN Reason: agitation Last Admin: 01/21/24 15:22 Dose: 5 mg Olanzapine (Olanzapine 2.5 Mg Tablet) 12.5 mg PO BEDTIME [facility] Last Admin: 01/21/24 20:48 Dose: 12.5 mg Allergies Allergies Allergy/AdvReac Type Severity Reaction Status Date / Time No Known Allergies Allergy Verified 01/09/24 14:09 Assessment & Plan Assessment & Plan (1) MDD (major depressive disorder), recurrent episode, moderate: Status: Acute Code(s): F33.1 - Major depressive disorder, recurrent, moderate (2) PTSD (post-traumatic stress disorder): Status: Acute Code(s): F43.10 - Post-traumatic stress disorder, unspecified (3) Cocaine use disorder, severe, dependence: Status: Acute Code(s): F14.20 - Cocaine dependence, uncomplicated (4) Opioid use disorder: Status: Acute Code(s): F11.90 - Opioid use, unspecified, uncomplicated Plan Mr. Hobson is a 33 year-old male with hx of cocaine and opioid use disorder who self presented reporting increase depression visual and auditory hallucinations in context of cocaine and opioid use. Utox positive for cocaine, fentanyl and buprenorphine. Pt is known to [facility] through previous admission with similar presentation. We discussed risks, benefits and alternative treatment options. Will restart risperidone for psychosis. PLAN 1. Admit M3, CV, 15 minutes checks 2. start risperidone 1mg po BID 3. aftercare planning. 01/10: calm, cooperative. prior DC summaries reviewed, meds Hx reviewed. pt noted to be on twice as much antipsychotic now as he was at last admission; AH had been banished at prior dosing. pt agreed to continue with current plan for now, despite lack of symptom resolution at this point in his stay. 01/11: DC trazodone and start remeron for insomnia, although staff report is that pt slept adequately. reports ongoing AH. continue current mgmt. 01/12: overslept today; DC scheduled remeron and leave PRN. otherwise continue current mgmt. awaiting word from [facility]. AH continue, PRN zyprexa dosing interval shortened. 01/13: Continue current regimen and plans 01/14: Continue current plans and regimen. 01/15: DC risperidone 1 BID, start zyprexa 1 BID, as pt is using multiple zyprexa PRNs and monotherapy is desirable. awaiting word from rehab. AH improved, mood improved. 01/16: some AH persist. mood improved. rejected from [facility] 2/2 AH. continue current mgmt, search for alternate placement. pt may need to discharge to residential if unable to be accepted to rehab. 01/17: mood improved, no AH. continue with plan to refer to [facility] a second time. continue current mgmt. 01/18: continues without AH, in a good mood, no safety concerns. will get to [facility] if accepted by tuesday, otherwise will need to discharge to residential. 01/19: no change in presentation. no AH in the past 24H. refer to [facility] tuesday. 01/20- CTP inc olanzapine a bit to 12.5 total/day 01/21 CTP Patient educated on: medication risk/benefits and other Informed Consent: understands Reason for continued inpatient stay Substantial Risk for: harm to self and rapid decompensation Time Spent With Patient Time: Total time managing care of this patient today ____ minutes.
[2024-01-22] MEDS: OLANZapine 5 MG TABLET PO (14:09)
[2024-01-22 14:57] VITALS: BP 139/72; PULSE 109; RESP 18; O2SAT 97
[2024-01-22 14:59] VITALS: BP 139/72
[2024-01-22 20:00] VITALS: BP 115/64; PULSE 96; RESP 16; TEMP 36.8; O2SAT 95
[2024-01-22] MEDS: OLANZapine 2.5 MG TABLET 12.5 MG PO (20:56)
[2024-01-23 08:00] VITALS: BP 124/92; PULSE 115; TEMP 37.1; O2SAT 98
[2024-01-23] MEDS: Nicotine 14 MG PATCH.TD24 TRANSDERMA (09:01)
[2024-01-23] MEDS: Baclofen 10 MG TABLET PO (09:01)
[2024-01-23 09:03] VITALS: BP 124/92
[2024-01-23] MEDS: Gabapentin 600 MG TABLET PO ×2 (09:03→14:12)
[2024-01-23] MEDS: lisinopriL 20 MG TABLET PO (09:03)
[2024-01-23] MEDS: Buprenorphine/Naloxone 8/2 mg FILM 1 FILM SUBLINGUAL ×2 (09:04→14:32)
[2024-01-23 09:05] VITALS: BP 124/92
[2024-01-23] MEDS: cloNIDine HCL 0.1 MG TABLET PO ×2 (09:05→14:13)
[2024-01-23] MEDS: OLANZapine 5 MG TABLET PO (09:10)
[2024-01-23] MEDS: Docusate Sodium 100 MG CAPSULE PO (09:11)
[2024-01-23] MEDS: Magnesium Hydrox/Alum Hydrox 30 ML ORAL.SUSP PO (10:37)
[2024-01-23] MEDS: hydrOXYzine HCL 50 MG TABLET PO (11:35)
--- NOTE | 2024-01-23 13:47 | PM.PSYDC ---
DS: Providers Provider Date of Service: 01/23/24 Date of admission: 01/10/24 11:50 Date of discharge: 01/23/24 Primary care physician: Celine Duarte MD Admitting clinician: Frances Lundy Attending physician on admission: Shyam Zambrano Attending physician on discharge: Shyam Zambrano Discharging clinician: Roxanne Velásquez DS: Diagnosis Discharge Diagnosis (1) MDD (major depressive disorder), recurrent episode, moderate: Status: Acute (2) PTSD (post-traumatic stress disorder): Status: Acute (3) Cocaine use disorder, severe, dependence: Status: Acute (4) Opioid use disorder: Status: Acute DS: Medications Discharge Medications Home Medications: Previous Rx's ?Medication ?Instructions ?Recorded baclofen 10 mg tablet 10 mg PO BID 30 days #60 tabs 01/23/24 buprenorphine 8 mg-naloxone 2 mg 1 film sublingual TID 2 days #6 ea 01/23/24 sublingual film (Suboxone) clonidine HCl 0.1 mg tablet 0.1 mg PO TID anxiety 30 days #90 01/23/24 tabs docusate sodium 100 mg capsule 100 mg PO DAILY PRN constipation 01/23/24 (Colace) 30 days #30 caps gabapentin 600 mg tablet 600 mg PO TID 30 days #90 tabs 01/23/24 hydroxyzine pamoate 50 mg capsule 50 mg PO Q8H PRN anxiety 30 days 01/23/24 #90 caps lisinopril 20 mg tablet 20 mg PO DAILY 30 days #30 tabs 01/23/24 mirtazapine 15 mg tablet 15 mg PO BEDTIME PRN insomnia 30 01/23/24 days #30 tabs nicotine 14 mg/24 hr daily 1 patch topical DAILY 30 days #28 01/23/24 transdermal patch ea olanzapine 2.5 mg tablet 12.5 mg (5 x 2.5 mg) PO BEDTIME 14 01/23/24 days #70 tabs Mental Status Exam Mental Status Exam Narrative: Pt is alert and oriented; behavior is cooperative and calm; dressed in casual attire; mood is described as good ; eye contact appropriate; Speech is normal rate, volume and not pressured; thought process is organized and goal directed; Thought content is on tx; otherwise pertinent to relevant topics and without any delusional content, paranoid ideations or grandiosity; denies SI/HI/VH/AH. DS: Summary Hospital Course Hospital Course: Mr. Hobson is a 33 year-old male with hx of opioid and cocaine use disorder who self presented to [facility] ED reporting increased depression, suicidal ideation and visual and auditory hallucinations. His utox was positive for cocaine, fentanyl and buprenorphine. CBC with no leukocytosis, elevated neutrophils. CMP no electrolyte abnormalities, BUN 12, Cr 1.15, creatinine clearance 95.3. No LFT abnormalities. Pt is known to [facility] through previous admissions with similar presentation including psychosis exacerbated by cocaine use. Pt seen on the unit. He presents as somnolent and tired. He reports hearing voices, at times males and at others females. He reports sometimes can't understand what they say. 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 He denies any plan or intent to harm himself but does report feeling overwhelmed. He has been on suboxone. He has not seen psychiatric provider recently but does follow up with [facility]. During hospital course, Mr. Hobson is a 33 year-old male with hx of cocaine and opioid use disorder who self presented reporting increase depression visual and auditory hallucinations in context of cocaine and opioid use. Utox positive for cocaine, fentanyl and buprenorphine. Pt is known to [facility] through previous admission with similar presentation. We discussed risks, benefits and alternative treatment options. Will restart risperidone for psychosis. PLAN 1. Admit M3, CV, 15 minutes checks 2. start risperidone 1mg po BID 3. aftercare planning. calm, cooperative. prior DC summaries reviewed, meds Hx reviewed. pt noted to be on twice as much antipsychotic now as he was at last admission; AH had been banished at prior dosing. pt agreed to continue with current plan for now, despite lack of symptom resolution at this point in his stay. DC trazodone and start remeron for insomnia, although staff report is that pt slept adequately. reports ongoing AH. continue current mgmt. overslept today; DC scheduled remeron and leave PRN. otherwise continue current mgmt. awaiting word from [facility]. AH continue, PRN zyprexa dosing interval shortened. DC risperidone 1 BID, start zyprexa 1 BID, as pt is using multiple zyprexa PRNs and monotherapy is desirable. awaiting word from rehab. AH improved, mood improved. some AH persist. mood improved. rejected from [facility] 2/2 AH. continue current mgmt, search for alternate placement. pt may need to discharge to [facility] if unable to be accepted to rehab. mood improved, no AH. continue with plan to refer to [facility] a second time. continue current mgmt. continues without AH, in a good mood, no safety concerns. will get to [facility] if accepted by tuesday, otherwise will need to discharge to [facility]. no AH in the past 24H. refer to [facility] tuesday. inc olanzapine a bit to 12.5 total/day Patient reports feeling good today; he reports he plans on staying at his sisters home and seeing if he can get into a sober living program. Pt denies SI/HI/VH/AH. pt reports he plans on following up with outpatient providers. Pt's mother to pharmacy picking technician patient and bring to his sisters home. Time spent discussing smoking cessation with patient: 3 to 10 minutes Status at Discharge Cognitive/behavioral status at discharge: Patient was interviewed prior to discharge and found to be fully oriented and without SI or HI. Patient has insight and demonstrates good judgment in terms of wanting to pursue treatment. Patient has a safety plan that includes presenting to the closest ER or calling 911 if feeling unsafe. Functional status at discharge: independent ambulation Overall status at discharge: patient is back to baseline Time Spent with Patient Time attestation: Total time managing care of this patient today _20___ minutes. Time spent: Less than 30 minutes Discharge Plan Discharge Anticipated Discharge Date/Time: 01/23/24 14:30 Patient Disposition: Home, Self-Care Discharge Diagnosis: MDD, PTSD, cocaine use d/o, opioid use d/o Referrals: Therapist: Kay Kowalski ([facility]) [Other] - 01/30/24 11:00 am (Appointment is Telehealth-Kay will call your phone at the appointment time At the time of this appointment, you can schedule your next appointments to see her in person, via video or continue with phone appointments. Just let her know ) Suboxone: Evonne Roth ([facility]) [Other] - 01/25/24 2:45 pm (Appointment is in person at their office at [facility]. Take Elevators D or E to the 4th floor) Celine Duarte MD [Primary Care Provider] - 01/31/24 2:15 pm ( ) Discharge Medications: New mirtazapine 15 mg Tablet 15 mg PO BEDTIME PRN (Reason: insomnia) 30 Days Qty: 30 0RF olanzapine 2.5 mg Tablet 12.5 mg PO BEDTIME 14 Days Qty: 70 1RF Continued clonidine HCl 0.1 mg tablet 0.1 mg PO TID 30 Days Qty: 90 0RF gabapentin 600 mg tablet 600 mg PO TID 30 Days Qty: 90 0RF nicotine 14 mg/24 hr patch 24 hour 1 patch topical DAILY 30 Days Qty: 28 0RF lisinopril 20 mg tablet 20 mg PO DAILY 30 Days Qty: 30 0RF baclofen 10 mg tablet 10 mg PO BID 30 Days Qty: 60 0RF docusate sodium [Colace] 100 mg capsule 100 mg PO DAILY PRN (Reason: constipation) 30 Days Qty: 30 0RF buprenorphine-naloxone [Suboxone] 8-2 mg film 1 film sublingual TID 2 Days Qty: 6 0RF Changed hydroxyzine pamoate 50 mg capsule 50 mg PO Q8H PRN (Reason: anxiety) 30 Days Qty: 90 0RF Discontinued sertraline 50 mg tablet 50 mg PO DAILY Discharge Orders: Discharge Order (Routine); Ordered 01/23/24 Ordered By: Roxanne Velásquez Diet: Regular diet Activity on Discharge: As tolerated Stand Alone Forms: Patient Portal Discharge page, Community Support Print Language: Ecuadorean Care Plan Goals: Maintain mood and safe behaviors Take medications as prescribed Continue to pursue sobriety Practice coping skills Continue with outpatient providers and reach out to them as needed Health Concerns: Mood stability and behaviors Sobriety Plan of Treatment: Follow up with your PCP, psychiatric provider and other outpatient providers regarding above concerns Take medications as prescribed Assessment: Patient was interviewed prior to discharge and found to be fully oriented and without SI or HI. Patient has insight and demonstrates good judgment in terms of wanting to pursue treatment. Patient has a safety plan that includes presenting to the closest ER or calling 911 if feeling unsafe.
[2024-01-23 14:13] VITALS: BP 136/61
[2024-01-23] MEDS: Naloxone HCl Nasal TAKE HOME 4 MG SPRAY 8 MG NOSTRILALT (14:30)
== END 2024-01-23 14:40 | disposition home or self-care (01) | DRG 751 ==
LOC: HO.ED 14:48 → HO.PADLT16 01-10 11:56
PROVIDERS: Physician Assistant Medical; Admitting Provider Social Worker; Emergency Provider Emergency Medicine; PCP Internal Medicine; Visit Provider Psychiatry & Neurology Psychiatry
DX: F33.1 Major depressive disorder, recurrent, moderate (principal); R45.851 Suicidal ideations; F43.10 Post-traumatic stress disorder, unspecified; F14.20 Cocaine dependence, uncomplicated; F11.90 Opioid use, unspecified, uncomplicated; Z90.5 Acquired absence of kidney; Z59.02 Unsheltered homelessness; Z79.899 Other long term (current) drug therapy
CPT/HCPCS: 36415; 80053; 80061; 80143; 80179; 80307; 81001; 82607; 83036; 84443; 85025; 93005; 99285; S9485

== ENCOUNTER → 2024-01-10 09:35 | Outpatient (BNV) | payer OTHER, SELFPAY | PROVIDERS: Admitting Provider Social Worker; Emergency Provider Emergency Medicine; PCP Internal Medicine; Visit Provider Internal Medicine | DX: Z51.81 Encounter for therapeutic drug level monitoring (principal) | CPT/HCPCS: 93010 ==

== ENCOUNTER → 2024-01-10 11:50 | Outpatient (BNV) | payer OTHER, SELFPAY | PROVIDERS: Admitting Provider Social Worker; Emergency Provider Emergency Medicine; PCP Internal Medicine; Visit Provider Social Worker | DX: F33.1 Major depressive disorder, recurrent, moderate (principal); F14.20 Cocaine dependence, uncomplicated; F43.11 Post-traumatic stress disorder, acute; F11.90 Opioid use, unspecified, uncomplicated | CPT/HCPCS: 90792; 99231; 99232; 99238 ==

== ENCOUNTER 2024-01-25 14:50 | Outpatient (AMB) | payer OTHER, SELFPAY ==
--- NOTE | 2024-01-25 14:57 | A.OFFVISCC_ITS ---
Intake Visit Reasons: MAT visit Allergies No Known Allergies Allergy (Verified 01/09/24 14:09) HPI HPI MAT visit: Details: Patient presents for follow up Discharged from unit on Tuesday Started Olanzapine Moving into a sober home 3 meetings per week --UDS at time of admission Therapist has to see her 2 more times before she can refer to psychiatrist PCP appt on January 30 [facility] Medical History PTSD (post-traumatic stress disorder) MDD (major depressive disorder), recurrent episode, moderate Anxiety and depression Surgical History H/O right nephrectomy H/O kidney removal Social History Household Members: None Household Members Other:: Sister Housing: Homeless Do you presently have visiting nurse or other home services: No Unable to assess alcohol history related to: Refusing to respond Alcohol intake: never Patient Tobacco Use Status: Current everyday Tobacco user Tobacco use type: Cigarette Cigarette Packs Per Day: 1 Cigarettes Per Day: 20.0 Years Smoked: 15 e-Cigarette/Vaping Use: Currently Using Second Hand Smoke Exposure: No Substance Use Type: Crack/Cocaine and Heroin service: No Current occupational status: unemployed Sexual orientation: Straight/Heterosexual Review of Systems Const Reports as per HPI and Reports no additional complaints Physical Exam Const General: cooperative, healthy appearing and no acute distress Nutritional Appearance: well nourished Orientation/consciousness: patient oriented x3 Limitations: no limitations Neuro General: patient oriented x3 Psych Appearance: well kempt Speech and movement: Normal speech and movement present Affect: normal affect Attitude: cooperative Thought process: Normal thought process present Thought content: Normal thought content present Insight: Good insight present (Psych) Judgement: Good judgement present (Psych) Assessment & Plan Assessment & Plan (1) Opioid use disorder: Code(s): F11.90 - Opioid use, unspecified, uncomplicated Category: Medical Plan: * continue suboxone at current dose * relapse prevention discussion * follow up in office with RN (2) Cocaine use disorder, severe, dependence: Code(s): F14.20 - Cocaine dependence, uncomplicated Category: Medical Plan: * continue baclofen Medications: Changed From buprenorphine-naloxone 8-2 mg 1 film sublingual TID 2 days 6 ea 0RF To buprenorphine-naloxone 8-2 mg (Suboxone) 1 film sublingual TID 21 ea 1RF
== END 2024-01-25 15:16 | disposition home or self-care (01) ==
PROVIDERS: PCP Internal Medicine; Visit Provider Nurse Practitioner Psychiatric/Mental Health
DX: F11.90 Opioid use, unspecified, uncomplicated (principal); F14.20 Cocaine dependence, uncomplicated
CPT/HCPCS: 99214

== ENCOUNTER → 2024-01-25 14:50 | Outpatient (BNVA) | payer OTHER, SELFPAY | PROVIDERS: PCP Internal Medicine; Visit Provider Nurse Practitioner Psychiatric/Mental Health | DX: F11.90 Opioid use, unspecified, uncomplicated (principal); F14.20 Cocaine dependence, uncomplicated | CPT/HCPCS: 99212 ==

== ENCOUNTER → 2024-03-07 10:23 | Outpatient (BNVA) | payer OTHER, SELFPAY | PROVIDERS: PCP Internal Medicine; Visit Provider Nurse Practitioner Psychiatric/Mental Health ==

== ENCOUNTER 2024-03-21 11:30 | Outpatient (AMB) | payer OTHER, SELFPAY ==
--- NOTE | 2024-03-21 11:38 | MHC.AM.SUB ---
Intake Visit Reasons: MAT Visit Allergies No Known Allergies Allergy (Verified 01/09/24 14:09) Medication List - Last Reconciled 03/21/24 by Evonne Roth CNP baclofen 10 mg PO BID 30 days buprenorphine-naloxone 8-2 mg (Suboxone) 1 film sublingual TID clonidine HCl 0.1 mg PO TID 30 days docusate sodium (Colace) 100 mg PO DAILY PRN 30 days gabapentin 600 mg PO TID 30 days hydroxyzine pamoate 50 mg PO Q8H PRN 30 days mirtazapine 15 mg PO BEDTIME PRN 30 days HPI HPI MAT Visit: Details: Patient presents for follow Currently prescribed Subxone Living at Sober Home in [facility]--has been there 58 days Working PT - AA and NA meetings --some meetings at the house Needs new therapist and psychiatrist PCP filling psych meds [facility] Medical History PTSD (post-traumatic stress disorder) MDD (major depressive disorder), recurrent episode, moderate Anxiety and depression Surgical History H/O right nephrectomy H/O kidney removal Social History Household Members: None Household Members Other:: Sister Housing: Homeless Do you presently have visiting nurse or other home services: No Unable to assess alcohol history related to: Refusing to respond Alcohol intake: never Patient Tobacco Use Status: Current everyday Tobacco user Tobacco use type: Cigarette Cigarette Packs Per Day: 1 Cigarettes Per Day: 20.0 Years Smoked: 15 e-Cigarette/Vaping Use: Currently Using Second Hand Smoke Exposure: No Substance Use Type: Crack/Cocaine and Heroin service: No Current occupational status: unemployed Sexual orientation: Straight/Heterosexual Review of Systems Const Reports as per HPI and Reports no additional complaints Physical Exam Const General: cooperative, healthy appearing and no acute distress Nutritional Appearance: well nourished Orientation/consciousness: patient oriented x3 Limitations: no limitations Neuro General: patient oriented x3 Psych Appearance: well kempt Speech and movement: Normal speech and movement present Affect: normal affect Attitude: cooperative Thought process: Normal thought process present Thought content: Normal thought content present Insight: Good insight present (Psych) Judgement: Good judgement present (Psych) Assessment & Plan Assessment & Plan (1) Opioid use disorder: Code(s): F11.90 - Opioid use, unspecified, uncomplicated Category: Medical Plan: relapse prevention discussion referral for sent to consolidation accountantassistant wrestling coach information provided Medications: New olanzapine (Zyprexa) 10 mg PO BEDTIME Refilled buprenorphine-naloxone 8-2 mg (Suboxone) 1 film sublingual TID 42 ea 0RF baclofen 10 mg PO BID 60 tabs 3RF 30 days
== END 2024-03-21 13:09 | disposition home or self-care (01) ==
PROVIDERS: PCP Internal Medicine; Visit Provider Nurse Practitioner Psychiatric/Mental Health
DX: F11.90 Opioid use, unspecified, uncomplicated (principal)
CPT/HCPCS: 99214

== ENCOUNTER → 2024-03-21 11:30 | Outpatient (BNVA) | payer OTHER, SELFPAY | PROVIDERS: PCP Internal Medicine; Visit Provider Nurse Practitioner Psychiatric/Mental Health | DX: F11.20 Opioid dependence, uncomplicated (principal); Z59.01 Sheltered homelessness; Z79.899 Other long term (current) drug therapy | CPT/HCPCS: 99212 ==

== ENCOUNTER 2024-04-11 11:13 | Outpatient (AMB) | payer OTHER, SELFPAY ==
--- NOTE | 2024-04-11 11:30 | MHC.AM.SUB ---
Intake Visit Reasons: MAT Visit Allergies No Known Allergies Allergy (Verified 01/09/24 14:09) HPI HPI MAT Visit: Details: Patient presents for follow up Continues to do well with recovery--still living at sober house and working PCP will no longer fill meds He was unable to establish care with providers due to house meetings and work He reports that AH are well managed with zyprexa requesting to increase gabapentin to 800mg --currently at 600mg PFSH Medical History PTSD (post-traumatic stress disorder) MDD (major depressive disorder), recurrent episode, moderate Anxiety and depression Surgical History H/O right nephrectomy H/O kidney removal Social History Household Members: None Household Members Other:: Sister Housing: Homeless Do you presently have visiting nurse or other home services: No Unable to assess alcohol history related to: Refusing to respond Alcohol intake: never Patient Tobacco Use Status: Current everyday Tobacco user Tobacco use type: Cigarette Cigarette Packs Per Day: 1 Cigarettes Per Day: 20.0 Years Smoked: 15 e-Cigarette/Vaping Use: Currently Using Second Hand Smoke Exposure: No Substance Use Type: Crack/Cocaine and Heroin service: No Current occupational status: unemployed Sexual orientation: Straight/Heterosexual Review of Systems Const Reports as per HPI and Reports no additional complaints Physical Exam Const General: cooperative, healthy appearing and no acute distress Nutritional Appearance: well nourished Orientation/consciousness: patient oriented x3 Limitations: no limitations Neuro General: patient oriented x3 Psych Appearance: well kempt Speech and movement: Normal speech and movement present Affect: normal affect Attitude: cooperative Thought process: Normal thought process present Thought content: Normal thought content present Insight: Good insight present (Psych) Judgement: Good judgement present (Psych) Assessment & Plan Assessment & Plan (1) Opioid use disorder: Code(s): F11.90 - Opioid use, unspecified, uncomplicated Category: Medical Plan: relapse prevention discussion refilled psychiatric medications resource recovery specialist information provided Medications: New olanzapine (Zyprexa) 10 mg PO BEDTIME 90 tabs 0RF Changed From mirtazapine 15 mg PO BEDTIME 30 days PRN 30 tabs 0RF insomnia To mirtazapine 15 mg PO BEDTIME PRN 90 tabs 0RF insomnia Refilled hydroxyzine pamoate 50 mg PO Q8H PRN 90 caps 0RF anxiety 30 days clonidine HCl 0.1 mg PO TID 90 tabs 2RF anxiety 30 days
== END 2024-04-11 11:43 | disposition home or self-care (01) ==
PROVIDERS: PCP Internal Medicine; Visit Provider Nurse Practitioner Psychiatric/Mental Health
DX: F11.90 Opioid use, unspecified, uncomplicated (principal)
CPT/HCPCS: 99214

== ENCOUNTER → 2024-04-11 11:13 | Outpatient (BNVA) | payer OTHER, SELFPAY | PROVIDERS: PCP Internal Medicine; Visit Provider Nurse Practitioner Psychiatric/Mental Health | DX: F11.20 Opioid dependence, uncomplicated (principal) | CPT/HCPCS: 99212 ==

== ENCOUNTER 2024-05-09 10:33 | Outpatient (AMB) | payer OTHER, SELFPAY ==
--- NOTE | 2024-05-09 11:06 | A.OFFVISCC_ITS ---
Intake Visit Reasons: MAT Visit Allergies No Known Allergies Allergy (Verified 01/09/24 14:09) HPI HPI MAT Visit: Details: Patient presents for follow up Currently prescribed suboxone and baclofen increase in cravings for cocaine since working in [employer] will increase baclfoen encouraged to talk to house staff [facility] Medical History PTSD (post-traumatic stress disorder) MDD (major depressive disorder), recurrent episode, moderate Anxiety and depression Surgical History H/O right nephrectomy H/O kidney removal Social History Household Members: None Household Members Other:: Sister Housing: Homeless Do you presently have visiting nurse or other home services: No Unable to assess alcohol history related to: Refusing to respond Alcohol intake: never Patient Tobacco Use Status: Current everyday Tobacco user Tobacco use type: Cigarette Cigarette Packs Per Day: 1 Cigarettes Per Day: 20.0 Years Smoked: 15 e-Cigarette/Vaping Use: Currently Using Second Hand Smoke Exposure: No Substance Use Type: Crack/Cocaine and Heroin service: No Current occupational status: unemployed Sexual orientation: Straight/Heterosexual Review of Systems Const Reports as per HPI Physical Exam Const General: cooperative, healthy appearing and no acute distress Nutritional Appearance: well nourished Orientation/consciousness: patient oriented x3 Limitations: no limitations Neuro General: patient oriented x3 Psych Appearance: well kempt Speech and movement: Normal speech and movement present Affect: normal affect Attitude: cooperative Thought process: Normal thought process present Thought content: Normal thought content present Insight: Good insight present (Psych) Judgement: Good judgement present (Psych) Assessment & Plan Assessment & Plan (1) Opioid use disorder: Code(s): F11.90 - Opioid use, unspecified, uncomplicated Category: Medical Plan: * continue suboxone at current dose (2) Cocaine use disorder, severe, dependence: Code(s): F14.20 - Cocaine dependence, uncomplicated Category: Medical Plan: * increase baclofen to 15mg BID * relapse prevention discussion * follow up 3 weeks Medications: Changed From baclofen 10 mg PO BID 30 days 60 tabs 3RF To baclofen 15 mg (1.5 x 10 mg) PO BID 45 tabs 3RF 30 days
== END 2024-05-09 11:40 | disposition home or self-care (01) ==
PROVIDERS: PCP Internal Medicine; Visit Provider Nurse Practitioner Psychiatric/Mental Health
DX: F11.90 Opioid use, unspecified, uncomplicated (principal); F14.20 Cocaine dependence, uncomplicated
CPT/HCPCS: 99214

== ENCOUNTER → 2024-05-09 10:33 | Outpatient (BNVA) | payer OTHER, SELFPAY | PROVIDERS: PCP Internal Medicine; Visit Provider Nurse Practitioner Psychiatric/Mental Health | DX: F14.20 Cocaine dependence, uncomplicated (principal); F11.20 Opioid dependence, uncomplicated; Z79.899 Other long term (current) drug therapy | CPT/HCPCS: 99212 ==

== ENCOUNTER → 2024-05-15 09:06 | Outpatient (BNVA) | payer OTHER, SELFPAY | PROVIDERS: PCP Internal Medicine ==

== ENCOUNTER 2024-06-25 15:26 | Outpatient (AMB) | payer OTHER, SELFPAY ==
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
== END 2024-06-25 15:57 | disposition home or self-care (01) ==
PROVIDERS: PCP Internal Medicine; Visit Provider Nurse Practitioner Psychiatric/Mental Health
DX: F11.90 Opioid use, unspecified, uncomplicated (principal); F14.20 Cocaine dependence, uncomplicated
CPT/HCPCS: 99214

== ENCOUNTER → 2024-06-25 15:26 | Outpatient (BNVA) | payer OTHER, SELFPAY | PROVIDERS: PCP Internal Medicine; Visit Provider Nurse Practitioner Psychiatric/Mental Health | DX: F11.20 Opioid dependence, uncomplicated (principal); F14.20 Cocaine dependence, uncomplicated; Z51.81 Encounter for therapeutic drug level monitoring | CPT/HCPCS: 99212 ==

== ENCOUNTER 2024-07-26 15:54 | Outpatient (AMB) | payer OTHER, SELFPAY ==
[2024-07-26 10:59] VITALS: BP 130/70
--- NOTE | 2024-07-26 16:01 | AM.OFFVISNUR ---
Vital Signs 07/26/24 10:59 BP 130/70 Blood Pressure Location Rt radial Intake Visit Reasons: Sublocade Allergies No Known Allergies Allergy (Verified 01/09/24 14:09) Nursing Note Patient Presents for sublocade Injection. Current Dose 300mg . Given in the LLQ with no noted or stated complications. This was patients first injection with us, he did have this he states approx 2 years ago. Last appt with provider was in june , will follow up with RN in 4 weeks for injection. Will need to see provider for check in 2 months. Patient was a+o x4, in good spirits, well appearing, speaking in clear/full sentences, educated on signs and symptoms of site reaction, and verbally understands to call with any concerns or questions. Office Meds Sublocade 300 mg/1.5 mL solution,extended release subcutaneous syringe Performing Provider: Evonne Roth CNP Performing Location: [facility] Administered by: Laura Justice RN on 07/27/24 10:59 Dose Route Admin Location Dispensed Lot Number Expiration Date [facility] Family Resource Management Specialist 300 mg subcut RLQ 1.5 mL [id number] 06/01/25 [address]-3 [employer]. Assessment & Plan Assessment & Plan Orders: Orders AMB Buprenorphine Injection - Patient Supplied 07/26/24 F11.90 - Opioid use, unspecified, uncomplicated Medications: New Sublocade ER (buprenorphine) 300 mg (1.5 mL) subcut ONCE 1.5 mL 0RF NS F11.90 - Opioid use, unspecified, uncomplicated
== END 2024-07-26 16:24 | disposition home or self-care (01) ==
PROVIDERS: PCP Internal Medicine
DX: F11.90 Opioid use, unspecified, uncomplicated (principal)

== ENCOUNTER → 2024-07-26 15:54 | Outpatient (BNVA) | payer OTHER, SELFPAY | PROVIDERS: PCP Internal Medicine | DX: F11.90 Opioid use, unspecified, uncomplicated (principal); Z51.81 Encounter for therapeutic drug level monitoring | CPT/HCPCS: 96372; Q9992 ==

== ENCOUNTER → 2024-08-22 16:27 | Outpatient (BNVA) | payer OTHER, SELFPAY | PROVIDERS: PCP Internal Medicine | DX: F11.90 Opioid use, unspecified, uncomplicated (principal) | CPT/HCPCS: 96372; Q9992 ==

== ENCOUNTER 2024-09-26 09:36 | Outpatient (AMB) | payer OTHER, SELFPAY ==
[2024-09-26 09:53] VITALS: BP 140/90; PULSE 89; RESP 20; O2SAT 98
--- NOTE | 2024-09-26 09:53 | AM.OFFVISNUR ---
Vital Signs 09/26/24 09:53 BP 140/90 H Blood Pressure Location Rt brachial Position Sitting Respiration 20 Pulse 89 Pulse Source Pulse Oximeter Pulse Oximetry (%) 98 Oxygen Delivery Method Room Air Intake Visit Reasons: Sublocade Allergies No Known Allergies Allergy (Verified 01/09/24 14:09) Nursing Note Patient Presents for sublocade Injection. Current Dose 300mg. Given in the RLQ with no noted or stated complications. Denies any issues with previous injection. Denies symptoms, and denies any break through cravings. Will follow up with RN in 4 weeks for injection. Office Meds Sublocade 300 mg/1.5 mL solution,extended release subcutaneous syringe Performing Provider: Evonne Roth CNP Performing Location: [facility] Administered by: Laura Justice RN on 09/26/24 12:47 Dose Route Admin Location Dispensed Lot Number Expiration Date [facility] Windows Systems Architect 300 mg subcut RLQ 1.5 mL [id number] 07/01/25 [address]-7 Company. Assessment & Plan Assessment & Plan Orders: Orders AMB Buprenorphine Injection - Patient Supplied Today F11.90 - Opioid use, unspecified, uncomplicated Medications: New Sublocade ER (buprenorphine) 300 mg (1.5 mL) subcut ONCE 1.5 mL 0RF NS F11.90 - Opioid use, unspecified, uncomplicated Coding
--- OUTSIDE RECORDS SUMMARY | 2024-09-26 10:58 | XMS_ITS | Clinical Summary ---
Author Organization [employer] Address [address] [place] [address] Care Team Providers Care Dispatcher Automobile Rental Name Role Phone Unavailable Primary Care Provider Unavailabl e Social History Tobacco Use Types Packs/Day Years Used Date Smoking Tobacco: Never Assessed Sex and Gender Information Value Date Recorded Sex Assigned at Male 12/08/2023 10:47 AM EDT Legal Sex Male 10:46 AM EDT Gender Identity Not on file Sexual Orientation Not on file Plan of Treatment Health Maintenance Due Date Last Done Comments Depression Screening 1989 HIV Screening 1989 Lipid Panel 1989 SDOH Screening 1989 Alcohol/Substance Use Screening 2001 Tobacco Screening 2001 Family Planning (PISQ) 2004 Hepatitis C Screening 2007 DTaP/Tdap/Td Vaccines (1 - Tdap) 2008 Hepatitis B Vaccines (1 of 3 - 19+ 3-dose series) 2008 COVID-19 Vaccine ( - 2023-2 5 season) 2024 Influenza Vaccine (#1) 2024 Zoster Vaccines (1 of 2) 2039 RSV Patients and Pa tients Aged 60 years or older (1 - 1-dose 75+ series) 2064 HIB Vaccines Aged Out No longer eligi ble based on patient's age to complete this topic HPV Vaccines Aged Out No longer eligi ble based on patient's age to complete this topic Hepatitis A Vaccines Aged Out No long er eligible based on patient's age to complete this topic IPV Vaccines Aged Out No longer eligi ble based on patient's age to complete this topic Meningococcal Vaccine Aged Out No syl chris eligible based on patient's age to complete this topic Pneumococcal Vaccine: Pediat rics (0 to 5 Years) and At-Risk Patients (6 to 49) Years) Aged Out No longer eligible b ased on patient's age to complete this topic RSV under 20 months Aged Out No longe r eligible based on patient's age to complete this topic Rotavirus Vaccines Aged Out No longer eligible based on patient's age to complete this topic
--- OUTSIDE RECORDS SUMMARY | 2024-09-26 10:58 | XMS_ITS | Encounter Summary ---
Author Organization [facility] Address [address] [place] [address] Phone Care Team Providers Care Advance Seal Delivery System Maintainer Name Role Phone Tianna Pagan MD Primary Care Provider [phone] Encounter Details Date Type Department Care Team (Late st Contact Info) Description 03/17/2017 Conversion Encounter [facility] [place] [address] [place] [address] Social History Tobacco Use Types Packs/Day Years Used Date Smoking Tobacco: Never Assessed Sex and Gender Information Value Date Recorded Sex Assigned at Not on file Legal Sex Male 4:11 PM EDT Gender Identity Not on file Sexual Orientation Not on file documented as of this encounter Plan of Treatment Not on file documented as of this encounter Visit Diagnoses Not on filedocumented in this encounter Care Teams Advance Seal Delivery System Maintainer Relationship Specialty Start Date End Date Tianna Pagan MD [address] [facility] [place] [address] PCP - General 03/11/17 11/21/22 documented as of this encounter
--- OUTSIDE RECORDS SUMMARY | 2024-09-26 10:58 | XMS_ITS | Clinical Summary ---
Author Organization [facility] Address [address] [place] [address] Care Team Providers Care Wellness Nurse Rn Name Role Phone Unavailable Primary Care Provider Unavailabl e Social History Tobacco Use Types Packs/Day Years Used Date Smoking Tobacco: Never Assessed Sex and Gender Information Value Date Recorded Sex Assigned at Not on file Legal Sex Male 8:04 PM EDT Gender Identity Not on file Sexual Orientation Not on file Plan of Treatment Health Maintenance Due Date Last Done Comments DTaP,Tdap,and Td Vaccines (1 - Tdap) 2008 Hepatitis B Vaccines (1 of 3 - 19+ 3-dose series) 2008 COVID-19 Vaccine (2023-2 5 season) 2024 Influenza Vaccine (#1) 2024 Cholesterol Screening (Lipid Panel) 06/02/2024 Depression Screening 06/02/2024 HIV Screening 06/02/2024 Hepatitis C Screening 06/02/2024 Social Influencers of Health Screening 06/02/2024 HIB Vaccines Aged Out No longer eligi [...] on patient's age to complete this topic MMR Vaccines Aged Out No longer eligi ble based on patient's age to complete this topic Meningococcal ACWY Vaccine Aged Out N o longer eligible based on patient's age to complete this topic Meningococcal B Vacine Aged Out No lo nger eligible based on patient's age to complete this topic Pneumococcal Vaccine: Pediat rics (0 to 5 Years) and At-Risk Patients (6 to 64 Years) Aged Out No longer eligible b ased on patient's age to complete this topic RSV Immunization Patients Un jayesh 20 months Aged Out No longer eligible b ased on patient's age to complete this topic Varicella Vaccines Aged Out No longer eligible based on patient's age to complete this topic
--- OUTSIDE RECORDS SUMMARY | 2024-09-26 10:58 | XMS_ITS | Clinical Summary ---
Author Organization [facility] Address [address] [place] [id number] Phone Care Team Providers Care Demo Event Specialist Name Role Phone Unavailable Primary Care Provider Unavailabl e Immunizations Immunization Administration Dates Next Due DTP 01/18/1994, 1,02/21/1990,1989,1989 Hep B, ped/adol 09/07/1999,05/06/1999,03/26/1999 Hib (PRP-T) 11/29/1990 MMR 11/23/1994,09/29/1990 OPV 01/18/1994, 1,11/29/1990,1989,1989 Td (adult) (Tenivac), 5 Lf t etanus toxoid, PF, adsorbed 05/06/1999 Family History Relation Name Status Comments Brother Alive Brother: Alive and well Father Alive Father: Alive a nd well Mother Alive Mother: Obesity Other No family histo ry of Migraines, No family history of Asthma, No family history of Diabetes mellitus, No family history of Strabismus/amblyopia, No family history of Autism, No family history of Developmental dislocation of hip, , No family history of Elevated cholesterol, No family history of ADD/ADHD, No family history of Seizure disorder, No family history of Sudden /AR under age 55, No family history of Deafness Sister 1 Alive Sister: Alive a nd well, Alive and well Sister 2 Alive Sister: Alive a nd well, Alive and well Social History Tobacco Use Types Packs/Day Years Used Date Smoking Tobacco: Never Assessed Sex and Gender Information Value Date Recorded Sex Assigned at Not on file Legal Sex Male 4:11 PM EDT Gender Identity Not on file Sexual Orientation Not on file Plan of Treatment Health Maintenance Due Date Last Done Comments DTaP,Tdap,and Td Vaccines (6 - Tdap) 2000 05/06/1999, 01/18/1994, 11/29/1990, Additional history exists Varicella Vaccines (1 of 2 - 13+ 2-dose series) 2002 Influenza Vaccines (#1) 2024 COVID-19 Vaccine (2023- season) 2024 HIB Vaccines Completed 11/29/1990 IPV Vaccines Completed 01/18/1994, 08/1990, 11/29/1990, Additional history exists MMR Vaccines Completed 11/23/1994, 09/29/1990 Hepatitis B Vaccines Completed 09/07/1999, 05/06/1999, 03/26/1999 HPV Vaccines Aged Out No longer eligi ble based on patient's age to complete this topic Hepatitis A Vaccines Aged Out No long er eligible based on patient's age to complete this topic Men B Vaccine Aged Out No longer elig ible based on patient's age to complete this topic Meningococcal Vaccine Aged Out No syl chris eligible based on patient's age to complete this topic Pneumococcal Vaccine Aged Out No long er eligible based on patient's age to complete this topic
== END 2024-09-26 10:10 | disposition home or self-care (01) ==
PROVIDERS: PCP Internal Medicine
DX: F11.90 Opioid use, unspecified, uncomplicated (principal)

== ENCOUNTER → 2024-09-26 09:36 | Outpatient (BNVA) | payer OTHER, SELFPAY | PROVIDERS: PCP Internal Medicine | DX: F11.90 Opioid use, unspecified, uncomplicated (principal) | CPT/HCPCS: 96372; Q9992 ==

== ENCOUNTER 2024-11-02 08:53 | Outpatient (AMB) | payer OTHER, SELFPAY ==
--- NOTE | 2024-11-02 09:14 | AM.OFFVISNUR ---
Vital Signs 11/02/24 09:15 BP 132/70 Blood Pressure Location Rt radial Position Sitting Intake Visit Reasons: Injection Allergies No Known Allergies Allergy (Verified 01/09/24 14:09) Nursing Note Patient Presents for sublocade Injection. Current Dose 300mg . Given in the LLQ with no noted or stated complications. Denies any issues with previous injection. Denies symptoms, and denies any break through cravings. Will follow up with RN in 4 weeks for injection. Will need to see provider for check in November . Patient was just recently discharged from [facility], is currently at the [facility], and plans to go to a half way house from there. Office Meds Sublocade 300 mg/1.5 mL solution,extended release subcutaneous syringe Performing Provider: Evnone Roth CNP Performing Location: [facility] Administered by: Laura Justice RN on 11/02/24 09:19 Dose Route Admin Location Dispensed Lot Number Expiration Date [facility] [employer] 300 mg subcut LLQ 1.5 mL [id number] 07/01/25 [address]-6 [employer] Assessment & Plan Assessment & Plan Orders: Orders AMB Buprenorphine Injection - Patient Supplied Today F11.90 - Opioid use, unspecified, uncomplicated Medications: New Sublocade ER (buprenorphine) 300 mg (1.5 mL) subcut ONCE 1.5 mL 0RF NS F11.90 - Opioid use, unspecified, uncomplicated Coding
[2024-11-02 09:15] VITALS: BP 132/70
--- OUTSIDE RECORDS SUMMARY | 2024-11-02 09:26 | XMS_ITS | Clinical Summary ---
Author Organization [employer] Address [address] [facility] [address] [place] [address] Care Team Providers Care Metal Lather Name Role Phone Unavailable Primary Care Provider [...]
--- OUTSIDE RECORDS SUMMARY | 2024-11-02 09:26 | XMS_ITS | Clinical Summary ---
Author Organization [facility] Address [address] [place] [address] Care Team Providers Care Assistant Loan Processor Name Role Phone Unavailable Primary Care Provider [...]
--- OUTSIDE RECORDS SUMMARY | 2024-11-02 09:26 | XMS_ITS | Encounter Summary ---
Author Organization [facility] Address [address] [place] [address] Phone Care Team Providers Care Optical Laboratory Mechanic Name Role Phone Tianna Pagan MD Primary Care Provider Encounter Details Date Type Department Care Team (Late st Contact Info) Description 03/17/2017 Conversion Encounter [facility] [place] [address] [place] [address] Social History Tobacco Use Types Packs/Day Years [...] on filedocumented in this encounter Care Teams Optical Laboratory Mechanic Relationship Specialty Start Date End Date Tianna Pagan MD [address] [facility] [place] [address] PCP - General 03/11/17 11/21/22 documented as of this encounter
--- OUTSIDE RECORDS SUMMARY | 2024-11-02 09:26 | XMS_ITS | Clinical Summary ---
Author Organization [facility] Address [address] [place] [phone] Phone Care Team Providers Care Bank President Name Role Phone Unavailable Primary Care Provider [...] Seizure disorder, No family history of Sudden /PR under age 55, No family history of [...]
== END 2024-11-02 09:16 | disposition home or self-care (01) ==
LOC: HO.HCC 08:53
PROVIDERS: PCP Internal Medicine
DX: F11.90 Opioid use, unspecified, uncomplicated (principal)

== ENCOUNTER → 2024-11-02 08:53 | Outpatient (BNVA) | payer OTHER, SELFPAY | PROVIDERS: PCP Internal Medicine | DX: F11.20 Opioid dependence, uncomplicated (principal) | CPT/HCPCS: 96372; Q9992 ==

== ENCOUNTER 2024-11-26 07:56 | Inpatient (IN) | payer OTHER, SELFPAY ==
--- NOTE | 2024-11-26 | ECG_ITS ---
Test Reason : cp Blood Pressure : */* mmHG Vent. Rate : 64 BPM Atrial Rate : 64 BPM P-R Int : 154 ms QRS Dur : 94 ms QT Int : 416 ms P-R-T Axes : 68 76 54 degrees QTcB Int : 429 ms Normal sinus rhythm Normal ECG When compared with ECG of 10-Jan-2024 09:35, Vent. rate has decreased by 36 bpm Referred By: Augustin Solomon Electronically Signed By: Peter Winston
[2024-11-26 07:59] VITALS: BP 135/82; PULSE 82; RESP 16; TEMP 36.7; O2SAT 99; BMI 36.0
--- OUTSIDE RECORDS SUMMARY | 2024-11-26 09:01 | XMS_ITS | Clinical Summary ---
Author Organization [facility] Address [address] [place] [id number] Phone Care Team Providers Care Director Airport Name Role Phone Unavailable Primary Care Provider [...] Seizure disorder, No family history of Sudden /[place] under age 55, No family history of [...]
--- OUTSIDE RECORDS SUMMARY | 2024-11-26 09:01 | XMS_ITS | Clinical Summary ---
Author Organization [employer] Address [address] [facility] [address] [place] [address] Care Team Providers Care Chimney Construction Supervisor Name Role Phone Unavailable Primary Care Provider [...]
--- OUTSIDE RECORDS SUMMARY | 2024-11-26 09:01 | XMS_ITS | Clinical Summary ---
Author Organization [facility] Address [address] [place] [address] Care Team Providers Care Stock Repairer Name Role Phone Unavailable Primary Care Provider [...] 2008 COVID-19 Vaccine (2023-2 5 season) 2024 Cholesterol Screening (Lipid Panel) 06/02/2024 Depression Screening 06/02/2024 HIV Screening 06/02/2024 Hepatitis C Screening 06/02/2024 Social Influencers of Health Screening 06/02/2024 Influenza Vaccine (Season Ended) 2025 HIB Vaccines Aged Out No longer eligi [...] age to complete this topic Meningococcal B Vaccine Aged Out No l onger eligible based on patient's age to complete [...]
--- OUTSIDE RECORDS SUMMARY | 2024-11-26 09:01 | XMS_ITS | Encounter Summary ---
Author Organization [facility] Address [address] [place] [address] Phone Care Team Providers Care Gum Puller Name Role Phone Tianna Pagan MD Primary Care Provider Encounter Details Date Type Department Care Team (Late st Contact Info) Description 03/17/2017 Conversion Encounter [facility] [place] [address] [place] [address] Social History Tobacco Use Types Packs/Day Years [...] on filedocumented in this encounter Care Teams Gum Puller Relationship Specialty Start Date End Date Tianna Pagan MD [address] [facility] [place] [address] PCP - General 03/11/17 11/21/22 documented as of this encounter
[2024-11-26 09:06] LABS: MANUAL DIFF FLAG NO
[2024-11-26 09:10] LABS: Basophils Absolute Auto 0.1 X10*3/uL (0.0-0.2); Basophils Percent Auto 1.1 % (0-2); Eosinophils Absolute Auto 0.2 X10*3/uL (0.0-0.4); Eosinophils Percent Auto 3.6 % (0-4); Hematocrit 39.3 % (42.0-52.0); Hemoglobin 13.4 g/dl (14.0-18.0); Imm Gran Abs Auto 0.01 X10*3/uL (0.00-0.03); Imm Gran Pct Auto 0.2 % (0.0-0.4); Lymphocytes Absolute Auto 1.7 X10*3/uL (1.2-4.9); Lymphocytes Percent Auto 31.9 % (20-40); Mean Corpuscular HGB Conc 34.1 g/dl (31.0-36.0); Mean Corpuscular Hemoglobin 30.8 pg (27.0-33.0); Mean Corpuscular Volume 90.3 fL (80.0-98.0); Mean Platelet Volume 9.7 fL (9.4-12.4); Monocytes Absolute Auto 0.4 X10*3/uL (0.1-1.2); Monocytes Percent Auto 7.9 % (2-11); Neutrophils Percent Auto 55.3 % (45-73); Platelet Count 237 X10*3/uL (160-400); Red Blood Count 4.35 X10*6/uL (4.60-5.80); Red Cell Distribution Width 11.4 % (11.0-16.0); White Blood Count 5.3 X10*3/uL (4.8-10.8)
[2024-11-26 09:24] LABS: Alanine Aminotransferase 22 U/L (0-40); Albumin Level 3.9 g/dL (3.5-5.0); Alkaline Phosphatase 117 U/L (39-117); Anion Gap 8 (12-20); Aspartate Amino Transferase 32 U/L (5-37); Bilirubin Direct 0.2 mg/dL (0.0-0.5); Bilirubin Total 0.8 mg/dL (0.0-1.0); Blood Urea Nitrogen 14 mg/dL (9-16); Carbon Dioxide 30 mmol/L (22-29); Chloride 108 mmol/L (96-108); Creatinine Clr Calc Pharmacy 113.6; Estimated Glomerular Filt Rate > 60; Ethanol < 10 mg/dL; Glucose Random 92 mg/dL (60-115); Lipase 17 U/L (8-78); Potassium 3.8 mmol/L (3.3-5.1); Sodium 142 mmol/L (135-145)
--- NOTE | 2024-11-26 09:41 | ED_ITS ---
HPI - Psych General Chief Complaint: Psychiatric Symptoms Stated Complaint: SI Time Seen by Provider: 11/26/24 09:01 Source: patient and RN notes reviewed Mode of arrival: ambulatory Limitations: no limitations History of Present Illness ED Provider: Macrina Gaines PA-C HPI Narrative: This is a 34-year-old male, with a past medical history of MDD, PTSD, and polysubstance abuse, who presents emergency department with concerns for suicidal thoughts. Patient was discharged from [place] several days ago and was not discharges with the medication that he was previously on. He states that over the last several days he has had suicidal thoughts and homicidal thoughts. No specific plan. He denies any alcohol or drug use. Denies any physical complaints, denies any chest pain, shortness of breath, headaches, abdominal pain, nausea, vomiting or diarrhea. No other complaints or concerns at this time. MD complaint: suicidal ideation and homicidal ideation Related Data Home Medications ?Medication ?Instructions ?Recorded ?Confirmed acamprosate 333 mg tablet,delayed 666 mg PO TID 11/26/24 11/26/24 release duloxetine 20 mg capsule,delayed 20 mg PO BID 11/26/24 11/26/24 release buprenorphine 8 mg-naloxone 2 mg 1 film sublingual TID 11/27/24 11/27/24 sublingual film (Suboxone) Previous Rx's ?Medication ?Instructions ?Recorded gabapentin 600 mg tablet 600 mg PO TID 30 days #90 tabs 01/23/24 hydroxyzine pamoate 50 mg capsule 50 mg PO Q8H PRN anxiety 30 days 04/11/24 #90 caps buprenorphine 300 mg/1.5 mL 300 mg (1.5 mL) subcut .q 4 weeks 06/27/24 solution,exten.rel.subcutaneous #1.5 mL syringe (Sublocade) olanzapine 10 mg tablet 10 mg PO BEDTIME #90 tabs 08/16/24 clonidine HCl 0.1 mg tablet 0.1 mg PO TID anxiety 30 days #90 08/30/24 tabs mirtazapine 15 mg tablet 15 mg PO BEDTIME PRN for insomnia 10/19/24 #30 tabs Allergies Allergy/AdvReac Type Severity Reaction Status Date / Time No Known Allergies Allergy Verified 11/26/24 07:59 Review of Systems 2 Review of Systems: Constitutional: No Weight loss, No Fever, No Chills, No Night Sweats, No Fatigue, No Malaise ENT/Mouth: No Hearing loss, No Ear Pain, No Nasal Congestion, No Sinus Pain, No Hoarseness, No sore throat, No Rhinorrhea, No Swallowing Difficulty Eyes: No Eye Pain, No Swelling, No Redness, No Foreign Body, No Discharge, No Vision Changes Cardiovascular: No Chest Pain, No SOB, No Dyspnea on Exertion, No Orthopnea, No Edema, No Palpitations Respiratory: No Cough, No Sputum, No Wheezing, No Smoke Exposure, No Dyspnea Gastrointestinal: No Nausea, No Vomiting, No Diarrhea, No Constipation, No Abdominal pain, No Hematochezia, No Melena Genitourinary: No irregular bleeding, No Dysuria, No Urinary Frequency, No Hematuria, No Urinary Incontinence/retention, No Urgency, No Flank Pain, No Urinary Flow Changes, No Hesitancy Musculoskeletal: No joint pain, No Myalgias, No Joint Swelling Skin: No Skin Lesions, No rash Neuro: No Weakness, No Numbness, No Paresthesias, No Loss of Consciousness, No Dizziness, No Headache Psych: No Anxiety/Panic, + Depression, + SI/HI Heme/Lymph: No Bruising, No Bleeding,No Lymphadenopathy Endocrine: No Polyuria, No Polydipsia, No Temperature Intolerance Yes all other systems are reviewed and are negative Constitutional: Constitutional: Reports as per [facility] Past Medical History Medical History PTSD (post-traumatic stress disorder) MDD (major depressive disorder), recurrent episode, moderate Anxiety and depression Surgical History H/O right nephrectomy H/O kidney removal Social History Social History Household Members: None Household Members Other:: Sister Housing: Homeless Do you presently have visiting nurse or other home services: No Unable to assess alcohol history related to: Refusing to respond Alcohol intake: never Patient Tobacco Use Status: Current everyday Tobacco user Tobacco use type: Cigarette Cigarette Packs Per Day: 1 Cigarettes Per Day: 20.0 Years Smoked: 15 Smoked in Last 30 Days: Yes e-Cigarette/Vaping Use: Former Use Patient Interested in Nicotine Replacement: Yes Patient Given Instructions on How to Stop Smoking: Yes Date Education Initiated: 11/27/24 Second Hand Smoke Exposure: Yes Use of substances other than those prescribed or required for medical reasons: Yes Substance Use Type: Crack/Cocaine Substance Use Frequency: Weekly Last Used Substance: Just Prior to Admission Currently Displaying Signs/Symptoms of Drug Intoxication Withdrawal: No Any prior treatment program specific to substance use: Yes Have you been hit, kicked, punched, or otherwise hurt by someone within the past year? If so, by whom?: No Do you feel safe in your current relationship?: No Current Relationship Is there a partner from a previous relationship who is making you feel unsafe now?: No Are you made to feel afraid or neglected: No Advance Directives: No Advance Directives Information Provided: Yes Do you have thoughts of harming others: None Do you have a plan to hurt others: No Plan Recently lost weight without trying: No How much weight loss: Not applicable Eating poorly because of decreased appetite: No Nutrition screen score: 0 Nutrition Risks: No Nutritional Risk Poor oral hygiene: No service: No Current occupational status: unemployed Sexual orientation: Straight/Heterosexual Physical Exam 2 Vital Signs: Vital Signs: Last Vital Signs Temp 98.1 F 11/29/24 08:11 Pulse 82 11/29/24 08:11 Resp 14 11/28/24 19:46 BP 143/68 H 11/29/24 08:11 Pulse Ox 98 11/29/24 08:11 O2 Del Method Room Air 11/29/24 08:11 BMI result Body Mass Index 36.0 Const: General: cooperative, comfortable and no acute distress O rientation/consciousness: patient oriented x3 Limitations: no limitations HEENT: Head: Yes normal to inspection, Yes normocephalic and Yes atraumatic Ears: hearing grossly normal bilaterally General nose exam: Normal external nose present Face and sinus: Yes normal facial exam Mouth: Normal oral and palatal mucosa present, oropharynx normal and moist mucous membranes Throat: Yes posterior oropharynx normal Eyes: General: appearance normal, both eyes and all related structures E yelids: Yes eyelids normal Conjunctivae: conjunctivae normal Sclerae: s clerae normal Pupils: Equal, round and reactive pupils present EOM: EOMs intact bilaterally Neck: Neck: Yes normal visual inspection, Yes full ROM and Yes no lymphadenopathy Lymphatic: no lymphadenopathy noted Chest: Chest palpation & inspection: normal inspection of the chest Resp: Effort & Inspection: normal respiratory effort and able to speak in complete sentences Auscultation: clear to auscultation bilaterally, no crackles, no rales, no rhonchi and no wheezes Cardio: Rate: regular rate Rhythm: regular rhythm Heart sounds: S1 normal heart sound present and S2 normal heart sound present GI: Inspection: Yes normal to inspection Skin: General skin exam: no rashes or lesions noted Trauma: no lacerations or abrasions Wounds: no wounds Neuro: General: patient oriented x3 and moves all extremities Cranial nerves: Yes Equal, round and reactive pupils present Extrem: General: Yes normal to inspection Right upper extremity: normal to inspection Left upper extremity: normal to inspection Right lower extremity: normal to inspection Left lower extremity: normal to inspection Course Reevaluation(s) Reevaluation #1: Labs returned, patient has no leukocytosis, normocytic anemia with an H&H of 13.4/39, chemistry with no significant electrolyte derangement. Urine does not appear to be infected, viral swabs negative. Awaiting care team consultation. Physician observation initiated. Time: 10:38 Reevaluation #2: Patient will be made a bed search. Time: 12:43 Reevaluation #3: Time: 06:43 Date: 11/27/24 Provider: Bernadette Anderson DO Patient in physician observation for psychiatric evaluation.? No acute events reported overnight. No current complaints. VS stable.? Patient is in bed search status. Will continue to monitor. Additional Reevaluation(s): Time: 12:30 Date: 11/27/24 Provider: Bernadette Anderson DO Physician observation ended at 1230. Patient to be admitted as inpatient to psychiatry. Medications Administered Generic Name Dose Route Start Last Admin Trade Name Freq PRN Reason Stop Dose Admin Acamprosate 666 mg 11/26/24 15:00 11/29/24 08:58 Acamprosate Calcium 333 Mg Tablet. PO 666 mg TID SHAILESH Administration Acetaminophen 650 mg 11/27/24 11:50 11/28/24 17:35 Acetaminophen 325 Mg Tablet PO 650 mg Q6H PRN Administration Headache/Pain, Scale 1-10 Buprenorphine/Naloxone 1 film 11/27/24 15:00 11/29/24 08:58 Buprenorphine/Naloxone 8/2 Mg Film SUBLINGUAL 1 film TID SHAILESH Administration Clonidine HCl 0.1 mg 11/28/24 13:43 11/29/24 09:02 Clonidine Hcl 0.1 Mg Tablet PO 0.1 mg BID PRN Administration Anxiety Protocol Duloxetine HCl 20 mg 11/26/24 21:00 11/29/24 08:58 Duloxetine Hcl 20 Mg Capsule.Dr PO 20 mg BID SHAILESH Administration Gabapentin 600 mg 11/26/24 15:00 11/29/24 08:58 Gabapentin 600 Mg Tablet PO 600 mg TID SHAILESH Administration Hydroxyzine HCl 50 mg 11/26/24 12:39 11/29/24 10:20 Hydroxyzine Hcl 50 Mg Tablet PO 50 mg Q8H PRN Administration anxiety Mirtazapine 15 mg 11/26/24 12:39 11/26/24 21:02 Mirtazapine 15 Mg Tablet PO 15 mg BEDTIME PRN Administration for insomnia Olanzapine 10 mg 11/26/24 21:00 11/28/24 20:48 Olanzapine 10 Mg Tablet PO 10 mg BEDTIME SHAILESH Administration Discontinued Medications Generic Name Dose Route Start Last Admin Trade Name Freq PRN Reason Stop Dose Admin Buprenorphine/Naloxone 1 film 11/27/24 09:00 11/27/24 08:55 Buprenorphine/Naloxone 8/2 Mg Film SUBLINGUAL 1 film DAILY SHAILESH Administration Buspirone HCl 10 mg 11/28/24 21:00 11/29/24 08:58 Buspirone Hcl 10 Mg Tablet PO 10 mg BID SHAILESH Administration Clonidine HCl 0.1 mg 11/26/24 15:00 11/28/24 08:16 Clonidine Hcl 0.1 Mg Tablet PO 0.1 mg TID SHAILESH Administration Protocol Medical Decision Making Medical Decision Making [facility] Narrative: This is a 34-year-old male who presents emergency department with complaints of suicidal and homicidal ideation. On arrival, vital signs within normal limits, he is speaking full sentences under no acute distress. He does endorse suicidal homicidal ideation without a plan. Recent discharge from [place] several days ago. He was discharged without his medications. No current physical ailments. Will obtain labs, UA, U tox, and viral swabs. Differential Diagnosis Differential Diagnoses: The differential diagnosis associated with the presentation includes Depression, anxiety, suicidal ideation, homicidal ideation Lab Data [facility] Lab Attestation statement: I reviewed the patient's lab results. No leukocytosis, normocytic anemia with an H&H of 13.4/39.3 chemistry with no significant electrolyte derangement. Ethyl alcohol less than 10. 11/26/24 09:00 11/26/24 09:00 Labs: Lab Results 11/26/24 11/26/24 11/26/24 Range/Units 08:57 09:00 09:54 WBC 5.3 (4.8-10.8) X10*3/uL RBC 4.35 L (4.60-5.80) X10*6/uL Hgb 13.4 L (14.0-18.0) g/dl Hct 39.3 L (42.0-52.0) % MCV 90.3 (80.0-98.0) fL MCH 30.8 (27.0-33.0) pg MCHC 34.1 (31.0-36.0) g/dl RDW 11.4 (11.0-16.0) % Plt Count 237 (160-400) X10*3/uL MPV 9.7 (9.4-12.4) fL Immature Gran % (Auto) 0.2 (0.0-0.4) % Neut % (Auto) 55.3 (45-73) % Lymph % (Auto) 31.9 (20-40) % [place] % (Auto) 7.9 (2-11) % Eos % (Auto) 3.6 (0-4) % Baso % (Auto) 1.1 (0-2) % Lymph # (Auto) 1.7 (1.2-4.9) X10*3/uL [place] # (Auto) 0.4 (0.1-1.2) X10*3/uL Eos # (Auto) 0.2 (0.0-0.4) X10*3/uL Baso # (Auto) 0.1 (0.0-0.2) X10*3/uL Abs Immat Gran (auto) 0.01 (0.00-0.03) X10*3/uL Absolute Neuts (auto) 3.0 (2.0-8.3) x10*3/uL Absolute Nucleated RBC 0.000 (0.0-0.012) X10*3/uL Nucleated RBC % (auto) 0.0 (0.0-0.2) /100WBC Sodium 142 (135-145) mmol/L Potassium 3.8 (3.3-5.1) mmol/L Chloride 108 (96-108) mmol/L Carbon Dioxide 30 H (22-29) mmol/L Anion Gap 8 L (12-20) BUN 14 (9-16) mg/dL Creatinine 1.01 (0.5-1.4) mg/dL Estim Creat Clear Calc 113.6 Estimated GFR > 60 Random Glucose 92 (60-115) mg/dL Calcium 9.0 (8.4-10.2) mg/dL Total Bilirubin 0.8 (0.0-1.0) mg/dL Direct Bilirubin 0.2 (0.0-0.5) mg/dL AST 32 (5-37) U/L ALT 22 (0-40) U/L Alkaline Phosphatase 117 (39-117) U/L Total Protein 7.0 (6.5-8.0) g/dL Albumin 3.9 (3.5-5.0) g/dL Lipase 17 (8-78) U/L Urine Color Yellow Urine Appearance Clear Urine pH 5.5 (5.0-9.0) Ur Specific [place] 1.020 (1.005-1.025) Urine Protein Negative (Neg-Trace) mg/dL Urine Glucose (UA) Negative (Negative) mg/dL Urine Ketones Negative (Negative) mg/dL Urine Blood Negative (Negative) Urine Nitrite Negative (Negative) Ur Leukocyte Esterase Negative (Negative) Urine Opiates Screen Not Detected (Not Detect) Ur Buprenorphine Scrn Positive H (Not Detect) ng/mL Ur Oxycodone Screen Not Detected (Not Detect) ng/mL Urine Methadone Screen Not Detected (Not Detect) ng/mL Urine Fentanyl Screen Not Detected (Not Detect) Ur Barbiturates Screen Not Detected (Not Detect) Ur Phencyclidine Scrn Not Detected (Not Detect) Ur Amphetamines Screen Not Detected (Not Detect) U Benzodiazepines Scrn Not Detected (Not Detect) Urine Cocaine Screen POSITIVE H (Not Detect) U Marijuana (THC) Screen Not Detected (Not Detect) Ethyl Alcohol < 10 mg/dL Influenza Type A (PCR) NEGATIVE (Negative) Influenza Type B (PCR) NEGATIVE (Negative) RSV RNA Qual (PCR) NEGATIVE (Negative) SARS-CoV-2 RNA (RT-PCR) NEGATIVE (Negative) Discharge Plan Discharge Clinical Impression: Depression, Suicidal ideation Patient Disposition: Admitted As Inpatient Interventions: Admission Worksheet (ED) Last Done: 11/27/24 12:29 Discharge Date/Time: 11/27/24 12:30
[2024-11-26 10:03] LABS: Influenza A PCR NEGATIVE (Negative); Influenza B PCR NEGATIVE (Negative); Resp Syncy Virus RNA Qual PCR NEGATIVE (Negative); SARS COV2 PCR INHOUSE NEGATIVE (Negative)
[2024-11-26 10:26] LABS: Appearance Urine Clear; Color Urine Yellow; Glucose Urine UA Negative (Negative); Leukocyte Esterase Urine Negative (Negative); Nitrite Urine Negative (Negative); PH 5.5 (5.0-9.0); Urine Blood Negative (Negative); Urine Ketones Negative (Negative); Urine Protein Negative (Neg-Trace)
[2024-11-26 10:43] LABS: Amphetamine Screen Urine Not Detected (Not Detect); Barbiturates, Urine Not Detected (Not Detect); Benzodiazepines Screen Urine Not Detected (Not Detect); Buprenorphine Scr Positive (Not Detect); Cannabinoid Screen Urine Not Detected (Not Detect); Cocaine Screen Urine POSITIVE (Not Detect); Fentanyl, urine Not Detected (Not Detect); Methadone Screen, Urine Not Detected (Not Detect); Opiate Screen Urine Not Detected (Not Detect); Oxycodone Screen Urine Not Detected (Not Detect); Phencyclidine Screen Urine Not Detected (Not Detect)
--- NOTE | 2024-11-26 12:12 | MHC.CARE ---
Pt will be a bedsearch
[2024-11-26] MEDS: cloNIDine HCL 0.1 MG TABLET PO ×2 (15:23→21:02)
[2024-11-26] MEDS: Acamprosate Calcium 333 MG TABLET.DR 666 MG PO ×2 (15:24→21:02)
[2024-11-26] MEDS: Gabapentin 600 MG TABLET PO ×2 (15:24→21:02)
[2024-11-26 18:34] VITALS: BP 115/57; PULSE 78; RESP 16; TEMP 36.6; O2SAT 100
[2024-11-26 21:02] VITALS: BP 106/66
[2024-11-26] MEDS: OLANZapine 10 MG TABLET PO (21:02)
[2024-11-26] MEDS: Mirtazapine 15 MG TABLET PO (21:02)
[2024-11-26] MEDS: DULoxetine HCl 20 MG CAPSULE.DR PO (21:02)
[2024-11-26 21:03] VITALS: BP 106/66; PULSE 75; RESP 17; TEMP 36.6; O2SAT 98
--- NOTE | 2024-11-27 05:17 | PC.NURSE ---
Patient slept through the night, no distress observed/reported, meds and meals compliant, 15 minutes safety check, no behavior and safety concerns, VSS, disposition per are team is section 12 inpatient bed search, will continue to monitor
[2024-11-27 06:00] VITALS: BP 97/64; PULSE 71; RESP 16; TEMP 36.8; O2SAT 99
--- NOTE | 2024-11-27 07:20 | PC.NURSE ---
ASSUMED CARE OF PT AT 0645. PT APPEARS TO BE RESTING COMFORTABLY. NO ACUTE CONCERNS AT THIS TIME. CONTINUE PLAN OF CARE OF INPATIENT BEDSEARCH.
--- NOTE | 2024-11-27 08:22 | PHA.MEDREC ---
Addendum entered by Kristel Lopez [facility] 11/27/24 09:55: Nurse entered home med suboxone 8 mg-2 mg films as 1 film daily but spoke to patient and he said he takes 1 films THREE TIMES A DAY (which matches with pharmacy claims). Order was changed with Dr. Gifford's approval. Original Note: Pharmacy Consult ? Medication Reconciliation Pharmacy has reviewed the medication reconciliation done by nursing. Utilized claims to confirm med list.
[2024-11-27] MEDS: Buprenorphine/Naloxone 8/2 mg FILM 1 FILM SUBLINGUAL ×3 (08:55→20:37)
[2024-11-27] MEDS: Acamprosate Calcium 333 MG TABLET.DR 666 MG PO ×3 (08:55→20:36)
[2024-11-27] MEDS: Gabapentin 600 MG TABLET PO ×3 (08:55→20:37)
[2024-11-27] MEDS: DULoxetine HCl 20 MG CAPSULE.DR PO ×2 (08:55→20:36)
[2024-11-27] MEDS: cloNIDine HCL 0.1 MG TABLET PO ×3 (08:55→20:37)
[2024-11-27 12:38] VITALS: BP 136/72; PULSE 80; RESP 18; TEMP 36.5; O2SAT 98; BMI 35.6
--- NOTE | 2024-11-27 14:03 | PC.ADMIT ---
Adam arrived from the pod at 13:35. He is here for SI/HI. He was polite and cooperative throughout the admission process; skin check was unremarkable. He has been diagnosed with major depression and PTSD. He self-presented to the ED with a complaint of suicidal and homicidal thoughts.? He was discharged from [facility] several days ago but was unable to pick up operator his medications at the pharmacy despite reaching out to [facility]. He continues to endorse SI but states that he is no longer experiencing HI? He denies any plan and agrees to alert staff if he has an urge to act on SI or if HI returns.? He has been an M3 patient in the past. He has been incarcerated multiple times, most recently released 12/14/23 due to being charged with Assault and Battery on a family member. Tox screen was positive for bupenorphine, which is prescribed, and cocaine. Smoking consult ordered due to daily nicotine use from cigarettes and vaping.
[2024-11-27 14:50] VITALS: BP 121/68
[2024-11-27 19:42] VITALS: BP 126/72; PULSE 94; RESP 16; TEMP 36.8; O2SAT 98
[2024-11-27] MEDS: OLANZapine 10 MG TABLET PO (20:37)
[2024-11-28 07:54] LABS: Estimated Average Glucose 117 mg/dL; Hemoglobin A1C 147.6269 umol/L; Hemoglobin A1c % 5.7 % (<6.0); Total Hemoglobin (HGBA1C) 3831.1083 umol/L
[2024-11-28 08:00] VITALS: BP 101/59; PULSE 73; RESP 16; TEMP 36.8; O2SAT 99
[2024-11-28 08:07] LABS: Cholesterol 231 mg/dL (<200); HDL Cholesterol 42 mg/dL (>40); LDL Cholesterol Calculated 160 mg/dL (<100); Triglycerides 146 mg/dL (<150)
[2024-11-28] MEDS: Acamprosate Calcium 333 MG TABLET.DR 666 MG PO ×3 (08:15→20:48)
[2024-11-28] MEDS: Gabapentin 600 MG TABLET PO ×3 (08:16→20:48)
[2024-11-28] MEDS: Buprenorphine/Naloxone 8/2 mg FILM 1 FILM SUBLINGUAL ×3 (08:16→20:48)
[2024-11-28] MEDS: DULoxetine HCl 20 MG CAPSULE.DR PO ×2 (08:16→20:48)
[2024-11-28] MEDS: cloNIDine HCL 0.1 MG TABLET PO ×3 (08:16→17:00)
[2024-11-28 08:24] LABS: Free T4 (Free Thyroxine) 0.96 ng/dL (0.71-1.85); Thyroid Stimulating Hormone 1.25 uIU/mL (0.32-4.0)
[2024-11-28] MEDS: Acetaminophen 325 MG TABLET 650 MG PO ×2 (08:24→17:35)
[2024-11-28 08:37] LABS: Folate 9.2 ng/mL (> or = 4.0); Vitamin B12 512 pg/mL (200-900)
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
[2024-11-28] MEDS: hydrOXYzine HCL 50 MG TABLET PO ×2 (10:38→20:54)
[2024-11-28 14:33] VITALS: BP 126/75
[2024-11-28 17:00] VITALS: BP 123/73
[2024-11-28 19:46] VITALS: BP 130/75; PULSE 94; RESP 14; TEMP 36.8; O2SAT 97
[2024-11-28] MEDS: busPIRone HCl 10 MG TABLET PO (20:48)
[2024-11-28] MEDS: OLANZapine 10 MG TABLET PO (20:48)
[2024-11-29 08:11] VITALS: BP 143/68; PULSE 82; TEMP 36.7; O2SAT 98
[2024-11-29] MEDS: busPIRone HCl 10 MG TABLET PO ×3 (08:58→21:11)
[2024-11-29] MEDS: Gabapentin 600 MG TABLET PO ×3 (08:58→21:12)
[2024-11-29] MEDS: DULoxetine HCl 20 MG CAPSULE.DR PO ×2 (08:58→21:10)
[2024-11-29] MEDS: Buprenorphine/Naloxone 8/2 mg FILM 1 FILM SUBLINGUAL ×3 (08:58→21:13)
[2024-11-29] MEDS: Acamprosate Calcium 333 MG TABLET.DR 666 MG PO ×3 (08:58→21:10)
[2024-11-29] MEDS: cloNIDine HCL 0.1 MG TABLET PO ×2 (09:02→21:12)
[2024-11-29] MEDS: hydrOXYzine HCL 50 MG TABLET PO (10:20)
[2024-11-29 10:31] VITALS: BMI 35.2
--- NOTE | 2024-11-29 10:38 | P.PNPSI_ITS ---
Subjective Subjective Date of Service: 11/29/24 Reason For Visit: PTSD; Depression: polysubstance Use D/O Subjective Notes: Conditional Voluntary Healthcare Proxy: No Guardianship: No Medical Problems Affecting Mental Status: No Interim History: Patient reports anxiety and depressive symptoms which are gradually improving. He states that his anxiety symptoms her severe and depressive symptoms are moderate. He has been taking his medications as prescribed. He often wakes up at night. He notes that he has not experienced SI or HI for the past 2 days. He denies AVH. He has been attending groups. Medication Compliance: Yes Side effects from medications: No Attending Groups: Yes Review of Systems Acute medical concerns: Yes Medical Review of Systems: unchanged Review of Systems Review of Systems Yes all other systems are reviewed and are negative Mental Status Exam Mental Status Exam Narrative: Mental Status Exam Narrative: Appearance: Casually dressed Behavior: Calm and cooperative throughout the interview. Eye contact is appropriate, and there are no signs of psychomotor agitation or retardation Speech:Normal volume and prosody Thought process logical and goal-directed Thought content: Future oriented no self-harming thoughts Mood: Anxious and depressed Affect: Full, mood-congruent SI:denies HI:denies VH/AH:none Delusions: None Insight/judgment: Good insight and judgment Memory/cog: Alert, oriented x 4. grossly intact to conversational testing Diagnostics Vital Signs (24Hr): Vital Signs - 24 hr 11/28/24 14:33 11/28/24 17:00 11/28/24 19:46 Temperature 98.3 F Pulse Rate 94 Respiratory Rate 14 Blood Pressure 126/75 123/73 130/75 Pulse Oximetry 97 Oxygen Delivery Method Room Air 11/29/24 08:11 Temperature 98.1 F Pulse Rate 82 Respiratory Rate Blood Pressure 143/68 H Pulse Oximetry 98 Oxygen Delivery Method Room Air BMI result Body Mass Index 35.2 Labs 11/26/24 09:00 11/26/24 09:00 Labs: Laboratory Results - last 48 hr 11/28/24 07:32 Estimat Average Glucose 117 Hemoglobin A1c % 5.7 Magnesium 2.0 Triglycerides 146 Cholesterol 231 H LDL Cholesterol, Calc 160 H HDL Cholesterol 42 Vitamin B12 512 Folate 9.2 TSH 1.25 Free T4 0.96 Medications Medications Current Medications Acamprosate (Acamprosate Calcium 333 Mg Tablet.) 666 mg PO TID [facility] Last Admin: 11/29/24 08:58 Dose: 666 mg Acetaminophen (Acetaminophen 325 Mg Tablet) 650 mg PO Q6H PRN PRN Reason: Headache/Pain, Scale 1-10 Last Admin: 11/28/24 17:35 Dose: 650 mg Al Hydroxide/Mg Hydroxide (Magnesium Hydrox/Alum Hydrox 30 Ml Oral.Susp) 30 ml PO Q6H PRN PRN Reason: Heartburn/Nausea Buprenorphine/Naloxone (Buprenorphine/Naloxone 8/2 Mg Film) 1 film SUBLINGUAL TID [facility] Last Admin: 11/29/24 08:58 Dose: 1 film Buspirone HCl (Buspirone Hcl 10 Mg Tablet) 10 mg PO BID [facility] Last Admin: 11/29/24 08:58 Dose: 10 mg Clonidine HCl (Clonidine Hcl 0.1 Mg Tablet) 0.1 mg PO BID PRN; Protocol PRN Reason: Anxiety Last Admin: 11/29/24 09:02 Dose: 0.1 mg Duloxetine HCl (Duloxetine Hcl 20 Mg Capsule.Dr) 20 mg PO BID [facility] Last Admin: 11/29/24 08:58 Dose: 20 mg Gabapentin (Gabapentin 600 Mg Tablet) 600 mg PO TID [facility] Last Admin: 11/29/24 08:58 Dose: 600 mg Hydroxyzine HCl (Hydroxyzine Hcl 50 Mg Tablet) 50 mg PO Q8H PRN PRN Reason: anxiety Last Admin: 11/29/24 10:20 Dose: 50 mg Magnesium Hydroxide (Milk Of Magnesia 30 Ml Oral.Susp) 30 ml PO DAILY PRN PRN Reason: Constipation Mirtazapine (Mirtazapine 15 Mg Tablet) 15 mg PO BEDTIME PRN PRN Reason: for insomnia Last Admin: 11/26/24 21:02 Dose: 15 mg Nicotine Polacrilex (Nicotine Polacrilex 2 Mg Gum) 4 mg BUCCAL Q2H PRN PRN Reason: Nicotine Cravings Olanzapine (Olanzapine 10 Mg Tablet) 10 mg PO BEDTIME [facility] Last Admin: 11/28/24 20:48 Dose: 10 mg Trazodone HCl (Trazodone Hcl 50 Mg Tablet) 50 mg PO BEDTIME MRX1 PRN PRN Reason: Insomnia Allergies Allergies Allergy/AdvReac Type Severity Reaction Status Date / Time No Known Allergies Allergy Verified 11/26/24 07:59 Assessment & Plan Assessment & Plan (1) MDD (major depressive disorder), recurrent episode, moderate: Status: Acute Code(s): F33.1 - Major depressive disorder, recurrent, moderate (2) Anxiety: Status: Acute Code(s): F41.9 - Anxiety disorder, unspecified (3) Homelessness: Status: Acute Code(s): Z59.00 - Homelessness unspecified Plan 34-year-old male voluntarily presents at [facility] to 11/26/2024 with SI and HI without a plan. He has history of anxiety, MDD, bipolar 2 disorder, PTSD, and polysubstance abuse. He notes that his mom drove him to [facility] for SI and HI. He did not have a plan and his HI is not towards anyone. His symptoms intensified because he did not take his medications for a week. He was recently section 12 at [place] and was admitted for 1 week for SI and HI. His symptoms improved and was discharged. Medication orders whenever sent from [place] to his pharmacy, therefore, he was without his medications. His symptoms worsened 3 days after his inpatient psychiatric hospitalization discharge. Therefore, he decided to go to the ED for evaluation and treatment. He notes that his home medications are duloxetine, gabapentin, clonidine, hydroxyzine, olanzapine, and mirtazapine. He notes that he is currently depressed and anxious. Current medication regimen her effective with SI and HI but not anxiety and depression. He denies SI/HI at this time. He denies AVH. He took buspirone in the past with significant improvement of his anxiety symptoms. He wishes to restart buspirone. 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 He currently uses cocaine intranasally 1-2 times weekly. He denies drinking alcohol. He is homeless. He lived at the [facility] and wants a referral to go back to them. Formulation/Clinical Reasoning: Patient's SI/HI and anxiety and depressive symptoms likely worsened due to not not taking his medication which were not available to him. He is likely experiencing recurrent MDD. PLAN Admit to M5. CV 15 minutes check. Diagnostics as needed. Collateral contact. Will start buspirone 10 mg twice daily for anxiety; advised to take as prescribed. Instructed on the risks, benefits, and potential adverse reactions of the medication. Will decrease clonidine from 0.1 mg 3 times daily to 0.1 mg twice daily as needed. Continue remainder of regime. Encouraged full milieu. Discharge planning. 11/29 Patient reports anxiety and depressive symptoms which are gradually improving. He states that his anxiety symptoms her severe and depressive symptoms are moderate. He has been taking his medications as prescribed. He often wakes up at night. He notes that he has not experienced SI or HI for the past 2 days. He denies AVH. He has been attending groups. Will increase buspirone to 10 mg 3 times daily. Continue remainder of regimen. Patient educated on: therapeutic strategies Reason for continued inpatient stay Substantial Risk for: rapid decompensation Time Spent With Patient Time: Total time managing care of this patient today ____ minutes.
--- NOTE | 2024-11-29 15:58 | MHC.RECOVRN ---
AUDIT-C Brief Intervention Pt had positive screen for unhealthy alcohol use on admission, subsequently met with t/w to discuss alcohol use and recovery supports/options. This telegraphic typewriter mechanic met with patient to discuss current alcohol use and concerns related to increased risk of alcohol related problems.? Pt reports he has not used alcohol in 2 months and has not used opioids in 4 months. Pt reports he is currently using cocaine, 0.5 gram daily, [place]. Discussed how alcohol use has impacted health, including negative impact on mental health. ? Discussed risk reduction strategies including drinking below the recommended limit. Provided pt with written resources including information on inpatient and outpatient treatment, TONY, harm reduction, and recovery coaching. Pt is currently receiving acamprosate and finds it helpful. Pt plans to continue TONY and go to [facility] upon discharge. Pt would also like a disaster recovery specialist. Pt provided with t/w contact information if questions or concerns arise. Denies other questions or concerns at this time.? women's lacrosse coach referral placed.
[2024-11-29] MEDS: QUEtiapine Fumarate 25 MG TABLET 75 MG PO ×2 (16:58→21:13)
[2024-11-29 21:05] VITALS: BP 124/58; PULSE 91; TEMP 36.4; O2SAT 98
[2024-11-29] MEDS: OLANZapine 10 MG TABLET PO (21:11)
[2024-11-29 21:12] VITALS: BP 124/58
[2024-11-30] MEDS: hydrOXYzine HCL 50 MG TABLET PO ×3 (00:09→19:35)
[2024-11-30] MEDS: Mirtazapine 15 MG TABLET PO (00:09)
[2024-11-30 07:52] VITALS: BP 131/85; PULSE 77; TEMP 36.4; O2SAT 96
[2024-11-30] MEDS: Buprenorphine/Naloxone 8/2 mg FILM 1 FILM SUBLINGUAL ×3 (08:40→21:04)
[2024-11-30] MEDS: busPIRone HCl 10 MG TABLET PO ×2 (08:40→14:52)
[2024-11-30] MEDS: Acamprosate Calcium 333 MG TABLET.DR 666 MG PO ×3 (08:40→21:02)
[2024-11-30] MEDS: DULoxetine HCl 20 MG CAPSULE.DR PO (08:40)
[2024-11-30] MEDS: Gabapentin 600 MG TABLET PO ×3 (08:40→21:03)
--- NOTE | 2024-11-30 10:22 | P.PNPSI_ITS ---
Subjective Subjective Date of Service: 11/30/24 Reason For Visit: PTSD; Depression: polysubstance Use D/O Subjective Notes: Conditional Voluntary Healthcare Proxy: No Guardianship: No Medical Problems Affecting Mental Status: No Interim History: Review of regime. Discussion of titration. Hoping for acceptance to [facility] or [place] program [place]. Reports regime to be effective thus far. More visable in milieu today. Medication Compliance: Yes Side effects from medications: No Attending Groups: Yes Review of Systems Acute medical concerns: No Review of Systems Review of Systems Denies today Mental Status Exam Mental Status Exam Patient Appearance: Appropriate Patient Orientation: Person, Place, Time and Situation Level of Consciousness: Alert Patient Behavior: Talkative and Good Eye Contact Mood Description: Appropriate Affect Description: Appropriate Patient Cognition Impaired: No Ability to Follow Directions: Good Speech Pattern: Spontaneous Speech Memory Description: Intact Hallucinations: None Delusions: Not Present Thought Process: Intact Thought Content: positive for Intact Depressive Symptoms: Thoughts of /Suicide (denies) Judgement: Good Diagnostics Vital Signs (24Hr): Vital Signs - 24 hr 11/29/24 21:05 11/29/24 21:12 11/30/24 07:52 Temperature 97.5 F 97.5 F Pulse Rate 91 77 Blood Pressure 124/58 L 124/58 L 131/85 Pulse Oximetry 98 96 Oxygen Delivery Method Room Air Room Air BMI result Body Mass Index 35.2 Labs 11/26/24 09:00 11/26/24 09:00 Medications Medications Current Medications Acamprosate (Acamprosate Calcium 333 Mg Tablet.) 666 mg PO TID [facility] Last Admin: 11/30/24 08:40 Dose: 666 mg Acetaminophen (Acetaminophen 325 Mg Tablet) 650 mg PO Q6H PRN PRN Reason: Headache/Pain, Scale 1-10 Last Admin: 11/28/24 17:35 Dose: 650 mg Al Hydroxide/Mg Hydroxide (Magnesium Hydrox/Alum Hydrox 30 Ml Oral.Susp) 30 ml PO Q6H PRN PRN Reason: Heartburn/Nausea Buprenorphine/Naloxone (Buprenorphine/Naloxone 8/2 Mg Film) 1 film SUBLINGUAL TID [facility] Last Admin: 11/30/24 08:40 Dose: 1 film Buspirone HCl (Buspirone Hcl 10 Mg Tablet) 10 mg PO TID [facility] Last Admin: 11/30/24 08:40 Dose: 10 mg Clonidine HCl (Clonidine Hcl 0.1 Mg Tablet) 0.1 mg PO BID PRN; Protocol PRN Reason: Anxiety Last Admin: 11/29/24 21:12 Dose: 0.1 mg Duloxetine HCl (Duloxetine Hcl 20 Mg Capsule.Dr) 20 mg PO BID [facility] Last Admin: 11/30/24 08:40 Dose: 20 mg Gabapentin (Gabapentin 600 Mg Tablet) 600 mg PO TID [facility] Last Admin: 11/30/24 08:40 Dose: 600 mg Hydroxyzine HCl (Hydroxyzine Hcl 50 Mg Tablet) 50 mg PO Q8H PRN PRN Reason: anxiety Last Admin: 11/30/24 08:47 Dose: 50 mg Magnesium Hydroxide (Milk Of Magnesia 30 Ml Oral.Susp) 30 ml PO DAILY PRN PRN Reason: Constipation Mirtazapine (Mirtazapine 15 Mg Tablet) 15 mg PO BEDTIME PRN PRN Reason: for insomnia Last Admin: 11/30/24 00:09 Dose: 15 mg Nicotine Polacrilex (Nicotine Polacrilex 2 Mg Gum) 4 mg BUCCAL Q2H PRN PRN Reason: Nicotine Cravings Olanzapine (Olanzapine 10 Mg Tablet) 10 mg PO BEDTIME [facility] Last Admin: 11/29/24 21:11 Dose: 10 mg Quetiapine Fumarate (Quetiapine Fumarate 25 Mg Tablet) 75 mg PO TID PRN PRN Reason: anxiety,agitation Last Admin: 11/29/24 21:13 Dose: 75 mg Trazodone HCl (Trazodone Hcl 50 Mg Tablet) 50 mg PO BEDTIME MRX1 PRN PRN Reason: Insomnia Allergies Allergies Allergy/AdvReac Type Severity Reaction Status Date / Time No Known Allergies Allergy Verified 11/26/24 07:59 Assessment & Plan Assessment & Plan (1) MDD (major depressive disorder), recurrent episode, moderate: Status: Acute Code(s): F33.1 - Major depressive disorder, recurrent, moderate (2) Anxiety: Status: Acute Code(s): F41.9 - Anxiety disorder, unspecified (3) Homelessness: Status: Acute Code(s): Z59.00 - Homelessness unspecified Plan 34-year-old male voluntarily presents at [facility] [place] 11/26/2024 with SI and HI without a plan. He has history of anxiety, MDD, bipolar 2 disorder, PTSD, and polysubstance abuse. He notes that his mom drove him to [facility] for SI and HI. He did not have a plan and his HI is not towards anyone. His symptoms intensified because he did not take his medications for a week. He was recently section 12 at [place] and was admitted for 1 week for SI and HI. His symptoms improved and was discharged. Medication orders whenever sent from [place] to his pharmacy, therefore, he was without his medications. His symptoms worsened 3 days after his inpatient psychiatric hospitalization discharge. Therefore, he decided to go to the ED for evaluation and treatment. He notes that his home medications are duloxetine, gabapentin, clonidine, hydroxyzine, olanzapine, and mirtazapine. He notes that he is currently depressed and anxious. Current medication regimen her effective with SI and HI but not anxiety and depression. He denies SI/HI at this time. He denies AVH. He took buspirone in the past with significant improvement of his anxiety symptoms. He wishes to restart buspirone. 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 He currently uses cocaine intranasally 1-2 times weekly. He denies drinking alcohol. He is homeless. He lived at the [facility] and wants a referral to go back to them. Formulation/Clinical Reasoning: Patient's SI/HI and anxiety and depressive symptoms likely worsened due to not not taking his medication which were not available to him. He is likely experiencing recurrent MDD. PLAN Admit to M5. CV 15 minutes check. Diagnostics as needed. Collateral contact. Will start buspirone 10 mg twice daily for anxiety; advised to take as prescribed. Instructed on the risks, benefits, and potential adverse reactions of the medication. Will decrease clonidine from 0.1 mg 3 times daily to 0.1 mg twice daily as needed. Continue remainder of regime. Encouraged full milieu. Discharge planning. 11/29 Patient reports anxiety and depressive symptoms which are gradually improving. He states that his anxiety symptoms her severe and depressive symptoms are moderate. He has been taking his medications as prescribed. He often wakes up at night. He notes that he has not experienced SI or HI for the past 2 days. He denies AVH. He has been attending groups. Will increase buspirone to 10 mg 3 times daily. Continue remainder of regimen. 11/30: Increase duloxetine to 30 mg bid (pt's base dose) Increase buspirone to 15 mg tid (30 mg tid pt's base dose) Reason for continued inpatient stay Substantial Risk for: rapid decompensation Time Spent With Patient Time: Total time managing care of this patient today ____ minutes.
[2024-11-30] MEDS: Nicotine Polacrilex 2 MG GUM 4 MG BUCCAL (10:38)
[2024-11-30 11:14] VITALS: BP 117/74
[2024-11-30] MEDS: cloNIDine HCL 0.1 MG TABLET PO ×2 (11:14→16:45)
[2024-11-30] MEDS: Nicotine 21 MG PATCH.TD24 TRANSDERMA (11:15)
[2024-11-30 11:17] VITALS: BP 117/74; PULSE 92; RESP 18; TEMP 36.5; O2SAT 99
[2024-11-30 16:45] VITALS: BP 124/72
[2024-11-30 20:00] VITALS: BP 130/80; PULSE 92; RESP 16; TEMP 36.4; O2SAT 96
[2024-11-30] MEDS: busPIRone HCl 5 MG TABLET 15 MG PO (21:01)
[2024-11-30] MEDS: QUEtiapine Fumarate 25 MG TABLET 75 MG PO (21:03)
[2024-11-30] MEDS: OLANZapine 10 MG TABLET PO (21:04)
[2024-11-30] MEDS: DULoxetine HCl 30 MG CAPSULE.DR PO (21:04)
[2024-11-30] MEDS: traZODone HCL 50 MG TABLET PO (22:35)
--- NOTE | 2024-12-01 07:22 | P.PNPSI_ITS ---
Subjective Subjective Date of Service: 12/01/24 Reason For Visit: PTSD; Depression: polysubstance Use D/O Subjective Notes: Conditional Voluntary Healthcare Proxy: No Guardianship: No Medical Problems Affecting Mental Status: No Interim History: 34yo HM reports was getting clonidine tid prescribed, here we are giving bid- Feels he is doing ok - less si, less dep/anxiety- Medication Compliance: Yes Side effects from medications: No Attending Groups: Intermittent Review of Systems Acute medical concerns: No Medical Review of Systems: unchanged Mental Status Exam Mental Status Exam Patient Appearance: Well Grooomed and Appropriate Patient Orientation: Person, Place, Time and Situation Level of Consciousness: Awake Patient Behavior: Appropriate, Cooperative and Good Eye Contact Mood Description: Anxious Affect Description: Constricted Patient Cognition Impaired: No Ability to Follow Directions: Fair Speech Pattern: Clear Hallucinations: None Thought Process: Intact and Goal Oriented Judgement: Fair Diagnostics Vital Signs (24Hr): Vital Signs - 24 hr 11/30/24 07:52 11/30/24 11:14 11/30/24 11:17 Temperature 97.5 F 97.7 F Pulse Rate 77 92 Respiratory Rate 18 Blood Pressure 131/85 117/74 117/74 Pulse Oximetry 96 99 Oxygen Delivery Method Room Air Room Air 11/30/24 16:45 11/30/24 20:00 Temperature 97.5 F Pulse Rate 92 Respiratory Rate 16 Blood Pressure 124/72 130/80 Pulse Oximetry 96 Oxygen Delivery Method Room Air BMI result Body Mass Index 35.2 Labs 11/26/24 09:00 11/26/24 09:00 Medications Medications Current Medications Acamprosate (Acamprosate Calcium 333 Mg Tablet.) 666 mg PO TID [facility] Last Admin: 11/30/24 21:02 Dose: 666 mg Acetaminophen (Acetaminophen 325 Mg Tablet) 650 mg PO Q6H PRN PRN Reason: Headache/Pain, Scale 1-10 Last Admin: 11/28/24 17:35 Dose: 650 mg Al Hydroxide/Mg Hydroxide (Magnesium Hydrox/Alum Hydrox 30 Ml Oral.Susp) 30 ml PO Q6H PRN PRN Reason: Heartburn/Nausea Buprenorphine/Naloxone (Buprenorphine/Naloxone 8/2 Mg Film) 1 film SUBLINGUAL TID [facility] Last Admin: 11/30/24 21:04 Dose: 1 film Buspirone HCl (Buspirone Hcl 5 Mg Tablet) 15 mg PO TID [facility] Last Admin: 11/30/24 21:01 Dose: 15 mg Clonidine HCl (Clonidine Hcl 0.1 Mg Tablet) 0.1 mg PO BID PRN; Protocol PRN Reason: Anxiety Last Admin: 11/30/24 16:45 Dose: 0.1 mg Duloxetine HCl (Duloxetine Hcl 30 Mg Capsule.Dr) 30 mg PO BID [facility] Last Admin: 11/30/24 21:04 Dose: 30 mg Gabapentin (Gabapentin 600 Mg Tablet) 600 mg PO TID [facility] Last Admin: 11/30/24 21:03 Dose: 600 mg Hydroxyzine HCl (Hydroxyzine Hcl 50 Mg Tablet) 50 mg PO Q8H PRN PRN Reason: anxiety Last Admin: 11/30/24 19:35 Dose: 50 mg Magnesium Hydroxide (Milk Of Magnesia 30 Ml Oral.Susp) 30 ml PO DAILY PRN PRN Reason: Constipation Mirtazapine (Mirtazapine 15 Mg Tablet) 15 mg PO BEDTIME PRN PRN Reason: for insomnia Last Admin: 11/30/24 00:09 Dose: 15 mg Nicotine (Nicotine 21 Mg Patch.Td24) 21 mg TRANSDERMA DAILY [facility] Nicotine Polacrilex (Nicotine Polacrilex 2 Mg Gum) 4 mg BUCCAL Q2H PRN PRN Reason: Nicotine Cravings Last Admin: 11/30/24 10:38 Dose: 4 mg Olanzapine (Olanzapine 10 Mg Tablet) 10 mg PO BEDTIME [facility] Last Admin: 11/30/24 21:04 Dose: 10 mg Quetiapine Fumarate (Quetiapine Fumarate 25 Mg Tablet) 75 mg PO TID PRN PRN Reason: anxiety,agitation Last Admin: 11/30/24 21:03 Dose: 75 mg Trazodone HCl (Trazodone Hcl 50 Mg Tablet) 50 mg PO BEDTIME MRX1 PRN PRN Reason: Insomnia Last Admin: 11/30/24 22:35 Dose: 50 mg Allergies Allergies Allergy/AdvReac Type Severity Reaction Status Date / Time No Known Allergies Allergy Verified 11/26/24 07:59 Assessment & Plan Assessment & Plan (1) MDD (major depressive disorder), recurrent episode, moderate: Status: Acute Code(s): F33.1 - Major depressive disorder, recurrent, moderate (2) Anxiety: Status: Acute Code(s): F41.9 - Anxiety disorder, unspecified (3) Homelessness: Status: Acute Code(s): Z59.00 - Homelessness unspecified Plan 34-year-old male voluntarily presents at [facility] to 11/26/2024 with SI and HI without a plan. He has history of anxiety, MDD, bipolar 2 disorder, PTSD, and polysubstance abuse. He notes that his mom drove him to [facility] for SI and HI. He did not have a plan and his HI is not towards anyone. His symptoms intensified because he did not take his medications for a week. He was recently section 12 at [place] and was admitted for 1 week for SI and HI. His symptoms improved and was discharged. Medication orders whenever sent from [place] to his pharmacy, therefore, he was without his medications. His symptoms worsened 3 days after his inpatient psychiatric hospitalization discharge. Therefore, he decided to go to the ED for evaluation and treatment. He notes that his home medications are duloxetine, gabapentin, clonidine, hydroxyzine, olanzapine, and mirtazapine. He notes that he is currently depressed and anxious. Current medication regimen her effective with SI and HI but not anxiety and depression. He denies SI/HI at this time. He denies AVH. He took buspirone in the past with significant improvement of his anxiety symptoms. He wishes to restart buspirone. 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 He currently uses cocaine intranasally 1-2 times weekly. He denies drinking alcohol. He is homeless. He lived at the [facility] and wants a referral to go back to them. Formulation/Clinical Reasoning: Patient's SI/HI and anxiety and depressive symptoms likely worsened due to not not taking his medication which were not available to him. He is likely experiencing recurrent MDD. PLAN Admit to M5. CV 15 minutes check. Diagnostics as needed. Collateral contact. Will start buspirone 10 mg twice daily for anxiety; advised to take as prescribed. Instructed on the risks, benefits, and potential adverse reactions of the medication. Will decrease clonidine from 0.1 mg 3 times daily to 0.1 mg twice daily as needed. Continue remainder of regime. Encouraged full milieu. Discharge planning. 11/29 Patient reports anxiety and depressive symptoms which are gradually improving. He states that his anxiety symptoms her severe and depressive symptoms are moderate. He has been taking his medications as prescribed. He often wakes up at night. He notes that he has not experienced SI or HI for the past 2 days. He denies AVH. He has been attending groups. Will increase buspirone to 10 mg 3 times daily. Continue remainder of regimen. 11/30: Increase duloxetine to 30 mg bid (pt's base dose) Increase buspirone to 15 mg tid (30 mg tid pt's base dose) 12/01 recent med increasing so clonidine decreased- doing ok on current combination according to patient Patient educated on: medication risk/benefits Informed Consent: understands and further education needed Reason for continued inpatient stay Substantial Risk for: rapid decompensation Time Spent With Patient Time: Total time managing care of this patient today ____ minutes.
[2024-12-01 08:00] VITALS: BP 147/87; PULSE 88; RESP 18; TEMP 36.8; O2SAT 97
[2024-12-01] MEDS: busPIRone HCl 5 MG TABLET 15 MG PO ×3 (08:54→20:51)
[2024-12-01] MEDS: DULoxetine HCl 30 MG CAPSULE.DR PO ×2 (08:54→20:52)
[2024-12-01] MEDS: Gabapentin 600 MG TABLET PO ×3 (08:55→20:50)
[2024-12-01] MEDS: Buprenorphine/Naloxone 8/2 mg FILM 1 FILM SUBLINGUAL ×3 (08:55→20:53)
[2024-12-01] MEDS: Acamprosate Calcium 333 MG TABLET.DR 666 MG PO ×3 (08:55→20:52)
[2024-12-01] MEDS: cloNIDine HCL 0.1 MG TABLET PO ×2 (09:03→20:58)
[2024-12-01] MEDS: hydrOXYzine HCL 50 MG TABLET PO (15:14)
[2024-12-01 20:00] VITALS: BP 123/82; PULSE 93; RESP 16; TEMP 36.9; O2SAT 98
[2024-12-01] MEDS: OLANZapine 10 MG TABLET PO (20:50)
[2024-12-01] MEDS: traZODone HCL 50 MG TABLET PO (20:58)
--- NOTE | 2024-12-02 08:03 | HO.PSYCHPN ---
Subjective Subjective Date of Service: 12/02/24 Reason For Visit: PTSD; Depression: polysubstance Use D/O Subjective Notes: Conditional Voluntary Healthcare Proxy: No Guardianship: No Medical Problems Affecting Mental Status: No Interim History: 34 yo HM reports he is doing well - tolerating buspar/duloxetine add on = Had nice visit with mom today- looking forward to dc planning- slept ok= Medication Compliance: Yes Side effects from medications: No Attending Groups: Intermittent Review of Systems Acute medical concerns: No Medical Review of Systems: unchanged Mental Status Exam Mental Status Exam Patient Appearance: Well Grooomed and Appropriate Patient Orientation: Person, Place, Time and Situation Level of Consciousness: Awake and Alert Patient Behavior: Appropriate, Cooperative and Good Eye Contact Mood Description: Calm Affect Description: Appropriate Patient Cognition Impaired: No Ability to Follow Directions: Good Speech Pattern: Clear Thought Process: Intact and Goal Oriented Thought Content: positive for Logical (future oriented) Judgement: Good Diagnostics Vital Signs (24Hr): Vital Signs - 24 hr 12/01/24 20:00 Temperature 98.4 F Pulse Rate 93 Respiratory Rate 16 Blood Pressure 123/82 Pulse Oximetry 98 Oxygen Delivery Method Room Air BMI result Body Mass Index 35.2 Labs 11/26/24 09:00 11/26/24 09:00 Medications Medications Current Medications Acamprosate (Acamprosate Calcium 333 Mg Tablet.) 666 mg PO TID [facility] Last Admin: 12/01/24 20:52 Dose: 666 mg Acetaminophen (Acetaminophen 325 Mg Tablet) 650 mg PO Q6H PRN PRN Reason: Headache/Pain, Scale 1-10 Last Admin: 11/28/24 17:35 Dose: 650 mg Al Hydroxide/Mg Hydroxide (Magnesium Hydrox/Alum Hydrox 30 Ml Oral.Susp) 30 ml PO Q6H PRN PRN Reason: Heartburn/Nausea Buprenorphine/Naloxone (Buprenorphine/Naloxone 8/2 Mg Film) 1 film SUBLINGUAL TID [facility] Last Admin: 12/01/24 20:53 Dose: 1 film Buspirone HCl (Buspirone Hcl 5 Mg Tablet) 15 mg PO TID [facility] Last Admin: 12/01/24 20:51 Dose: 15 mg Clonidine HCl (Clonidine Hcl 0.1 Mg Tablet) 0.1 mg PO BID PRN; Protocol PRN Reason: Anxiety Last Admin: 12/01/24 20:58 Dose: 0.1 mg Duloxetine HCl (Duloxetine Hcl 30 Mg Capsule.Dr) 30 mg PO BID [facility] Last Admin: 12/01/24 20:52 Dose: 30 mg Gabapentin (Gabapentin 600 Mg Tablet) 600 mg PO TID [facility] Last Admin: 12/01/24 20:50 Dose: 600 mg Hydroxyzine HCl (Hydroxyzine Hcl 50 Mg Tablet) 50 mg PO Q8H PRN PRN Reason: anxiety Last Admin: 12/01/24 15:14 Dose: 50 mg Magnesium Hydroxide (Milk Of Magnesia 30 Ml Oral.Susp) 30 ml PO DAILY PRN PRN Reason: Constipation Mirtazapine (Mirtazapine 15 Mg Tablet) 15 mg PO BEDTIME PRN PRN Reason: for insomnia Last Admin: 11/30/24 00:09 Dose: 15 mg Nicotine (Nicotine 21 Mg Patch.Td24) 21 mg TRANSDERMA DAILY [facility] Last Admin: 12/01/24 08:57 Dose: Not Given Nicotine Polacrilex (Nicotine Polacrilex 2 Mg Gum) 4 mg BUCCAL Q2H PRN PRN Reason: Nicotine Cravings Last Admin: 11/30/24 10:38 Dose: 4 mg Olanzapine (Olanzapine 10 Mg Tablet) 10 mg PO BEDTIME [facility] Last Admin: 12/01/24 20:50 Dose: 10 mg Quetiapine Fumarate (Quetiapine Fumarate 25 Mg Tablet) 75 mg PO TID PRN PRN Reason: anxiety,agitation Last Admin: 11/30/24 21:03 Dose: 75 mg Trazodone HCl (Trazodone Hcl 50 Mg Tablet) 50 mg PO BEDTIME MRX1 PRN PRN Reason: Insomnia Last Admin: 12/01/24 20:58 Dose: 50 mg Allergies Allergies Allergy/AdvReac Type Severity Reaction Status Date / Time No Known Allergies Allergy Verified 11/26/24 07:59 Assessment & Plan Assessment & Plan (1) MDD (major depressive disorder), recurrent episode, moderate: Status: Acute Code(s): F33.1 - Major depressive disorder, recurrent, moderate (2) Anxiety: Status: Acute Code(s): F41.9 - Anxiety disorder, unspecified (3) Homelessness: Status: Acute Code(s): Z59.00 - Homelessness unspecified Plan 34-year-old male voluntarily presents at [facility] to 11/26/2024 with SI and HI without a plan. He has history of anxiety, MDD, bipolar 2 disorder, PTSD, and polysubstance abuse. He notes that his mom drove him to [facility] for SI and HI. He did not have a plan and his HI is not towards anyone. His symptoms intensified because he did not take his medications for a week. He was recently section 12 at [place] and was admitted for 1 week for SI and HI. His symptoms improved and was discharged. Medication orders whenever sent from [place] to his pharmacy, therefore, he was without his medications. His symptoms worsened 3 days after his inpatient psychiatric hospitalization discharge. Therefore, he decided to go to the ED for evaluation and treatment. He notes that his home medications are duloxetine, gabapentin, clonidine, hydroxyzine, olanzapine, and mirtazapine. He notes that he is currently depressed and anxious. Current medication regimen her effective with SI and HI but not anxiety and depression. He denies SI/HI at this time. He denies AVH. He took buspirone in the past with significant improvement of his anxiety symptoms. He wishes to restart buspirone. 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 He currently uses cocaine intranasally 1-2 times weekly. He denies drinking alcohol. He is homeless. He lived at the [facility] and wants a referral to go back to them. Formulation/Clinical Reasoning: Patient's SI/HI and anxiety and depressive symptoms likely worsened due to not not taking his medication which were not available to him. He is likely experiencing recurrent MDD. PLAN Admit to M5. CV 15 minutes check. Diagnostics as needed. Collateral contact. Will start buspirone 10 mg twice daily for anxiety; advised to take as prescribed. Instructed on the risks, benefits, and potential adverse reactions of the medication. Will decrease clonidine from 0.1 mg 3 times daily to 0.1 mg twice daily as needed. Continue remainder of regime. Encouraged full milieu. Discharge planning. 11/29 Patient reports anxiety and depressive symptoms which are gradually improving. He states that his anxiety symptoms her severe and depressive symptoms are moderate. He has been taking his medications as prescribed. He often wakes up at night. He notes that he has not experienced SI or HI for the past 2 days. He denies AVH. He has been attending groups. Will increase buspirone to 10 mg 3 times daily. Continue remainder of regimen. 11/30: Increase duloxetine to 30 mg bid (pt's base dose) Increase buspirone to 15 mg tid (30 mg tid pt's base dose) 12/01 recent med increasing so clonidine decreased- doing ok on current combination according to patient 12/02 - improving on new meds looking forward to dc planning Patient educated on: medication risk/benefits Informed Consent: understands Reason for continued inpatient stay Substantial Risk for: inability to function and rapid decompensation Time Spent With Patient Time: Total time managing care of this patient today ____ minutes.
[2024-12-02] MEDS: Buprenorphine/Naloxone 8/2 mg FILM 1 FILM SUBLINGUAL ×3 (08:49→20:36)
[2024-12-02] MEDS: busPIRone HCl 5 MG TABLET 15 MG PO ×3 (08:50→20:36)
[2024-12-02] MEDS: Acamprosate Calcium 333 MG TABLET.DR 666 MG PO ×3 (08:50→20:35)
[2024-12-02] MEDS: DULoxetine HCl 30 MG CAPSULE.DR PO ×2 (08:50→20:35)
[2024-12-02] MEDS: Gabapentin 600 MG TABLET PO ×3 (08:50→20:35)
[2024-12-02] MEDS: hydrOXYzine HCL 50 MG TABLET PO ×2 (08:59→22:47)
[2024-12-02 10:14] VITALS: BP 135/72; PULSE 75; RESP 19; TEMP 36.7; O2SAT 97
[2024-12-02] MEDS: Milk of Magnesia 30 ML ORAL.SUSP PO (10:35)
[2024-12-02 15:40] VITALS: BP 133/76
[2024-12-02] MEDS: cloNIDine HCL 0.1 MG TABLET PO ×2 (15:40→20:40)
[2024-12-02 20:00] VITALS: BP 121/74; PULSE 78; RESP 15; TEMP 36.6; O2SAT 98
[2024-12-02] MEDS: traZODone HCL 50 MG TABLET PO ×2 (20:35→22:47)
[2024-12-02] MEDS: OLANZapine 10 MG TABLET PO (20:35)
[2024-12-03 07:58] VITALS: BP 132/73; PULSE 82; RESP 18; TEMP 36.4; O2SAT 96
[2024-12-03] MEDS: Acamprosate Calcium 333 MG TABLET.DR 666 MG PO ×3 (08:36→20:31)
[2024-12-03] MEDS: Gabapentin 600 MG TABLET PO ×3 (08:36→20:31)
[2024-12-03] MEDS: Nicotine 21 MG PATCH.TD24 TRANSDERMA (08:36)
[2024-12-03] MEDS: DULoxetine HCl 30 MG CAPSULE.DR PO ×2 (08:36→20:31)
[2024-12-03] MEDS: Buprenorphine/Naloxone 8/2 mg FILM 1 FILM SUBLINGUAL ×3 (08:36→20:31)
[2024-12-03] MEDS: busPIRone HCl 5 MG TABLET 15 MG PO ×3 (08:36→20:31)
[2024-12-03] MEDS: cloNIDine HCL 0.1 MG TABLET PO ×2 (08:41→18:30)
[2024-12-03] MEDS: hydrOXYzine HCL 50 MG TABLET PO ×2 (11:27→21:38)
--- NOTE | 2024-12-03 17:22 | HO.PSYCHPN ---
Subjective Subjective Date of Service: 12/03/24 Reason For Visit: PTSD; Depression: polysubstance Use D/O Subjective Notes: Conditional Voluntary Healthcare Proxy: No Guardianship: No Medical Problems Affecting Mental Status: No Interim History: Pt reports doing well. Awaiting placement options for ongoing addiction treatment. Medication Compliance: Yes Side effects from medications: No Attending Groups: Intermittent Review of Systems Acute medical concerns: No Review of Systems Review of Systems Denies Mental Status Exam Mental Status Exam Patient Appearance: Well Grooomed and Appropriate Patient Orientation: Person, Place, Time and Situation Level of Consciousness: Awake and Alert Patient Behavior: Appropriate, Cooperative and Good Eye Contact Mood Description: Calm Affect Description: Appropriate Patient Cognition Impaired: No Ability to Follow Directions: Good Speech Pattern: Clear Thought Process: Intact and Goal Oriented Thought Content: positive for Logical (future oriented) Judgement: Good Diagnostics Vital Signs (24Hr): Vital Signs - 24 hr 12/02/24 20:00 12/03/24 07:58 Temperature 97.8 F 97.5 F Pulse Rate 78 82 Respiratory Rate 15 18 Blood Pressure 121/74 132/73 Pulse Oximetry 98 96 Oxygen Delivery Method Room Air BMI result Body Mass Index 35.2 Labs 11/26/24 09:00 11/26/24 09:00 Medications Medications Current Medications Acamprosate (Acamprosate Calcium 333 Mg Tablet.) 666 mg PO TID [facility] Last Admin: 12/03/24 14:41 Dose: 666 mg Acetaminophen (Acetaminophen 325 Mg Tablet) 650 mg PO Q6H PRN PRN Reason: Headache/Pain, Scale 1-10 Last Admin: 11/28/24 17:35 Dose: 650 mg Al Hydroxide/Mg Hydroxide (Magnesium Hydrox/Alum Hydrox 30 Ml Oral.Susp) 30 ml PO Q6H PRN PRN Reason: Heartburn/Nausea Buprenorphine/Naloxone (Buprenorphine/Naloxone 8/2 Mg Film) 1 film SUBLINGUAL TID [facility] Last Admin: 12/03/24 14:41 Dose: 1 film Buspirone HCl (Buspirone Hcl 5 Mg Tablet) 15 mg PO TID [facility] Last Admin: 12/03/24 14:41 Dose: 15 mg Clonidine HCl (Clonidine Hcl 0.1 Mg Tablet) 0.1 mg PO BID PRN; Protocol PRN Reason: Anxiety Last Admin: 12/03/24 08:41 Dose: 0.1 mg Duloxetine HCl (Duloxetine Hcl 30 Mg Capsule.Dr) 30 mg PO BID [facility] Last Admin: 12/03/24 08:36 Dose: 30 mg Gabapentin (Gabapentin 600 Mg Tablet) 600 mg PO TID [facility] Last Admin: 12/03/24 14:41 Dose: 600 mg Hydroxyzine HCl (Hydroxyzine Hcl 50 Mg Tablet) 50 mg PO Q8H PRN PRN Reason: anxiety Last Admin: 12/03/24 11:27 Dose: 50 mg Magnesium Hydroxide (Milk Of Magnesia 30 Ml Oral.Susp) 30 ml PO DAILY PRN PRN Reason: Constipation Last Admin: 12/02/24 10:35 Dose: 30 ml Mirtazapine (Mirtazapine 15 Mg Tablet) 15 mg PO BEDTIME PRN PRN Reason: for insomnia Last Admin: 11/30/24 00:09 Dose: 15 mg Nicotine (Nicotine 21 Mg Patch.Td24) 21 mg TRANSDERMA DAILY [facility] Last Admin: 12/03/24 08:36 Dose: 21 mg Nicotine Polacrilex (Nicotine Polacrilex 2 Mg Gum) 4 mg BUCCAL Q2H PRN PRN Reason: Nicotine Cravings Last Admin: 11/30/24 10:38 Dose: 4 mg Olanzapine (Olanzapine 10 Mg Tablet) 10 mg PO BEDTIME [facility] Last Admin: 12/02/24 20:35 Dose: 10 mg Quetiapine Fumarate (Quetiapine Fumarate 25 Mg Tablet) 75 mg PO TID PRN PRN Reason: anxiety,agitation Last Admin: 11/30/24 21:03 Dose: 75 mg Trazodone HCl (Trazodone Hcl 50 Mg Tablet) 50 mg PO BEDTIME MRX1 PRN PRN Reason: Insomnia Last Admin: 12/02/24 22:47 Dose: 50 mg Allergies Allergies Allergy/AdvReac Type Severity Reaction Status Date / Time No Known Allergies Allergy Verified 11/26/24 07:59 Assessment & Plan Assessment & Plan (1) MDD (major depressive disorder), recurrent episode, moderate: Status: Acute Code(s): F33.1 - Major depressive disorder, recurrent, moderate (2) Anxiety: Status: Acute Code(s): F41.9 - Anxiety disorder, unspecified (3) Homelessness: Status: Acute Code(s): Z59.00 - Homelessness unspecified Plan 34-year-old male voluntarily presents at [facility] to 11/26/2024 with SI and HI without a plan. He has history of anxiety, MDD, bipolar 2 disorder, PTSD, and polysubstance abuse. He notes that his mom drove him to [facility] for SI and HI. He did not have a plan and his HI is not towards anyone. His symptoms intensified because he did not take his medications for a week. He was recently section 12 at [place] and was admitted for 1 week for SI and HI. His symptoms improved and was discharged. Medication orders whenever sent from [place] to his pharmacy, therefore, he was without his medications. His symptoms worsened 3 days after his inpatient psychiatric hospitalization discharge. Therefore, he decided to go to the ED for evaluation and treatment. He notes that his home medications are duloxetine, gabapentin, clonidine, hydroxyzine, olanzapine, and mirtazapine. He notes that he is currently depressed and anxious. Current medication regimen her effective with SI and HI but not anxiety and depression. He denies SI/HI at this time. He denies AVH. He took buspirone in the past with significant improvement of his anxiety symptoms. He wishes to restart buspirone. 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 He currently uses cocaine intranasally 1-2 times weekly. He denies drinking alcohol. He is homeless. He lived at the [facility] and wants a referral to go back to them. Formulation/Clinical Reasoning: Patient's SI/HI and anxiety and depressive symptoms likely worsened due to not not taking his medication which were not available to him. He is likely experiencing recurrent MDD. PLAN Admit to M5. CV 15 minutes check. Diagnostics as needed. Collateral contact. Will start buspirone 10 mg twice daily for anxiety; advised to take as prescribed. Instructed on the risks, benefits, and potential adverse reactions of the medication. Will decrease clonidine from 0.1 mg 3 times daily to 0.1 mg twice daily as needed. Continue remainder of regime. Encouraged full milieu. Discharge planning. 11/29 Patient reports anxiety and depressive symptoms which are gradually improving. He states that his anxiety symptoms her severe and depressive symptoms are moderate. He has been taking his medications as prescribed. He often wakes up at night. He notes that he has not experienced SI or HI for the past 2 days. He denies AVH. He has been attending groups. Will increase buspirone to 10 mg 3 times daily. Continue remainder of regimen. 11/30: Increase duloxetine to 30 mg bid (pt's base dose) Increase buspirone to 15 mg tid (30 mg tid pt's base dose) 12/01 recent med increasing so clonidine decreased- doing ok on current combination according to patient 12/02 - improving on new meds looking forward to dc planning 12/03- Continue regime/plan Reason for continued inpatient stay Substantial Risk for: rapid decompensation Time Spent With Patient Time: Total time managing care of this patient today ____ minutes.
[2024-12-03 18:30] VITALS: BP 132/94
[2024-12-03 19:58] VITALS: BP 129/66; PULSE 81; RESP 16; TEMP 37; O2SAT 99
[2024-12-03] MEDS: traZODone HCL 50 MG TABLET PO (20:31)
[2024-12-03] MEDS: OLANZapine 10 MG TABLET PO (20:31)
[2024-12-03] MEDS: QUEtiapine Fumarate 25 MG TABLET 75 MG PO (21:38)
[2024-12-04 08:00] VITALS: BP 115/64; PULSE 83; TEMP 36.4; O2SAT 98
[2024-12-04] MEDS: Nicotine 21 MG PATCH.TD24 TRANSDERMA (08:54)
[2024-12-04] MEDS: Acamprosate Calcium 333 MG TABLET.DR 666 MG PO ×3 (08:55→21:19)
[2024-12-04] MEDS: hydrOXYzine HCL 50 MG TABLET PO ×2 (08:55→16:37)
[2024-12-04] MEDS: Buprenorphine/Naloxone 8/2 mg FILM 1 FILM SUBLINGUAL ×3 (08:55→21:20)
[2024-12-04] MEDS: DULoxetine HCl 30 MG CAPSULE.DR PO ×2 (08:55→21:20)
[2024-12-04] MEDS: busPIRone HCl 5 MG TABLET 15 MG PO ×3 (08:55→21:19)
[2024-12-04] MEDS: Gabapentin 600 MG TABLET PO ×3 (08:55→21:19)
--- NOTE | 2024-12-04 10:22 | P.PNPSI_ITS ---
Subjective Subjective Date of Service: 12/04/24 Reason For Visit: PTSD; Depression: polysubstance Use D/O Subjective Notes: Conditional Voluntary Healthcare Proxy: No Guardianship: No Medical Problems Affecting Mental Status: No Interim History: Pt reports regime to be effective, without SE Denies SI,HI,AH,VH Asks to utilize his phone to access email from his state attorney-authorized this with him. Hoping for [facility] acceptance Medication Compliance: Yes Side effects from medications: No Attending Groups: Intermittent Review of Systems Acute medical concerns: No Review of Systems Review of Systems Denies Mental Status Exam Mental Status Exam Patient Appearance: Well Grooomed and Appropriate Patient Orientation: Person, Place, Time and Situation Level of Consciousness: Awake and Alert Patient Behavior: Appropriate, Cooperative and Good Eye Contact Mood Description: Calm Affect Description: Appropriate Patient Cognition Impaired: No Ability to Follow Directions: Good Speech Pattern: Clear Thought Process: Intact and Goal Oriented Thought Content: positive for Logical (future oriented) Judgement: Good Diagnostics Vital Signs (24Hr): Vital Signs - 24 hr 12/03/24 18:30 12/03/24 19:58 12/04/24 08:00 Temperature 98.6 F 97.6 F Pulse Rate 81 83 Respiratory Rate 16 Blood Pressure 132/94 H 129/66 115/64 Pulse Oximetry 99 98 Oxygen Delivery Method Room Air Room Air BMI result Body Mass Index 35.2 Labs 11/26/24 09:00 11/26/24 09:00 Medications Medications Current Medications Acamprosate (Acamprosate Calcium 333 Mg Tablet.) 666 mg PO TID [facility] Last Admin: 12/04/24 08:55 Dose: 666 mg Acetaminophen (Acetaminophen 325 Mg Tablet) 650 mg PO Q6H PRN PRN Reason: Headache/Pain, Scale 1-10 Last Admin: 11/28/24 17:35 Dose: 650 mg Al Hydroxide/Mg Hydroxide (Magnesium Hydrox/Alum Hydrox 30 Ml Oral.Susp) 30 ml PO Q6H PRN PRN Reason: Heartburn/Nausea Buprenorphine/Naloxone (Buprenorphine/Naloxone 8/2 Mg Film) 1 film SUBLINGUAL TID [facility] Last Admin: 12/04/24 08:55 Dose: 1 film Buspirone HCl (Buspirone Hcl 5 Mg Tablet) 15 mg PO TID [facility] Last Admin: 12/04/24 08:55 Dose: 15 mg Clonidine HCl (Clonidine Hcl 0.1 Mg Tablet) 0.1 mg PO BID PRN; Protocol PRN Reason: Anxiety Last Admin: 12/03/24 18:30 Dose: 0.1 mg Duloxetine HCl (Duloxetine Hcl 30 Mg Capsule.Dr) 30 mg PO BID [facility] Last Admin: 12/04/24 08:55 Dose: 30 mg Gabapentin (Gabapentin 600 Mg Tablet) 600 mg PO TID [facility] Last Admin: 12/04/24 08:55 Dose: 600 mg Hydroxyzine HCl (Hydroxyzine Hcl 50 Mg Tablet) 50 mg PO Q8H PRN PRN Reason: anxiety Last Admin: 12/04/24 08:55 Dose: 50 mg Magnesium Hydroxide (Milk Of Magnesia 30 Ml Oral.Susp) 30 ml PO DAILY PRN PRN Reason: Constipation Last Admin: 12/02/24 10:35 Dose: 30 ml Mirtazapine (Mirtazapine 15 Mg Tablet) 15 mg PO BEDTIME PRN PRN Reason: for insomnia Last Admin: 11/30/24 00:09 Dose: 15 mg Nicotine (Nicotine 21 Mg Patch.Td24) 21 mg TRANSDERMA DAILY [facility] Last Admin: 12/04/24 08:54 Dose: 21 mg Nicotine Polacrilex (Nicotine Polacrilex 2 Mg Gum) 4 mg BUCCAL Q2H PRN PRN Reason: Nicotine Cravings Last Admin: 11/30/24 10:38 Dose: 4 mg Olanzapine (Olanzapine 10 Mg Tablet) 10 mg PO BEDTIME [facility] Last Admin: 12/03/24 20:31 Dose: 10 mg Quetiapine Fumarate (Quetiapine Fumarate 25 Mg Tablet) 75 mg PO TID PRN PRN Reason: anxiety,agitation Last Admin: 12/03/24 21:38 Dose: 75 mg Trazodone HCl (Trazodone Hcl 50 Mg Tablet) 50 mg PO BEDTIME MRX1 PRN PRN Reason: Insomnia Last Admin: 12/03/24 20:31 Dose: 50 mg Allergies Allergies Allergy/AdvReac Type Severity Reaction Status Date / Time No Known Allergies Allergy Verified 11/26/24 07:59 Assessment & Plan Assessment & Plan (1) MDD (major depressive disorder), recurrent episode, moderate: Status: Acute Code(s): F33.1 - Major depressive disorder, recurrent, moderate (2) Anxiety: Status: Acute Code(s): F41.9 - Anxiety disorder, unspecified (3) Homelessness: Status: Acute Code(s): Z59.00 - Homelessness unspecified Plan 34-year-old male voluntarily presents at [facility] ED to 11/26/2024 with SI and HI without a plan. He has history of anxiety, MDD, bipolar 2 disorder, PTSD, and polysubstance abuse. He notes that his mom drove him to [facility] ED for SI and HI. He did not have a plan and his HI is not towards anyone. His symptoms intensified because he did not take his medications for a week. He was recently section 12 at [place] and was admitted for 1 week for SI and HI. His symptoms improved and was discharged. Medication orders whenever sent from [place] to his pharmacy, therefore, he was without his medications. His symptoms worsened 3 days after his inpatient psychiatric hospitalization discharge. Therefore, he decided to go to the ED for evaluation and treatment. He notes that his home medications are duloxetine, gabapentin, clonidine, hydroxyzine, olanzapine, and mirtazapine. He notes that he is currently depressed and anxious. Current medication regimen her effective with SI and HI but not anxiety and depression. He denies SI/HI at this time. He denies AVH. He took buspirone in the past with significant improvement of his anxiety symptoms. He wishes to restart buspirone. 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 He currently uses cocaine intranasally 1-2 times weekly. He denies drinking alcohol. He is homeless. He lived at the [facility] and wants a referral to go back to them. Formulation/Clinical Reasoning: Patient's SI/HI and anxiety and depressive symptoms likely worsened due to not not taking his medication which were not available to him. He is likely experiencing recurrent MDD. PLAN Admit to M5. CV 15 minutes check. Diagnostics as needed. Collateral contact. Will start buspirone 10 mg twice daily for anxiety; advised to take as prescribed. Instructed on the risks, benefits, and potential adverse reactions of the medication. Will decrease clonidine from 0.1 mg 3 times daily to 0.1 mg twice daily as needed. Continue remainder of regime. Encouraged full milieu. Discharge planning. 11/29 Patient reports anxiety and depressive symptoms which are gradually improving. He states that his anxiety symptoms her severe and depressive symptoms are moderate. He has been taking his medications as prescribed. He often wakes up at night. He notes that he has not experienced SI or HI for the past 2 days. He denies AVH. He has been attending groups. Will increase buspirone to 10 mg 3 times daily. Continue remainder of regimen. 11/30: Increase duloxetine to 30 mg bid (pt's base dose) Increase buspirone to 15 mg tid (30 mg tid pt's base dose) 12/01 recent med increasing so clonidine decreased- doing ok on current combination according to patient 12/02 - improving on new meds looking forward to dc planning 12/04- Continue regime/plan Reason for continued inpatient stay Substantial Risk for: rapid decompensation Time Spent With Patient Time: Total time managing care of this patient today ____ minutes.
[2024-12-04 11:46] VITALS: BP 126/75
[2024-12-04] MEDS: cloNIDine HCL 0.1 MG TABLET PO ×2 (11:46→19:43)
[2024-12-04 19:43] VITALS: BP 124/71
[2024-12-04 20:00] VITALS: BP 139/81; PULSE 100; RESP 16; TEMP 36.9; O2SAT 96
[2024-12-04] MEDS: traZODone HCL 50 MG TABLET PO ×2 (21:19→22:43)
[2024-12-04] MEDS: OLANZapine 10 MG TABLET PO (21:20)
[2024-12-04] MEDS: QUEtiapine Fumarate 25 MG TABLET 75 MG PO (22:43)
[2024-12-05 07:42] VITALS: BP 146/82; PULSE 109; TEMP 36.1; O2SAT 97
[2024-12-05] MEDS: Gabapentin 600 MG TABLET PO ×3 (08:22→21:05)
[2024-12-05] MEDS: DULoxetine HCl 30 MG CAPSULE.DR PO ×2 (08:22→21:04)
[2024-12-05] MEDS: Acamprosate Calcium 333 MG TABLET.DR 666 MG PO ×3 (08:22→21:05)
[2024-12-05] MEDS: hydrOXYzine HCL 50 MG TABLET PO ×2 (08:22→23:14)
[2024-12-05] MEDS: busPIRone HCl 5 MG TABLET 15 MG PO ×3 (08:22→21:05)
[2024-12-05] MEDS: Buprenorphine/Naloxone 8/2 mg FILM 1 FILM SUBLINGUAL ×3 (08:23→21:05)
[2024-12-05 12:51] VITALS: BP 129/77
[2024-12-05] MEDS: cloNIDine HCL 0.1 MG TABLET PO ×2 (12:51→19:11)
--- NOTE | 2024-12-05 15:40 | HO.PSYCHPN ---
Subjective Subjective Date of Service: 12/05/24 Reason For Visit: PTSD; Depression: polysubstance Use D/O Interim History: Patient reports feeling pretty good ; pt stated, my depression is low and I plan on going to a [facility] after here . He reports some difficulty falling asleep; requesting for Trazodone to be increased to 100mg PO bedtime. denies SI/HI/VH/AH. Medication Compliance: Yes Side effects from medications: No Mental Status Exam Mental Status Exam Patient Appearance: Well Grooomed Patient Orientation: Person, Place, Time and Situation Level of Consciousness: Awake and Alert Patient Behavior: Appropriate and Cooperative Mood Description: Calm Affect Description: Calm Ability to Follow Directions: Good Speech Pattern: Clear and Appropriate Memory Description: Intact Hallucinations: None Delusions: Not Present Thought Process: Intact Thought Content: positive for Intact Diagnostics Vital Signs (24Hr): Vital Signs - 24 hr 12/04/24 19:43 12/04/24 20:00 12/05/24 07:42 Temperature 98.5 F 96.9 F Pulse Rate 100 109 H Respiratory Rate 16 Blood Pressure 124/71 139/81 146/82 H Pulse Oximetry 96 97 Oxygen Delivery Method Room Air Room Air 12/05/24 12:51 Temperature Pulse Rate Respiratory Rate Blood Pressure 129/77 Pulse Oximetry Oxygen Delivery Method BMI result Body Mass Index 35.2 Labs 11/26/24 09:00 11/26/24 09:00 Medications Medications Current Medications Acamprosate (Acamprosate Calcium 333 Mg Tablet.Dr) 666 mg PO TID [facility] Last Admin: 12/05/24 14:56 Dose: 666 mg Acetaminophen (Acetaminophen 325 Mg Tablet) 650 mg PO Q6H PRN PRN Reason: Headache/Pain, Scale 1-10 Last Admin: 11/28/24 17:35 Dose: 650 mg Al Hydroxide/Mg Hydroxide (Magnesium Hydrox/Alum Hydrox 30 Ml Oral.Susp) 30 ml PO Q6H PRN PRN Reason: Heartburn/Nausea Buprenorphine/Naloxone (Buprenorphine/Naloxone 8/2 Mg Film) 1 film SUBLINGUAL TID [facility] Last Admin: 12/05/24 14:56 Dose: 1 film Buspirone HCl (Buspirone Hcl 5 Mg Tablet) 15 mg PO TID [facility] Last Admin: 12/05/24 14:56 Dose: 15 mg Clonidine HCl (Clonidine Hcl 0.1 Mg Tablet) 0.1 mg PO BID PRN; Protocol PRN Reason: Anxiety Last Admin: 12/05/24 12:51 Dose: 0.1 mg Duloxetine HCl (Duloxetine Hcl 30 Mg Capsule.Dr) 30 mg PO BID [facility] Last Admin: 12/05/24 08:22 Dose: 30 mg Gabapentin (Gabapentin 600 Mg Tablet) 600 mg PO TID [facility] Last Admin: 12/05/24 14:56 Dose: 600 mg Hydroxyzine HCl (Hydroxyzine Hcl 50 Mg Tablet) 50 mg PO Q8H PRN PRN Reason: anxiety Last Admin: 12/05/24 08:22 Dose: 50 mg Magnesium Hydroxide (Milk Of Magnesia 30 Ml Oral.Susp) 30 ml PO DAILY PRN PRN Reason: Constipation Last Admin: 12/02/24 10:35 Dose: 30 ml Mirtazapine (Mirtazapine 15 Mg Tablet) 15 mg PO BEDTIME PRN PRN Reason: for insomnia Last Admin: 11/30/24 00:09 Dose: 15 mg Nicotine (Nicotine 21 Mg Patch.Td24) 21 mg TRANSDERMA DAILY [facility] Last Admin: 12/05/24 08:59 Dose: Not Given Nicotine Polacrilex (Nicotine Polacrilex 2 Mg Gum) 4 mg BUCCAL Q2H PRN PRN Reason: Nicotine Cravings Last Admin: 11/30/24 10:38 Dose: 4 mg Olanzapine (Olanzapine 10 Mg Tablet) 10 mg PO BEDTIME [facility] Last Admin: 12/04/24 21:20 Dose: 10 mg Quetiapine Fumarate (Quetiapine Fumarate 25 Mg Tablet) 75 mg PO TID PRN PRN Reason: anxiety,agitation Last Admin: 12/04/24 22:43 Dose: 75 mg Trazodone HCl (Trazodone Hcl 50 Mg Tablet) 50 mg PO BEDTIME MRX1 PRN PRN Reason: Insomnia Last Admin: 12/04/24 22:43 Dose: 50 mg Allergies Allergies Allergy/AdvReac Type Severity Reaction Status Date / Time No Known Allergies Allergy Verified 11/26/24 07:59 Assessment & Plan Assessment & Plan (1) MDD (major depressive disorder), recurrent episode, moderate: Status: Acute Code(s): F33.1 - Major depressive disorder, recurrent, moderate (2) Anxiety: Status: Acute Code(s): F41.9 - Anxiety disorder, unspecified (3) Homelessness: Status: Acute Code(s): Z59.00 - Homelessness unspecified Plan 34-year-old male voluntarily presents at [facility] to 11/26/2024 with SI and HI without a plan. He has history of anxiety, MDD, bipolar 2 disorder, PTSD, and polysubstance abuse. He notes that his mom drove him to [facility] for SI and HI. He did not have a plan and his HI is not towards anyone. His symptoms intensified because he did not take his medications for a week. He was recently section 12 at [place] and was admitted for 1 week for SI and HI. His symptoms improved and was discharged. Medication orders whenever sent from [place] to his pharmacy, therefore, he was without his medications. His symptoms worsened 3 days after his inpatient psychiatric hospitalization discharge. Therefore, he decided to go to the ED for evaluation and treatment. He notes that his home medications are duloxetine, gabapentin, clonidine, hydroxyzine, olanzapine, and mirtazapine. He notes that he is currently depressed and anxious. Current medication regimen her effective with SI and HI but not anxiety and depression. He denies SI/HI at this time. He denies AVH. He took buspirone in the past with significant improvement of his anxiety symptoms. He wishes to restart buspirone. 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 He currently uses cocaine intranasally 1-2 times weekly. He denies drinking alcohol. He is homeless. He lived at the [facility] and wants a referral to go back to them. Formulation/Clinical Reasoning: Patient's SI/HI and anxiety and depressive symptoms likely worsened due to not not taking his medication which were not available to him. He is likely experiencing recurrent MDD. PLAN Admit to M5. CV 15 minutes check. Diagnostics as needed. Collateral contact. Will start buspirone 10 mg twice daily for anxiety; advised to take as prescribed. Instructed on the risks, benefits, and potential adverse reactions of the medication. Will decrease clonidine from 0.1 mg 3 times daily to 0.1 mg twice daily as needed. Continue remainder of regime. Encouraged full milieu. Discharge planning. 11/29 Patient reports anxiety and depressive symptoms which are gradually improving. He states that his anxiety symptoms her severe and depressive symptoms are moderate. He has been taking his medications as prescribed. He often wakes up at night. He notes that he has not experienced SI or HI for the past 2 days. He denies AVH. He has been attending groups. Will increase buspirone to 10 mg 3 times daily. Continue remainder of regimen. 11/30: Increase duloxetine to 30 mg bid (pt's base dose) Increase buspirone to 15 mg tid (30 mg tid pt's base dose) 12/01 recent med increasing so clonidine decreased- doing ok on current combination according to patient 12/02 - improving on new meds looking forward to dc planning 12/03- Continue regime/plan 12/05: Patient reports feeling pretty good ; pt stated, my depression is low and I plan on going to a [facility] after here . He reports some difficulty falling asleep; requesting for Trazodone to be increased to 100mg PO bedtime. denies SI/HI/VH/AH. Change Trazodone to 100mg PO bedtime. Patient educated on: diagnosis and medication risk/benefits Reason for continued inpatient stay Substantial Risk for: med/psych decompensation Time Spent With Patient Time: Total time managing care of this patient today _20___ minutes.
[2024-12-05 19:11] VITALS: BP 123/80
[2024-12-05 19:32] VITALS: BP 123/80; PULSE 107; RESP 16; TEMP 36.4; O2SAT 98
[2024-12-05] MEDS: traZODone HCL 100 MG TABLET PO (21:04)
[2024-12-05] MEDS: OLANZapine 10 MG TABLET PO (21:05)
[2024-12-05] MEDS: QUEtiapine Fumarate 25 MG TABLET 75 MG PO (23:14)
[2024-12-06 08:10] VITALS: BP 122/60; PULSE 88; TEMP 36.4; O2SAT 96
[2024-12-06] MEDS: busPIRone HCl 5 MG TABLET 15 MG PO ×3 (08:49→20:24)
[2024-12-06] MEDS: Nicotine 21 MG PATCH.TD24 TRANSDERMA (08:49)
[2024-12-06] MEDS: DULoxetine HCl 30 MG CAPSULE.DR PO ×2 (08:50→20:24)
[2024-12-06] MEDS: Buprenorphine/Naloxone 8/2 mg FILM 1 FILM SUBLINGUAL ×3 (08:50→20:24)
[2024-12-06] MEDS: Acamprosate Calcium 333 MG TABLET.DR 666 MG PO ×3 (08:50→20:24)
[2024-12-06] MEDS: Gabapentin 600 MG TABLET PO ×3 (08:50→20:24)
[2024-12-06] MEDS: hydrOXYzine HCL 50 MG TABLET PO ×2 (09:02→17:39)
[2024-12-06 09:14] VITALS: BMI 37.1
[2024-12-06 11:35] VITALS: BP 128/82
[2024-12-06] MEDS: cloNIDine HCL 0.1 MG TABLET PO ×2 (11:35→23:26)
--- NOTE | 2024-12-06 13:51 | HO.PSYCHPN ---
Subjective Subjective Date of Service: 12/06/24 Reason For Visit: PTSD; Depression: polysubstance Use D/O Subjective Notes: Conditional Voluntary Healthcare Proxy: No Guardianship: No Medical Problems Affecting Mental Status: No Interim History: Patient states that he feels good. He notes anxiety at baseline. He denies depression, SI, HI, AVH. He is excited for his scheduled phone meeting with the [facility] at 12 PM today. Medication Compliance: Yes Side effects from medications: No Attending Groups: Yes Review of Systems Acute medical concerns: Yes Medical Review of Systems: unchanged Mental Status Exam Mental Status Exam Narrative: Mental Status Exam Narrative: Appearance: Casually dressed Behavior: Calm and cooperative throughout the interview. Eye contact is appropriate, and there are no signs of psychomotor agitation or retardation Speech: Normal volume and prosody Thought process logical and goal-directed Thought content: Future oriented no self-harming thoughts Mood: Good Affect: Full, mood-congruent SI:denies HI:denies VH/AH:none Delusions: None Insight/judgment: Good insight and judgment Memory/cog: Alert, oriented x 4. grossly intact to conversational testing Diagnostics Vital Signs (24Hr): Vital Signs - 24 hr 12/05/24 19:11 12/05/24 19:32 12/06/24 08:10 Temperature 97.6 F 97.6 F Pulse Rate 107 H 88 Respiratory Rate 16 Blood Pressure 123/80 123/80 122/60 Pulse Oximetry 98 96 Oxygen Delivery Method Room Air Room Air 12/06/24 11:35 Temperature Pulse Rate Respiratory Rate Blood Pressure 128/82 Pulse Oximetry Oxygen Delivery Method BMI result Body Mass Index 37.1 Labs 11/26/24 09:00 11/26/24 09:00 Medications Medications Current Medications Acamprosate (Acamprosate Calcium 333 Mg Tablet.) 666 mg PO TID [facility] Last Admin: 12/06/24 08:50 Dose: 666 mg Acetaminophen (Acetaminophen 325 Mg Tablet) 650 mg PO Q6H PRN PRN Reason: Headache/Pain, Scale 1-10 Last Admin: 11/28/24 17:35 Dose: 650 mg Al Hydroxide/Mg Hydroxide (Magnesium Hydrox/Alum Hydrox 30 Ml Oral.Susp) 30 ml PO Q6H PRN PRN Reason: Heartburn/Nausea Baclofen (Baclofen 10 Mg Tablet) 10 mg PO BID [facility] Buprenorphine/Naloxone (Buprenorphine/Naloxone 8/2 Mg Film) 1 film SUBLINGUAL TID [facility] Last Admin: 12/06/24 08:50 Dose: 1 film Buspirone HCl (Buspirone Hcl 5 Mg Tablet) 15 mg PO TID [facility] Last Admin: 12/06/24 08:49 Dose: 15 mg Clonidine HCl (Clonidine Hcl 0.1 Mg Tablet) 0.1 mg PO BID PRN; Protocol PRN Reason: Anxiety Last Admin: 12/06/24 11:35 Dose: 0.1 mg Duloxetine HCl (Duloxetine Hcl 30 Mg Capsule.Dr) 30 mg PO BID [facility] Last Admin: 12/06/24 08:50 Dose: 30 mg Gabapentin (Gabapentin 600 Mg Tablet) 600 mg PO TID [facility] Last Admin: 12/06/24 08:50 Dose: 600 mg Hydroxyzine HCl (Hydroxyzine Hcl 50 Mg Tablet) 50 mg PO Q8H PRN PRN Reason: anxiety Last Admin: 12/06/24 09:02 Dose: 50 mg Magnesium Hydroxide (Milk Of Magnesia 30 Ml Oral.Susp) 30 ml PO DAILY PRN PRN Reason: Constipation Last Admin: 12/02/24 10:35 Dose: 30 ml Mirtazapine (Mirtazapine 15 Mg Tablet) 15 mg PO BEDTIME PRN PRN Reason: for insomnia Last Admin: 11/30/24 00:09 Dose: 15 mg Nicotine (Nicotine 21 Mg Patch.Td24) 21 mg TRANSDERMA DAILY [facility] Last Admin: 12/06/24 08:49 Dose: 21 mg Nicotine Polacrilex (Nicotine Polacrilex 2 Mg Gum) 4 mg BUCCAL Q2H PRN PRN Reason: Nicotine Cravings Last Admin: 11/30/24 10:38 Dose: 4 mg Olanzapine (Olanzapine 10 Mg Tablet) 10 mg PO BEDTIME [facility] Last Admin: 12/05/24 21:05 Dose: 10 mg Quetiapine Fumarate (Quetiapine Fumarate 25 Mg Tablet) 75 mg PO TID PRN PRN Reason: anxiety,agitation Last Admin: 12/05/24 23:14 Dose: 75 mg Trazodone HCl (Trazodone Hcl 100 Mg Tablet) 100 mg PO BEDTIME PRN PRN Reason: Insomnia Last Admin: 12/05/24 21:04 Dose: 100 mg Allergies Allergies Allergy/AdvReac Type Severity Reaction Status Date / Time No Known Allergies Allergy Verified 11/26/24 07:59 Assessment & Plan Assessment & Plan (1) MDD (major depressive disorder), recurrent episode, moderate: Status: Acute Code(s): F33.1 - Major depressive disorder, recurrent, moderate (2) Anxiety: Status: Acute Code(s): F41.9 - Anxiety disorder, unspecified (3) Homelessness: Status: Acute Code(s): Z59.00 - Homelessness unspecified Plan 34-year-old male voluntarily presents at [facility] to 11/26/2024 with SI and HI without a plan. He has history of anxiety, MDD, bipolar 2 disorder, PTSD, and polysubstance abuse. He notes that his mom drove him to [facility] for SI and HI. He did not have a plan and his HI is not towards anyone. His symptoms intensified because he did not take his medications for a week. He was recently section 12 at [place] and was admitted for 1 week for SI and HI. His symptoms improved and was discharged. Medication orders whenever sent from [place] to his pharmacy, therefore, he was without his medications. His symptoms worsened 3 days after his inpatient psychiatric hospitalization discharge. Therefore, he decided to go to the ED for evaluation and treatment. He notes that his home medications are duloxetine, gabapentin, clonidine, hydroxyzine, olanzapine, and mirtazapine. He notes that he is currently depressed and anxious. Current medication regimen her effective with SI and HI but not anxiety and depression. He denies SI/HI at this time. He denies AVH. He took buspirone in the past with significant improvement of his anxiety symptoms. He wishes to restart buspirone. 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 He currently uses cocaine intranasally 1-2 times weekly. He denies drinking alcohol. He is homeless. He lived at the [facility] and wants a referral to go back to them. Formulation/Clinical Reasoning: Patient's SI/HI and anxiety and depressive symptoms likely worsened due to not not taking his medication which were not available to him. He is likely experiencing recurrent MDD. PLAN Admit to M5. CV 15 minutes check. Diagnostics as needed. Collateral contact. Will start buspirone 10 mg twice daily for anxiety; advised to take as prescribed. Instructed on the risks, benefits, and potential adverse reactions of the medication. Will decrease clonidine from 0.1 mg 3 times daily to 0.1 mg twice daily as needed. Continue remainder of regime. Encouraged full milieu. Discharge planning. 11/29 Patient reports anxiety and depressive symptoms which are gradually improving. He states that his anxiety symptoms her severe and depressive symptoms are moderate. He has been taking his medications as prescribed. He often wakes up at night. He notes that he has not experienced SI or HI for the past 2 days. He denies AVH. He has been attending groups. Will increase buspirone to 10 mg 3 times daily. Continue remainder of regimen. 11/30: Increase duloxetine to 30 mg bid (pt's base dose) Increase buspirone to 15 mg tid (30 mg tid pt's base dose) 12/01 recent med increasing so clonidine decreased- doing ok on current combination according to patient 12/02 - improving on new meds looking forward to dc planning 12/04- Continue regime/plan 12/06: Continue regime/plan. He has a scheduled phone meeting with the [facility] at 12 PM today. Patient educated on: therapeutic strategies Guardian/Caregiver educated on: therapeutic strategies Informed Consent: understands Reason for continued inpatient stay Substantial Risk for: rapid decompensation Time Spent With Patient Time: Total time managing care of this patient today ____ minutes.
[2024-12-06 19:47] VITALS: BP 165/81; PULSE 117; RESP 16; TEMP 36.8; O2SAT 96
[2024-12-06] MEDS: OLANZapine 10 MG TABLET PO (20:24)
[2024-12-06] MEDS: Baclofen 10 MG TABLET PO (20:24)
[2024-12-06] MEDS: traZODone HCL 100 MG TABLET PO (20:24)
[2024-12-06 23:26] VITALS: BP 136/64
[2024-12-06] MEDS: QUEtiapine Fumarate 25 MG TABLET 75 MG PO (23:26)
[2024-12-07 08:11] VITALS: BP 142/78; PULSE 89; TEMP 36.8; O2SAT 95
[2024-12-07] MEDS: Acamprosate Calcium 333 MG TABLET.DR 666 MG PO (09:08)
[2024-12-07] MEDS: busPIRone HCl 5 MG TABLET 15 MG PO (09:08)
[2024-12-07] MEDS: Nicotine 21 MG PATCH.TD24 TRANSDERMA (09:09)
[2024-12-07] MEDS: Gabapentin 600 MG TABLET PO (09:09)
[2024-12-07] MEDS: Baclofen 10 MG TABLET PO (09:09)
[2024-12-07] MEDS: DULoxetine HCl 30 MG CAPSULE.DR PO (09:09)
[2024-12-07] MEDS: hydrOXYzine HCL 50 MG TABLET PO (09:09)
[2024-12-07] MEDS: Buprenorphine/Naloxone 8/2 mg FILM 1 FILM SUBLINGUAL (09:10)
--- NOTE | 2024-12-07 10:07 | PM.PSYDC ---
DS: Providers Provider Date of admission: 11/27/24 11:50 Primary care physician: Celine Duarte MD Consults: 11/27/24 13:12 Addiction Medicine Provider Routine Consulting Provider: Addiction Covering Reason for consultation: Positive Audit-C DS: Diagnosis Discharge Diagnosis (1) MDD (major depressive disorder), recurrent episode, moderate: Status: Acute (2) Anxiety: Status: Acute (3) Homelessness: Status: Acute DS: Medications Discharge Medications Home Medications: Previous Rx's ?Medication ?Instructions ?Recorded acamprosate 333 mg tablet,delayed 666 mg (2 x 333 mg) PO TID #90 tabs 12/06/24 release buprenorphine 8 mg-naloxone 2 mg 1 film sublingual TID #15 ea 12/06/24 sublingual film (Suboxone) buspirone 5 mg tablet 15 mg (3 x 5 mg) PO TID #90 tabs 12/06/24 clonidine HCl 0.1 mg tablet 0.1 mg PO BID PRN Anxiety #60 tabs 12/06/24 duloxetine 30 mg capsule,delayed 30 mg PO BID #60 caps 12/06/24 release gabapentin 600 mg tablet 600 mg PO TID 30 days #90 tabs 12/06/24 hydroxyzine pamoate 50 mg capsule 50 mg PO Q8H PRN anxiety 30 days 12/06/24 #90 caps mirtazapine 15 mg tablet 15 mg PO BEDTIME PRN for insomnia 12/06/24 #30 tabs naloxone 4 mg/actuation nasal 4 mg intranasal Q2M PRN opioid 12/06/24 spray (Narcan) overdose #2 ea nicotine (polacrilex) 2 mg gum 4 mg buccal Q2H PRN Nicotine 12/06/24 Cravings #100 ea nicotine 21 mg/24 hr daily 21 mg transdermal DAILY #30 ea 12/06/24 transdermal patch olanzapine 10 mg tablet 10 mg PO BEDTIME #30 tabs 12/06/24 quetiapine 50 mg tablet (Seroquel) 50 mg PO BID PRN agitation #60 tabs 12/06/24 trazodone 100 mg tablet 100 mg PO BEDTIME PRN Insomnia #30 12/06/24 tabs DS: Summary Time Spent with Patient Time attestation: Total time managing care of this patient today ____ minutes. Discharge Plan Discharge Anticipated Discharge Date/Time: 12/07/24 12:00 Patient Disposition: Xfer Inpatient Rehab Fac Discharge Diagnosis: Recurrent Major Depression Polysubstance Use Disorder Anxiety Homelessness Referrals: Celine Duarte MD [Primary Care Provider] - 1 Week Discharge Medications: New buspirone 5 mg Tablet 15 mg PO TID Qty: 90 0RF clonidine HCl 0.1 mg Tablet 0.1 mg PO BID PRN (Reason: Anxiety) Qty: 60 0RF Protocol: Hold for SBP< HOLD for SBP < : 90 nicotine (polacrilex) 2 mg Gum 4 mg buccal Q2H PRN (Reason: Nicotine Cravings) Qty: 100 0RF trazodone 100 mg Tablet 100 mg PO BEDTIME PRN (Reason: Insomnia) Qty: 30 0RF nicotine 21 mg/24 hr Patch 24 Hour 21 mg transdermal DAILY Qty: 30 0RF duloxetine 30 mg Capsule,Delayed Release(Dr/Ec) 30 mg PO BID Qty: 60 0RF buprenorphine-naloxone [Suboxone] 8-2 mg Film 1 film sublingual TID Qty: 15 0RF quetiapine [Seroquel] 50 mg tablet 50 mg PO BID PRN (Reason: agitation) Qty: 60 0RF naloxone [Narcan] 4 mg/actuation spray,non-aerosol 4 mg intranasal Q2M PRN (Reason: opioid overdose) Qty: 2 0RF Rx Instructions: spray 1 dose into ONE nostril; alternate nostrils w each dose until help arrives Continued gabapentin 600 mg tablet 600 mg PO TID 30 Days Qty: 90 0RF hydroxyzine pamoate 50 mg capsule 50 mg PO Q8H PRN (Reason: anxiety) 30 Days Qty: 90 0RF olanzapine 10 mg tablet 10 mg PO BEDTIME Qty: 30 3RF mirtazapine 15 mg tablet 15 mg PO BEDTIME PRN (Reason: for insomnia) Qty: 30 0RF acamprosate 333 mg tablet,delayed release (DR/EC) 666 mg PO TID Qty: 90 0RF Discontinued Sublocade 300 mg/1.5 mL solution, extended rel syringe 300 mg subcut .q 4 weeks Qty: 1.5 5RF clonidine HCl 0.1 mg tablet 0.1 mg PO TID 30 Days Qty: 90 2RF duloxetine 20 mg capsule,delayed release(DR/EC) 20 mg PO BID buprenorphine-naloxone [Suboxone] 8-2 mg film 1 film sublingual TID Discharge Orders: Discharge Order (Routine); Ordered 12/07/24 Ordered By: Trupti Zamora Diet: Advance to usual diet Activity on Discharge: As tolerated Stand Alone Forms: Patient Portal Discharge page Print Language: Macedonian Care Plan Goals: Abstinence from substances Mood and Behavioral Stabilization Health Concerns: Abstinence from substances Mood and Behavioral Stabilization Plan of Treatment: Pt will transfer to [facility] for ongoing treatment. Assessment: Denies SI,HI,AH, VH. No sx of acute lance or psychosis Pt is invested in treatment and wanting to continue to work on abstinence
[2024-12-07 11:33] VITALS: BP 130/78
[2024-12-07] MEDS: cloNIDine HCL 0.1 MG TABLET PO (11:33)
== END 2024-12-07 13:40 | DRG 751 ==
LOC: HO.ED 09:35 → HO.PM5 11-27 12:14
PROVIDERS: Admitting Provider Clinical Nurse Specialist Psychiatric/Mental Health, Adult; Emergency Provider Emergency Medicine Emergency Medical Services; PCP Internal Medicine; Visit Provider Clinical Nurse Specialist Psychiatric/Mental Health, Adult
DX: F33.1 Major depressive disorder, recurrent, moderate (principal); R45.851 Suicidal ideations; R45.850 Homicidal ideations; F43.10 Post-traumatic stress disorder, unspecified; F41.9 Anxiety disorder, unspecified; F11.20 Opioid dependence, uncomplicated; F17.210 Nicotine dependence, cigarettes, uncomplicated; Z20.822 Contact with and (suspected) exposure to COVID-19; Z59.02 Unsheltered homelessness; Z90.5 Acquired absence of kidney; Z71.6 Tobacco abuse counseling; Z79.899 Other long term (current) drug therapy
CPT/HCPCS: 0241U; 36415; 80048; 80061; 80076; 80307; 81003; 82607; 82746; 83036; 83690; 83735; 84439; 84443; 85025; 93005; 99285; S9485

== ENCOUNTER → 2024-11-26 15:46 | Outpatient (BNV) | payer OTHER, SELFPAY | PROVIDERS: Admitting Provider Clinical Nurse Specialist Psychiatric/Mental Health, Adult; Emergency Provider Emergency Medicine Emergency Medical Services; PCP Internal Medicine; Visit Provider Internal Medicine Cardiovascular Disease | DX: R07.9 Chest pain, unspecified (principal) | CPT/HCPCS: 93010 ==

== ENCOUNTER → 2024-11-27 11:50 | Outpatient (BNV) | payer OTHER, SELFPAY | PROVIDERS: Admitting Provider Clinical Nurse Specialist Psychiatric/Mental Health, Adult; Emergency Provider Emergency Medicine Emergency Medical Services; PCP Internal Medicine; Visit Provider Nurse Practitioner Family | DX: F33.1 Major depressive disorder, recurrent, moderate (principal); F41.9 Anxiety disorder, unspecified; Z59.00 Homelessness unspecified | CPT/HCPCS: 90792; 99231; 99232 ==

== ENCOUNTER 2024-12-10 11:11 | Outpatient (AMB) | payer OTHER, SELFPAY ==
--- NOTE | 2024-12-10 10:22 | AM.OFFVISNUR ---
Vital Signs 12/10/24 12:15 BP 128/78 Blood Pressure Location Rt brachial Position Sitting Pulse 78 Pulse Source Pulse Oximeter Pulse Oximetry (%) 97 Oxygen Delivery Method Room Air Intake Visit Reasons: MAT visit/ starting program Allergies No Known Allergies Allergy (Verified 11/26/24 07:59) Results AMB 14 Panel Urine Drug Screen Urine Marijuana (THC) Negative Last Edit by Nayely Miles RN on 12/10/24 12:19 Urine Cocaine Negative Last Edit by Nayely Miles RN on 12/10/24 12:19 Urine Morphine Negative Last Edit by Nayely Miles RN on 12/10/24 12:19 Urine Methamphetamine Negative Last Edit by Nayely Miles RN on 12/10/24 12:19 Urine Amphetamine Negative Last Edit by Nayely Miles RN on 12/10/24 12:19 Urine Benzodiazepine Negative Last Edit by Nayely Miles RN on 12/10/24 12:19 Urine Barbiturates Negative Last Edit by Nayely Miles RN on 12/10/24 12:19 Urine Methadone Negative Last Edit by Nayely Miles RN on 12/10/24 12:19 Urine Buprenorphine Positive Last Edit by Nayely Miles RN on 12/10/24 12:19 Urine Tricyclic Antidepressant Negative Last Edit by Nayely Miles RN on 12/10/24 12:19 Urine MDMA Negative Last Edit by Nayely Miles RN on 12/10/24 12:19 Urine Oxycodone Negative Last Edit by Nayely Miles RN on 12/10/24 12:19 Urine Phencyclidine Negative Last Edit by Nayely Miles RN on 12/10/24 12:19 Urine Propoxyphene Negative Last Edit by Nayely Miles RN on 12/10/24 12:19 Assessment & Plan Assessment & Plan Orders: Orders Hepatitis A IgG Today F11.90 - Opioid use, unspecified, uncomplicated Hepatitis B Surface Antibody Today F11.90 - Opioid use, unspecified, uncomplicated Hepatitis B Surface Antigen Today F11.90 - Opioid use, unspecified, uncomplicated AMB 14 Panel Urine Drug Screen Today F11.90 - Opioid use, unspecified, uncomplicated T Spot TB Today F11.90 - Opioid use, unspecified, uncomplicated Syphilis Screen Today F11.90 - Opioid use, unspecified, uncomplicated Medications: New buprenorphine-naloxone 8-2 mg (Suboxone) 3 film buccal DAILY 7 days 21 ea 0RF Coding
--- OUTSIDE RECORDS SUMMARY | 2024-12-10 12:04 | XMS_ITS | Clinical Summary ---
Author Organization [facility] Address [address] [place] [phone] Phone Care Team Providers Care Hyperbaric Welder Diver Name Role Phone Unavailable Primary Care Provider [...] Seizure disorder, No family history of Sudden /NE under age 55, No family history of [...]
--- OUTSIDE RECORDS SUMMARY | 2024-12-10 12:04 | XMS_ITS | Encounter Summary ---
Author Organization [facility] Address [address] [place] [address] Phone Care Team Providers Care Bore Miner Operator Name Role Phone Tianna Pagan MD Primary Care Provider Encounter Details Date Type Department Care Team (Late st Contact Info) Description 03/17/2017 Conversion Encounter [facility] [place] [address] [place] [address] Social History Tobacco Use Types Packs/Day Years [...] on filedocumented in this encounter Care Teams Bore Miner Operator Relationship Specialty Start Date End Date Tianna Pagan MD [address] [place] [address] PCP - General 03/11/17 11/21/22 documented as of this encounter
--- OUTSIDE RECORDS SUMMARY | 2024-12-10 12:04 | XMS_ITS | Clinical Summary ---
Author Organization [employer] Address [address] [facility] [address] [place] [address] Care Team Providers Care Sap Solution Manager Consultant Name Role Phone Unavailable Primary Care Provider [...]
--- OUTSIDE RECORDS SUMMARY | 2024-12-10 12:04 | XMS_ITS | Clinical Summary ---
Author Organization [facility] Address [address] [place] [address] Care Team Providers Care Rn Discharge Name Role Phone Unavailable Primary Care Provider [...]
[2024-12-10 12:15] VITALS: BP 128/78; PULSE 78; O2SAT 97
== END 2024-12-10 12:50 | disposition home or self-care (01) ==
LOC: HO.HCC 11:12
PROVIDERS: PCP Internal Medicine; Visit Provider Internal Medicine
DX: F11.90 Opioid use, unspecified, uncomplicated (principal)

== ENCOUNTER → 2024-12-10 11:11 | Outpatient (BNVA) | payer OTHER, SELFPAY | PROVIDERS: PCP Internal Medicine; Visit Provider Internal Medicine | DX: F11.90 Opioid use, unspecified, uncomplicated (principal); Z51.81 Encounter for therapeutic drug level monitoring | CPT/HCPCS: 80307 ==

== ENCOUNTER 2024-12-17 11:12 | Outpatient (AMB) | payer OTHER, SELFPAY ==
[2024-12-17 11:20] VITALS: PULSE 92; O2SAT 98
--- NOTE | 2024-12-17 11:20 | A.OFFVIS_ITS ---
Vital Signs 12/17/24 11:20 Pulse 92 Pulse Source Pulse Oximeter Pulse Oximetry (%) 98 Oxygen Delivery Method Room Air Intake Visit Reasons: MAT Allergies No Known Allergies Allergy (Verified 12/17/24 11:21) HPI HPI MAT: Details: He is in a [facility] facility. He uses [facility] and script has to be written for time taken,e.g. three times a day. He has not had labs done recently for HIV and Hepatitis C he doesnt think. [facility] Medical History PTSD (post-traumatic stress disorder) MDD (major depressive disorder), recurrent episode, moderate Anxiety and depression Surgical History H/O right nephrectomy H/O kidney removal Social History Household Members: None Household Members Other:: Sister Housing: Homeless Do you presently have visiting nurse or other home services: No Unable to assess alcohol history related to: Refusing to respond Alcohol intake: never Patient Tobacco Use Status: Current everyday Tobacco user Tobacco use type: Cigarette Cigarette Packs Per Day: 1 Cigarettes Per Day: 20.0 Years Smoked: 15 e-Cigarette/Vaping Use: Former Use Second Hand Smoke Exposure: Yes Substance Use Type: Crack/Cocaine service: No Current occupational status: unemployed Sexual orientation: Straight/Heterosexual Review of Systems Const All systems reviewed & are unremarkable except as noted in HPI and below Physical Exam Vital Signs: Last Vital Signs Pulse 92 12/17/24 11:20 Pulse Ox 98 12/17/24 11:20 Oxygen Delivery Method Room Air 12/17/24 11:20 Const General: cooperative Assessment & Plan Assessment & Plan (1) Opioid use disorder: Comment: He is doing well Code(s): F11.90 - Opioid use, unspecified, uncomplicated Category: Medical Plan: Would continue Suboxone 8/2 tid, 42 ,14 days, written for. Check HIV,Hepatitis C,syphilis, Tspot ,Hepatitis A and B serologies. See in two weeks at which time he will be in a sober house he says. Orders: Orders HIV Ab/Ag Today F11.90 - Opioid use, unspecified, uncomplicated Hepatitis C Antibody Today F11.90 - Opioid use, unspecified, uncomplicated Syphilis Screen Today - Opioid use, unspecified, uncomplicated Hepatitis A IgG Today - Opioid use, unspecified, uncomplicated Hepatitis B Surface Antigen Today - Opioid use, unspecified, uncomplicated T Spot TB Today - Opioid use, unspecified, uncomplicated Hepatitis B Surface Ab Qnt Today - Opioid use, unspecified, uncomplicated Medications: New buprenorphine-naloxone 8-2 mg (Suboxone) 1 film sublingual TID 42 ea 0RF 14 days Coding Level of Care Code Est Pt Level 3 (17499) Diagnoses Opioid use disorder
--- OUTSIDE RECORDS SUMMARY | 2024-12-17 11:56 | XMS_ITS | Clinical Summary ---
Author Organization [employer] Address [address] [facility] [address] [place] [address] Care Team Providers Care Fraternity House Cook Name Role Phone Unavailable Primary Care Provider [...]
--- OUTSIDE RECORDS SUMMARY | 2024-12-17 11:56 | XMS_ITS | Clinical Summary ---
Author Organization [facility] Address [address] [place] [address] Care Team Providers Care Game Developer Name Role Phone Unavailable Primary Care Provider [...]
== END 2024-12-17 11:37 | disposition home or self-care (01) ==
LOC: HO.HCC 11:13
PROVIDERS: PCP Internal Medicine; Visit Provider Internal Medicine
DX: F11.90 Opioid use, unspecified, uncomplicated (principal)
CPT/HCPCS: 99213

== ENCOUNTER → 2024-12-17 11:12 | Outpatient (BNVA) | payer OTHER, SELFPAY | PROVIDERS: PCP Internal Medicine; Visit Provider Internal Medicine | DX: F11.20 Opioid dependence, uncomplicated (principal) | CPT/HCPCS: 99212 ==

== ENCOUNTER 2024-12-31 09:14 | Outpatient (AMB) | payer OTHER, SELFPAY ==
[2024-12-31 09:48] VITALS: PULSE 97; O2SAT 98
--- NOTE | 2024-12-31 09:48 | MHC.OFFVIS ---
Vital Signs 12/31/24 09:48 Pulse 97 Pulse Source Pulse Oximeter Pulse Oximetry (%) 98 Oxygen Delivery Method Room Air Intake Visit Reasons: MAT Allergies No Known Allergies Allergy (Verified 12/31/24 09:48) HPI HPI MAT: Details: He is doing well. He is now in half way house and plans to stay are 6-12 months or more. He goes to groups three times a day and one NA or AA meeting daily. He has no SI or HI . [facility] Medical History PTSD (post-traumatic stress disorder) MDD (major depressive disorder), recurrent episode, moderate Anxiety and depression Surgical History H/O right nephrectomy H/O kidney removal Social History Household Members: None Household Members Other:: Sister Housing: Homeless Do you presently have visiting nurse or other home services: No Unable to assess alcohol history related to: Refusing to respond Alcohol intake: never Patient Tobacco Use Status: Current everyday Tobacco user Tobacco use type: Cigarette Cigarette Packs Per Day: 1 Cigarettes Per Day: 20.0 Years Smoked: 15 e-Cigarette/Vaping Use: Former Use Second Hand Smoke Exposure: Yes Substance Use Type: Crack/Cocaine service: No Current occupational status: unemployed Sexual orientation: Straight/Heterosexual Review of Systems Const All systems reviewed & are unremarkable except as noted in HPI and below Physical Exam Vital Signs: Last Vital Signs Pulse 97 12/31/24 09:48 Pulse Ox 98 12/31/24 09:48 Oxygen Delivery Method Room Air 12/31/24 09:48 Const General: cooperative Assessment & Plan Assessment & Plan (1) Opioid use disorder: Comment: He is doing well He is living [facility] and is attending meetings and not using and depression under control. Code(s): F11.90 - Opioid use, unspecified, uncomplicated Category: Medical Plan: Continue current Suboxone tid See in two weeks. (2) MDD (major depressive disorder), recurrent episode, moderate: Code(s): F33.1 - Major depressive disorder, recurrent, moderate Category: Medical Plan: na Medications: New buprenorphine-naloxone 8-2 mg (Suboxone) 1 film sublingual TID 14 days 42 ea 0RF Coding Level of Care Code Est Pt Level 3 (31754) Diagnoses Opioid use disorder F11.90 MDD (major depressive disorder), recurrent episode, moderate F33.1
--- OUTSIDE RECORDS SUMMARY | 2024-12-31 09:50 | XMS_ITS | Clinical Summary ---
Author Organization [employer] [facility] Address [address] [place] [address] Care Team Providers Care Magazine Filler Name Role Phone Unavailable Primary Care Provider [...]
== END 2024-12-31 10:37 | disposition home or self-care (01) ==
LOC: HO.HCC 09:14
PROVIDERS: PCP Internal Medicine; Visit Provider Internal Medicine
DX: F11.90 Opioid use, unspecified, uncomplicated (principal); F33.1 Major depressive disorder, recurrent, moderate
CPT/HCPCS: 99213

== ENCOUNTER → 2024-12-31 09:14 | Outpatient (BNVA) | payer OTHER, SELFPAY | PROVIDERS: PCP Internal Medicine; Visit Provider Internal Medicine | DX: F33.1 Major depressive disorder, recurrent, moderate (principal); F11.20 Opioid dependence, uncomplicated | CPT/HCPCS: 99212 ==

== ENCOUNTER 2025-01-14 09:36 | Outpatient (AMB) | payer OTHER, SELFPAY ==
[2025-01-14 09:54] VITALS: BP 123/70; PULSE 83; O2SAT 99
--- NOTE | 2025-01-14 09:54 | AM.OFFVISNUR ---
Vital Signs 01/14/25 09:54 BP 123/70 Blood Pressure Location Lt brachial Position Sitting Pulse 83 Pulse Source Pulse Oximeter Pulse Oximetry (%) 99 Oxygen Delivery Method Room Air Intake Visit Reasons: MAT Allergies No Known Allergies Allergy (Verified 12/31/24 09:48) Coding
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
--- OUTSIDE RECORDS SUMMARY | 2025-01-14 10:27 | XMS_ITS | Clinical Summary ---
Author Organization [facility] it Address [address] [place] [address] Care Team Providers Care Erp Implementation Consultant Name Role Phone Unavailable Primary Care [...]
== END 2025-01-14 10:24 | disposition home or self-care (01) ==
PROVIDERS: PCP Internal Medicine; Visit Provider Internal Medicine
DX: F14.20 Cocaine dependence, uncomplicated (principal); F11.90 Opioid use, unspecified, uncomplicated
CPT/HCPCS: 99213

== ENCOUNTER → 2025-01-14 09:36 | Outpatient (BNVA) | payer OTHER, SELFPAY | PROVIDERS: PCP Internal Medicine; Visit Provider Internal Medicine | DX: F33.1 Major depressive disorder, recurrent, moderate (principal); F14.20 Cocaine dependence, uncomplicated; F11.90 Opioid use, unspecified, uncomplicated | CPT/HCPCS: 99212 ==

== ENCOUNTER 2025-01-28 10:44 | Outpatient (AMB) | payer OTHER, SELFPAY ==
--- OUTSIDE RECORDS SUMMARY | 2025-01-28 11:31 | XMS_ITS | Clinical Summary ---
Author Organization [facility] it Address [address] [place] [address] Care Team Providers Care Tracer Bullet Charging Machine Operator Name Role Phone Unavailable Primary Care Provider [...]
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
[2025-01-28 11:45] VITALS: BP 132/85; PULSE 108; O2SAT 98
== END 2025-01-28 11:29 | disposition home or self-care (01) ==
LOC: HO.HCC 10:45
PROVIDERS: PCP Internal Medicine; Visit Provider Clinical Nurse Specialist Psychiatric/Mental Health
DX: F11.90 Opioid use, unspecified, uncomplicated (principal); F14.20 Cocaine dependence, uncomplicated; F33.1 Major depressive disorder, recurrent, moderate
CPT/HCPCS: 99214

== ENCOUNTER → 2025-01-28 10:44 | Outpatient (BNVA) | payer OTHER, SELFPAY | PROVIDERS: PCP Internal Medicine; Visit Provider Clinical Nurse Specialist Psychiatric/Mental Health | DX: F14.20 Cocaine dependence, uncomplicated (principal); F11.90 Opioid use, unspecified, uncomplicated; F33.1 Major depressive disorder, recurrent, moderate | CPT/HCPCS: 99212 ==

== ENCOUNTER 2025-02-27 13:12 | Outpatient (AMB) | payer OTHER, SELFPAY ==
[2025-02-27 13:17] VITALS: BP 142/78; PULSE 100; O2SAT 98; BMI 38.9
--- NOTE | 2025-02-27 13:17 | MHC.OFFVIS ---
Vital Signs 02/27/25 13:17 Height 5 ft 6 in Weight 241 lb BMI 38.9 BP 142/78 H Pulse 100 Pulse Oximetry (%) 98 Intake Visit Reasons: MAT Allergies No Known Allergies Allergy (Verified 02/27/25 13:18) Medication List - Last Reconciled 02/27/25 by Gertrudis Birch NP-C acamprosate 666 mg (2 x 333 mg) PO TID aripiprazole 10 mg PO DAILY baclofen 20 mg PO BID buprenorphine-naloxone 8-2 mg (Suboxone) 1 film sublingual TID 1 month buspirone 15 mg (3 x 5 mg) PO TID clonidine HCl 0.1 mg See Protocol PO BID PRN duloxetine 30 mg PO BID gabapentin 600 mg PO TID 30 days hydroxyzine pamoate 50 mg PO Q8H PRN 30 days naloxone 4 mg/actuation (Narcan) 4 mg intranasal Q2M PRN nicotine 21 mg transdermal DAILY nicotine (polacrilex) 4 mg buccal Q2H PRN trazodone 100 mg PO BEDTIME PRN HPI Comments Details: The patient is a 34-year-old male f/u for MAT visit r/t JESUS. Reports five months of sobriety, denies use of opioids, alcohol, and other substances including marijuana use. Continues to smoke half of pack of cigarettes per day and living at [facility]. Has an apointment scheduled with [facility] for mental health services. [facility] Medical History PTSD (post-traumatic stress disorder) MDD (major depressive disorder), recurrent episode, moderate Anxiety and depression Surgical History H/O right nephrectomy H/O kidney removal Social History (Updated 02/27/25 @ 13:35 by BREANNE BakerC) Household Members: None Household Members Other:: Sister Housing: Homeless Do you presently have visiting nurse or other home services: No Unable to assess alcohol history related to: Refusing to respond Alcohol intake: never Patient Tobacco Use Status: Current everyday Tobacco user Tobacco use type: Cigarette Cigarette Packs Per Day: 1 Cigarettes Per Day: 20.0 Years Smoked: 15 e-Cigarette/Vaping Use: Former Use Second Hand Smoke Exposure: Yes service: No Current occupational status: unemployed Sexual orientation: Straight/Heterosexual Review of Systems Const All systems reviewed & are unremarkable except as noted in HPI and below Physical Exam Vital Signs: Last Vital Signs Pulse 100 02/27/25 13:17 BP 142/78 H 02/27/25 13:17 Pulse Ox 98 02/27/25 13:17 BMI result Body Mass Index 38.9 Const General: cooperative Orientation/consciousness: patient oriented x3 Neuro General: patient oriented x3 Psych Appearance: well kempt Mental Status: mental status grossly normal Speech and movement: Normal speech and movement present Affect: normal affect Attitude: cooperative Thought process: Normal thought process present Thought content: Normal thought content present Insight: Good insight present (Psych) Judgement: Good judgement present (Psych) Assessment & Plan Assessment & Plan (1) Opioid use disorder, severe, in early remission, dependence: Code(s): F11.21 - Opioid dependence, in remission Category: Medical Plan The plan of care is to continue with buprenorphine-naloxone 8-2 mg TID, acamprosate 666 mg TID, and baclofen 20 mg BID to minimize craving for cocaine. Follow up in two months. Medications: Refilled acamprosate 666 mg (2 x 333 mg) PO TID 90 tabs 1RF baclofen 20 mg PO BID 60 tabs 1RF buprenorphine-naloxone 8-2 mg (Suboxone) 1 film sublingual TID 90 ea 1RF 1 month Patient Instructions: - Continue with buprenorphine-naloxone 8-2 mg twice per day, acamprosate 666 mg three times per day, and baclofen 20 mg, twice per day. - Follow up in tow months or sooner, if needed. - Call with questions, concerns, or to reports side effects/new onset of symptoms to [facility]. - The patient verbalized understanding and agreed with plan of care. Coding Level of Care Code Est Pt Level 3 (93190) Diagnoses Opioid use disorder, severe, in early remission, dependence F11.21
--- OUTSIDE RECORDS SUMMARY | 2025-02-27 13:44 | XMS_ITS | Clinical Summary ---
Author Organization [employer] [facility] Address [address] [place] [address] Care Team Providers Care Lab Technician Name Role Phone Unavailable Primary Care Provider [...] season) 2024 Cholesterol Screening (Lipid Panel) 06/02/2024 HIV Screening 06/02/2024 Hepatitis C Screening 06/02/2024 Social Influencers of Health Screening 06/02/2024 Depression Screening 08/01/2024 Influenza Vaccine (#1) 2025 HIB Vaccines Aged Out No longer [...] 5 Years) and At-Risk Patients (6 to 49 Years) Aged Out No longer eligible b ased on patient's age to complete this topic RSV Immunization Patients Un jayesh 20 months Aged Out No longer eligible b ased on patient's age to complete this topic Varicella Vaccines Aged Out No longer eligible based on patient's age to complete this topic
--- OUTSIDE RECORDS SUMMARY | 2025-02-27 13:44 | XMS_ITS | Clinical Summary ---
Author Organization [employer] Address [address] [facility] [address] [place] [address] Care Team Providers Care Geothermal Plant Manager Name Role Phone Unavailable Primary Care Provider [...] Date Last Done Comments Depression Screening 1989 Lipid Panel 1989 Disability Screening 1989 Alcohol/Substance Use Screening 2001 Tobacco Screening 2001 Family Planning (PISQ) 2004 HPV Vaccines (1 - Male 3-dos e series) 2004 DTaP/Tdap/Td Vaccines (1 - Tdap) 2008 Hepatitis B Vaccines (1 of 3 - 19+ 3-dose series) 2008 COVID-19 Vaccine (1 - 2023-2 5 season) 2024 Influenza Vaccine (#1) 2025 Zoster Vaccines (1 of 2) 2039 RSV [...] Years) and At-Risk Patients (6 to 49) Years Aged Out No longer eligible b ased on patient's age to complete this topic RSV under 20 months Aged Out No longe r eligible based on patient's age to complete this topic Rotavirus Vaccines Aged Out No longer eligible based on patient's age to complete this topic
--- OUTSIDE RECORDS SUMMARY | 2025-02-27 13:44 | XMS_ITS | Encounter Summary ---
Author Organization [facility] Address [address] [place] [address] Phone Care Team Providers Care Tie In Hand Name Role Phone Tianna Pagan MD Primary Care Provider Encounter Details Date Type Department Care Team (Late st Contact Info) Description 03/17/2017 Conversion Encounter [facility] [place] [address] [place] [address] Social History Tobacco Use Types Packs/Day Years [...] on filedocumented in this encounter Care Teams Tie In Hand Relationship Specialty Start Date End Date Tianna Pagan MD [address] [place] [address] PCP - General 03/11/17 11/21/22 documented as of this encounter
== END 2025-02-27 13:31 | disposition home or self-care (01) ==
LOC: HO.HCC 13:12
PROVIDERS: PCP Internal Medicine; Visit Provider Clinical Nurse Specialist Psychiatric/Mental Health
DX: F11.21 Opioid dependence, in remission (principal)
CPT/HCPCS: 99213

== ENCOUNTER → 2025-02-27 13:12 | Outpatient (BNVA) | payer OTHER, SELFPAY | PROVIDERS: PCP Internal Medicine; Visit Provider Clinical Nurse Specialist Psychiatric/Mental Health | DX: F11.21 Opioid dependence, in remission (principal); Z79.899 Other long term (current) drug therapy | CPT/HCPCS: 99212 ==

== ENCOUNTER 2025-04-30 16:05 | Outpatient (AMB) | payer OTHER, SELFPAY ==
[2025-04-30 16:10] VITALS: BP 126/76; PULSE 104; O2SAT 96
--- NOTE | 2025-04-30 16:10 | MHC.OFFVIS ---
Vital Signs 04/30/25 16:10 BP 126/76 Pulse 104 H Pulse Oximetry (%) 96 Intake Visit Reasons: MAT Allergies No Known Allergies Allergy (Verified 04/30/25 16:11) HPI Comments Details: The patient is a 34-year-old male presenting for a follow up visit r/t JESUS in sustained remission with buprenorphine-naloxone 8-2 mg TID. Denies use of opiates, alcohol, and other substances. Reports a decrease in cigarette smoking. 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 He is currently unemployed and in the process of obtaining SSI, with an upcoming hearing scheduled. The patient maintains regular mental health support through therapy and psychiatric services, where his involvement is consistent and responsible. He confirms that Narcan is available in his home. Family dynamics appear stable, with no reported stressors affecting his condition. Overall, the patient reports feeling stable with his recovery management plan. [facility] Medical History PTSD (post-traumatic stress disorder) MDD (major depressive disorder), recurrent episode, moderate Anxiety and depression Surgical History H/O right nephrectomy H/O kidney removal Social History (Updated 02/27/25 @ 13:35 by WINNIE Baker) Household Members: None Household Members Other:: Sister Housing: Homeless Do you presently have visiting nurse or other home services: No Alcohol intake: never Patient Tobacco Use Status: Current everyday Tobacco user Tobacco use type: Cigarette Cigarette Packs Per Day: 1 Cigarettes Per Day: 20.0 Years Smoked: 15 e-Cigarette/Vaping Use: Former Use Second Hand Smoke Exposure: Yes service: No Current occupational status: unemployed Sexual orientation: Straight/Heterosexual Physical Exam Vital Signs: Last Vital Signs Pulse 104 H 04/30/25 16:10 BP 126/76 04/30/25 16:10 Pulse Ox 96 04/30/25 16:10 Assessment & Plan Assessment & Plan (1) Opioid use disorder in remission: Code(s): F11.91 - Opioid use, unspecified, in remission Category: Medical Plan The plan is to continue buprenorphine-naloxone 8-2 mg TID and baclofen 20 mg BID to decrease cravings for stimulants. He is advised to continue engaging in therapy and psychiatric follow-ups to support recovery. Availability of Narcan in the household is ensured for emergencies. Medications: Refilled buprenorphine-naloxone 8-2 mg (Suboxone) 1 film sublingual TID 90 ea 1RF 1 month baclofen 20 mg PO BID 60 tabs 1RF Patient Instructions: - Continue with buprenorphine-naloxone and baclofen as prescribed. - Continue reducing cigarette smoking gradually; try smoking fewer cigarettes each day. - Follow-up in 2 months or sooner if needed. - Call with questions, concerns, or to report side effects/new onset of symptoms to [facility]. - The patient verbalized understanding and agreed with plan of care. Coding Level of Care Code Est Pt Level 3 (54260) Diagnoses Opioid use disorder in remission F11.91
--- OUTSIDE RECORDS SUMMARY | 2025-04-30 17:06 | XMS_ITS | Clinical Summary ---
Author Organization [facility] Address [address] [place] [id number] Phone Care Team Providers Care Argon Tester Name Role Phone Unavailable Primary Care Provider [...] Seizure disorder, No family history of Sudden /ME under age 55, No family history of [...] of 2 - 13+ 2-dose series) 2002 HPV Vaccines (1 - 3-dose SCDM series) 2016 Influenza Vaccines (#1) 2025 COVID-19 Vaccine (2024- season) 2025 HIB Vaccines Completed 11/29/1990 IPV Vaccines Completed 01/18/1994, 08/1990, 11/29/1990, Additional history exists MMR Vaccines Completed 11/23/1994, 09/29/1990 Hepatitis B Vaccines Completed 09/07/1999, 05/06/1999, 03/26/1999 Hepatitis A Vaccines Aged Out No long [...]
--- OUTSIDE RECORDS SUMMARY | 2025-04-30 17:06 | XMS_ITS | Clinical Summary ---
Author Organization [employer] [facility] it Address [address] [place] [address] Care Team Providers Care Supervisor Dental Laboratory Name Role Phone Unavailable Primary Care Provider [...] of 3 - 19+ 3-dose series) 2008 Cholesterol Screening (Lipid Panel) 06/02/2024 HIV Screening 06/02/2024 Hepatitis C Screening 06/02/2024 Social Influencers of Health Screening 06/02/2024 Depression Screening 08/01/2024 COVID-19 Vaccine ( - 2023-2 5 season) 2025 Influenza Vaccine (#1) 2025 HIB Vaccines Aged [...]
--- OUTSIDE RECORDS SUMMARY | 2025-04-30 17:06 | XMS_ITS | Encounter Summary ---
Author Organization [facility] Address [address] [place] [address] Phone Care Team Providers Care Bilingual Sales Consultant Name Role Phone Tianna Pagan MD Primary Care Provider Encounter Details Date Type Department Care Team (Late st Contact Info) Description 03/17/2017 Conversion Encounter [facility] - [place] [address] [place] [address] Social History Tobacco Use Types Packs/Day Years [...] on filedocumented in this encounter Care Teams Bilingual Sales Consultant Relationship Specialty Start Date End Date Tianna Pagan MD [address] [place] [address] PCP - General 03/11/17 11/21/22 documented as of this encounter
--- OUTSIDE RECORDS SUMMARY | 2025-04-30 17:06 | XMS_ITS | Clinical Summary ---
Author Organization [employer] Address [address] [facility] [address] [place] [address] Care Team Providers Care External Auditor Name Role Phone Unavailable Primary Care Provider [...] COVID-19 Vaccine (1 - 2023-2 5 season) 2025 Influenza Vaccine (#1) 2025 Zoster Vaccines (1 [...]
== END 2025-04-30 16:28 | disposition home or self-care (01) ==
LOC: HO.HCC 16:05
PROVIDERS: PCP Internal Medicine; Visit Provider Clinical Nurse Specialist Psychiatric/Mental Health
DX: F11.91 Opioid use, unspecified, in remission (principal)
CPT/HCPCS: 99213

== ENCOUNTER → 2025-04-30 16:05 | Outpatient (BNVA) | payer OTHER, SELFPAY | PROVIDERS: PCP Internal Medicine; Visit Provider Clinical Nurse Specialist Psychiatric/Mental Health | DX: F11.91 Opioid use, unspecified, in remission (principal); F17.210 Nicotine dependence, cigarettes, uncomplicated | CPT/HCPCS: 99212 ==